=== PATIENT | male | born 1975 | race Caucasian/White ===

== ENCOUNTER 2018-02-21 21:07 | Inpatient (IN) | payer OTHER ==
[~2018-02-21] VITALS: Ht 177.8 cm; Wt 76.0 kg
[2018-02-21] MEDS ORDERED: DIAZEPAM 5MG TAB PO STA ×2 (21:50→23:06)
[2018-02-21] MEDS ORDERED: MULTI-VITAMIN INFUSION INJ 10 ML, THIAMINE HCL INJ 100 MG, FoLIC ACID INJ 1 MG in SODIU... IV ONE (22:00)
--- NOTE | 2018-02-21 22:09 | EMERGENCY ROOM VISIT NOTE ---
History Report prepared by Mara: Aidan Ernandez Under the Supervision of: Dr. Pretty Alvarado M.D. First contact with patient: 21:50 Chief Complaint: DETOX REQUEST Stated Complaint: LEFT SIDE NUMBNESS, HIGH BP, DETOX Nursing Triage Summary: pt reports last drink was 1 can of beer at 1000. pt has been drinking at least 15 beers a day. pt reports that he has been drinking all of his life but it got worse when he lost his job last month. pt reports hearing voices when he drinks heavily and paranoia. pt reports that he cut himself last month due to SI. pt states "I think I have some mental health issues." History of Present Illness The patient is a 42 year old male who presents to the Emergency Room with complaints of request for detoxification since this evening for alcoholism and Suboxone use for years. He notes that he has been drinking alcohol since he was 18 years old. He reports drinking 20 beers that are usually of higher alcohol concentration. He reports taking Suboxone every day. He notes that he was initially prescribed the medication, though he now obtains the drug from the streets. He chews snuff. He has a history of HTN. Source of History: patient Onset: since this evening Position: other (general ) Quality: other (detoxification) Timing: other (episodic ) Review of Systems See HPI for pertinent positives & negatives. A total of 10 systems reviewed and were otherwise negative. Past Medical & Surgical Medical Problems: (1) Alcohol withdrawal (2) HTN (hypertension) Family History Hypertension Social History Smoking Status: Unknown if Ever Smoked Smokeless Tobacco Use: Yes (Snuff) Alcohol Use: heavy (20 beers/day) Drug Use: other (Suboxone) Marital Status: single Housing Status: lives with family Occupation Status: unemployed Current/Historical Medications Scheduled Ibuprofen (Advil), 400 MG PO PRN UD Losartan Potassium (Cozaar), 50 MG PO DAILY Allergies Coded Allergies: No Known Allergies (Unverified , 02/22/18) Physical Exam Vital Signs Date Time Temp Pulse Resp B/P (MAP) Pulse Ox O2 Delivery O2 Flow Rate FiO2 02/21/18 23:31 87 19 180/110 100 Room Air 02/21/18 23:15 86 18 182/106 100 Room Air 02/21/18 21:41 92 22 189/115 02/21/18 21:37 90 02/21/18 21:16 36.6 104 20 199/118 100 Room Air Physical Exam Vital signs reviewed. General: Anxious 42-year-old male. No signs of trauma. Hypertensive. Shaking on exam. HEENT: Mild scleral injection bilaterally, PERRLA, neck supple, dry mucous membranes. Cardiovascular: Tachycardic rate and regular rhythm, no extra sounds. Pulmonary: Clear to auscultation bilaterally, normal work of breathing. Abdomen: Soft, nontender, nondistended, positive bowel sounds. Musculoskeletal: Upper and lower extremities atraumatic, no peripheral edema Skin: Warm, dry, no rash. Atraumatic. Neurologic: Patient is currently verbal, awake, alert, and oriented. Medical Decision & Procedures Laboratory Results 02/21/18 22:10 Red Blood Count 4.09, Mean Corpuscular Volume 90.7, Mean Corpuscular Hemoglobin 31.8, Mean Corpuscular Hemoglobin Concent 35.0, Mean Platelet Volume 9.0, Neutrophils (%) (Auto) 71.7, Lymphocytes (%) (Auto) 21.3, Monocytes (%) (Auto) 6.2, Eosinophils (%) (Auto) 0.2, Basophils (%) (Auto) 0.4, Neutrophils # (Auto) 3.33, Lymphocytes # (Auto) 0.99, Monocytes # (Auto) 0.29, Eosinophils # (Auto) 0.01, Basophils # (Auto) 0.02 02/21/18 22:10 Test 02/21/18 21:33 02/21/18 22:10 02/21/18 22:20 Urine Color YELLOW Urine Appearance CLEAR (CLEAR) Urine pH 6.5 (4.5-7.5) Urine Specific [place] 1.011 (1.000-1.030) Urine Protein NEG (NEG) Urine Glucose (UA) NEG (NEG) Urine Ketones NEG (NEG) Urine Occult Blood NEG (NEG) Urine Nitrite NEG (NEG) Urine Bilirubin NEG (NEG) Urine Urobilinogen NEG (NEG) Urine Leukocyte Esterase NEG (NEG) Urine Opiates Screen NEG (NEG) Urine Methadone, Qualitative NEG (NEG) Urine Barbiturates NEG (NEG) Urine Phencyclidine (PCP) Level NEG (NEG) Ur Amphetamine/Methamphetamine NEG (NEG) MDMA (Ecstasy) Screen NEG (NEG) Urine Benzodiazepines Screen NEG (NEG) Urine Cocaine Metabolite NEG (NEG) Urine Marijuana (THC) NEG (NEG) White Blood Count 4.65 K/uL (4.8-10.8) Red Blood Count 4.09 M/uL (4.7-6.1) Hemoglobin 13.0 g/dL (14.0-18.0) Hematocrit 37.1 % (42-52) Mean Corpuscular Volume 90.7 fL (80-100) Mean Corpuscular Hemoglobin 31.8 pg (25-34) Mean Corpuscular Hemoglobin Concent 35.0 g/dl (32-36) Platelet Count 186 K/uL (130-400) Mean Platelet Volume 9.0 fL (7.4-10.4) Neutrophils (%) (Auto) 71.7 % Lymphocytes (%) (Auto) 21.3 % Monocytes (%) (Auto) 6.2 % Eosinophils (%) (Auto) 0.2 % Basophils (%) (Auto) 0.4 % Neutrophils # (Auto) 3.33 K/uL (1.4-6.5) Lymphocytes # (Auto) 0.99 K/uL (1.2-3.4) Monocytes # (Auto) 0.29 K/uL (0.11-0.59) Eosinophils # (Auto) 0.01 K/uL (0-0.5) Basophils # (Auto) 0.02 K/uL (0-0.2) RDW Standard Deviation 43.5 fL (36.4-46.3) RDW Coefficient of Variation 13.0 % (11.5-14.5) Immature Granulocyte % (Auto) 0.2 % Immature Granulocyte # (Auto) 0.01 K/uL (0.00-0.02) Prothrombin Time 10.3 SECONDS (9.0-12.0) Prothromb Time International Ratio 1.0 (0.9-1.1) Activated Partial Thromboplast Time 22.9 SECONDS (21.0-31.0) Partial Thromboplastin Ratio 0.9 Anion Gap 7.0 mmol/L (3-11) Est Creatinine Clear Calc Drug Dose 114.6 ml/min Estimated GFR () 123.1 Estimated GFR (Non- 106.2 BUN/Creatinine Ratio 7.7 (10-20) Calcium Level 8.9 mg/dl (8.5-10.1) Total Bilirubin 0.7 mg/dl (0.2-1) Direct Bilirubin 0.2 mg/dl (0-0.2) Aspartate Amino Transf (AST/SGOT) 58 U/L (15-37) Alanine Aminotransferase (ALT/SGPT) 50 U/L (12-78) Alkaline Phosphatase 57 U/L (45-117) Total Creatine Kinase 139 U/L (39-308) Total Protein 8.5 gm/dl (6.4-8.2) Albumin 4.5 gm/dl (3.4-5.0) Lipase 123 U/L (73-393) Thyroid Stimulating Hormone (TSH) 1.520 uIu/ml (0.300-4.500) Salicylates Level < 1.7 mg/dl (2.8-20) Acetaminophen Level < 2 ug/ml (10-30) Ethyl Alcohol mg/dL < 3.0 mg/dl (0-3) Laboratory results per my review. Medications Administered Medications (Trade) Dose Ordered Sig/Apple Route Start Time Stop Time Status Last Admin Dose Admin Diazepam (Valium Tab) 15 mg NOW STAT PO 02/21/18 21:50 02/21/18 21:52 DC 02/21/18 22:28 15 MG Multivitamins 10 ml/Thiamine HCl 100 mg/Folic Acid 1 mg/Sodium Chloride 1,011.2 ml @ 300 mls/ hr Q3H23M ONCE IV 02/21/18 22:00 02/22/18 01:22 DC 02/21/18 22:31 300 MLS/HR Diazepam (Valium Tab) 10 mg NOW STAT PO 02/21/18 23:06 02/21/18 23:07 DC 02/21/18 23:27 10 MG ECG Per My Interpretation Indication: toxicologic Rate (beats per minute): 84 Rhythm: normal sinus Findings: no acute ischemic change, no ectopy ED Course 2158: Past medical records reviewed. The patient was evaluated in room A121B. A complete history and physical examination was performed. 2149: Ordered Valium 15 mg PO 0: Ordered Multivitamins 10 ml/Thiamine HCl 100 mg/Folic Acid 1 mg/Sodium Chloride 1,011.2 ml @ 300 mls/hr IV 6: Ordered Valium 10 mg PO 2345: Dr. Victor, [facility] hospitalist is aware of the patient's case. The patient will be evaluated by the [facility] for further management. Medical Decision Differential diagnosis: Etiologies such as toxicologic, infection, hypoglycemia, electrolyte abnormalities, cardiac sources, intracerebral event, neurologic, as well as others were entertained. This patient was evaluated and appeared to be in no significant distress. Patient is noted to be tachycardic and hypertensive. He does appear to be withdrawing from alcohol and likely Suboxone. Patient was given 15 mg of oral Valium. A banana bag at 300 mL's per hour. Laboratory work was obtained and is found to be stable. Patient was given an additional 10 mg of oral Valium for continued withdrawal symptoms. He was informed of the findings and the plan for the hospitalist evaluation. He and his dad expressed an understanding and agree. Medication Reconcilliation Current Medication List: was personally reviewed by me Blood Pressure Screening Patient's blood pressure: Elevated blood pressure monitored by hospitalist Consults Time Called: [phone] Consulting Physician: Dr. Victor [facility] hospitalist Returned Call: [phone] Dr. Victor [facility] hospitalist is aware of the patient's case. The patient will be evaluated by the [facility] for further management. Impression Primary Impression: Alcohol withdrawal Scribe Attestation The scribe's documentation has been prepared under my direction and personally reviewed by me in its entirety. I confirm that the note above accurately reflects all work, treatment, procedures, and medical decision making performed by me. Departure Information Dispostion Being Evaluated By Hospitalist Patient Instructions My [facility]
[2018-02-21 22:24] LABS: BASO % 0.4 %; BASO ABS # 0.02 K/uL (0-0.2); EOS % 0.2 %; EOS ABS # 0.01 K/uL (0-0.5); HEMATOCRIT 37.1 % (42-52); IG# 0.01 K/uL (0.00-0.02); LYMPH % 21.3 %; LYMPH ABS # 0.99 K/uL (1.2-3.4); MEAN CELL VOLUME 90.7 fL (80-100); MEAN CORPUSCULAR HEMOGLOBIN 31.8 pg (25-34); MONO % 6.2 %; MONO ABS # 0.29 K/uL (0.11-0.59); NEUT % 71.7 %; NEUT ABS # 3.33 K/uL (1.4-6.5); PLATELET COUNT 186 K/uL (130-400); RED CELL DISTRIBUTION WIDTH SD 43.5 fL (36.4-46.3); WHITE BLOOD COUNT 4.65 K/uL (4.8-10.8)
[2018-02-21 22:33] LABS: PTT PATIENT 22.9 SECONDS (21.0-31.0)
[2018-02-21] MEDS ORDERED: LOSA50TA6 PO (22:41)
[2018-02-21] MEDS ORDERED: IBUP-1050 PO (22:41)
[2018-02-21 22:45] LABS: ALBUMIN 4.5 gm/dl (3.4-5.0); CALCIUM 8.9 mg/dl (8.5-10.1); CREATININE 0.89 mg/dl (0.60-1.40); POTASSIUM 3.5 mmol/L (3.5-5.1)
[2018-02-21 22:56] LABS: TOTAL PROTEIN 8.5 gm/dl (6.4-8.2)
--- NOTE | 2018-02-21 23:39 | History and Physical ---
History & Physical Date & Time of Service: February 21, 2018 at 23:38 Chief Complaint: Left Side Numbness, High Bp, Detox Primary Care Physician: Syed Ge M.D. History of Present Illness Source: patient, hospital records The patient is a 42-year-old male, with a past medical history including alcoholism, chronic Suboxone use and hypertension, who presents to the emergency department with concerns regarding alcohol withdrawal. He reports that he has been drinking alcohol since age 18, and averages 20 beers of higher alcohol concentration daily. He reports that he initially was on Suboxone prescription, but now he buys the drug on the streets. Past Medical/Surgical History Medical Problems: (1) Alcohol withdrawal Family History noncontributory Social History Smoking Status: Never Smoker Smokeless Tobacco Use: Yes Alcohol Use: heavy Drug Use: other (Suboxone) Marital Status: single Housing status: lives with family Occupational Status: unemployed Immunizations History of Influenza Vaccine: Unknown History of Tetanus Vaccine?: Unknown History of Pneumococcal: Unknown History of Hepatitis B Vaccine: Unknown Allergies Coded Allergies: No Known Allergies (Unverified , 02/22/18) Home Medications Scheduled Ibuprofen (Advil), 400 MG PO PRN UD Losartan Potassium (Cozaar), 50 MG PO DAILY Review of Systems The patient denies chest pain, palpitations, shortness of breath, dyspnea on exertion, cough, lower extremity swelling, sore throat, fevers, weight change, fatigue, nausea, vomiting, diarrhea , constipation, pelvic pain, blood in urine or stool, dysuria, urinary frequency or urgency, lightheadedness , dizziness, headache, memory loss, loss of consciousness, rash, abnormal bruising or bleeding, imbalance, focal or generalized weakness, numbness or tingling in arms or legs, back or neck pain. The review of systems is otherwise negative other than for that already noted above, and at least 10 systems have been reviewed. Physical Exam Vital Signs Date Time Temp Pulse Resp B/P (MAP) Pulse Ox O2 Delivery O2 Flow Rate FiO2 02/21/18 23:15 86 18 182/106 100 Room Air 02/21/18 21:41 92 22 189/115 02/21/18 21:37 90 02/21/18 21:16 36.6 104 20 199/118 100 Room Air The patient is awake, alert and oriented 3, well developed and well nourished, normocephalic and atraumatic, lying in bed and in no acute distress. HEENT--PERRL, EOMI, mucous membranes and oropharynx dry. Neck--supple. No JVD. No bruits. Thyroid normal, trachea midline, no adenopathy. Heart--normal S1 and S2. No murmurs, rubs or gallops. Lungs--clear bilaterally, no respiratory distress, no accessory muscle use. Abdomen--normal bowel sounds and soft. Nontender. Nondistended, no hernias or masses, no organomegaly. Extremities--no cyanosis or clubbing. No edema. There are good distal pulses b/ l. Dermatologic--normal skin turgor, normal color, no abnormal lymph nodes, no rash. Neurologic--cranial nerves II through XII grossly intact. Rheumatologic--normal range of motion. Psychiatric--normal affect. Diagnostics Laboratory Results Results Past 24 Hours Test 02/21/18 21:33 02/21/18 22:10 02/21/18 22:20 Range/Units Urine Color YELLOW Urine Appearance CLEAR CLEAR Urine pH 6.5 4.5-7.5 Urine Specific [place] 1.011 1.000-1.030 Urine Protein NEG NEG Urine Glucose (UA) NEG NEG Urine Ketones NEG NEG Urine Occult Blood NEG NEG Urine Nitrite NEG NEG Urine Bilirubin NEG NEG Urine Urobilinogen NEG NEG Urine Leukocyte Esterase NEG NEG Urine Opiates Screen NEG NEG Urine Methadone, Qualitative NEG NEG Urine Barbiturates NEG NEG Urine Phencyclidine (PCP) Level NEG NEG Ur Amphetamine/Methamphetamine NEG NEG MDMA (Ecstasy) Screen NEG NEG Urine Benzodiazepines Screen NEG NEG Urine Cocaine Metabolite NEG NEG Urine Marijuana (THC) NEG NEG White Blood Count 4.65 4.8-10.8 K/uL Red Blood Count 4.09 4.7-6.1 M/uL Hemoglobin 13.0 14.0-18.0 g/dL Hematocrit 37.1 42-52 % Mean Corpuscular Volume 90.7 80-100 fL Mean Corpuscular Hemoglobin 31.8 25-34 pg Mean Corpuscular Hemoglobin Concent 35.0 32-36 g/dl Platelet Count 186 130-400 K/uL Mean Platelet Volume 9.0 7.4-10.4 fL Neutrophils (%) (Auto) 71.7 % Lymphocytes (%) (Auto) 21.3 % Monocytes (%) (Auto) 6.2 % Eosinophils (%) (Auto) 0.2 % Basophils (%) (Auto) 0.4 % Neutrophils # (Auto) 3.33 1.4-6.5 K/uL Lymphocytes # (Auto) 0.99 1.2-3.4 K/uL Monocytes # (Auto) 0.29 0.11-0.59 K/uL Eosinophils # (Auto) 0.01 0-0.5 K/uL Basophils # (Auto) 0.02 0-0.2 K/uL RDW Standard Deviation 43.5 36.4-46.3 fL RDW Coefficient of Variation 13.0 11.5-14.5 % Immature Granulocyte % (Auto) 0.2 % Immature Granulocyte # (Auto) 0.01 0.00-0.02 K/uL Prothrombin Time 10.3 9.0-12.0 SECONDS Prothromb Time International Ratio 1.0 0.9-1.1 Activated Partial Thromboplast Time 22.9 21.0-31.0 SECONDS Partial Thromboplastin Ratio 0.9 Sodium Level 134 136-145 mmol/L Potassium Level 3.5 3.5-5.1 mmol/L Chloride Level 99 98-107 mmol/L Carbon Dioxide Level 28 21-32 mmol/L Anion Gap 7.0 3-11 mmol/L Blood Urea Nitrogen 7 7-18 mg/dl Creatinine 0.89 0.60-1.40 mg/dl Est Creatinine Clear Calc Drug Dose 114.6 ml/min Estimated GFR () 123.1 Estimated GFR (Non- 106.2 BUN/Creatinine Ratio 7.7 10-20 Random Glucose 100 70-99 mg/dl Calcium Level 8.9 8.5-10.1 mg/dl Total Bilirubin 0.7 0.2-1 mg/dl Direct Bilirubin 0.2 0-0.2 mg/dl Aspartate Amino Transf (AST/SGOT) 58 15-37 U/L Alanine Aminotransferase (ALT/SGPT) 50 12-78 U/L Alkaline Phosphatase 57 45-117 U/L Total Creatine Kinase 139 39-308 U/L Total Protein 8.5 6.4-8.2 gm/dl Albumin 4.5 3.4-5.0 gm/dl Lipase 123 73-393 U/L Thyroid Stimulating Hormone (TSH) 1.520 0.300-4.500 uIu/ml Salicylates Level < 1.7 2.8-20 mg/dl Acetaminophen Level < 2 10-30 ug/ml Ethyl Alcohol mg/dL < 3.0 0-3 mg/dl Impression Assessment and Plan Alcohol withdrawal/history of Suboxone misuse/elevated blood pressure and heart rate with tremors-- Admit to telemetry unit. AWSS protocol with gabapentin/IV ativan. He reports his last alcohol use was early this morning, and is unclear about last Suboxone use. He has received from the ED Valium 15 mg, then 10 mg. When I placed on any other routine benzodiazepines until effect of the above Valium is determined. He was given 1 banana bag in the ED. Placed on NSS + KCl 20 mEq at 150 mils per hour. Thiamine 100 mg p.o. daily. Folic acid 1 mg p.o. daily. Nephrocaps [address] on clonidine 0.1 mg p.o. 4 times daily with hold parameters. Advanced Directives Existing Advance Directive: No Existing Living Will: No Existing Power of Lathe [place]: No Resuscitation Status VTE Prophylaxis Will order VTE Prophylaxis: Yes
[2018-02-22] VITALS (11 sets, daily range): BP systolic 126–177; BP diastolic 88–109; PULSE 61–84; TEMP 36.4–37.3; O2SAT 97–100; Ht 177.8 cm; Wt 76.0 kg
[2018-02-22] MEDS ORDERED: ACETAMINOPHEN 325 MG TAB PO PRN (01:00)
[2018-02-22] MEDS ORDERED: ONDANSETRON 8MG OD TAB PO PRN (01:00)
[2018-02-22] MEDS ORDERED: GABAPENTIN 600 MG TAB PO STA (01:12)
[2018-02-22] MEDS ORDERED: CLONIDINE HCL 0.1 MG TAB PO ONE (01:15)
[2018-02-22] MEDS ORDERED: PATIENT'S ALLERGY INFO NEEDS ENTERED SCH (01:30)
[2018-02-22] MEDS: LORAZEPAM 2 MG/ML 1 ML VIAL IV PRN ×4 (01:30→16:03)
[2018-02-22] MEDS: NSS + 20MEQ KCL 1000ML 1,000 ML IV SCH ×4 (01:31→22:33)
[2018-02-22] MEDS: THIAMINE HCL 100 MG TAB PO SCH (08:09)
[2018-02-22] MEDS: ENOXAPARIN 40 MG/0.4 ML SYR SC SCH (08:10)
[2018-02-22] MEDS: NEPHROCAPS PO SCH (08:10)
[2018-02-22] MEDS: GABAPENTIN 100MG Q6H DOSE PO SCH ×2 (08:10→14:27)
[2018-02-22] MEDS ORDERED: CLONIDINE HCL 0.1 MG TAB PO SCH (09:00)
[2018-02-22] MEDS ORDERED: CYANOCOBALAMIN 500 MCG TAB (VIT B-12) PO ONE (09:43)
--- NOTE | 2018-02-22 09:59 | Hospitalist Progress Note ---
Hospitalist Progress Note Date of Service February 22, 2018. (Lucy Pizano ., CECILIA) Subjective Pt evaluation today including: conversation w/ patient, physical exam, chart review, lab review, review of studies, review of inpatient medication list Voiding: no voiding problems Mr. Oswald is alert and oriented and conversing appropriately. He does have some tremors in his hands, given Ativan by nursing just before I saw him. He reports his last drink was 1000 yesterday. He has also been taking 1-2 strips of Suboxone a day. 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 He denies any IVDU and he has not taken any opiates since starting the Suboxone. He has contacted an outpatient rehab in [place] and plans to attend after discharge. He would like to move in with his parents but they require sobriety before he does so. He also reports feeling depressed and anxious and hearing voices. They do not tell him to hurt himself or others. He has tried Celexa in the past but couldn' t tolerate it. He was on Lexapro for a while but stopped due to loss of libido. He also mentions he has had some persistent numbness in his left whyte over the past month as well as his lips that he feels mostly when drinking. ROS Constitutional: no chills, aches, sweats or fever Respiratory: no sob,cough, sputum, or wheezing Cardiac: no chest pain, palpitations, edema, orthopnea or lightheadedness GI: no abdominal pain, nausea, vomiting, diarrhea or constipation : no dysuria or hesitancy Extremities: no joint pain or weakness Skin: no rash All other systems reviewed and negative (Lucy Pizano .CECILIA) Medications Medications Administered Medications (Trade) Dose Ordered Sig/Apple Route Start Time Stop Time Status Last Admin Dose Admin Diazepam (Valium Tab) 15 mg NOW STAT PO 02/21/18 21:50 02/21/18 21:52 DC 02/21/18 22:28 15 MG Multivitamins 10 ml/Thiamine HCl 100 mg/Folic Acid 1 mg/Sodium Chloride 1,011.2 ml @ 300 mls/ hr Q3H23M ONCE IV 02/21/18 22:00 02/22/18 01:22 DC 5/3/18 22:31 300 MLS/HR Diazepam (Valium Tab) 10 mg NOW STAT PO 02/21/18 23:06 02/21/18 23:07 DC 02/21/18 23:27 10 MG Enoxaparin Sodium (Lovenox Inj) 40 mg Q24H SC 02/22/18 09:00 03/24/18 08:59 02/22/18 08:10 40 MG Potassium Chloride/Sodium Chloride 1,000 ml @ 150 mls/hr Q6H40M IV 02/22/18 03:00 03/24/18 02:59 02/22/18 08:51 150 MLS/HR Clonidine HCl (Catapres Tab) 0.1 mg NOW ONCE PO 02/22/18 01:15 02/22/18 01:16 DC 02/22/18 01:30 0.1 MG Clonidine HCl (Catapres Tab) hold for HR < 60 or SBP < 110 QID PO 02/22/18 09:00 03/24/18 08:59 02/22/18 08:10 0.1 MG Thiamine HCl (Vitamin B-1 Tab) 100 mg Q24H PO 02/22/18 09:00 03/24/18 08:59 02/22/18 08:09 100 MG Gabapentin (Neurontin Tab) 600 mg NOW STAT PO 02/22/18 01:12 02/22/18 01:15 DC 02/22/18 01:31 600 MG Lorazepam (Ativan Inj) PRN Dosing -Active Protocol Q1H PRN IV 02/22/18 01:15 03/24/18 01:14 02/22/18 08:09 1 MG Folic Acid (Folvite Tab) 1 mg QAM PO 02/22/18 09:00 03/24/18 08:59 02/22/18 08:09 1 MG Vitamin B Complex/ Vit C/Folic Acid (Nephrocaps) 1 cap QAM PO 02/22/18 09:00 03/24/18 08:59 02/22/18 08:10 1 CAP Gabapentin (Neurontin Cap) 100 mg Q6H PO 02/22/18 08:00 02/22/18 14:01 02/22/18 08:10 100 MG Miscellaneous Information (Patient'S Allergy Info Needs Entered) 1 ea Q30M N/A 02/22/18 01:30 02/22/18 09:17 DC 02/22/18 01:30 1 EA (Lucy Pizano CRNP) Objective Vital Signs Date Time Temp Pulse Resp B/P (MAP) Pulse Ox O2 Delivery O2 Flow Rate FiO2 02/22/18 06:57 36.4 67 20 144/88 (106) 100 Room Air 02/22/18 04:00 Room Air 02/22/18 03:12 36.6 67 16 155/96 (115) 100 Room Air 02/22/18 01:16 37.0 84 15 177/109 97 Room Air 02/22/18 00:45 98 21 171/106 98 02/22/18 00:36 98 21 98 Room Air 02/22/18 00:31 171/106 02/22/18 00:06 92 22 100 Room Air 02/22/18 00:01 89 24 172/106 100 Room Air 02/21/18 23:31 87 19 180/110 100 Room Air 02/21/18 23:15 86 18 182/106 100 Room Air 02/21/18 21:41 92 22 189/115 02/21/18 21:37 90 02/21/18 21:16 36.6 104 20 199/118 100 Room Air (Lucy Pizano CRNP) Physical Exam Notes: General: no distress Eyes: normal inspection, PERLL Respiratory: chest non tender, clear to auscultation, normal breath sounds, no respiratory distress, no accessory muscle use Cardiac: regular rate and rhythm, no rub or gallop, no murmur, no edema, no jvd GI/: active bowel sounds, no abd pain or tenderness, soft, non distended Extremities: normal range of motion, normal strength, non tender Neuro/Psych: alert and oriented x 3, normal mood and affect, bilateral visible tremors Skin: normal color, dry (Lucy Pizano CRNP) Laboratory Results Last 24 Hours Test 02/21/18 21:33 02/21/18 22:10 02/21/18 22:20 Urine Color YELLOW Urine Appearance CLEAR Urine pH 6.5 Urine Specific [place] 1.011 Urine Protein NEG Urine Glucose (UA) NEG Urine Ketones NEG Urine Occult Blood NEG Urine Nitrite NEG Urine Bilirubin NEG Urine Urobilinogen NEG Urine Leukocyte Esterase NEG Urine Opiates Screen NEG Urine Methadone, Qualitative NEG Urine Barbiturates NEG Urine Phencyclidine (PCP) Level NEG Ur Amphetamine/Methamphetamine NEG MDMA (Ecstasy) Screen NEG Urine Benzodiazepines Screen NEG Urine Cocaine Metabolite NEG Urine Marijuana (THC) NEG White Blood Count 4.65 K/uL Red Blood Count 4.09 M/uL Hemoglobin 13.0 g/dL Hematocrit 37.1 % Mean Corpuscular Volume 90.7 fL Mean Corpuscular Hemoglobin 31.8 pg Mean Corpuscular Hemoglobin Concent 35.0 g/dl Platelet Count 186 K/uL Mean Platelet Volume 9.0 fL Neutrophils (%) (Auto) 71.7 % Lymphocytes (%) (Auto) 21.3 % Monocytes (%) (Auto) 6.2 % Eosinophils (%) (Auto) 0.2 % Basophils (%) (Auto) 0.4 % Neutrophils # (Auto) 3.33 K/uL Lymphocytes # (Auto) 0.99 K/uL Monocytes # (Auto) 0.29 K/uL Eosinophils # (Auto) 0.01 K/uL Basophils # (Auto) 0.02 K/uL RDW Standard Deviation 43.5 fL RDW Coefficient of Variation 13.0 % Immature Granulocyte % (Auto) 0.2 % Immature Granulocyte # (Auto) 0.01 K/uL Prothrombin Time 10.3 SECONDS Prothromb Time International Ratio 1.0 Activated Partial Thromboplast Time 22.9 SECONDS Partial Thromboplastin Ratio 0.9 Sodium Level 134 mmol/L Potassium Level 3.5 mmol/L Chloride Level 99 mmol/L Carbon Dioxide Level 28 mmol/L Anion Gap 7.0 mmol/L Blood Urea Nitrogen 7 mg/dl Creatinine 0.89 mg/dl Est Creatinine Clear Calc Drug Dose 114.6 ml/min Estimated GFR () 123.1 Estimated GFR (Non- 106.2 BUN/Creatinine Ratio 7.7 Random Glucose 100 mg/dl Calcium Level 8.9 mg/dl Total Bilirubin 0.7 mg/dl Direct Bilirubin 0.2 mg/dl Aspartate Amino Transf (AST/SGOT) 58 U/L Alanine Aminotransferase (ALT/SGPT) 50 U/L Alkaline Phosphatase 57 U/L Total Creatine Kinase 139 U/L Total Protein 8.5 gm/dl Albumin 4.5 gm/dl Lipase 123 U/L Thyroid Stimulating Hormone (TSH) 1.520 uIu/ml Salicylates Level < 1.7 mg/dl Acetaminophen Level < 2 ug/ml Ethyl Alcohol mg/dL < 3.0 mg/dl (Lucy Pizano CRNP) Assessment and Plan Mr. Oswald is a 42 year old man here for alcohol withdrawal Alcohol withdrawal - continue telemetry monitoring - patient is only 24 hours out from his last drink - Continue NS 20 K @150 - Continue thiamine, folate, will start vitamin B12 given patient's complaints of paresthesias intermittently - Continue clonidine, gabapentin, prn Ativan with AWSS scale - patient plans to go to outpatient rehab in [place] upon discharge Hx HTN - continue clonidine, sbps running 140s today Depression/anxiety/auditory hallucinations/history of cutting - consult Psych per patient's request (Lucy Pizano CRNP) COMFORT STATION ATTENDANT Physician Supervision Note: I discussed with Lucy Pizano COMFORT STATION ATTENDANT and agree with findings and plan as documented in the note. Any exceptions or clarifications are listed here: None Patient is here with alcohol withdrawal he is less than 24 hours from his last drink his vital signs have been controlled he is interested in going to inpatient rehab vital signs currently at 36 [id number]/88 Continue alcohol withdrawal protocol Documented By: Syed Ferris (Syed Ferris M.D.)
[2018-02-22] MEDS ORDERED: ESCITALOPRAM OXALATE 10 MG TAB PO ONE (10:57)
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
[2018-02-22] MEDS: CLONIDINE HCL 0.1 MG TAB PO SCH ×3 (14:27→20:16)
[2018-02-23] VITALS (8 sets, daily range): BP systolic 122–164; BP diastolic 76–110; PULSE 53–75; TEMP 36.5–36.8; O2SAT 98–100
[2018-02-23] MEDS: LORAZEPAM 2 MG/ML 1 ML VIAL IV PRN ×5 (03:28→23:45)
[2018-02-23] MEDS: NSS + 20MEQ KCL 1000ML 1,000 ML IV SCH ×3 (05:05→18:24)
[2018-02-23 07:19] LABS: BASO % 0.3 %; BASO ABS # 0.01 K/uL (0-0.2); EOS % 1.4 %; EOS ABS # 0.05 K/uL (0-0.5); HEMATOCRIT 35.7 % (42-52); HEMOGLOBIN 12.1 g/dL (14.0-18.0); LYMPH % 40.2 %; LYMPH ABS # 1.44 K/uL (1.2-3.4); MEAN CORPUSCULAR HEMOGLOBIN 31.5 pg (25-34); MEAN CORPUSCULAR HGB CONC 33.9 g/dl (32-36); MEAN PLATELET VOLUME 9.4 fL (7.4-10.4); MONO % 7.8 %; MONO ABS # 0.28 K/uL (0.11-0.59); NEUT % 50.3 %; PLATELET COUNT 178 K/uL (130-400); RED CELL DISTRIBUTION WIDTH CV 13.2 % (11.5-14.5); RED CELL DISTRIBUTION WIDTH SD 44.8 fL (36.4-46.3); WHITE BLOOD COUNT 3.58 K/uL (4.8-10.8)
[2018-02-23 07:52] LABS: ALBUMIN 3.6 gm/dl (3.4-5.0); CALCIUM 8.6 mg/dl (8.5-10.1); CREATININE 0.75 mg/dl (0.60-1.40); POTASSIUM 3.7 mmol/L (3.5-5.1)
[2018-02-23] MEDS: CLONIDINE HCL 0.1 MG TAB PO SCH ×4 (07:53→19:35)
[2018-02-23] MEDS: ESCITALOPRAM OXALATE 10 MG TAB PO SCH (07:53)
[2018-02-23] MEDS: THIAMINE HCL 100 MG TAB PO SCH (07:54)
[2018-02-23] MEDS: CYANOCOBALAMIN 500 MCG TAB (VIT B-12) PO SCH (07:54)
[2018-02-23] MEDS: NEPHROCAPS PO SCH (07:54)
[2018-02-23 07:55] LABS: TOTAL PROTEIN 7.4 gm/dl (6.4-8.2)
[2018-02-23] MEDS: ENOXAPARIN 40 MG/0.4 ML SYR SC SCH (07:57)
[2018-02-23] MEDS ORDERED: CHLORDIAZEPOXIDE 25 MG CAP PO ONE (09:30)
--- NOTE | 2018-02-23 09:45 | Hospitalist Progress Note ---
Hospitalist Progress Note Date of Service February 23, 2018. (Lucy Pizano .CECILIA) Subjective Pt evaluation today including: conversation w/ patient, physical exam, chart review, lab review, review of inpatient medication list Voiding: no voiding problems Mr. Oswald continues to have tremors but otherwise is tolerating his withdrawal well and experiencing no other symptoms. Nursing did call and let me know that patient had been taking his own Suboxone and that he had given her the rest. I did talk to the patient and explained that I cannot prescribe Suboxone for him especially as he does not have an existing script and asked how he felt about allowing himself to detox from the Suboxone as well. I did explain that we would offer him supportive care through that time and try and mitigate the discomfort as much as possible but that it would likely be an uncomfortable process. He agreed that he would like to come off of Suboxone as well as alcohol. ROS Constitutional: no chills, aches, sweats or fever Respiratory: no sob,cough, sputum, or wheezing Cardiac: no chest pain, palpitations, edema, orthopnea or lightheadedness GI: no abdominal pain, nausea, vomiting, diarrhea or constipation : no dysuria or hesitancy Extremities: no joint pain or weakness Skin: no rash All other systems reviewed and negative (Lucy Pizano .CECILIA) Medications Medications Administered Medications (Trade) Dose Ordered Sig/Apple Route Start Time Stop Time Status Last Admin Dose Admin Diazepam (Valium Tab) 15 mg NOW STAT PO 02/21/18 21:50 02/21/18 21:52 DC 02/21/18 22:28 15 MG Multivitamins 10 ml/Thiamine HCl 100 mg/Folic Acid 1 mg/Sodium Chloride 1,011.2 ml @ 300 mls/ hr Q3H23M ONCE IV 02/21/18 22:00 02/22/18 01:22 DC 02/21/18 22:31 300 MLS/HR Diazepam (Valium Tab) 10 mg NOW STAT PO 02/21/18 23:06 02/21/18 23:07 DC 02/21/18 23:27 10 MG Enoxaparin Sodium (Lovenox Inj) 40 mg Q24H SC 02/22/18 09:00 03/24/18 08:59 02/23/18 07:57 40 MG Potassium Chloride/Sodium Chloride 1,000 ml @ 150 mls/hr Q6H40M IV 02/22/18 03:00 03/24/18 02:59 02/23/18 05:05 150 MLS/HR Clonidine HCl (Catapres Tab) 0.1 mg NOW ONCE PO 02/22/18 01:15 02/22/18 01:16 DC 02/22/18 01:30 0.1 MG Clonidine HCl (Catapres Tab) hold for HR < 60 or SBP < 110 QID PO 02/22/18 09:00 02/22/18 13:57 DC 02/22/18 08:10 0.1 MG Thiamine HCl (Vitamin B-1 Tab) 100 mg Q24H PO 02/22/18 09:00 03/24/18 08:59 02/23/18 07:54 100 MG Gabapentin (Neurontin Tab) 600 mg NOW STAT PO 02/22/18 01:12 02/22/18 01:15 DC 02/22/18 01:31 600 MG Lorazepam (Ativan Inj) PRN Dosing -Active Protocol Q1H PRN IV 02/22/18 01:15 03/24/18 01:14 02/23/18 08:10 1 MG Folic Acid (Folvite Tab) 1 mg QAM PO 02/22/18 09:00 03/24/18 08:59 02/23/18 07:54 1 MG Vitamin B Complex/ Vit C/Folic Acid (Nephrocaps) 1 cap QAM PO 02/22/18 09:00 03/24/18 08:59 02/23/18 07:54 1 CAP Gabapentin (Neurontin Cap) 100 mg Q6H PO 02/22/18 08:00 02/22/18 14:01 DC 02/22/18 14:27 100 MG Miscellaneous Information (Patient'S Allergy Info Needs Entered) 1 ea Q30M N/A 02/22/18 01:30 02/22/18 09:17 DC 02/22/18 01:30 1 EA Cyanocobalamin (Vitamin B-12 Tab) 500 mcg QAM PO 02/23/18 09:00 03/25/18 08:59 02/23/18 07:54 500 MCG Cyanocobalamin (Vitamin B-12 Tab) 500 mcg 0943 ONCE PO 02/22/18 09:43 02/22/18 10:02 DC 02/22/18 10:31 500 MCG Escitalopram Oxalate (Lexapro Tab) 10 mg QAM PO 02/23/18 09:00 03/25/18 08:59 02/23/18 07:53 10 MG Escitalopram Oxalate (Lexapro Tab) 5 mg 1057 ONCE PO 02/22/18 10:57 02/22/18 11:14 DC 02/22/18 12:13 5 MG Clonidine HCl (Catapres Tab) 0.1 mg QID PO 02/22/18 13:00 03/24/18 12:59 02/23/18 07:53 0.1 MG (Lucy Pizano, CECILIA) Objective Vital Signs Date Time Temp Pulse Resp B/P (MAP) Pulse Ox O2 Delivery O2 Flow Rate FiO2 02/23/18 07:11 36.7 63 18 161/98 (119) 100 Room Air 02/23/18 04:12 99 Room Air 02/23/18 03:56 36.7 58 18 164/110 (128) 99 Room Air 02/23/18 00:11 99 Room Air 02/22/18 23:27 36.8 61 18 161/89 (113) 99 Room Air 02/22/18 20:00 99 Room Air 02/22/18 18:53 37.3 81 19 151/93 (112) 99 Room Air 02/22/18 17:19 77 126/95 (105) 98 02/22/18 16:00 Room Air 02/22/18 15:20 36.8 71 20 160/104 (122) 100 Room Air 02/22/18 14:53 36.7 70 20 167/108 (127) 100 02/22/18 13:54 82 152/92 (112) 02/22/18 12:30 Room Air 02/22/18 11:15 36.5 77 18 151/92 (111) 99 Room Air (Lucy Pizano, CECILIA) Physical Exam Notes: General: no distress Eyes: normal inspection, PERLL Respiratory: chest non tender, clear to auscultation, normal breath sounds, no respiratory distress, no accessory muscle use Cardiac: regular rate and rhythm, no rub or gallop, no murmur, no edema, no jvd GI/: active bowel sounds, no abd pain or tenderness, soft, non distended Extremities: normal range of motion, normal strength, non tender Neuro/Psych: alert and oriented x 3, normal mood and affect Skin: normal color, dry (Lucy Pizano CRNP) Laboratory Results Last 24 Hours Test 02/23/18 06:31 White Blood Count 3.58 K/uL Red Blood Count 3.84 M/uL Hemoglobin 12.1 g/dL Hematocrit 35.7 % Mean Corpuscular Volume 93.0 fL Mean Corpuscular Hemoglobin 31.5 pg Mean Corpuscular Hemoglobin Concent 33.9 g/dl Platelet Count 178 K/uL Mean Platelet Volume 9.4 fL Neutrophils (%) (Auto) 50.3 % Lymphocytes (%) (Auto) 40.2 % Monocytes (%) (Auto) 7.8 % Eosinophils (%) (Auto) 1.4 % Basophils (%) (Auto) 0.3 % Neutrophils # (Auto) 1.80 K/uL Lymphocytes # (Auto) 1.44 K/uL Monocytes # (Auto) 0.28 K/uL Eosinophils # (Auto) 0.05 K/uL Basophils # (Auto) 0.01 K/uL RDW Standard Deviation 44.8 fL RDW Coefficient of Variation 13.2 % Immature Granulocyte % (Auto) 0.0 % Immature Granulocyte # (Auto) 0.00 K/uL Sodium Level 136 mmol/L Potassium Level 3.7 mmol/L Chloride Level 103 mmol/L Carbon Dioxide Level 29 mmol/L Anion Gap 4.0 mmol/L Blood Urea Nitrogen 9 mg/dl Creatinine 0.75 mg/dl Est Creatinine Clear Calc Drug Dose 133.8 ml/min Estimated GFR () 132.1 Estimated GFR (Non- 113.9 BUN/Creatinine Ratio 11.4 Random Glucose 89 mg/dl Calcium Level 8.6 mg/dl Magnesium Level 2.1 mg/dl Total Bilirubin 0.9 mg/dl Direct Bilirubin 0.2 mg/dl Aspartate Amino Transf (AST/SGOT) 51 U/L Alanine Aminotransferase (ALT/SGPT) 48 U/L Alkaline Phosphatase 51 U/L Total Protein 7.4 gm/dl Albumin 3.6 gm/dl (Lucy Pizano CRNP) Assessment and Plan Mr. Oswald is a 42 year old man here for alcohol withdrawal Alcohol/ suboxone withdrawal - continue telemetry monitoring - patient is 48 hours out from his last drink - Continue NS 20 K @150 - Continue thiamine, folate, started vitamin B12 given patient's complaints of paresthesias intermittently - Continue clonidine, gabapentin,will add librium and decrease prn Ativan - patient plans to go to outpatient rehab in [place] upon discharge Hx HTN - continue clonidine, sbps running 160s today Depression/anxiety/auditory hallucinations/history of cutting - consulted Psych - initiated trial of Lexapro Full code (Lucy Pizano ., CECILIA) [employer] Physician Supervision Note: I discussed with Lucy Pizano [employer] and agree with findings and plan as documented in the note. Any exceptions or clarifications are listed here: None Patient is here with alcohol and Suboxone withdrawal we are escalating to a standard daily Librium dose continuing as needed benzodiazepines gabapentin and clonidine for hypertension patient is still interested into a inpatient rehab which will self-correct when he completes his acute detoxification Documented By: Syed Ferris (Syed Ferris M.D.)
[2018-02-23] MEDS ORDERED: CHLORDIAZEPOXIDE 25 MG CAP ONE (11:37)
[2018-02-23] MEDS: GABAPENTIN 600MG X1 DOSE PO SCH (13:32)
[2018-02-23] MEDS: CHLORDIAZEPOXIDE 25 MG CAP PO SCH ×2 (16:55→19:35)
[2018-02-24] MEDS: NSS + 20MEQ KCL 1000ML 1,000 ML IV SCH ×3 (01:05→13:15)
[2018-02-24] MEDS: LORAZEPAM 2 MG/ML 1 ML VIAL IV PRN ×2 (03:46→08:22)
[2018-02-24 03:48] VITALS: BP 125/80; PULSE 53; TEMP 36.5; O2SAT 99
[2018-02-24 06:40] LABS: BASO % 0.3 %; BASO ABS # 0.01 K/uL (0-0.2); EOS % 2.5 %; EOS ABS # 0.09 K/uL (0-0.5); HEMATOCRIT 33.9 % (42-52); HEMOGLOBIN 11.3 g/dL (14.0-18.0); IG# 0.01 K/uL (0.00-0.02); LYMPH ABS # 1.76 K/uL (1.2-3.4); MEAN CELL VOLUME 93.6 fL (80-100); MEAN CORPUSCULAR HEMOGLOBIN 31.2 pg (25-34); MEAN CORPUSCULAR HGB CONC 33.3 g/dl (32-36); MONO % 12.5 %; MONO ABS # 0.46 K/uL (0.11-0.59); NEUT % 36.4 %; NEUT ABS # 1.34 K/uL (1.4-6.5); PLATELET COUNT 145 K/uL (130-400); RED CELL DISTRIBUTION WIDTH CV 13.3 % (11.5-14.5); WHITE BLOOD COUNT 3.67 K/uL (4.8-10.8)
[2018-02-24 07:19] LABS: ALBUMIN 3.2 gm/dl (3.4-5.0); ALT/SGPT 44 U/L (12-78); AST/SGOT 41 U/L (15-37); BLOOD UREA NITROGEN 9 mg/dl (7-18); CALCIUM 8.4 mg/dl (8.5-10.1); CARBON DIOXIDE 29 mmol/L (21-32); CREATININE 0.78 mg/dl (0.60-1.40); GLUCOSE 83 mg/dl (70-99); POTASSIUM 3.8 mmol/L (3.5-5.1); SODIUM 138 mmol/L (136-145)
[2018-02-24 07:21] LABS: ALKALINE PHOSPHATASE 43 U/L (45-117)
[2018-02-24 08:03] VITALS: BP 124/76; PULSE 52; TEMP 36.5; O2SAT 100
[2018-02-24] MEDS: CHLORDIAZEPOXIDE 25 MG CAP PO SCH ×2 (08:16→13:14)
[2018-02-24] MEDS: NEPHROCAPS PO SCH (08:17)
[2018-02-24] MEDS: ESCITALOPRAM OXALATE 10 MG TAB PO SCH (08:18)
[2018-02-24] MEDS: THIAMINE HCL 100 MG TAB PO SCH (08:18)
[2018-02-24] MEDS: CYANOCOBALAMIN 500 MCG TAB (VIT B-12) PO SCH (08:19)
[2018-02-24] MEDS: CLONIDINE HCL 0.1 MG TAB PO SCH ×2 (08:19→12:03)
[2018-02-24] MEDS: ENOXAPARIN 40 MG/0.4 ML SYR SC SCH (08:20)
[2018-02-24] MEDS ORDERED: NICOTINE 14 MG/24 HR TDSY TD SCH (09:00)
[2018-02-24 11:44] VITALS: BP 117/71; PULSE 57; TEMP 36.5; O2SAT 100
[2018-02-24] MEDS ORDERED: LBR25 PO (12:39)
[2018-02-24] MEDS: GABAPENTIN 600MG X1 DOSE PO SCH (13:12)
[2018-02-24] MEDS ORDERED: GABAPENTIN 400MG X1 DOSE PO SCH (14:00)
[2018-02-24] MEDS ORDERED: CTP1 PO (14:04)
[2018-02-24] MEDS ORDERED: FLV1 PO (14:04)
[2018-02-24] MEDS ORDERED: LXP10 PO (14:04)
[2018-02-24] MEDS ORDERED: VTMB12 PO (14:04)
[2018-02-24] MEDS ORDERED: THM100 PO (14:04)
--- NOTE | 2018-02-24 14:11 | Discharge Instructions ---
Discharge Instructions Date of Service February 24, 2018. Admission Reason for Admission: Alcohol Withdrawal Discharge Discharge Diagnosis / Problem: Alcohol withdrawal Discharge Goals Goal(s): Decrease discomfort, Improve function Activity Recommendations Activity Limitations: resume your previous activity . Instructions / Follow-Up Instructions / Follow-Up Please follow up with your primary care provider within about a week You can restart your losartan in a week after you have finished taking your clonidine prescription Please follow up with the Suboxone clinic referral given to you by psych. Please keep your appointment on Sunday with [facility] Current Hospital Diet Patient's current hospital diet: Regular Diet Discharge Diet Recommended Diet: Regular Diet Pending Studies Studies pending at discharge: no Medical Emergencies . Who to Call and When: Medical Emergencies: If at any time you feel your situation is an emergency, please call 911 immediately. . Non-Emergent Contact Non-Emergency issues call your: Primary Care Provider Call Non-Emergent contact if: you have any medication questions . . "Provider Documentation" section prepared by Lucy Pizano. .
--- NOTE | 2018-02-24 14:26 | Discharge Summary ---
Discharge Summary Date of Service February 24, 2018. Discharge Summary Admission Date: February 21, 2018 at 23:39 Discharge Date: February 24, 2018 Discharge Disposition: Home Principal Diagnosis: alcohol withdrawal Problems/Secondary Diagnoses: hypertension Immunizations: Have You Had Influenza Vaccine: Unknown History of Tetanus Vaccine?: Unknown History of Pneumococcal: Unknown History of Hepatitis B Vaccine: Unknown Medication Reconciliation New Medications: Chlordiazepoxide (Chlordiazepoxide HCl) 25 Mg Cap 25 MG PO UD, #12 CAP one three times a day for 2 days then one two times a day for 2 days then one at night for 2 days Clonidine HCl (Clonidine HCl) 0.1 Mg Tab 0.1 MG PO BID for 7 Days, #14 TAB Cyanocobalamin (Vitamin B-12) 500 Mcg Tab 500 MCG PO QAM for 30 Days, #30 TAB Escitalopram Oxalate (Escitalopram Oxalate) 10 Mg Tab 10 MG PO QAM for 30 Days, #30 TAB Folic Acid (Folic Acid) 1 Mg Tab 1 MG PO QAM for 30 Days, #30 TAB Thiamine HCl (Vitamin B-1) 100 Mg Tab 100 MG PO Q24H for 30 Days, #30 TAB Continued Medications: Ibuprofen (Advil) 200 Mg Tab 400 MG PO PRN UD, TAB Discontinued Medications: Losartan Potassium (Cozaar) 50 Mg Tab 50 MG PO DAILY, TAB Discharge Exam ROS Constitutional: no chills, aches, sweats or fever Respiratory: no sob,cough, sputum, or wheezing Cardiac: no chest pain, palpitations, edema, orthopnea or lightheadedness GI: no abdominal pain, nausea, vomiting, diarrhea or constipation : no dysuria or hesitancy Extremities: no joint pain or weakness, fine tremors Skin: no rash All other systems reviewed and negative General: no distress Eyes: normal inspection, PERLL Respiratory: chest non tender, clear to auscultation, normal breath sounds, no respiratory distress, no accessory muscle use Cardiac: regular rate and rhythm, no rub or gallop, no murmur, no edema, no jvd GI/: active bowel sounds, no abd pain or tenderness, soft, non distended Extremities: normal range of motion, normal strength, non tender, fine hand tremors Neuro/Psych: alert and oriented x 3, normal mood and affect Skin: normal color, dry Hospital Course Mr. Oswald is a 42 year old man here for alcohol withdrawal Alcohol/ suboxone withdrawal - monitored on telemetry - Given 1 banana bag and then NS 20 K @150 - Continue thiamine, folate, started vitamin B12 given patient's complaints of paresthesias intermittently - Given clonidine qid, gabapentin, librium and Ativan - will discharge with clonidine bid and Librium bid - patient plans to go to outpatient rehab in [place] upon discharge Hx HTN - held losartan - patient can restart after finishing clonidine in 7 days - bps well controlled Depression/anxiety/auditory hallucinations/history of cutting - consulted Psych - initiated trial of Lexapro - patient should follow with a counselor outpatient [employer] Physician Supervision Note: I discussed with Lucy Pizano [employer] and agree with findings and plan as documented in the note. Any exceptions or clarifications are listed here: None Patient presented here with alcohol and Suboxone withdrawal home on tapering Librium dose and clonidine for hypertension to complete a week and resume arb, patient is still interested into a outpatient rehab which will self-contact when discharged Documented By: Syed Ferris Total Time Spent: Greater than 30 minutes This includes examination of the patient, discharge planning, medication reconciliation, and communication with other providers. Discharge Instructions Please refer to the electronic Patient Visit Report (Discharge Instructions) for additional information. Follow-Up Pcp in a week, outpatient rehab on Sunday Additional Copies To Syed Ge M.D.
[2018-02-24 14:31] VITALS: BP 117/71; PULSE 57; TEMP 36.5; O2SAT 100
[2018-02-25] MEDS ORDERED: GABAPENTIN 100MG X1 DOSE PO SCH (14:00)
== END 2018-02-24 15:20 | disposition home or self-care (01) | DRG 897 ==
LOC: C.EDB 21:09 → C.2T 23:39 → ENRESERV 02-22 00:02
PROVIDERS: ADMIT Hospitalist; ATTEND Hospitalist
DX: F10.239 Alcohol dependence with withdrawal, unspecified (principal); R44.0 Auditory hallucinations; F11.23 Opioid dependence with withdrawal; I10 Essential (primary) hypertension; F32.9 Major depressive disorder, single episode, unspecified; F41.9 Anxiety disorder, unspecified; Z91.5 Personal history of self-harm; Z56.0 Unemployment, unspecified; Z72.0 Tobacco use; Z81.8 Family history of other mental and behavioral disorders; Z79.899 Other long term (current) drug therapy

== ENCOUNTER 2022-05-17 09:14 | Inpatient (IN) ==
--- NOTE | 2022-05-17 09:47 | Emergency Department Note ---
Impression & Plan Feeling suicidal ADMIT ED Provider Note HPI: The patient is a 46-year-old male who presents the emergency department with a chief complaint of requesting alcohol detox. Patient states he would like to be admitted to the hospital so that he can detox from alcohol. Patient states that for the past 20 years he has been drinking heavily and daily, states that he drinks about 15 beers per day. 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 Patient states he has been considering detoxing and does not want to lose his job, patient states that he had a conversation with his mother this morning and would like to stop drinking alcohol therefore came to the ED with the hopes of being admitted for alcohol detox. Patient tells me his last drink was 20 minutes ago. ROS: -General: Request for alcohol detox *10 point review systems was conducted and is otherwise negative unless stated above *Outpatient medications and allergy history reviewed PE: General: Alert, NAD HEENT: Normocephalic, atraumatic Eyes: Extraocular eye movement is intact, no scleral erythema Pulmonary: Clear to auscultation bilaterally, no wheezing Cardio: Regular rate and rhythm GI: Abdomen is soft, nontender : No suprapubic tenderness MSK: No evidence of trauma or malformation of the extremities, no edema Skin: No evidence of rash Neuro: Alert, no focal deficits Psychiatric: Cooperative Medical Decision Making: On arrival here to the ED the patient is alert and oriented, he has a mild smell of alcohol but otherwise displays a lucid thought process, patient tells me that he drinks daily, states his last drink was about 20 minutes prior to arrival to the ED. Patient is hypertensive on arrival but otherwise is in no acute distress. He tells me that he would like to be medically admitted for alcohol detox. Patient initially did not have any psychiatric complaints but on nursing screening exam he did admit to suicidal thoughts, when I asked the patient about this he tells me he has daily suicidal thoughts and 3 days ago he had a gun to his head, states he does have firearms at home. Patient was therefore triaged to the psych holding area, he has a history of alcohol withdrawal and tells me he has had withdrawal seizures previously. His alcohol level is approximately 300, patient tells me this is his "baseline". Based off his reassuring physical exam I think this is probably the case. I did discuss the case with the on-call hospitalist, Dr. Vogel, who accepted the patient to a medical bed for psychiatric consultation given his ongoing suicidal thoughts with high risk features. Patient will be admitted medically as I do anticipate that he will go through withdrawal in the near future. He has a history of seizures secondary to alcohol withdrawal. Although the patient is hypertensive he otherwise does not exhibit any signs or symptoms of alcohol withdrawal on my initial evaluation with his alcohol level currently at about 300. Patient is in agreement to the above plan he was admitted in stable condition for further care. Diagnosis: 1. Suicidal thoughts 2. Alcohol abuse intoxication 3. Encounter for medical detox from alcohol Disposition: Admission Flaco Woodruff DO Emergency Medicine Past Med/Surg History Medical History Alcohol withdrawal Depressive disorder, not elsewhere classified Elevated liver enzymes HTN (hypertension) Opiate dependence Psychosis Vitamin D deficiency Surgical History History of total hip replacement No significant past surgical history Family History Grandmother Breast cancer Social History Smoking Status: Never smoker Tobacco Type: Smokeless Tobacco (Dip or Chew) Age Started Using Tobacco: 13; Years Smoked: 41; Second Hand Exposure: No; Hx Alcohol Use: Yes Alcohol type: beer Alcohol Intake Frequency Comment: 6 beers per day Hx Substance Use: Yes Preferred Language: Indonesian Communication Ability: Effective Beliefs That Will Affect Care: None marital status: Single Current Living Situation: Family current occupational status: employed Feels Safe at Home: Yes Assistive Devices: None Allergies Allergies Allergy/AdvReac Type Severity Reaction Status Date / Time No Known Allergies Allergy Verified 05/17/22 10:08 Home Meds Home Medications Medication Instructions Recorded Confirmed buprenorphine 8 mg-naloxone 2 mg 2 film sublingual DAILY 08/13/19 05/17/22 sublingual film (Suboxone) losartan 50 mg tablet 50 mg PO DAILY 05/17/22 05/17/22 Previous Rx's Medication Instructions Recorded escitalopram oxalate 20 mg tablet 20 mg PO DAILY #30 tabs 10/20/21 Results & Data (ED) Vital Signs Vital Signs - 24 hr 05/17/22 09:18 05/17/22 10:27 Temperature 36.7 C Temperature Source Temporal Artery Scan Pulse Rate 88 Pulse Rate [Apical] 87 Pulse Rhythm [Apical] Regular Pulse Strength [Apical] Normal Respiratory Rate 18 18 Respiratory Effort / Characteristics Non-Labored Respiratory Depth Normal Respiratory Pattern Regular Blood Pressure 159/88 H Blood Pressure [Right Arm] 177/111 H Blood Pressure Mean 111 Blood Pressure Mean [Right Arm] 133 Blood Pressure Position [Right Arm] Lying Pulse Oximetry 95 95 Oxygen Delivery Method Room Air Nasal Cannula Oxygen Flow Rate 2 Sepsis Recent Fever Within 48 Hours No Sepsis New/Unexplained Change in Mental Status No Sepsis Action Taken by Nursing No Action Required Laboratory Data Result diagrams: 05/17/22 09:53 05/17/22 09:53 Lab Results 05/17/22 05/17/22 05/17/22 Range/Units 09:53 09:53 09:53 WBC 3.72 L (4.8-10.8) K/ul RBC 3.91 L (4.63-6.08) M/uL Hgb 12.2 L (14.0-18.0) g/dl Hct 37.0 L (40.1-51.0) % MCV 94.6 (80.0-100.0) fL MCH 31.2 (25.0-34.0) pg MCHC 33.0 (32.0-36.0) g/dL RDW Std Deviation 44.6 (36.4-46.3) fL RDW Coeff of Ric 12.9 (11.5-14.5) % Plt Count 137 (130-400) K/uL MPV 9.6 (9.4-12.4) fL Immature Gran % (Auto) 0.0 % Neut % (Auto) 50.7 % Lymph % (Auto) 39.0 % [place] % (Auto) 7.3 % Eos % (Auto) 2.2 % Baso % (Auto) 0.8 % Neut # (Auto) 1.89 (1.4-6.5) K/uL Lymph # (Auto) 1.45 (1.2-3.4) K/uL [place] # (Auto) 0.27 (0.24-0.82) K/uL Eos # (Auto) 0.08 (0-0.50) K/uL Baso # (Auto) 0.03 (0-0.2) K/uL Immature Gran # (Auto) 0.00 (0.00-0.02) K/uL Sodium 141 (136-145) mmol/L Potassium 3.7 (3.5-5.1) mmol/L Chloride 105 (98-107) mmol/L Carbon Dioxide 25 (21-32) mmol/L Anion Gap 11 (3-11) BUN 16 (6-23) mg/dl Creatinine 0.77 (0.6-1.4) mg/dl Est Cr Clr Drug Dosing 125.1 ml/min Est GFR ( Amer) 127.0 ml/min Est GFR (Non-Af Amer) 109.6 ml/min BUN/Creatinine Ratio 20.8 H (10-20) Glucose 97 (70-99(Fasting)) mg/dl Calcium 9.0 (8.5-10.1) mg/dl Total Bilirubin 0.3 (0.2-1.0) mg/dl AST 53 H (13-39) U/L ALT 54 H (7-52) U/L Alkaline Phosphatase 55 (34-104) U/L Total Protein 7.8 (6.0-8.3) gm/dl Albumin 4.6 (3.4-5.0) gm/dl Globulin 3.2 (2.5-4.0) gm/dl Albumin/Globulin Ratio 1.4 (0.9-2) TSH (0.300-4.500) uIu/ml Urine Color Urine Appearance (Clear) Urine pH (4.5-7.5) Ur Specific Ellis (1.000-1.030) Urine Protein (Negative) Urine Glucose (UA) (Negative) Urine Ketones (Negative) Urine Blood (Negative) Urine Nitrite (Negative) Urine Bilirubin (Negative) Urine Urobilinogen (Negative) Ur Leukocyte Esterase (Negative) Salicylates (3.0-30) mg/dl Urine Opiates Screen (Neg) Ur Methadone, Qual (Neg) Acetaminophen (10-30) ug/ml Urine Barbiturates (Neg) Ur Phencyclidine (PCP) (Neg) U Amphetamin/Meth Scrn (Neg) MDMA (Ecstasy) Screen (Neg) U Benzodiazepines Scrn (Neg) Ur Cocaine Metabolite (Neg) U Marijuana (THC) Screen (Neg) Ethyl Alcohol mg/dL 304.2 H (<10.0) mg/dl 05/17/22 05/17/22 05/17/22 Range/Units 09:56 09:56 09:56 WBC (4.8-10.8) K/ul RBC (4.63-6.08) M/uL Hgb (14.0-18.0) g/dl Hct (40.1-51.0) % MCV (80.0-100.0) fL MCH (25.0-34.0) pg MCHC (32.0-36.0) g/dL RDW Std Deviation (36.4-46.3) fL RDW Coeff of Ric (11.5-14.5) % Plt Count (130-400) K/uL MPV (9.4-12.4) fL Immature Gran % (Auto) % Neut % (Auto) % Lymph % (Auto) % [place] % (Auto) % Eos % (Auto) % Baso % (Auto) % Neut # (Auto) (1.4-6.5) K/uL Lymph # (Auto) (1.2-3.4) K/uL [place] # (Auto) (0.24-0.82) K/uL Eos # (Auto) (0-0.50) K/uL Baso # (Auto) (0-0.2) K/uL Immature Gran # (Auto) (0.00-0.02) K/uL Sodium (136-145) mmol/L Potassium (3.5-5.1) mmol/L Chloride (98-107) mmol/L Carbon Dioxide (21-32) mmol/L Anion Gap (3-11) BUN (6-23) mg/dl Creatinine (0.6-1.4) mg/dl Est Cr Clr Drug Dosing ml/min Est GFR ( Amer) ml/min Est GFR (Non-Af Amer) ml/min BUN/Creatinine Ratio (10-20) Glucose (70-99(Fasting)) mg/dl Calcium (8.5-10.1) mg/dl Total Bilirubin (0.2-1.0) mg/dl AST (13-39) U/L ALT (7-52) U/L Alkaline Phosphatase (34-104) U/L Total Protein (6.0-8.3) gm/dl Albumin (3.4-5.0) gm/dl Globulin (2.5-4.0) gm/dl Albumin/Globulin Ratio (0.9-2) TSH 2.766 (0.300-4.500) uIu/ml Urine Color Yellow Urine Appearance Clear (Clear) Urine pH 5.0 (4.5-7.5) Ur Specific Ellis 1.004 (1.000-1.030) Urine Protein Negative (Negative) Urine Glucose (UA) Negative (Negative) Urine Ketones Negative (Negative) Urine Blood Negative (Negative) Urine Nitrite Negative (Negative) Urine Bilirubin Negative (Negative) Urine Urobilinogen Negative (Negative) Ur Leukocyte Esterase Negative (Negative) Salicylates (3.0-30) mg/dl Urine Opiates Screen Neg (Neg) Ur Methadone, Qual Neg (Neg) Acetaminophen (10-30) ug/ml Urine Barbiturates Neg (Neg) Ur Phencyclidine (PCP) Neg (Neg) U Amphetamin/Meth Scrn Neg (Neg) MDMA (Ecstasy) Screen Neg (Neg) U Benzodiazepines Scrn Neg (Neg) Ur Cocaine Metabolite Neg (Neg) U Marijuana (THC) Screen Neg (Neg) Ethyl Alcohol mg/dL (<10.0) mg/dl 05/17/22 Range/Units 09:56 WBC (4.8-10.8) K/ul RBC (4.63-6.08) M/uL Hgb (14.0-18.0) g/dl Hct (40.1-51.0) % MCV (80.0-100.0) fL MCH (25.0-34.0) pg MCHC (32.0-36.0) g/dL RDW Std Deviation (36.4-46.3) fL RDW Coeff of Ric (11.5-14.5) % Plt Count (130-400) K/uL MPV (9.4-12.4) fL Immature Gran % (Auto) % Neut % (Auto) % Lymph % (Auto) % [place] % (Auto) % Eos % (Auto) % Baso % (Auto) % Neut # (Auto) (1.4-6.5) K/uL Lymph # (Auto) (1.2-3.4) K/uL [place] # (Auto) (0.24-0.82) K/uL Eos # (Auto) (0-0.50) K/uL Baso # (Auto) (0-0.2) K/uL Immature Gran # (Auto) (0.00-0.02) K/uL Sodium (136-145) mmol/L Potassium (3.5-5.1) mmol/L Chloride (98-107) mmol/L Carbon Dioxide (21-32) mmol/L Anion Gap (3-11) BUN (6-23) mg/dl Creatinine (0.6-1.4) mg/dl Est Cr Clr Drug Dosing ml/min Est GFR ( Amer) ml/min Est GFR (Non-Af Amer) ml/min BUN/Creatinine Ratio (10-20) Glucose (70-99(Fasting)) mg/dl Calcium (8.5-10.1) mg/dl Total Bilirubin (0.2-1.0) mg/dl AST (13-39) U/L ALT (7-52) U/L Alkaline Phosphatase (34-104) U/L Total Protein (6.0-8.3) gm/dl Albumin (3.4-5.0) gm/dl Globulin (2.5-4.0) gm/dl Albumin/Globulin Ratio (0.9-2) TSH (0.300-4.500) uIu/ml Urine Color Urine Appearance (Clear) Urine pH (4.5-7.5) Ur Specific Ellis (1.000-1.030) Urine Protein (Negative) Urine Glucose (UA) (Negative) Urine Ketones (Negative) Urine Blood (Negative) Urine Nitrite (Negative) Urine Bilirubin (Negative) Urine Urobilinogen (Negative) Ur Leukocyte Esterase (Negative) Salicylates < 3.0 L (3.0-30) mg/dl Urine Opiates Screen (Neg) Ur Methadone, Qual (Neg) Acetaminophen < 3 L (10-30) ug/ml Urine Barbiturates (Neg) Ur Phencyclidine (PCP) (Neg) U Amphetamin/Meth Scrn (Neg) MDMA (Ecstasy) Screen (Neg) U Benzodiazepines Scrn (Neg) Ur Cocaine Metabolite (Neg) U Marijuana (THC) Screen (Neg) Ethyl Alcohol mg/dL (<10.0) mg/dl Discharge Plan Visit Data Chief Complaint: Mental Health Evaluation Stated Complaint: ALCOHOL DETOX ED Provider: Flaco Woodruff Discharge Problem: Feeling suicidal Patient Disposition: Admitted As Inpatient Forms Stand Alone Forms: My [facility], Suicide Prevention Resources Prescriptions Prescriptions: No Action escitalopram oxalate 20 mg tablet 20 mg PO DAILY Qty: 30 5RF buprenorphine-naloxone [Suboxone] 8-2 mg film 2 film SL DAILY losartan 50 mg tablet 50 mg PO DAILY Referrals Referrals: PCP,NO [Physician] -
[2022-05-17 10:07] LABS: Basophils # (auto) 0.03 K/uL (0-0.2); Basophils % (auto) 0.8 %; Eosinophils # (auto) 0.08 K/uL (0-0.50); Eosinophils % (auto) 2.2 %; Hemoglobin 12.2 g/dl (14.0-18.0); Lymphocytes # (auto) 1.45 K/uL (1.2-3.4); Mean Corpuscular Hemoglobin 31.2 pg (25.0-34.0); Mean Corpuscular Volume 94.6 fL (80.0-100.0); Mean Platelet Volume 9.6 fL (9.4-12.4); Monocytes # (auto) 0.27 K/uL (0.24-0.82); Monocytes % (auto) 7.3 %; Neutrophils # (auto) 1.89 K/uL (1.4-6.5); Neutrophils % (auto) 50.7 %; Platelet Count 137 K/uL (130-400); RDW Coefficient of Variation 12.9 % (11.5-14.5); RDW Standard Deviation 44.6 fL (36.4-46.3); Red Blood Count 3.91 M/uL (4.63-6.08); White Blood Count 3.72 K/ul (4.8-10.8)
[2022-05-17 10:09] LABS: Appearance Urine Clear (Clear); Bilirubin Urine Negative (Negative); Blood Urine Negative (Negative); Color Urine Yellow; Glucose Urine UA Negative (Negative); Ketones Urine Negative (Negative); Leukocyte Esterase Urine Negative (Negative); Nitrite Urine Negative (Negative); Protein Urine Negative (Negative); Specific Gravity Urine 1.004 (1.000-1.030); Urobilinogen Urine Negative (Negative)
[2022-05-17 10:40] LABS: Albumin Globulin Ratio 1.4 (0.9-2); Albumin Level 4.6 gm/dl (3.4-5.0); BUN Creatinine Ratio 20.8 (10-20); Bilirubin,Total 0.3 mg/dl (0.2-1.0); Creatinine Clr Calc Pharmacy 125.1 ml/min; Est GFR (Non-African American) 109.6 ml/min; Globulin 3.2 gm/dl (2.5-4.0); Potassium 3.7 mmol/L (3.5-5.1); Total Protein 7.8 gm/dl (6.0-8.3)
[2022-05-17 10:41] LABS: Amphetamines+Metham, Urine Neg (Neg); Barbiturates, Urine Neg (Neg); Benzodiazepine, Urine Neg (Neg); Cocaine, Urine Neg (Neg); MDMA (Ecstacy), Urine Neg (Neg); Methadone, Urine Neg (Neg); Opiate, Urine Neg (Neg); Phencyclidine, Urine Neg (Neg)
[2022-05-17] MEDS ORDERED: PHENobarbitaL 30 MG TAB PO STA (10:50)
[2022-05-17 10:58] LABS: Acetaminophen < 3 ug/ml (10-30); Salicylate < 3.0 mg/dl (3.0-30)
--- NOTE | 2022-05-17 11:06 | History & Physical Report ---
Date of Service May 17, 2022 Assessment & Plan (1) Alcohol withdrawal: Plan: Concern for substantial alcohol withdrawal given hx of seizures and possible DTs (see admission HPI for details). No hx of liver cirrhosis and other than HTN, no other acute medical conditions make him a good candidate for phenobarbitol. - Given phenobarbital 150 mg PO now - Taper as follows: * Phenobarbital 90 mg PO for 2 more doses * Phenobarbital 90 mg PO TID tomorrow * Phenobarbital 90 mg PO TID on Sunday -> Hold dose for RASS < -1 and notify provider if skipping a dose. - Low-dose Ativan IV PRN per ISAAK protocol (0.5 mg, 1 mg, and 2 mg respectively) - Will follow closely today and can give additional doses of phenobarbital if withdrawals becoming more evident. - Prior thiamine level was 7, so will give banana bag now and give higher dose of thiamine supplementation. Add folate as well. (2) Suicidal intent: Plan: Has intent and plan with gun at home. - Psychiatry consulted - 1:1, safe tray, full suicide precautions - CANNOT leave AMA (3) Depressive disorder, not elsewhere classified: Plan: SI as above. - Continue escitalopram - Await psych consult (4) HTN (hypertension): Plan: BP is 175/110 in the ER. No signs/symptoms of hypertensive urgency. - Continue home losartan - Can add hydralazine PO if needed, but literature generally suggests no benefit from aggressive blood pressure correction in the hospital and likely some harm. (5) Elevated liver enzymes: Plan: Likely due to alcohol. Workup with GI in 10/2020 indicated prior exposure to HepA, no exposure to HepB or C. Autoimmune hepatitis labs were negative. Ferritin normal. Liver biopsy from 11/19/2020 showed moderate steatosis and early portal fibrosis. - Apart from alcohol cessation, I do not see reversible causes of his liver inj ury. Will defer GI consult at this time, but can consider if any issues arise. (6) Opiate dependence: Plan: Hx of. - Continue Suboxone. (7) DVT prophylaxis: Plan: SCDs - Low DVT risk per admission calculator History of Present Illness Primary Care Provider: Bethany Oakley MD 46yo M w/ long hx of alcohol abuse, as well as HTN and depression who presents for alcohol detox. The patient reports that he drinks 10 - 15 beers a day on work days and about 15 - 20 beers on days off. He drinks 12 oz. [employer] (ABV: 5.9%). In 06/2020, he had a seizure in [employer] that was thought to be due to a temporary reduction in his alcohol intake. He was encouraged to stop drinking and was not put on an anticonvulsant at that time. He does not recall any other seizures. About 2 weeks ago, he had a day where he did not drink (or maybe drank more? He is not sure.) and says he thinks he "lost vision" for some time, but otherwise does not think he has ever had DTs. He also notes that he has been suicidal for several weeks. He owns a pistol and several days ago, he had it against his head with the intention of killing himself, but did not carry it out. The pistol is still at his house. He also notes that about 3 weeks ago, he smoked methamphetamine and was very anxious and paranoid for several hours and states that he would have killed himself if he had had his gun at that time. At present, he is not experiencing any withdrawal symptoms. Allergies Allergy/AdvReac Type Severity Reaction Status Date / Time No Known Allergies Allergy Verified 05/17/22 10:08 Home Medications Medication Instructions Recorded Confirmed Type buprenorphine 8 mg-naloxone 2 mg 2 film sublingual DAILY 08/13/19 05/17/22 History sublingual film (Suboxone) escitalopram oxalate 20 mg tablet 20 mg PO DAILY #30 tabs 10/20/21 05/17/22 Rx losartan 50 mg tablet 50 mg PO DAILY 05/17/22 05/17/22 History Past Med/Surg History Medical History Alcohol withdrawal Depressive disorder, not elsewhere classified Elevated liver enzymes HTN (hypertension) Opiate dependence Psychosis Vitamin D deficiency Surgical History History of total hip replacement No significant past surgical history Family History Grandmother Breast cancer Social History Smoking Status: Never smoker Tobacco Type: Smokeless Tobacco (Dip or Chew) Age Started Using Tobacco: 13; Years Smoked: 41; Second Hand Exposure: No; Hx Alcohol Use: Yes Alcohol type: beer Alcohol Intake Frequency Comment: 6 beers per day Hx Substance Use: Yes Preferred Language: Greenlandic Communication Ability: Effective Beliefs That Will Affect Care: None marital status: Single Current Living Situation: Family current occupational status: employed Feels Safe at Home: Yes Assistive Devices: None Review of Systems Review of Systems: All systems reviewed & are unremarkable except as noted in HPI & below Physical Exam Constitutional: WD/WN, vitals as above Eyes: EOM intact bilaterally; no conjunctival abnormality ENMT: external ear and nose normal, oropharynx normal Neck: trachea midline, no thyromegaly normal visual inspection Respiratory: normal respiratory effort, lungs clear to auscultation no respiratory distress Cardiovascular: RRR, no murmur, no edema Gastrointestinal (Abdomen): Inspection/Auscultation: abdomen normal to inspection; abdomen not distended Musculoskeletal: no cyanosis or clubbing, extremities motor strength 5/5 Skin: no rashes, warm and dry Neurologic: moves all extremities and awake No tremor, no tongue fasciulation Psychiatric: Orientation: alert, oriented to person and cooperative Suicidal Thoughts: + reports suicidal thoughts, + reports suicidal plan and + reports suicidal intent Results & Data Results & Data ([facility]) Vital Signs (Past 12 Hours) Vital Signs Temp Pulse Pulse Resp BP BP Pulse Ox 05/17/22 10:27 87 18 177/111 H 95 05/17/22 09:18 36.7 C 88 18 159/88 H 95 O2 Del Method O2 Flow Rate 05/17/22 10:27 Nasal Cannula 2 05/17/22 09:18 Room Air Code Status & VTE Plan VTE Prophylaxis Plan VTE Prophylaxis will be ordered: Yes PG Care Time/CCT Total # of Minutes Spent Total Time Spent with Patient: Total time spent is greater than 50% in coordination of care (as documented) at patient's floor/unit and/or counseling patient: Coding Level of Care Code 60320 Initial Inpt Care Lvl 3 Diagnoses Alcohol withdrawal F10.239 Suicidal intent R45.851 Depressive disorder, not elsewhere classified F32.9 HTN (hypertension) I10 Elevated liver enzymes R74.8 Opiate dependence F11.20 DVT prophylaxis Z29.9
[2022-05-17] MEDS ORDERED: [UNRECOGNIZED DRUG - OTHER] IV ONE (11:30)
[2022-05-17] MEDS ORDERED: FOLIC ACID IV ONE (11:30)
[2022-05-17] MEDS ORDERED: THIAMINE HCL IV ONE (11:30)
[2022-05-17] MEDS ORDERED: MULTI VITAMIN INFUSION IV ONE (11:30)
[2022-05-17] MEDS ORDERED: LORazepam 0.5 MG in SYRINGE 0.5 ML IV PRN (12:49)
[2022-05-17] MEDS ORDERED: ONDANSETRON INJ 2 MG/ML 2 ML VIAL IV PRN (12:49)
[2022-05-17] MEDS ORDERED: LORazepam 1 MG in SYRINGE 1 ML IV PRN (12:49)
[2022-05-17] MEDS ORDERED: Ativan IV Alcohol Withdrawal--Active Protocol IV PRN (12:49)
[2022-05-17] MEDS ORDERED: LORazepam 2 MG in SYRINGE 1.5 ML IV PRN (12:49)
[2022-05-17] MEDS: THIAMINE HCL 100 MG TAB PO SCH (14:28)
[2022-05-17] MEDS: FOLIC ACID 1 MG TAB PO SCH (14:28)
[2022-05-17] MEDS: PHENobarbitaL 30 MG TAB PO SCH ×2 (14:28→20:30)
[2022-05-17] MEDS ORDERED: BUPRENORPHINE/NALOXONE 8/2 MG TAB SL SCH (21:00)
[2022-05-17] MEDS ORDERED: LORazepam 1 MG in SYRINGE 0.5 ML IV PRN (21:43)
[2022-05-17] MEDS ORDERED: LORazepam 2 MG in SYRINGE 1 ML IV PRN (21:43)
[2022-05-18] MEDS: LORazepam 0.5 MG in SYRINGE 0.25 ML IV PRN ×2 (01:27→20:03)
[2022-05-18 08:41] LABS: Hematocrit (blood only) 39.9 % (40.1-51.0); Hemoglobin 13.6 g/dl (14.0-18.0); Mean Corpuscular Hemoglobin 31.3 pg (25.0-34.0); Mean Corpuscular Hgb Conc 34.1 g/dL (32.0-36.0); Mean Corpuscular Volume 91.9 fL (80.0-100.0); Mean Platelet Volume 9.5 fL (9.4-12.4); Platelet Count 135 K/uL (130-400); RDW Coefficient of Variation 12.5 % (11.5-14.5); RDW Standard Deviation 42.5 fL (36.4-46.3); Red Blood Count 4.34 M/uL (4.63-6.08); White Blood Count 3.28 K/ul (4.8-10.8)
[2022-05-18] MEDS: ESCITALOPRAM OXALATE 20 MG TAB PO SCH (08:49)
[2022-05-18] MEDS: FOLIC ACID 1 MG TAB PO SCH (08:49)
[2022-05-18] MEDS: THIAMINE HCL 100 MG TAB PO SCH (08:50)
[2022-05-18] MEDS: LOSARTAN POTASSIUM 50 MG TAB PO SCH (08:58)
[2022-05-18] MEDS ORDERED: BUPRENORPHINE/NALOXONE 8/2 MG TAB SL SCH (09:00)
[2022-05-18] MEDS: PHENobarbitaL 30 MG TAB PO SCH ×3 (09:07→22:16)
[2022-05-18] MEDS: NICOTINE 21 MG/24 HR TDSY TD SCH (09:35)
[2022-05-18 09:41] LABS: Albumin Globulin Ratio 1.4 (0.9-2); Albumin Level 4.6 gm/dl (3.4-5.0); BUN Creatinine Ratio 26.2 (10-20); Calcium 9.2 mg/dl (8.5-10.1); Creatinine Clr Calc Pharmacy 148.2 ml/min; Est GFR (African American) 136.2 ml/min; Est GFR (Non-African American) 117.5 ml/min; Globulin 3.4 gm/dl (2.5-4.0); Magnesium 1.7 mg/dl (1.7-2.4); Potassium 4.1 mmol/L (3.5-5.1)
--- NOTE | 2022-05-18 10:20 | Psychiatric Consultation ---
Date of Consultation May 18, 2022 Impression / Recommendations Impression 46 yo man with a history of opioid use disorder, in sustained remission on medication assisted treatment with suboxone, alcohol use disorder, unspecified psychosis and unspecified depression admitted medically for complicated withdrawal and statements of SI. Diagnostically consistent with alcohol use disorder as well as unspecified depression likely substance-induced depression. He is currently denying SI and HI, no evidence for ken, no evidence for psychosis and able to care for his needs and is not felt to meet 302 criteria and is declining voluntary psychiatric treatment or dual diagnosis. At this po int risk of harm to self and others is slightly increased due to substance use with substance use treatment being the most significant modifiable risk factor to reduce acute and chronic risk. Ensured that he no longer has access to his gun and girlfriend confirmed that this is secured. Acute risk is low given stable mood and denial of SI now that he is sober with intoxication/alcohol use the most significant modifiable risk factor, lack of access to lethal means, plan to avoid substance use and willing to engage with some substance use services. Chronic risk is moderate to high, especially he resumes alcohol use, given periods of impulsivity with drinking, prior attempt, prior psychiatric hospitalization, family history of by suicide but also with protective factors of employment, family support, girlfriend and reasons for living. Counseled on ways to reduce acute and chronic risk including engaging with outpatient providers and substance use treatment, avoiding substance use, safety planning-reviewed limiting access to lethal means/supports/warning signs/crisis resources, utilizing supports, and taking medication. Unfortunately he is not interested in residential treatment at this time but he is agreeable to outpatient services to help with substance use and possibly medication assisted treatment and to re-engage with AA. (1) Alcohol use disorder, severe, dependence: (2) Opioid use disorder, moderate, in sustained remission: (3) Depression, unspecified: (4) Alcohol withdrawal: Plan -Can discontinue 1-on-1 and suicide precautions as acute risk is low -Confirmed that he no longer has access to his gun, counseling on removal of lethal means -Continue with lexapro, gabapentin, suboxone; unclear if recently using risperidone but would hold this in context of potential to lower seizure threshold and no evidence for psychosis -Psychiatric liason will attempt to set him up with outpatient services intensive substance use services, he's willing to re-engage with AA -Patient is not an imminent danger to self or others and does not meet criteria for involuntary psychiatric commitment, can be discharged once medically stable -Continue AWSS as well as thiamine and folic acid -Consider starting acamprosate 333mg TID if Cr/renal ok in outpatient setting, not available on formulary so cannot start in the hospital Psych History Identifying Data 46 yo man with a history of opioid use disorder, in sustained remission on medication assisted treatment, alcohol use disorder, unspecified psychosis and unspecified depression admitted medically for complicated withdrawal and statements of SI. Psychiatry was consulted for recommendations/risk assessment. Chief Complaint "I'm good now". History of Present Illness Clement self-presented to the ED requesting help for alcohol withdrawal as "I didn't want to lose my job" and a co-worker had smelled alcohol on his breath while he was at work and commented on it so he decided it was time to seek support. He has a reported history of alcohol withdrawal seizures in the past. During mental screening in the ED, while still intoxicated with Ethyl alcohol level of 304, he disclosed frequent suicidal ideation and stated he had recently held a gun to his head. Notably he had also presented to the ED in early April, with urological complaints, carrying a loaded firearm which he brought out to his car when instructed to do so. During his conversation with the admitting medical attending he repeated that he has been experiencing SI for several weeks and held the gun against his head several days ago and that he also had significant SI after smoking methamphetamine 3 weeks ago but did not have access to a gun at that time. Attempts to see him yesterday were unsuccessful due to sedation from his alcohol use and treatment for withdrawal. Today he is lying in bed, awake, fully oriented and easily able to engage in conversation. Reiterates to me that he came to the emergency department to seek help for his alcohol use for supervised detox as he is fearful about losing his job and likes his job and wants to continue with this but recognizes alcohol could get in the way. He states his mood is stable and "good now" because he is sober. He states his mood has been stable over the last few weeks adamantly denying any recent suicidal ideation with the exception of "a few weeks ago" when "I was withdrawing from methamphetamine" and thought about using a gun but had no access to it. His endorsed only mild depressive symptoms, PHQ-9 score of 6 with 0 for Q9 with highest scores for reduced interest, and then for sleep changes, periods of lower mood, and difficulty concentrating. He states that about a week ago he gave his gun to his girlfriend/partner of 19 years and is willing to have us speak with her to confirm this. He is surprised when I described the contradictory statements of recent SI that he made to the emergency room provider and the admitting medical provider he states that this must have been due to him being intoxicated stating "maybe I have wet brain I must have said that because I was drinking". He endorses many reasons for living including his job, his 1-1/2-year-old grandson, his partner, his parents," the value of life". He states that he has recently been drinking 10- 15 beers per day split up throughout the day including while he is at work. He has been consuming this amount of alcohol for approximately the last 3 to 4 years. His longest period of sobriety was approximately 4 years ago for about 4 months. He is unsure what helped him be successful at that time. Relapsed after his parents went on vacation as he thought "that I could have 1 beer but I could not". He has a history of engaging with AA and found this helpful and has a history of 3 prior residential treatment facility admissions he believes the last was approximately 4 years ago. He has also previously done outpatient intensive substance use groups through [facility] in [place] and has done outpatient therapy. Feels his parents and partner are excellent supports. In terms of psychiatric history he has been on Lexapro 20 mg prescribed by his [facility] physician for mood symptoms, Suboxone 16 mg/day prescribed through [facility] for history of opioid use disorder and per chart review history of gabapentin use and also risperidone. He denies any history of prior suicide attempts and 1 prior psychiatric hospitalization at [facility] about 5 years ago which he states was for his alcohol use disorder. History of multiple family members dying by suicide as well as history of substance use particularly on paternal side of the family. He uses chewing tobacco alcohol use per above and methamphetamine use approximately 3 weeks to 1 month ago denies any other substance use. States he had tried naltrexone in the past for alcohol use but does not like taking this as it means he cannot be on his Suboxone. Also states he has tried acamprosate in the past "many years ago" but would be willing to try this again in the future. He is opposed to considering residential substance use treatment or inpatient psychiatric treatment at this time. He is open to considering outpatient substance use support. Chart review from previous psychiatric consultation in February 2018 he had a history of quasi psychotic symptoms at that time seemingly related to his alcohol use versus internal dialogue related to substance use depression. Unseld at that time he endorsed 1 prior suicide attempt at age 19 to "get the attention of a girl". Trials of BuSpar and Celexa. 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 He has 1 stepchild who has a young child/his grandson. Psychiatry liason gathered further collateral from his girlfriend, Brunilda, confirming that she took his gun a few weeks ago, as he will sometimes make statements of SI while intoxicated, but she denies any knowledge of recent attempts/rehearsal behaviors/concerning behaviors, and she has secured the gun and that he has no access to it. Past Psychiatric History Previous Psych History: see HPI Allergies Allergy/AdvReac Type Severity Reaction Status Date / Time No Known Allergies Allergy Verified 05/17/22 10:08 Home Medications Medication Instructions Recorded Confirmed Type buprenorphine 8 mg-naloxone 2 mg 2 film sublingual DAILY 08/13/19 05/17/22 History sublingual film (Suboxone) escitalopram oxalate 20 mg tablet 20 mg PO DAILY #30 tabs 10/20/21 05/17/22 Rx losartan 50 mg tablet 50 mg PO DAILY 05/17/22 05/17/22 History Family History See HPI Substance Abuse History see HPI Personal History Beliefs That Will Affect Care: None Additional Comments: see HPI Patient History Medical History (Updated 05/18/22 @ 15:53 by Abbie Senior MD) Alcohol withdrawal Depression, unspecified Depressive disorder, not elsewhere classified Elevated liver enzymes HTN (hypertension) Opiate dependence Opioid use disorder, moderate, in sustained remission Psychosis Vitamin D deficiency Surgical History History of total hip replacement No significant past surgical history Family History Grandmother Breast cancer Social History Smoking Status: Current some day smoker Tobacco Type: Smokeless Tobacco (Dip or Chew) Age Started Using Tobacco: 13; Years Smoked: 41; Second Hand Exposure: No; Hx Alcohol Use: Yes Alcohol type: beer Alcohol Intake Frequency Comment: 6 beers per day Hx Substance Use: No Preferred Language: [place] Communication Ability: Effective Veterinary Epidemiologist Required: No Beliefs That Will Affect Care: None marital status: Single Current Living Situation: Alone current occupational status: employed Other Information That Helps Us Care for You: No Feels Safe at Home: Yes Safety Concerns: Feels Safe At This Time Assistive Devices: None Physical Exam Psychiatric: Orientation: alert and oriented x 3 Apperance: appropriately dressed and appropriately groomed Eye Contact: good eye contact Motor Behavior: no abnormal motor movements Speech: normal rate/rhythm/volume of speech Affect: euthymic affect Mood: no depressed mood and no anxious mood Thought Process: linear/logical thought process Thought Content: reality based without delusions Suicidal Thoughts: denies suicidal thoughts Homicidal Thoughts: denies homicidal thoughts Hallucinations: no auditory hallucinations and no visual hallucinations Cognition: remote memory grossly intact, attention grossly intact and language grossly intact; + recent memory not intact Estimated Intelligence: consistent with education level Insight: + limited insight Judgement: + limited judgement Vital Signs (Past 24 Hours): Last Vital Signs Temp 36.4 C L 05/18/22 10:00 Pulse 60 05/18/22 10:00 Resp 20 05/18/22 10:00 BP 165/99 H 05/18/22 10:00 Pulse Ox 98 05/18/22 10:00 O2 Del Method 05/18/22 10:00 O2 Flow Rate 1 05/17/22 17:00 Review of Systems All systems reviewed & are unremarkable except as noted in HPI & below Results & Data (PSY) Medications Administered Buprenorphine/Naloxone (Buprenorphine/Naloxone 8/2 Mg Tab) 2 tab SL HS MANNY Stop: 06/16/22 20:59 Last Admin: 05/17/22 20:29 Dose: 2 tab Documented By: BS Escitalopram Oxalate (Escitalopram Oxalate 20 Mg Tab) 20 mg PO DAILY MANNY Stop: 06/17/22 08:59 Last Admin: 05/18/22 08:49 Dose: 20 mg Documented By: TRH Folic Acid (Folic Acid 1 Mg Tab) 1 mg PO QAM [facility] Stop: 06/16/22 12:48 Last Admin: 05/18/22 08:49 Dose: 1 mg Documented By: Admin: 05/17/22 14:28 Dose: 1 mg Documented By: BENJAMÍN Lorazepam 0.5 mg/ Syringe 0.5 mls @ 2 mls/min IV UD PRN; Protocol PRN Reason: EtOH Withdrawal AWSS Score 6,7 Stop: 06/16/22 21:37 Last Admin: 05/18/22 01:27 Dose: 2 mls/min Documented By: VJ Losartan Potassium (Losartan Potassium 50 Mg Tab) 50 mg PO DAILY [facility] Stop: 06/17/22 08:59 Last Admin: 05/18/22 08:58 Dose: 50 mg Documented By: ILA Nicotine (Nicotine 21 Mg/24 Hr Tdsy) 21 mg TD QAM [facility] Stop: 06/17/22 08:59 Last Admin: 05/18/22 09:35 Dose: 21 mg Documented By: ILA Phenobarbital (Phenobarbital 30 Mg Tab) 60 mg PO TID MAN[facility] Stop: 05/18/22 21:01 Last Admin: 05/18/22 09:07 Dose: 60 mg Documented By: ILA Thiamine HCl (Thiamine Hcl 100 Mg Tab) 300 mg PO QAM [facility] Stop: 06/16/22 12:48 Last Admin: 05/18/22 08:50 Dose: 300 mg Documented By: Admin: 05/17/22 14:28 Dose: 300 mg Documented By: BENJAMÍN Coding Level of Care Code 10959 Inpt Consult Level 4 Diagnoses Alcohol use disorder, severe, dependence F10.20 Opioid use disorder, moderate, in sustained remission F11.21 Depression, unspecified F32.A Alcohol withdrawal F10.239 Time Spent (min) 40
[2022-05-18] MEDS ORDERED: LORazepam 0.5 MG TAB PO STA (10:26)
--- NOTE | 2022-05-18 18:21 | Hospitalist Progress Note ---
Date of Service May 18, 2022 Assessment & Plan (1) Alcohol use disorder, severe, dependence: (2) Opioid use disorder, moderate, in sustained remission: (3) Depression, unspecified: (4) Alcohol withdrawal: (5) HTN (hypertension): (6) Suicidal intent: Plan #Alcohol use disorder #Alcohol withdrawal -Schedule as followed: * Phenobarbital 90 mg PO TID today * Phenobarbital 90 mg PO TID tomorrow * Phenobarbital 90 mg PO TID on Sunday -Low-dose Ativan IV PRN per ISAAK protocol (0.5 mg, 1 mg, and 2 mg respectively) -Will follow closely today and can give additional doses of phenobarbital if withdrawals becoming more evident. -Folic acid and thiamine given -Liver biopsy from 11/19/2020 showed moderate steatosis and early portal fibrosis. AST and ALT mildly elevated. -Per psych - To consider acamprosate in outpatient setting (not in formulary here). Psych liason will set him up with outpatient referral for D and A services. #Suicidal intent Psychiatry consulted and notes are below "Can discontinue 1-on-1 and suicide precautions as acute risk is low. Confirmed that he no longer has access to his gun, counseling on removal of lethal means. Patient is not an imminent danger to self or others and does not meet criteria for involuntary psychiatric commitment, can be discharged once medically stable" -will D/C 1 on . #Depression -Continue at home escitalopram #Opioid use disorder -Continue Suboxone therapy #HTN -holding Losartan #Nicotine dependence -Patient chews a can of chew a day -Start Nicoderm 21 mg Admission and Anticipated Discharge Date Admission Date: May 17, 2022 Supervising Physician Co-Signing Physician Notes Resident Physician Supervision Note: I independently interviewed and examined the patient and verified the hanna history and physical, reviewed labs and image studies and agree with resident Dr. Cervantes findings and care plan. Subjective Patient was seen beside this AM with chief c/o alcohol withdraw. Patient has been drinking 10-15 beers every day for the past 3-4 years. 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 He has previously had symptoms of withdraw in the past where he would get the shakes and 4 years ago he reports that he had a seizure. He denies any h/o IV drug use but h/o opioid drug abuse. He is currently on Suboxone that he has been taking for the last ~11 years. Patient also admits to SI. He states that a 2-3 weeks ago when he was in his truck and have been been using a lot of meth recently when he thought about harming himself. He states that "if I had a gun I would have killed myself". He does own guns and they are currently locked away in a save with his girlfriend. He also cuts his arms last time was about 2 weeks ago. He states though he cuts his arms not to kill himself but to release pain. Review of Systems Review of Systems: All systems reviewed & are unremarkable except as noted in HPI & below Physical Exam Constitutional: well developed and cooperative Eyes: PERRL, conjunctivae normal, anicteric sclerae ENMT: external ear and nose normal, oropharynx normal Respiratory: normal respiratory effort, lungs clear to auscultation Cardiovascular: RRR, no murmur, no edema Gastrointestinal (Abdomen): normal bowel sounds, soft, nontender, no hepatosplenomegaly Musculoskeletal: no cyanosis or clubbing, extremities motor strength 5/5 Skin: no rashes, warm and dry Results & Data Results & Data ([facility]) Vital Signs (Past 12 Hours) Vital Signs Temp Pulse Resp BP Pulse Ox O2 Del Method 05/18/22 16:43 36.5 C 88 16 161/99 H 100 Room Air 05/18/22 13:47 65 18 154/98 H 95 Room Air 05/18/22 10:00 36.4 C L 60 20 165/99 H 98 Room Air 05/18/22 08:45 89 18 189/100 H 97 Room Air 05/18/22 06:11 60 20 154/85 H 95 Resident Activity Tracking Resident Involvement: Resident Care Provided Care Provided: Adult Hospital Medicine
[2022-05-18] MEDS: ACETAMINOPHEN 325 MG TAB PO PRN (22:15)
[2022-05-18] MEDS: BUPRENORPHINE/NALOXONE 8/2 MG TAB SL SCH (22:15)
[2022-05-18] MEDS: MAGNESIUM SULFATE / D5W 1 GM/100 ML BAG IV SCH (22:16)
[2022-05-18] MEDS ORDERED: LOSARTAN POTASSIUM 50 MG TAB PO SCH (22:55)
[2022-05-19] MEDS: MAGNESIUM SULFATE / D5W 1 GM/100 ML BAG IV SCH (00:09)
[2022-05-19] MEDS: ACETAMINOPHEN 325 MG TAB PO PRN (06:34)
[2022-05-19 08:30] LABS: Basophils # (auto) 0.02 K/uL (0-0.2); Basophils % (auto) 0.6 %; Eosinophils # (auto) 0.05 K/uL (0-0.50); Eosinophils % (auto) 1.4 %; Lymphocytes # (auto) 0.88 K/uL (1.2-3.4); Lymphocytes % (auto) 24.7 %; Mean Corpuscular Hemoglobin 31.3 pg (25.0-34.0); Mean Corpuscular Hgb Conc 34.1 g/dL (32.0-36.0); Mean Corpuscular Volume 91.5 fL (80.0-100.0); Mean Platelet Volume 10.2 fL (9.4-12.4); Monocytes # (auto) 0.32 K/uL (0.24-0.82); Neutrophils # (auto) 2.29 K/uL (1.4-6.5); Neutrophils % (auto) 64.3 %; Platelet Count 143 K/uL (130-400); RDW Coefficient of Variation 12.2 % (11.5-14.5); Red Blood Count 4.48 M/uL (4.63-6.08); White Blood Count 3.56 K/ul (4.8-10.8)
[2022-05-19] MEDS: THIAMINE HCL 100 MG TAB PO SCH (08:35)
[2022-05-19] MEDS: BUPRENORPHINE/NALOXONE 8/2 MG TAB SL SCH ×2 (08:35→21:12)
[2022-05-19] MEDS: PHENobarbitaL 30 MG TAB PO SCH ×3 (08:35→21:11)
[2022-05-19] MEDS: LOSARTAN POTASSIUM 50 MG TAB PO SCH ×2 (08:36→21:04)
[2022-05-19] MEDS: ESCITALOPRAM OXALATE 20 MG TAB PO SCH (08:37)
[2022-05-19] MEDS: FOLIC ACID 1 MG TAB PO SCH (08:37)
[2022-05-19 08:55] LABS: Albumin Globulin Ratio 1.3 (0.9-2); Albumin Level 4.5 gm/dl (3.4-5.0); BUN Creatinine Ratio 18.5 (10-20); Bilirubin,Total 0.9 mg/dl (0.2-1.0); Calcium 9.1 mg/dl (8.5-10.1); Creatinine Clr Calc Pharmacy 148.2 ml/min; Est GFR (African American) 136.2 ml/min; Est GFR (Non-African American) 117.5 ml/min; Globulin 3.5 gm/dl (2.5-4.0); Magnesium 2.3 mg/dl (1.7-2.4); Potassium 3.8 mmol/L (3.5-5.1)
[2022-05-19] MEDS: NICOTINE 21 MG/24 HR TDSY TD SCH (10:57)
--- NOTE | 2022-05-19 11:05 | Hospitalist Progress Note ---
Date of Service May 19, 2022 Assessment & Plan (1) Alcohol use disorder, severe, dependence: (2) Opioid use disorder, moderate, in sustained remission: (3) Depression, unspecified: (4) Alcohol withdrawal: (5) HTN (hypertension): (6) Suicidal intent: Plan #Alcohol use disorder #Alcohol withdrawal -Phenobarbital taper to be completed today. -Low-dose Ativan IV PRN per ISAAK protocol (0.5 mg, 1 mg, and 2 mg respectively) -Folic acid and thiamine given on admission -Appreciate psychiatry recommendations. Patient is willing to try acamprosate as an outpatient. Interested in outpatient rehab services--has information/contacts from psychiatry liaison #Elevated liver tests - due to chronic ETOH use and fatty liver - Mild elevation and trending back towards normal - hx of liver biopsy in October 2020 showing moderate steatosis and early fibrosis #Hypertensive urgency in the setting of chronic hypertension - received losartan 50mg BID yesterday. Continue. - added amlodipine 10mg today after persistently elevated BPs - given a one time dose of oral hydralazine late in the afternoon to bring BPs down, can consider adding a third scheduled anti-hypertensive (not hydralazine) if needed for persistently elevated blood pressures #Suicidal intent--resolved - Appreciate psychiatry recommendations - 1:1 discontinued as he no longer has access to his gun and is no longer a danger to himself or others. #Depression -Continue at home escitalopram #Anxiety -Restarted home gabapentin 900mg TID #Opioid use disorder -Continue Suboxone therapy #Nicotine dependence -Patient chews a can of chew a day -Continue Nicoderm patch 21 mg while admitted Admission and Anticipated Discharge Date Admission Date: May 17, 2022 Supervising Physician Co-Signing Physician Notes Patient seen and examined independently of PGY-1 Dr. Cervantes. Agree with history, exam findings, assessment and plan of care as outlined. In brief, Clement is a 46 year old male with history of alcohol use disorder, OUD in remission on MAT with suboxone, HTN and depression admitted for alcohol detoxification and suicidal ideation. Drinks 10-15 beers per day on workdays and 15-20 beers on days off. Does have a history of withdrawal seizures. Doing well today and eager to be discharged home. Received a second dose of losartan last night. Has been experiencing elevated blood pressures but denies chest pain, headache, dyspnea. Interested in outpatient alcohol rehab programs. VS and nursing notes reviewed. Well appearing. Non-tremulous. Mood and affect are congruent. Heart with regular rate and rhythm. Lungs are clear to auscultation. No tremors. Labs and imaging reviewed. 1. AUD, withdrawal. Phenobarb taper + low dose Ativan per AWSS. Start acamprosate in outpatient setting. Psych liaison assisting with outpatient services. 2. Suicidal intent. Discontinued 1:1. 3. Depression. Continue home escitalopram. 4. OUD. In remission. Continue home suboxone. 5. Fatty liver, elevated liver tests. Trending down. Hx of biopsy showing steatosis with mild fibrosis. 5. Chew tobacco. 1 can per day. Started nicotine patch 21mg. 6. Hypertensive urgency in the setting of chronic HTN. Increased losartan to 50mg BID. Added 10mg amlodipine today for continued elevated blood pressures. Received PO hydralazine 25mg x 1 dose in the afternoon as BPs were persistently elevated. 7. Depression, anxiety. Continue home lexapro. Restarted home gabapentin. Other chronic issues stable and home medications continued. Dispo: pending improvement in blood pressure. Subjective Patient was seen bedside this morning. He has no complaints at this time. He denies any SI since the one episode 3 weeks ago. Review of Systems Review of Systems: All systems reviewed & are unremarkable except as noted in HPI & below Physical Exam Constitutional: WD/WN, vitals as above Eyes: PERRL, conjunctivae normal, anicteric sclerae ENMT: external ear and nose normal, oropharynx normal Respiratory: normal respiratory effort, lungs clear to auscultation Cardiovascular: RRR, no murmur, no edema Gastrointestinal (Abdomen): normal bowel sounds, soft, nontender, no hepatosplenomegaly Musculoskeletal: no cyanosis or clubbing, extremities motor strength 5/5 Skin: no rashes, warm and dry Psychiatric: A+Ox3, euthymic affect Results & Data Results & Data ([facility]) Vital Signs (Past 12 Hours) Vital Signs Temp Pulse Resp BP BP Pulse Ox O2 Del Method 05/19/22 07:40 36.5 C 64 18 202/115 H 181/115 H 94 Room Air 05/19/22 04:00 36.6 C 68 18 173/87 H 98 Room Air 05/19/22 00:09 157/91 H 07/28/22 23:07 36.6 C 57 L 18 192/100 H 98 Room Air
[2022-05-19] MEDS ORDERED: amLODIPine BESYLATE 5 MG TAB PO ONE (12:27)
[2022-05-19] MEDS ORDERED: hydrALAZINE HCL 25 MG TAB PO ONE (17:30)
[2022-05-19] MEDS: GABAPENTIN 300 MG CAP PO SCH (21:03)
[2022-05-20] MEDS: LORazepam 0.5 MG in SYRINGE 0.25 ML IV PRN (03:34)
[2022-05-20] MEDS: THIAMINE HCL 100 MG TAB PO SCH (08:25)
[2022-05-20] MEDS: ESCITALOPRAM OXALATE 20 MG TAB PO SCH (08:25)
[2022-05-20] MEDS: BUPRENORPHINE/NALOXONE 8/2 MG TAB SL SCH (08:25)
[2022-05-20] MEDS: GABAPENTIN 300 MG CAP PO SCH ×2 (08:25→14:16)
[2022-05-20] MEDS: FOLIC ACID 1 MG TAB PO SCH (08:25)
[2022-05-20] MEDS: NICOTINE 21 MG/24 HR TDSY TD SCH (08:26)
[2022-05-20 08:37] LABS: Basophils # (auto) 0.03 K/uL (0-0.2); Basophils % (auto) 0.6 %; Eosinophils # (auto) 0.06 K/uL (0-0.50); Eosinophils % (auto) 1.2 %; Hematocrit (blood only) 41.6 % (40.1-51.0); Hemoglobin 14.3 g/dl (14.0-18.0); Immature Granulocytes # (auto) 0.01 K/uL (0.00-0.02); Immature Granulocytes % (auto) 0.2 %; Lymphocytes # (auto) 1.75 K/uL (1.2-3.4); Lymphocytes % (auto) 35.6 %; Mean Corpuscular Hemoglobin 31.6 pg (25.0-34.0); Mean Corpuscular Hgb Conc 34.4 g/dL (32.0-36.0); Mean Corpuscular Volume 91.8 fL (80.0-100.0); Monocytes # (auto) 0.47 K/uL (0.24-0.82); Monocytes % (auto) 9.6 %; Neutrophils # (auto) 2.59 K/uL (1.4-6.5); Neutrophils % (auto) 52.8 %; Platelet Count 154 K/uL (130-400); RDW Coefficient of Variation 12.6 % (11.5-14.5); RDW Standard Deviation 42.1 fL (36.4-46.3); Red Blood Count 4.53 M/uL (4.63-6.08); White Blood Count 4.91 K/ul (4.8-10.8)
[2022-05-20] MEDS ORDERED: amLODIPine BESYLATE 5 MG TAB PO SCH (09:00)
[2022-05-20] MEDS: LOSARTAN POTASSIUM 50 MG TAB PO SCH (09:23)
[2022-05-20 09:43] LABS: BUN Creatinine Ratio 15.7 (10-20); Calcium 9.3 mg/dl (8.5-10.1); Creatinine Clr Calc Pharmacy 137.6 ml/min; Est GFR (African American) 132.1 ml/min; Potassium 4.2 mmol/L (3.5-5.1)
--- NOTE | 2022-05-20 14:52 | Discharge Summary ---
Date of Service May 20, 2022 Admission HPI Per Admitting Provider 46yo M w/ long hx of alcohol abuse, as well as HTN and depression who presents for alcohol detox. The patient reports that he drinks 10 - 15 beers a day on work days and about 15 - 20 beers on days off. He drinks 12 oz. [employer] (ABV: 5.9%). In 06/2020, he had a seizure in [facility] that was thought to be due to a temporary reduction in his alcohol intake. He was encouraged to stop drinking and was not put on an anticonvulsant at that time. He does not recall any other seizures. About 2 weeks ago, he had a day where he did not drink (or maybe drank more? He is not sure.) and says he thinks he "lost vision" for some time, but otherwise does not think he has ever had DTs. He also notes that he has been suicidal for several weeks. He owns a pistol and several days ago, he had it against his head with the intention of killing himself, but did not carry it out. The pistol is still at his house. He also notes that about 3 weeks ago, he smoked methamphetamine and was very anxious and paranoid for several hours and states that he would have killed himself if he had had his gun at that time. At present, he is not experiencing any withdrawal symptoms. Admission Exam Per Admitting Provider Constitutional:WD/WN, vitals as above Eyes:EOM intact bilaterally; no conjunctival abnormality ENMT:external ear and nose normal, oropharynx normal Neck:trachea midline, no thyromegaly normal visual inspection Respiratory:normal respiratory effort, lungs clear to auscultation no respiratory distress Cardiovascular:RRR, no murmur, no edema Gastrointestinal (Abdomen):Inspection/Auscultation: abdomen normal to inspection; abdomen not distended Musculoskeletal:no cyanosis or clubbing, extremities motor strength 5/5 Skin:no rashes, warm and dry Neurologic:moves all extremities and awake No tremor, no tongue fasciulation Psychiatric:Orientation: alert, oriented to person and cooperative Suicidal Thoughts: + reports suicidal thoughts, + reports suicidal plan and + reports suicidal intent Principal Diagnosis alcohol withdrawal Discharge Exam Constitutional WD/WN, vitals as above well developed and cooperative Eyes PERRL, conjunctivae normal, anicteric sclerae ENMT external ear and nose normal, oropharynx normal Respiratory normal respiratory effort, lungs clear to auscultation Cardiovascular RRR, no murmur, no edema Gastrointestinal (Abdomen) normal bowel sounds, soft, nontender, no hepatosplenomegaly Musculoskeletal no cyanosis or clubbing, extremities motor strength 5/5 Skin no rashes, warm and dry Psychiatric A+Ox3, euthymic affect Discharge Data Allergies Allergy/AdvReac Type Severity Reaction Status Date / Time No Known Allergies Allergy Verified 05/17/22 10:08 Consultations 05/17/22 10:23 ED Decision to Admit Stat 05/17/22 12:49 Consult Psychiatry Routine Hospital Course (1) Alcohol use disorder, severe, dependence: (2) Opioid use disorder, moderate, in sustained remission: (3) Depression, unspecified: (4) Alcohol withdrawal: (5) HTN (hypertension): (6) Suicidal intent: Plan Clement is a 46 year old male with history of alcohol use disorder, OUD in remission on MAT with suboxone, HTN and depression admitted for alcohol detoxification and suicidal ideation. Drinks 10-15 beers per day on workdays and 15-20 beers on days off. Does have a history of alcohol withdrawal seizures. While admitted, he completed a phenobarbital taper and received IV Ativan PRN ISAAK. He connected with outpatient resources for drug and alcohol services and has already been called from one outpatient program. He plans to call back on Sunday. Also noted to have suicidal intent prior to hospital admission. Seen by psych. Did have significantly elevated blood pressures. His losartan dose was increased to 50mg BID and 10mg amlodipine was added with improvement in his blood pressures. Discussed with Clement to check his blood pressures at home. He was educated on the proper way to take blood pressures with a home cuff. We also discussed signs and symptoms of hypotension. Other chronic issues were stable and home medications were continued. Follow up with PCP in 1 week for blood pressure check and hospital follow up. Discharge home today. I personally spent 35 minutes discharge planning for this patient. Total Time Total Time Spent Total Time Spent (In Minutes): 60 Discharge Plan Discharge Items Patient Disposition: Home - Self-Care Reason For Visit: ALCOHOL DETOX AND SUICIDAL IDEATION Discharge Diagnosis: Alcohol detox Condition on Discharge: Good Activity: Resume your previous activity Non-emergency contact: Primary Care Provider Call non-emergency contact if: you have any medication questions, your symptoms worsen and you have a fever Follow-up/Referrals: Bethany Oakley MD [Primary Care Provider] - Diet: Regular Addtl Attending Provider Instructions: You were admitted to the hospital for alcohol withdrawal. You were treated with a three day course of phenobarbital. . A discharge summary will be sent to your primary care physician to ensure continuity of care. Please bring this discharge summary with you to your next office appointment so that your provider can review it at that time. Follow-up appointments: * Make a follow-up appointment with your PCP within the next week. It is very important that you follow up with them shortly after discharge from the hospital. Medications: Your medication list has been reviewed and reconciled upon discharge to ensure accuracy and continuity of care. An updated list of all your medications is included with your hospital discharge paperwork. Please review this list closely, and make note of any changes. * We sent a new medication called Acamprosate as a paper script. Take acamprosate 666mg 1 tab three times a day. * We sent in a new medication called amlodipine as a paper script. Take amlodipine 10mg 1 tab one time a day. * We changed your losartan medication. Take losartan 50mg 1 tab two times a day. If you have any issues filling these prescriptions, please call [phone] and ask to leave a message for Dr. Cervantes If your medications as instructed; do not skip a dose of your medicines. Make sure all of your doctors know every medicine you are taking (including lupx-rdk-iwgctyb medicines, vitamins, and supplements). Call your primary care provider before taking any new medicines (including over- the-counter medicines, vitamins, and supplements), because some of these may interact with your current medications, or may make your symptoms worse. Tell your primary care provider if you cannot afford your medications. CONTACT YOUR PRIMARY CARE PROVIDER if you experience any of the following: * Withdrawal symptoms * Difficulty following your treatment plan, or difficulty taking medications CALL 911 OR GO TO THE EMERGENCY DEPARTMENT if you experience any of the following: * Sudden, severe abdominal pain or nausea/vomiting * Severe chest pain, or chest pain that radiates (moves) to your jaw or arm * Sudden, severe shortness of breath or difficulty breathing Thank you for allowing us to participate in your care. Pending Studies at Discharge: No Stand-Alone Forms: [facility], Smoking Cessation Medications and DC Order Prescriptions: New losartan 50 mg Tablet 50 mg PO BID 30 Days Qty: 60 0RF amlodipine [Norvasc] 5 mg Tablet 10 mg PO QAM 30 Days Qty: 60 0RF acamprosate 333 mg tablet,delayed release (DR/EC) 666 mg PO TID 30 Days Qty: 180 0RF Rx Instructions: administer with meals Continued escitalopram oxalate 20 mg tablet 20 mg PO DAILY Qty: 30 5RF buprenorphine-naloxone [Suboxone] 8-2 mg film 2 film SL DAILY Discontinued losartan 50 mg tablet 50 mg PO DAILY Discharge Orders: Discharge Order (Routine); Ordered 05/20/22 Ordered By: Nakul Gil/Other Patient Handouts: Alcoholism Resources, Alcohol Addiction, Addiction: Your Treatment Options Admission Data Admit Date/Time: 05/17/22 10:43 Attending Provider: Gibran Cedeno Admit Provider: Ahmet Vogel Primary Care Provider: Bethany Oakley Other Providers: Ahmet Vogel ; Abbie Senior ; Siomara Alvarez ; Jany Ryan Other Interventions: Discharge Summary Assessment (RN) Last Done: 05/20/22 14:21 Supervising Physician Co-Signing Physician Notes Patient seen and examined independently of PGY-1 Dr. Cervantes. Agree with history, exam findings, assessment and plan of care as outlined. In brief, Clement is a 46 year old male with history of alcohol use disorder, OUD in remission on MAT with suboxone, HTN and depression admitted for alcohol detoxification and suicidal ideation. Drinks 10-15 beers per day on workdays and 15-20 beers on days off. Does have a history of withdrawal seizures. Doing well today and eager to be discharged home. Received a second dose of losartan last night. Has been experiencing elevated blood pressures but denies chest pain, headache, dyspnea. Interested in outpatient alcohol rehab programs. VS and nursing notes reviewed. Well appearing. Non-tremulous. Mood and affect are congruent. Heart with regular rate and rhythm. Lungs are clear to auscultation. No tremors. Labs and imaging reviewed. 1. AUD, withdrawal. Phenobarb taper + low dose Ativan per AWSS. Start acamprosate in outpatient setting. Psych liaison assisting with outpatient services. 2. Suicidal intent. Discontinued 1:1. 3. Depression. Continue home escitalopram. 4. OUD. In remission. Continue home suboxone. 5. Fatty liver, elevated liver tests. Trending down. Hx of biopsy showing steatosis with mild fibrosis. 5. Chew tobacco. 1 can per day. Started nicotine patch 21mg. 6. Hypertensive urgency in the setting of chronic HTN. Increased losartan to 50mg BID. Added 10mg amlodipine today for continued elevated blood pressures. Received PO hydralazine 25mg x 1 dose in the afternoon as BPs were persistently elevated. 7. Depression, anxiety. Continue home lexapro. Restarted home gabapentin. Other chronic issues stable and home medications continued. Dispo: pending improvement in blood pressure.
== END 2022-05-20 14:50 | disposition home or self-care (01) | DRG 897 ==
LOC: ED 09:14 → EDINP 10:43 → SUATTDRO 10:43 → 2W 05-18 12:48
DX: F32.A Depression, unspecified; R94.5 Abnormal results of liver function studies; F17.290 Nicotine dependence, other tobacco product, uncomplicated; Z79.899 Other long term (current) drug therapy; F10.239 Alcohol dependence with withdrawal, unspecified; F10.229 Alcohol dependence with intoxication, unspecified; F11.21 Opioid dependence, in remission; R79.89 Other specified abnormal findings of blood chemistry; I10 Essential (primary) hypertension; R45.851 Suicidal ideations

== ENCOUNTER 2023-04-22 20:38 | Inpatient (IN) ==
[2023-04-22 22:02] LABS: Hematocrit (blood only) 36.1 % (42.0-52.0); Mean Corpuscular Hemoglobin 31.1 pg (25.0-34.0); Mean Corpuscular Hgb Conc 33.2 g/dL (32.0-36.0); Mean Corpuscular Volume 93.5 fL (80.0-100.0); Mean Platelet Volume 9.6 fL (9.4-12.4); Platelet Count 106 K/uL (130-400); RDW Coefficient of Variation 15.7 % (11.5-14.5); Red Blood Count 3.86 M/uL (4.70-6.10); White Blood Count 1.68 K/ul (4.8-10.8)
[2023-04-22 22:16] LABS: Albumin Globulin Ratio 1.3 (0.9-2); Albumin Level 4.9 gm/dl (3.4-5.0); Bilirubin,Total 0.5 mg/dl (0.2-1.0); Calcium 9.4 mg/dl (8.6-10.3); Creatinine Clr Calc Pharmacy 95.3 ml/min; Est GFR (African American) 104.1 ml/min; Est GFR (Non-African American) 89.9 ml/min; Globulin 3.7 gm/dl (2.5-4.0); Total Protein 8.6 gm/dl (6.0-8.3)
[2023-04-22] MEDS ORDERED: CEROVITE ADV FORMULA TAB PO STA (22:48)
[2023-04-22] MEDS ORDERED: LORazepam 2 MG/1 ML VIAL IV STA (22:48)
--- NOTE | 2023-04-22 22:54 | Emergency Department Note ---
Impression & Plan Alcohol use disorder, severe, dependence, Alcohol withdrawal, Tremor due to substance withdrawal, History of seizure due to alcohol withdrawal, Neutropenia ED Provider Note CHIEF COMPLAINT: Alcohol withdrawal HISTORY OF PRESENT ILLNESS: This 47-year-old man patient presents to the emergency department via private vehicle accompanied by mother for evaluation of alcohol withdrawal. The patient states he has detoxed excessively before as an outpatient with Valium. He saw his PCP about 6 weeks ago and was given a prescription for Valium but had not taken it until today, noting he has a few days off work and he has successfully detoxed when he has had time off work in the past. He has been drinking about 20 beers per day and states his last beer was at about 8 AM this morning. He does wish to quit plans to stop drinking. The patient notes that he took 1 dose of Valium at 8 AM and a second at about 4 PM, but has not had any further medication. He states he had increased shakine ss, sweating, and nausea and was generally not feeling well, notes that he did not experience these symptoms last time he detoxed. He states he does have a history of seizure due to alcohol withdrawal in the past and he became concerned and came to the emergency department for evaluation. The patient states he has been to rehab in the past and states "I am not interested in going there". He notes he is unwilling to commit to a 28 day stay because he has to help his parents around their home and with lawn care. Patient denies any chest pain or shortness of breath. No abdominal pain. No vomiting, diarrhea, constipation. No fever, congestion, runny nose, sore throat, cough. REVIEW OF SYSTEMS: A 10 system review of systems was performed with positives and pertinent negatives listed in the history of present illness. All other systems were reviewed and are negative. ALLERGIES: Wellbutrin PHYSICAL EXAM: VITALS: Vitals are noted on the nurse's note and reviewed by myself. Vital signs stable. GENERAL: This is a 47-year-old male, in no acute distress, nondiaphoretic, well-developed well-nourished. SKIN: The skin was without rashes, erythema, edema, or bruising. There is no t enting of the skin. Capillary refill less than 2 seconds. HEAD: Normocephalic atraumatic. EYES: Conjunctivae without injection, sclerae without icterus. Extraocular movements intact. NOSE: Patent, turbinates without inflammation or discharge. No sinus tenderness. MOUTH: Mucous membranes moist. Tonsils are not enlarged. Pharynx without erythema or exudate. Uvula midline. Airway patent. Tongue does not deviate. NECK: Supple without nuchal rigidity. No lymphadenopathy. No thyromegaly. Cervical spine is nontender. No JVD. HEART: Regular rate and rhythm without murmurs gallops or rubs. LUNGS: Clear to auscultation bilaterally without wheezes, rales or rhonchi. No retractions or accessory muscle use. ABDOMEN: Positive bowel sounds x 4. Soft, nontender, without masses or organ omegaly. No guarding or rebound tenderness. MUSCULOSKELETAL: No muscle atrophy, erythema, or edema noted. Full range of motion without joint tenderness in all extremities. No tenderness to palpation. Normal gait. Strength 5/5 throughout. NEURO: Patient was alert and oriented to person place and time. Normal sensation to light and sharp touch. Deep tendon reflexes 2+ throughout. No focal neurological deficits. EKG, per my interpretation: Normal sinus rhythm with a ventricular rate of [address] elevation or depression. No T wave inversion. When compared to EKG completed in 06/2020, ventricular rate has decreased by 35 bpm EMERGENCY DEPARTMENT COURSE: The patient was seen and evaluated as above. IV access obtained, labs drawn. Patient was medicated with 1 mg IV Ativan and a banana bag. The patient is trying to detox from alcohol. He indicates his last drink was this morning at about 8 AM. His alcohol level remains elevated at 55.8. Labs reviewed. The patient is neutropenic with a white blood cell count of 1.68, neutrophil count of 0.94, and platelet count of 106,000. Patient is anemic with a hemoglobin of 12. Renal, hepatic function and electrolytes without significant abnormality. COVID-19 testing is negative. The patient was reassessed. He is continuing to experience shakiness despite the Ativan. I discussed the case with the district loss prevention manager. He will be admitted to the [facility]. The patient was medicated with 10 mg IV Valium at the recommendation of Dr. Clay, [facility]. I did discuss the case with her and she agreed to see the patient for admission. Please see her dictation regarding ongoing management care of this patient. Differential diagnosis includes withdrawal, seizure, alcohol intoxication, toxicologic, infection, hypoglycemia, electrolyte abnormalities, cardiac sources, intracerebral event, neurologic, trauma, as well as other pathologies. I attest that I have personally reviewed the patient's current medication list. Patient was found to have normal blood pressure on screening and does not require follow-up. The chart was completed utilizing [employer] Speech voice recognition software. Grammatical errors, random word insertions, pronoun errors, and incomplete sentences are an occasional consequence of this system due to software limitations, ambient noise, and hardware issues. Any formal questions or concerns about the content, text, or information contained within the body of this dictation should be directly addressed to the provider for clarification. Past Med/Surg History Medical History Alcohol withdrawal Depression, unspecified Elevated liver enzymes Erectile dysfunction History of healed fragility fracture HTN (hypertension) Opioid use disorder, moderate, in sustained remission Psychosis Seizure (06/27/20) Suicidal intent Vitamin D deficiency Surgical History History of total hip replacement No significant past surgical history Family History Grandmother Breast cancer Social History Smoking Status: Current every day smoker Tobacco Type: Smokeless Tobacco (Dip or Chew) Age Started Using Tobacco: 13; Second Hand Exposure: No; Do You Dip or Chew Tobacco: Yes; Hx Alcohol Use: Yes Alcohol type: beer Alcohol Intake Frequency Comment: 6 beers per day Hx Substance Use: No Preferred Language: Citizen Of [place] Communication Ability: Effective Cell Tuber Hand Required: No Beliefs That Will Affect Care: None marital status: Single Current Living Situation: Parent current occupational status: employed Feels Safe at Home: Yes Diet: regular caffeine: Yes Assistive Devices: None Allergies Allergies Allergy/AdvReac Type Severity Reaction Status Date / Time bupropion AdvReac Severe Anxiety Verified 04/23/23 01:36 [From Wellbutrin SR] Home Meds Home Medications Medication Instructions Recorded Confirmed buprenorphine 8 mg-naloxone 2 mg 3 film sublingual DAILY 08/13/19 04/23/23 sublingual film (Suboxone) gabapentin 600 mg tablet 900 mg PO TID PRN .anxiety/pain 04/23/23 04/23/23 Previous Rx's Medication Instructions Recorded thiamine HCl (vitamin B1) 50 mg 100 mg PO DAILY 90 days #180 tabs 10/18/22 tablet escitalopram oxalate 20 mg tablet 20 mg PO DAILY #90 tabs 02/22/23 vortioxetine 20 mg tablet 20 mg PO DAILY #90 tabs 02/22/23 diazepam 10 mg tablet See Rx Instructions PO .COMPLEX 03/05/23 anxiety #19 tabs amlodipine 5 mg-olmesartan 40 mg 1 tab PO DAILY #90 tabs 03/20/23 tablet cholecalciferol (vitamin D3) 25 25 mcg PO DAILY #90 caps 04/04/23 mcg (1,000 unit) capsule pantoprazole 40 mg tablet,delayed 40 mg PO DAILY #90 tabs 04/04/23 release sildenafil 50 mg tablet 50 mg PO DAILY PRN sexual activity 04/04/23 #15 tabs Results & Data (ED) Vital Signs Vital Signs - 24 hr 04/22/23 20:43 04/22/23 21:28 04/22/23 21:26 Temperature 36.6 C Temperature Source Temporal Artery Scan Pulse Rate 108 H 76 Pulse Rate [Right Finger] 76 Pulse Rate from SpO2 Sensor Pulse Rhythm Regular Pulse Rhythm [Right Finger] Regular Pulse Strength Normal Pulse Strength [Right Finger] Normal Respiratory Rate 20 24 Respiratory Effort / Characteristics Non-Labored Spontaneous Non-Labored Spontaneous Respiratory Depth Normal Normal Respiratory Pattern Regular Blood Pressure 118/73 Blood Pressure [Right Arm] 122/76 Blood Pressure Mean 88 Blood Pressure Mean [Right Arm] 91 Blood Pressure Position Sitting Pulse Oximetry 98 97 Oxygen Delivery Method Room Air Room Air Sepsis Recent Fever Within 48 Hours No Sepsis New/Unexplained Change in Mental Status N/A Sepsis Action Taken by Nursing No Action Required 04/22/23 21:27 04/22/23 21:30 04/22/23 21:30 Temperature Temperature Source Pulse Rate 75 71 Pulse Rate [Right Finger] Pulse Rate from SpO2 Sensor 74 73 Pulse Rhythm Pulse Rhythm [Right Finger] Pulse Strength Pulse Strength [Right Finger] Respiratory Rate 19 22 Respiratory Effort / Characteristics Respiratory Depth Respiratory Pattern Blood Pressure 126/76 Blood Pressure [Right Arm] Blood Pressure Mean 92 Blood Pressure Mean [Right Arm] Blood Pressure Position Pulse Oximetry 91 95 Oxygen Delivery Method Sepsis Recent Fever Within 48 Hours Sepsis New/Unexplained Change in Mental Status Sepsis Action Taken by Nursing 04/22/23 22:00 04/22/23 22:00 04/22/23 22:30 Temperature Temperature Source Pulse Rate 64 Pulse Rate [Right Finger] Pulse Rate from SpO2 Sensor 65 Pulse Rhythm Pulse Rhythm [Right Finger] Pulse Strength Pulse Strength [Right Finger] Respiratory Rate 15 Respiratory Effort / Characteristics Respiratory Depth Respiratory Pattern Blood Pressure 116/73 116/67 Blood Pressure [Right Arm] Blood Pressure Mean 87 83 Blood Pressure Mean [Right Arm] Blood Pressure Position Pulse Oximetry 99 Oxygen Delivery Method Sepsis Recent Fever Within 48 Hours Sepsis New/Unexplained Change in Mental Status Sepsis Action Taken by Nursing 04/22/23 22:30 04/22/23 23:00 04/22/23 23:00 Temperature Temperature Source Pulse Rate 67 Pulse Rate [Right Finger] Pulse Rate from SpO2 Sensor 67 66 Pulse Rhythm Pulse Rhythm [Right Finger] Pulse Strength Pulse Strength [Right Finger] Respiratory Rate 16 Respiratory Effort / Characteristics Respiratory Depth Respiratory Pattern Blood Pressure 117/73 Blood Pressure [Right Arm] Blood Pressure Mean 87 Blood Pressure Mean [Right Arm] Blood Pressure Position Pulse Oximetry 97 99 Oxygen Delivery Method Sepsis Recent Fever Within 48 Hours Sepsis New/Unexplained Change in Mental Status Sepsis Action Taken by Nursing 04/23/23 01:00 04/22/23 23:30 04/22/23 23:30 Temperature 36.8 C Temperature Source Oral Pulse Rate 63 Pulse Rate [Right Finger] Pulse Rate from SpO2 Sensor 62 Pulse Rhythm Pulse Rhythm [Right Finger] Pulse Strength Pulse Strength [Right Finger] Respiratory Rate Respiratory Effort / Characteristics Respiratory Depth Respiratory Pattern Blood Pressure 118/67 Blood Pressure [Right Arm] Blood Pressure Mean 84 Blood Pressure Mean [Right Arm] Blood Pressure Position Pulse Oximetry 98 Oxygen Delivery Method Sepsis Recent Fever Within 48 Hours Sepsis New/Unexplained Change in Mental Status Sepsis Action Taken by Nursing 04/23/23 00:00 04/23/23 00:00 04/23/23 00:30 Temperature Temperature Source Pulse Rate 107 H Pulse Rate [Right Finger] Pulse Rate from SpO2 Sensor 59 L Pulse Rhythm Pulse Rhythm [Right Finger] Pulse Strength Pulse Strength [Right Finger] Respiratory Rate Respiratory Effort / Characteristics Respiratory Depth Respiratory Pattern Blood Pressure 118/73 115/70 Blood Pressure [Right Arm] Blood Pressure Mean 88 85 Blood Pressure Mean [Right Arm] Blood Pressure Position Pulse Oximetry 100 Oxygen Delivery Method Sepsis Recent Fever Within 48 Hours Sepsis New/Unexplained Change in Mental Status Sepsis Action Taken by Nursing 04/23/23 00:30 04/23/23 01:00 04/23/23 01:00 Temperature Temperature Source Pulse Rate 88 59 L Pulse Rate [Right Finger] Pulse Rate from SpO2 Sensor 59 L Pulse Rhythm Pulse Rhythm [Right Finger] Pulse Strength Pulse Strength [Right Finger] Respiratory Rate 12 Respiratory Effort / Characteristics Respiratory Depth Respiratory Pattern Blood Pressure 110/70 Blood Pressure [Right Arm] Blood Pressure Mean 83 Blood Pressure Mean [Right Arm] Blood Pressure Position Pulse Oximetry 99 Oxygen Delivery Method Sepsis Recent Fever Within 48 Hours Sepsis New/Unexplained Change in Mental Status Sepsis Action Taken by Nursing Laboratory Data 04/22/23 21:43 04/22/23 21:43 Lab Results 04/22/23 04/22/23 04/22/23 Range/Units 21:43 21:43 21:43 WBC 1.68 L (4.8-10.8) K/ul RBC 3.86 L (4.70-6.10) M/uL Hgb 12.0 L (14.0-18.0) g/dl Hct 36.1 L (42.0-52.0) % MCV 93.5 (80.0-100.0) fL MCH 31.1 (25.0-34.0) pg MCHC 33.2 (32.0-36.0) g/dL RDW Std Deviation 54.0 H (36.4-46.3) fL RDW Coeff of Ric 15.7 H (11.5-14.5) % Plt Count 106 L (130-400) K/uL MPV 9.6 (9.4-12.4) fL Immature Gran % (Auto) 0.0 % Neut % (Auto) 55.9 % Lymph % (Auto) 28.6 % [place] % (Auto) 11.9 % Eos % (Auto) 1.8 % Baso % (Auto) 1.8 % Neut # (Auto) 0.94 L* (1.40-6.50) K/uL Lymph # (Auto) 0.48 L (1.2-3.4) K/uL [place] # (Auto) 0.20 (0.11-0.59) K/uL Eos # (Auto) 0.03 (0-0.50) K/uL Baso # (Auto) 0.03 (0-0.2) K/uL Immature Gran # (Auto) 0.00 L (0.01-0.20) K/uL Sodium 140 (136-145) mmol/L Potassium 4.0 (3.5-5.1) mmol/L Chloride 102 (98-107) mmol/L Carbon Dioxide 27 (21-32) mmol/L Anion Gap 11 (3-11) BUN 20 (6-23) mg/dl Creatinine 1.00 (0.6-1.4) mg/dl Est Cr Clr Drug Dosing 95.3 ml/min Est GFR ( Amer) 104.1 ml/min Est GFR (Non-Af Amer) 89.9 ml/min BUN/Creatinine Ratio 20.0 (10-20) Glucose 121 H (70-99(Fasting)) mg/dl POC Glucose (70-99) mg/dl Calcium 9.4 (8.6-10.3) mg/dl Total Bilirubin 0.5 (0.2-1.0) mg/dl AST 136 H (13-39) U/L ALT 118 H (7-52) U/L Alkaline Phosphatase 54 (34-104) U/L Total Protein 8.6 H (6.0-8.3) gm/dl Albumin 4.9 (3.4-5.0) gm/dl Globulin 3.7 (2.5-4.0) gm/dl Albumin/Globulin Ratio 1.3 (0.9-2) Ethyl Alcohol mg/dL 55.8 H (<10.0) mg/dl SARS-CoV-2, RNA, NAAT (NEGATIVE) 04/22/23 04/23/23 Range/Units 21:56 01:05 WBC (4.8-10.8) K/ul RBC (4.70-6.10) M/uL Hgb (14.0-18.0) g/dl Hct (42.0-52.0) % MCV (80.0-100.0) fL MCH (25.0-34.0) pg MCHC (32.0-36.0) g/dL RDW Std Deviation (36.4-46.3) fL RDW Coeff of Ric (11.5-14.5) % Plt Count (130-400) K/uL MPV (9.4-12.4) fL Immature Gran % (Auto) % Neut % (Auto) % Lymph % (Auto) % [place] % (Auto) % Eos % (Auto) % Baso % (Auto) % Neut # (Auto) (1.40-6.50) K/uL Lymph # (Auto) (1.2-3.4) K/uL [place] # (Auto) (0.11-0.59) K/uL Eos # (Auto) (0-0.50) K/uL Baso # (Auto) (0-0.2) K/uL Immature Gran # (Auto) (0.01-0.20) K/uL Sodium (136-145) mmol/L Potassium (3.5-5.1) mmol/L Chloride (98-107) mmol/L Carbon Dioxide (21-32) mmol/L Anion Gap (3-11) BUN (6-23) mg/dl Creatinine (0.6-1.4) mg/dl Est Cr Clr Drug Dosing ml/min Est GFR ( Amer) ml/min Est GFR (Non-Af Amer) ml/min BUN/Creatinine Ratio (10-20) Glucose (70-99(Fasting)) mg/dl POC Glucose 98 (70-99) mg/dl Calcium (8.6-10.3) mg/dl Total Bilirubin (0.2-1.0) mg/dl AST (13-39) U/L ALT (7-52) U/L Alkaline Phosphatase (34-104) U/L Total Protein (6.0-8.3) gm/dl Albumin (3.4-5.0) gm/dl Globulin (2.5-4.0) gm/dl Albumin/Globulin Ratio (0.9-2) Ethyl Alcohol mg/dL (<10.0) mg/dl SARS-CoV-2, RNA, NAAT NEGATIVE (NEGATIVE) Administered Medications Discontinued Medications Diazepam (Diazepam 5 Mg/Ml Inj 10ml Vial) 10 mg IV NOW STA Stop: 04/23/23 01:09 Last Admin: 04/23/23 01:16 Dose: 10 mg Documented By: ERICA Thiamine HCl 100 mg/ Folic (Acid 1 mg/ Sodium Chloride) 1,001.2 mls @ 500 mls/hr IV .Q2H1M [facility]; Protocol Stop: 04/23/23 01:00 Last Infusion: 04/23/23 01:47 Dose: 0 mls/hr Documented By: Admin: 04/22/23 23:23 Dose: 500 mls/hr Documented By: ERICA Lorazepam (Lorazepam 2 Mg/1 Ml Vial) 1 mg IV NOW STA Stop: 04/22/23 22:49 Last Admin: 04/22/23 23:23 Dose: 1 mg Documented By: ERICA Lorazepam (Lorazepam 2 Mg/1 Ml Vial) 1 mg IV NOW STA Stop: 04/23/23 01:06 Last Admin: 04/23/23 01:16 Dose: Not Given Documented By: ERICA Multivitamins/Minerals (Cerovite Adv Formula Tab) 1 tab PO ONE STA Stop: 04/22/23 22:49 Last Admin: 04/22/23 23:24 Dose: 1 tab Documented By: ERICA Discharge Plan Visit Data Chief Complaint: Alcohol Withdrawal Stated Complaint: ALCOHOL WITHDRAWAL ED Provider: Pretty Alvarado ED Midlevel Provider: Iesha Vargas Discharge Problem: Alcohol use disorder, severe, dependence, Alcohol withdrawal, Tremor due to substance withdrawal, History of seizure due to alcohol withdrawal, Neutropenia Patient Disposition: Admitted As Inpatient Forms Stand Alone Forms: [facility], Suicide Prevention Resources Prescriptions Prescriptions: No Action diazepam 10 mg tablet See Rx Instructions PO .COMPLEX Qty: 19 0RF Rx Instructions: Day1:20mg(2tab)QID Day2:10mg(1tab)xTID, Day3:10mg(1tab)BID Day4:10mg once. PRN 10mg once daily x 5 tabs anxiety. filled 03/03/23 amlodipine-olmesartan 5-40 mg tablet 1 tab PO DAILY Qty: 90 1RF buprenorphine-naloxone [Suboxone] 8-2 mg film 3 film SL DAILY thiamine HCl (vitamin B1) 50 mg tablet 100 mg PO DAILY 90 Days Qty: 180 6RF sildenafil 50 mg tablet 50 mg PO DAILY PRN (Reason: sexual activity) Qty: 15 2RF Rx Instructions: administer 30 minutes to 4 hours before activity pantoprazole 40 mg tablet,delayed release (DR/EC) 40 mg PO DAILY Qty: 90 2RF Rx Instructions: eat 30 minutes after taking cholecalciferol (vitamin D3) 25 mcg (1,000 unit) capsule 25 mcg PO DAILY Qty: 90 2RF vortioxetine 20 mg tablet 20 mg PO DAILY Qty: 90 2RF escitalopram oxalate 20 mg tablet 20 mg PO DAILY Qty: 90 2RF gabapentin 600 mg tablet 900 mg PO TID PRN (Reason: .anxiety/pain) Rx Instructions: take 1 and 1/2 tablets by mouth three times a day if needed for anxiety and pain Referrals Referrals: Bethany Oakley MD [Physician] -
[2023-04-22] MEDS ORDERED: THIAMINE HCL 100 MG, FOLIC ACID 1 MG in SODIUM CHLORIDE 0.9% 1000ML 1,000 ML IV SCH (23:00)
[2023-04-22 23:02] LABS: Basophils # (auto) 0.03 K/uL (0-0.2); Basophils % (auto) 1.8 %; Eosinophils # (auto) 0.03 K/uL (0-0.50); Eosinophils % (auto) 1.8 %; Lymphocytes # (auto) 0.48 K/uL (1.2-3.4); Lymphocytes % (auto) 28.6 %; Monocytes % (auto) 11.9 %; Neutrophils # (auto) 0.94 K/uL (1.40-6.50); Neutrophils % (auto) 55.9 %
[2023-04-23] MEDS ORDERED: LORazepam 2 MG/1 ML VIAL IV STA (01:05)
--- NOTE | 2023-04-23 01:38 | History & Physical Report ---
Date of Service April 23, 2023 Assessment & Plan (1) Alcohol withdrawal: Plan: 47yo male with history of EtOH abuse - reports drinking at least 20 beers at 5.9% alcohol content daily. Last drink 04/22/23 at 08:00. Reports history of complicated lcohol withdrawals - seizure several years ago. Labs with pancytopenia - WBC=1.68 with neutropenia and lymphopenia. Normochromic/normocytic anemia with Hgb=12 and Hct=36.1. Platelets =106. Possibly secondary to bone marrow toxicity from EtOH. AST elevated at 136,RTF=517 with normal AP and bilirubin. -Admit to PCU -Check Mg and PO4 and replete as needed -Maintain seizure precautions -IV Ativan as needed per [facility] protocol. Patient did become slightly bradycardic after administration of IV Valium - would avoid additional doses -Thiamine and Folate daily -Repeat CBC, Hepatic panel and BMP in AM (2) HTN (hypertension): Plan: Blood pressure presently 116/81. Patient is taking Amlodipine-Olmesartan 5-40mg tablets at home -Continue Amlodipine 5mg po daily while inpatient - Monitor (3) Depressive disorder, not elsewhere classified: Plan: Patient is taking Escitalopram, Trintellix and Gabapentin 900mg po TID for anxiety and pain. -Continue Escitalopram -Continue Gabapentin (4) Opiate dependence: Plan: In remission. Patient is on chronic Suboxone therapy -Continue Suboxone F/E/N - LR at 100mL/hr x 1L, check Mg and PO4 and replete as needed, NPO for now Ppx - Low risk for DVT Code- Full Dispo - Admit to PCU History of Present Illness Chief Complaint: alcohol withdrawal Primary Care Provider: DO Clement Mayes Darek is a 47yo male presenting with EtOH withdrawal. Patient reports drinking at least 20 beers per day - typical 12 oz can but 5.9% EtOH. His last drink was yesterday AM 04/22/23 at 0800. Patient reports he has been drinking heavily for the last 20 years. He has history of complicated withdrawals - reports having a seizure several years ago. He has not been to rehab. Was in AA for a while but not actively participating now. He was attempting to detox as an outpatient with PO valium. He reports taking the first dose of Valium 40mg PO at 08:00. He took the second dose as directed several hours later. He noted that he was becoming more sweaty and shaky so he came to the ER. Patient with history of depression which he feels is well controlled with his Lexapro and Trintellix. He has history of opioid use disorder and is on Suboxone - no recent changes in dosage. He reports that he has been told in the past that his blood numbers and liver numbers are bad because of the alcohol. Otherwise, patient denies fever, chills, cough, SOB, abdominal pain, nausea, vomiting, diarrhea or constipation. He reports eating well at home. No falls. No additional complaints at this time. In the ER patient received a 500mL banana bag as well as Ativan 1mg IV and Diazepam 10mg IV. Now resting comfortably. Arousable. NAD. Allergies Allergy/AdvReac Type Severity Reaction Status Date / Time bupropion AdvReac Severe Anxiety Verified 04/23/23 01:36 [From Wellbutrin SR] Home Medications Medication Instructions Recorded Confirmed Type buprenorphine 8 mg-naloxone 2 mg 3 film sublingual DAILY 08/13/19 04/23/23 History sublingual film (Suboxone) thiamine HCl (vitamin B1) 50 mg 100 mg PO DAILY 90 days #180 tabs 10/18/22 04/23/23 Rx tablet escitalopram oxalate 20 mg tablet 20 mg PO DAILY #90 tabs 02/22/23 04/23/23 Rx vortioxetine 20 mg tablet 20 mg PO DAILY #90 tabs 02/22/23 04/23/23 Rx diazepam 10 mg tablet See Rx Instructions PO .COMPLEX 03/05/23 04/23/23 Rx anxiety #19 tabs amlodipine 5 mg-olmesartan 40 mg 1 tab PO DAILY #90 tabs 03/20/23 04/23/23 Rx tablet cholecalciferol (vitamin D3) 25 25 mcg PO DAILY #90 caps 04/04/23 04/23/23 Rx mcg (1,000 unit) capsule pantoprazole 40 mg tablet,delayed 40 mg PO DAILY #90 tabs 04/04/23 04/23/23 Rx release sildenafil 50 mg tablet 50 mg PO DAILY PRN sexual activity 04/04/23 04/23/23 Rx #15 tabs gabapentin 600 mg tablet 900 mg PO TID PRN .anxiety/pain 04/23/23 04/23/23 History Past Med/Surg History Medical History (Updated 04/23/23 @ 02:08 by Antionette Clay DO) Alcohol withdrawal Depression, unspecified Elevated liver enzymes Erectile dysfunction History of healed fragility fracture HTN (hypertension) Opioid use disorder, moderate, in sustained remission Psychosis Seizure (06/27/20) Suicidal intent Vitamin D deficiency Surgical History History of total hip replacement No significant past surgical history Family History Grandmother Breast cancer Social History Smoking Status: Current every day smoker Tobacco Type: Smokeless Tobacco (Dip or Chew) Age Started Using Tobacco: 13; Second Hand Exposure: No; Do You Dip or Chew Tobacco: Yes; Hx Alcohol Use: Yes Alcohol type: beer Alcohol Intake Frequency Comment: 6 beers per day Hx Substance Use: No Preferred Language: Bots[place]an Communication Ability: Effective Tube Pusher Required: No Beliefs That Will Affect Care: None marital status: Single Current Living Situation: Parent current occupational status: employed Feels Safe at Home: Yes Diet: regular caffeine: Yes Assistive Devices: None Review of Systems Review of Systems: All systems reviewed & are unremarkable except as noted in HPI & below Physical Exam Physical Exam: General: patient tremulous, oriented x 3, answering questions and following commands. Improved after IV Valium Skin: warm, dry, intact, no rashes or lesions. Well healed linear scars on right forearm HEENT: NC/AT, PERRL, EOMI, anicteric sclera, conjunctiva without injection, external ear normal to inspection and nontender, nares patent, slightly dry mucus membranes, dentition intact, no oropharyngeal lesions, neck supple, trachea midline, no LAD, no thyromegaly, no JVD Heart: +S1/S2, regular, bradycardic, no m/r/g Lungs: equal air entry bilaterally, no rales/rhonchi/wheezes Abd: +BS, soft, NT/ND, no masses/organomegaly/ascites Ext: warm, 2+ pulses in UE/LE bilaterally, no clubbing/cyanosis or edema Neuro: nonfocal, patient AA&O x 4, speech intact, no facial droop, moving all extremities on command with equal strength 5/5 Results & Data Results & Data Vital Signs (Past 12 Hours) Vital Signs Temp Pulse Pulse Resp BP BP Pulse Ox 04/23/23 01:00 59 L 12 99 04/23/23 01:00 110/70 04/23/23 00:30 88 04/23/23 00:30 115/70 04/23/23 00:00 107 H 100 04/23/23 00:00 118/73 04/22/23 23:30 63 98 04/22/23 23:30 118/67 04/23/23 01:00 36.8 C 04/22/23 23:00 99 04/22/23 23:00 117/73 04/22/23 22:30 67 16 97 04/22/23 22:30 116/67 04/22/23 22:00 64 15 99 04/22/23 22:00 116/73 04/22/23 21:30 71 22 95 04/22/23 21:30 126/76 04/22/23 21:27 75 19 91 04/22/23 21:26 76 04/22/23 21:28 76 24 122/76 97 04/22/23 20:43 36.6 C 108 H 20 118/73 98 O2 Del Method 04/23/23 01:00 04/23/23 01:00 04/23/23 00:30 04/23/23 00:30 04/23/23 00:00 04/23/23 00:00 04/22/23 23:30 04/22/23 23:30 04/23/23 01:00 04/22/23 23:00 04/22/23 23:00 04/22/23 22:30 04/22/23 22:30 04/22/23 22:00 04/22/23 22:00 04/22/23 21:30 04/22/23 21:30 04/22/23 21:27 04/22/23 21:26 04/22/23 21:28 Room Air 04/22/23 20:43 Room Air Laboratory Results Laboratory Results WBC 1.68 K/ul (4.8-10.8) L 04/22/23 21:43 RBC 3.86 M/uL (4.70-6.10) L 04/22/23 21:43 Hgb 12.0 g/dl (14.0-18.0) L 04/22/23 21:43 Hct 36.1 % (42.0-52.0) L 04/22/23 21:43 MCV 93.5 fL (80.0-100.0) 04/22/23 21:43 MCH 31.1 pg (25.0-34.0) 04/22/23 21:43 MCHC 33.2 g/dL (32.0-36.0) 04/22/23 21:43 RDW Std Deviation 54.0 fL (36.4-46.3) H 04/22/23 21:43 RDW Coeff of Ric 15.7 % (11.5-14.5) H 04/22/23 21:43 Plt Count 106 K/uL (130-400) L 04/22/23 21:43 MPV 9.6 fL (9.4-12.4) 04/22/23 21:43 Immature Gran % (Auto) 0.0 % 04/22/23 21:43 Neut % (Auto) 55.9 % 04/22/23 21:43 Lymph % (Auto) 28.6 % 04/22/23 21:43 [place] % (Auto) 11.9 % 04/22/23 21:43 Eos % (Auto) 1.8 % 04/22/23 21:43 Baso % (Auto) 1.8 % 04/22/23 21:43 Neut # (Auto) 0.94 K/uL (1.40-6.50) L* 04/22/23 21:43 Lymph # (Auto) 0.48 K/uL (1.2-3.4) L 04/22/23 21:43 [place] # (Auto) 0.20 K/uL (0.11-0.59) 04/22/23 21:43 Eos # (Auto) 0.03 K/uL (0-0.50) 04/22/23 21:43 Baso # (Auto) 0.03 K/uL (0-0.2) 04/22/23 21:43 Immature Gran # (Auto) 0.00 K/uL (0.01-0.20) L 04/22/23 21:43 Sodium 140 mmol/L (136-145) 04/22/23 21:43 Potassium 4.0 mmol/L (3.5-5.1) 04/22/23 21:43 Chloride 102 mmol/L (98-107) 04/22/23 21:43 Carbon Dioxide 27 mmol/L (21-32) 04/22/23 21:43 Anion Gap 11 (3-11) 04/22/23 21:43 BUN 20 mg/dl (6-23) 04/22/23 21:43 Creatinine 1.00 mg/dl (0.6-1.4) 04/22/23 21:43 Est Cr Clr Drug Dosing 95.3 ml/min 04/22/23 21:43 Est GFR ( Amer) 104.1 ml/min 04/22/23 21:43 Est GFR (Non-Af Amer) 89.9 ml/min 04/22/23 21:43 BUN/Creatinine Ratio 20.0 (10-20) 04/22/23 21:43 Glucose 121 mg/dl (70-99(Fasting)) H 04/22/23 21:43 POC Glucose 98 mg/dl (70-99) 04/22/23 21:56 Calcium 9.4 mg/dl (8.6-10.3) 04/22/23 21:43 Total Bilirubin 0.5 mg/dl (0.2-1.0) 04/22/23 21:43 AST 136 U/L (13-39) H 04/22/23 21:43 ALT 118 U/L (7-52) H 04/22/23 21:43 Alkaline Phosphatase 54 U/L (34-104) 04/22/23 21:43 Total Protein 8.6 gm/dl (6.0-8.3) H 04/22/23 21:43 Albumin 4.9 gm/dl (3.4-5.0) 04/22/23 21:43 Globulin 3.7 gm/dl (2.5-4.0) 04/22/23 21:43 Albumin/Globulin Ratio 1.3 (0.9-2) 04/22/23 21:43 Ethyl Alcohol mg/dL 55.8 mg/dl (<10.0) H 04/22/23 21:43 SARS-CoV-2, RNA, NAAT NEGATIVE (NEGATIVE) 07/03/23 01:05 ECG Additional Comments: study shows NSR at 65, no acute ischemic changes PG Care Time/CCT Total # of Minutes Spent Total Time Spent with Patient: Total time spent is greater than 50% in coordination of care (as documented) at patient's floor/unit and/or counseling patient: Coding Level of Care Code 28367 INT INP/OBS CARE 3/75MIN Diagnoses Alcohol withdrawal F10.239 HTN (hypertension) I10 Depressive disorder, not elsewhere classified F32.9 Opiate dependence F11.20
[2023-04-23] MEDS ORDERED: Ativan IV Alcohol Withdrawal--Active Protocol IV PRN (02:38)
[2023-04-23] MEDS ORDERED: LACTATED RINGER'S 1,000 ML IV SCH (02:38)
[2023-04-23] MEDS ORDERED: LORazepam 2 MG/1 ML VIAL IV PRN (02:38)
[2023-04-23] MEDS: LORazepam 2 MG/1 ML VIAL IV PRN ×6 (03:17→22:56)
[2023-04-23 06:53] LABS: Albumin Level 4.3 gm/dl (3.4-5.0); BUN Creatinine Ratio 21.8 (10-20); Bilirubin Direct 0.1 mg/dl (0-0.2); Bilirubin,Total 0.7 mg/dl (0.2-1.0); Calcium 8.8 mg/dl (8.6-10.3); Creatinine Clr Calc Pharmacy 111.3 ml/min; Est GFR (Non-African American) 103.5 ml/min; Potassium 4.3 mmol/L (3.5-5.1); Total Protein 7.8 gm/dl (6.0-8.3)
[2023-04-23] MEDS: FOLIC ACID 1 MG in SYRINGE 9.8 ML IV SCH (08:32)
[2023-04-23] MEDS: THIAMINE HCL 100 MG in SYRINGE 9 ML IV SCH (08:32)
[2023-04-23] MEDS: GABAPENTIN 600 MG TAB PO PRN ×2 (08:32→21:38)
[2023-04-23] MEDS: amLODIPine BESYLATE 5 MG TAB PO SCH (08:33)
[2023-04-23] MEDS: ESCITALOPRAM OXALATE 20 MG TAB PO SCH (08:34)
[2023-04-23] MEDS: PANTOprazole 40 MG TAB PO SCH (08:34)
[2023-04-23] MEDS: BUPRENORPHINE/NALOXONE 8/2 MG TAB SL SCH (08:35)
[2023-04-23] MEDS ORDERED: chlordiazePOXIDE ALCOHOL WITHDRAWL 50MG PO STA (08:45)
[2023-04-23] MEDS: chlordiazePOXIDE HCl 25 MG CAP PO SCH ×3 (09:08→20:56)
--- NOTE | 2023-04-23 10:45 | Hospitalist Progress Note ---
Date of Service April 23, 2023 Assessment & Plan (1) Alcohol withdrawal: Plan: 47yo male with history of EtOH abuse - reports drinking at least 20 beers at 5.9% alcohol content daily. Last drink 04/22/23 at 08:00. Reports history of complicated lcohol withdrawals - seizure several years ago. Labs with pancytopenia - WBC=1.68 with neutropenia and lymphopenia. Normochromic/normocytic anemia with Hgb=12 and Hct=36.1. Platelets =106. Possibly secondary to bone marrow toxicity from EtOH. AST elevated at 136,YSE=160 with normal AP and bilirubin. -Admit to PCU -given normal liver function INR and bilirubin, patient will be placed on Librium. -will monitor his HR as their was concern over bradycardia, which could be worsened by benzo. However, patient appears to be a high risk for severe alcohol withdrawal. -Maintain seizure precautions (2) HTN (hypertension): Plan: Blood pressure presently 116/81. Patient is taking Amlodipine-Olmesartan 5-40mg tablets at home -Continue Amlodipine 5mg po daily while inpatient - Monitor (3) Depressive disorder, not elsewhere classified: Plan: Patient is taking Escitalopram, Trintellix and Gabapentin 900mg po TID for anxiety and pain. -Continue Escitalopram -Continue Gabapentin (4) Opiate dependence: Plan: In remission. Patient is on chronic Suboxone therapy -Continue Suboxone Ppx - Low risk for DVT Code- Full Dispo - Admit to PCU Admission and Anticipated Discharge Date Admission Date: April 23, 2023 Subjective Patient reports no hallucinations. Patient reports he wants to quit drinking alcohol. Review of Systems Review of Systems: All systems reviewed & are unremarkable except as noted in HPI & below Physical Exam Physical Exam: General: patient tremulous, oriented x 3, answering questions and following commands. Improved after IV Valium Skin: warm, dry, intact, no rashes or lesions. Well healed linear scars on right forearm HEENT: NC/AT, PERRL, EOMI, trachea midline, no LAD, no thyromegaly, no JVD Heart: +S1/S2, regular, bradycardic, no m/r/g Lungs: equal air entry bilaterally, no rales/rhonchi/wheezes Abd: +BS, soft, NT/ND, no masses/organomegaly/ascites Ext: warm, 2+ pulses in UE/LE bilaterally, no clubbing/cyanosis or edema Neuro: nonfocal, patient AA&O x 4, speech intact, no facial droop, moving all extremities on command with equal strength 5/5 Results & Data Results & Data Vital Signs (Past 12 Hours) Vital Signs Temp Pulse Pulse Resp BP BP Pulse Ox 04/23/23 09:48 56 L 04/23/23 08:00 36.5 C 62 18 167/90 H 97 04/23/23 06:00 36.6 C 50 L 18 141/87 H 96 04/23/23 02:40 04/23/23 02:37 36.9 C 51 L 16 147/83 H 99 04/23/23 02:00 54 L 100 04/23/23 02:00 116/81 04/23/23 01:30 55 L 98 04/23/23 01:30 127/73 04/23/23 01:00 59 L 12 99 04/23/23 01:00 110/70 04/23/23 00:30 88 04/23/23 00:30 115/70 04/23/23 00:00 107 H 100 04/23/23 00:00 118/73 04/22/23 23:30 63 98 04/22/23 23:30 118/67 04/23/23 01:00 36.8 C 04/22/23 23:00 99 04/22/23 23:00 117/73 O2 Del Method O2 Flow Rate 04/23/23 09:48 04/23/23 08:00 Nasal Cannula 3 04/23/23 06:00 Nasal Cannula 3 04/23/23 02:40 Nasal Cannula 3 04/23/23 02:37 Nasal Cannula 3 04/23/23 02:00 04/23/23 02:00 04/23/23 01:30 04/23/23 01:30 04/23/23 01:00 04/23/23 01:00 04/23/23 00:30 04/23/23 00:30 04/23/23 00:00 04/23/23 00:00 04/22/23 23:30 04/22/23 23:30 04/23/23 01:00 04/22/23 23:00 04/22/23 23:00 PG Care Time/CCT Total # of Minutes Spent Total Time Spent with Patient: Total time spent is greater than 50% in coordination of care (as documented) at patient's floor/unit and/or counseling patient: Coding Level of Care Code 12128 SUB INP/OBS CARE 50MIN Diagnoses Alcohol withdrawal F10.239 HTN (hypertension) I10 Depressive disorder, not elsewhere classified F32.9 Opiate dependence F11.20
[2023-04-23] MEDS: VORTIOXETINE HYDROBROMIDE 20 MG PO SCH (16:24)
[2023-04-23] MEDS ORDERED: ONDANSETRON INJ 2 MG/ML 2 ML VIAL IV PRN (23:07)
[2023-04-24] MEDS ORDERED: NICOTINE 21 MG/24 HR TDSY TD SCH (00:30)
[2023-04-24] MEDS: chlordiazePOXIDE HCl 25 MG CAP PO SCH ×3 (02:58→18:14)
[2023-04-24] MEDS: ACETAMINOPHEN 325 MG TAB PO PRN ×2 (03:36→12:31)
[2023-04-24] MEDS: LORazepam 2 MG/1 ML VIAL IV PRN (03:36)
[2023-04-24] MEDS: ESCITALOPRAM OXALATE 20 MG TAB PO SCH (08:14)
[2023-04-24] MEDS: amLODIPine BESYLATE 5 MG TAB PO SCH (08:14)
[2023-04-24] MEDS: PANTOprazole 40 MG TAB PO SCH (08:15)
[2023-04-24] MEDS: THIAMINE HCL 100 MG in SYRINGE 9 ML IV SCH (08:15)
[2023-04-24] MEDS: FOLIC ACID 1 MG in SYRINGE 9.8 ML IV SCH (08:15)
[2023-04-24] MEDS: VORTIOXETINE HYDROBROMIDE 20 MG PO SCH (08:16)
[2023-04-24] MEDS: BUPRENORPHINE/NALOXONE 8/2 MG TAB SL SCH (08:21)
[2023-04-24] MEDS ORDERED: VORTIOXETINE HYDROBROMIDE 20 MG PO SCH (09:00)
[2023-04-24] MEDS ORDERED: LORazepam 2 MG/1 ML VIAL IV STA (12:40)
[2023-04-24] MEDS: GABAPENTIN 600 MG TAB PO PRN (22:38)
--- NOTE | 2023-04-24 23:46 | Hospitalist Progress Note ---
Date of Service April 24, 2023 Assessment & Plan (1) Alcohol withdrawal: Plan: 47yo male with history of EtOH abuse - reports drinking at least 20 beers at 5.9% alcohol content daily. Last drink 04/22/23 at 08:00. Reports history of complicated lcohol withdrawals - seizure several years ago. Labs with pancytopenia - WBC=1.68 with neutropenia and lymphopenia. Normochromic/normocytic anemia with Hgb=12 and Hct=36.1. Platelets =106. Possibly secondary to bone marrow toxicity from EtOH. AST elevated at 136,XLU=604 with normal AP and bilirubin. -Admit to PCU -given normal liver function INR and bilirubin, patient will be placed on Librium. -will monitor his HR as their was concern over bradycardia, which could be worsened by benzo. However, patient appears to be a high risk for severe alcohol withdrawal. -Maintain seizure precautions required an additional dose of ativan (2) HTN (hypertension): Plan: Blood pressure presently 116/81. Patient is taking Amlodipine-Olmesartan 5-40mg tablets at home -Continue Amlodipine 5mg po daily while inpatient - Monitor (3) Depressive disorder, not elsewhere classified: Plan: Patient is taking Escitalopram, Trintellix and Gabapentin 900mg po TID for anxiety and pain. -Continue Escitalopram -Continue Gabapentin (4) Opiate dependence: Plan: In remission. Patient is on chronic Suboxone therapy -Continue Suboxone Ppx - Low risk for DVT Code- Full Dispo - Admit to PCU Admission and Anticipated Discharge Date Admission Date: April 23, 2023 Subjective Patient continues to have tremors. Review of Systems Review of Systems: All systems reviewed & are unremarkable except as noted in HPI & below Physical Exam Physical Exam: General: patient tremulous, oriented x 3, answering questions and following commands. Skin: warm, dry, intact, no rashes or lesions. Well healed linear scars on right forearm HEENT: NC/AT, PERRL, EOMI, trachea midline, no LAD, no thyromegaly, no JVD Heart: +S1/S2, regular, bradycardic, no m/r/g Lungs: equal air entry bilaterally, no rales/rhonchi/wheezes Abd: +BS, soft, NT/ND, no masses/organomegaly/ascites Ext: warm, 2+ pulses in UE/LE bilaterally, no clubbing/cyanosis or edema Neuro: nonfocal, patient AA&O x 4, speech intact, no facial droop, moving all extremities on command with equal strength 5/5 Results & Data Results & Data Vital Signs (Past 12 Hours) Vital Signs Temp Pulse Pulse Resp BP Pulse Ox Pulse Ox 04/24/23 19:02 37 C 60 18 134/93 96 04/24/23 18:28 54 L 04/24/23 18:10 36.9 C 74 16 140/93 96 04/24/23 16:00 96 04/24/23 14:39 36.7 C 61 17 146/92 H 97 04/24/23 12:22 36.7 C 64 16 162/99 H 96 O2 Del Method O2 Del Method 04/24/23 19:02 Room Air 04/24/23 18:28 04/24/23 18:10 Room Air 04/24/23 16:00 Room Air 04/24/23 14:39 Room Air 04/24/23 12:22 Room Air PG Care Time/CCT Total # of Minutes Spent Total Time Spent with Patient: Total time spent is greater than 50% in coordination of care (as documented) at patient's floor/unit and/or counseling patient: Coding Level of Care Code 78123 SUB INP/OBS CARE 2/35MIN Diagnoses Alcohol withdrawal F10.239 HTN (hypertension) I10 Depressive disorder, not elsewhere classified F32.9 Opiate dependence F11.20
[2023-04-25] MEDS: NICOTINE 21 MG/24 HR TDSY TD SCH (01:19)
[2023-04-25] MEDS: chlordiazePOXIDE HCl 25 MG CAP PO SCH ×3 (02:52→18:13)
[2023-04-25 06:45] LABS: Hematocrit (blood only) 37.3 % (42.0-52.0); Hemoglobin 12.4 g/dl (14.0-18.0); Mean Corpuscular Hemoglobin 30.8 pg (25.0-34.0); Mean Corpuscular Hgb Conc 33.2 g/dL (32.0-36.0); Mean Corpuscular Volume 92.6 fL (80.0-100.0); Mean Platelet Volume 10.7 fL (9.4-12.4); Platelet Count 116 K/uL (130-400); RDW Coefficient of Variation 14.4 % (11.5-14.5); RDW Standard Deviation 49.1 fL (36.4-46.3); Red Blood Count 4.03 M/uL (4.70-6.10); White Blood Count 2.62 K/ul (4.8-10.8)
[2023-04-25 07:08] LABS: INR 0.9 (0.9-1.1); Prothrombin Time 10.3 Seconds (9.0-12.0)
[2023-04-25 07:21] LABS: Albumin Globulin Ratio 1.2 (0.9-2); Albumin Level 4.5 gm/dl (3.4-5.0); BUN Creatinine Ratio 15.3 (10-20); Bilirubin,Total 0.6 mg/dl (0.2-1.0); Calcium 9.4 mg/dl (8.6-10.3); Creatinine Clr Calc Pharmacy 113.9 ml/min; Est GFR (African American) 121.1 ml/min; Est GFR (Non-African American) 104.5 ml/min; Globulin 3.8 gm/dl (2.5-4.0); Total Protein 8.3 gm/dl (6.0-8.3)
[2023-04-25] MEDS: LORazepam 2 MG/1 ML VIAL IV PRN ×7 (07:46→21:24)
[2023-04-25] MEDS: THIAMINE HCL 100 MG in SYRINGE 9 ML IV SCH (07:51)
[2023-04-25] MEDS: FOLIC ACID 1 MG in SYRINGE 9.8 ML IV SCH (07:51)
[2023-04-25] MEDS: PANTOprazole 40 MG TAB PO SCH (07:56)
[2023-04-25] MEDS: ESCITALOPRAM OXALATE 20 MG TAB PO SCH (07:56)
[2023-04-25] MEDS: VORTIOXETINE HYDROBROMIDE 20 MG PO SCH (07:56)
[2023-04-25] MEDS: amLODIPine BESYLATE 5 MG TAB PO SCH (07:57)
[2023-04-25] MEDS: BUPRENORPHINE/NALOXONE 8/2 MG TAB SL SCH (08:00)
[2023-04-25] MEDS ORDERED: Nursing to Pharmacy Communication SCH ×2 (11:45→13:45)
[2023-04-25] MEDS ORDERED: LORazepam 2 MG/1 ML VIAL IV ONE (11:45)
[2023-04-25] MEDS ORDERED: chlordiazePOXIDE HCl 25 MG CAP PO ONE (12:18)
[2023-04-25] MEDS ORDERED: LORazepam 2 MG/1 ML VIAL IV STA (13:48)
[2023-04-25] MEDS ORDERED: STAT IV Infusion **Titration per Protocol STA (14:30)
--- NOTE | 2023-04-25 15:03 | Critical Care Consultation ---
Date of Consultation April 25, 2023 Assessment & Plan (1) Delirium tremens: (2) HTN (hypertension): (3) Alcohol dependence: (4) Depressive disorder, not elsewhere classified: (5) Opiate dependence: (6) Anxiety: (7) Elevated liver enzymes: (8) Thiamine deficiency: Plan Reason Critically Ill: 47-year-old male admitted to the hospital for alcohol withdrawal. Transferred to the ICU for DTs Neuro - [facility] ICU: Positive --Delirium tremens Continue with Ativan as per CIVT protocol Continue with thiamine Any significant worsening will add Precedex and if still not controlled and intubate --History of opioid abuse On Suboxone 1 tablet 3 times daily --Anxiety/depression On escitalopram as well as gabapentin On Trintellix Cardiac - -- Episodic sinus bradycardia Continue to monitor --Hypertension Continue with blood pressure medication Respiratory - No acute issues right now GI - --Transaminitis Likely from alcohol abuse Trending down Continue to monitor RENAL/LYTES - Monitor BUNs/creatinine Avoid nephrotoxic medication - No acute issues ENDO - Follow-up TSH HEME - -- Normocytic anemia Monitor H&H --Thrombocytopenia Likely from alcohol toxicity on the bone marrow Continue to monitor ID - No acute issues --Prophylaxis VTE: Lovenox GI: Protonix Lines: Peripheral Diet: N.p.o. Plan: Continue with CIWA protocol We will add Precedex but keep in mind patient is borderline bradycardic. If his heart rate goes less than 55 DC Precedex Aspiration precaution I have personally spent 52 minutes of critical care time in the direct management of this patient. This is a life/limb threatening event. This includes time spent evaluating patient, direct bedside care, chart review, placing orders, interpretation of diagnostic studies, discussion with consultants, patient, and family members, as well as other required patient management activi ties. This time is exclusive of all separately billable procedures, and teaching time and separate from and in addition to any other critical care service time. Anxiety/depression History of Present Illness Attending Physician: Lele Najera History of Present Illness 47-year-old male was admitted to the hospital because of alcohol withdrawal Past medical history: Hypertension, depression, opioid dependence on Suboxone for last 11 years Patient was sent to the ICU as he was needing more Ativan and getting restless Time of examinations patient's systolic blood pressure was in the 150s, his heart rate was in the mid 60s. He was not in respiratory distress He was answering all the questions appropriately. He was little bit jittery. Denies any visual, tactile or auditory hallucination. No nausea or vomiting right now. Denied any headache, no blurry vision. He had gotten 8 mg of Ativan since morning. Has been afebrile. History: Lifetime non-smoker, used to do heroin in the past. Has been sober for 11 years. Works at [email or web address] as a [email or web address] Allergies Allergy/AdvReac Type Severity Reaction Status Date / Time bupropion AdvReac Severe Anxiety Verified 04/23/23 01:36 [From Wellbutrin SR] Home Medications Medication Instructions Recorded Confirmed Type buprenorphine 8 mg-naloxone 2 mg 3 film sublingual DAILY 08/13/19 04/23/23 History sublingual film (Suboxone) thiamine HCl (vitamin B1) 50 mg 100 mg PO DAILY 90 days #180 tabs 10/18/22 04/23/23 Rx tablet escitalopram oxalate 20 mg tablet 20 mg PO DAILY #90 tabs 02/22/23 04/23/23 Rx vortioxetine 20 mg tablet 20 mg PO DAILY #90 tabs 02/22/23 04/23/23 Rx diazepam 10 mg tablet See Rx Instructions PO .COMPLEX 03/05/23 04/23/23 Rx anxiety #19 tabs amlodipine 5 mg-olmesartan 40 mg 1 tab PO DAILY #90 tabs 03/20/23 04/23/23 Rx tablet cholecalciferol (vitamin D3) 25 25 mcg PO DAILY #90 caps 04/04/23 04/23/23 Rx mcg (1,000 unit) capsule pantoprazole 40 mg tablet,delayed 40 mg PO DAILY #90 tabs 04/04/23 04/23/23 Rx release sildenafil 50 mg tablet 50 mg PO DAILY PRN sexual activity 04/04/23 04/23/23 Rx #15 tabs gabapentin 600 mg tablet 900 mg PO TID PRN .anxiety/pain 04/23/23 04/23/23 History Patient History Medical History Alcohol withdrawal Depression, unspecified Elevated liver enzymes Erectile dysfunction History of healed fragility fracture HTN (hypertension) Opioid use disorder, moderate, in sustained remission Psychosis Seizure (09/06/20) Suicidal intent Vitamin D deficiency Surgical History History of total hip replacement No significant past surgical history Family History Grandmother Breast cancer Social History Smoking Status: Current every day smoker Tobacco Type: Smokeless Tobacco (Dip or Chew) Age Started Using Tobacco: 13; Second Hand Exposure: No; Do You Dip or Chew Tobacco: Yes; Hx Alcohol Use: Yes Alcohol type: beer Alcohol Intake Frequency Comment: 6 beers per day Hx Substance Use: Yes Last Used Substance: Unknown Last Used Substance Other:: treatment in the past Preferred Language: Indian Communication Ability: Effective Merchant Tailor Required: No Beliefs That Will Affect Care: None marital status: Single Current Living Situation: Family current occupational status: employed Feels Safe at Home: Yes Diet: regular caffeine: Yes Assistive Devices: None Review of Systems Review of Systems: All systems reviewed & are unremarkable except as noted in HPI & below Physical Exam Physical Exam: Constitutional: No acute distress HEENT: EOMI, PERRLA Respiratory system: Good air entry bilaterally, no wheeze, no rhonchi, no crackles CVS: S1-S2 positive, no murmurs or gallops Abdomen: Soft, nontender, nondistended, positive bowel sounds x4 Extremities: +2 pulses bilaterally radialis/ dorsalis pedis, no cyanosis, no edema Neuro: Awake alert oriented x3 Psych: Restless mood and affect G/U: No [place] Skin: no rashes, warm and dry Lymphatic: no cervical or axillary lymphadenopathy Results & Data Results & Data Vital Signs (Past 12 Hours) Vital Signs Temp Pulse Resp BP Pulse Ox Pulse Ox O2 Del Method 04/25/23 13:32 36.5 C 58 L 18 160/94 H 97 Room Air 04/25/23 12:07 36.7 C 65 20 145/95 H 95 Room Air 04/25/23 11:21 36.9 C 61 22 166/97 H 98 Room Air 04/25/23 11:09 36.9 C 63 17 144/90 H 98 Room Air 04/25/23 08:00 98 04/25/23 09:51 37.1 C 66 20 172/104 H 96 Room Air 04/25/23 09:27 36.6 C 66 16 179/97 H 95 Room Air 04/25/23 07:38 37.0 C 61 17 169/104 H 98 Room Air 04/25/23 03:40 36.9 C 62 16 115/91 96 Room Air O2 Del Method 04/25/23 13:32 04/25/23 12:07 04/25/23 11:21 04/25/23 11:09 04/25/23 08:00 Room Air 04/25/23 09:51 04/25/23 09:27 04/25/23 07:38 04/25/23 03:40 Laboratory Results 04/25/23 05:51 04/25/23 05:51 Coding Level of Care Code 78307 CRITICAL CARE 1ST 30-74M Diagnoses Delirium tremens F10.931 HTN (hypertension) I10 Alcohol dependence F10.239 Complication of substance-induced condition: with unspecified complication Substance use status: in withdrawal Depressive disorder, not elsewhere classified F32.9 Opiate dependence F11.20 Anxiety F41.9 Elevated liver enzymes R74.8 Thiamine deficiency E51.9 Time Spent (min) 52 (3) Alcohol dependence Complication of substance-induced condition: with unspecified complication Substance use status: in withdrawal Qualified Code(s): F10.239 - Alcohol dependence with withdrawal, unspecified
[2023-04-25] MEDS: dexMEDEtomidine 200 MCG/50 ML BAG IV SCH ×2 (15:04→21:59)
[2023-04-25] MEDS ORDERED: LORazepam 2 MG/1 ML VIAL IV PRN (17:00)
[2023-04-25 17:41] LABS: Magnesium 2.1 mg/dl (1.7-2.4); Phosphorus 3.7 mg/dl (2.5-4.9)
[2023-04-25] MEDS: ENOXAPARIN INJ 40 MG/0.4 ML SYR SQ SCH (18:12)
[2023-04-25] MEDS ORDERED: GABAPENTIN 300 MG CAP PO SCH (21:00)
--- NOTE | 2023-04-25 22:26 | Hospitalist Progress Note ---
Date of Service April 25, 2023 Assessment & Plan (1) Alcohol withdrawal: Plan: 47yo male with history of EtOH abuse - reports drinking at least 20 beers at 5.9% alcohol content daily. Last drink 04/22/23 at 08:00. Reports history of complicated lcohol withdrawals - seizure several years ago. Labs with pancytopenia - WBC=1.68 with neutropenia and lymphopenia. Normochromic/normocytic anemia with Hgb=12 and Hct=36.1. Platelets =106. Possibly secondary to bone marrow toxicity from EtOH. AST elevated at 136,AQK=879 with normal AP and bilirubin. -Admit to PCU -given normal liver function INR and bilirubin, patient will be placed on Librium. -will monitor his HR as their was concern over bradycardia, which could be worsened by benzo. However, patient appears to be a high risk for severe alcohol withdrawal, will continue benzo. As patient appears to be in delirium tremens and this is not being controlled by benzo treatment, patient will be transferred to ICU on 04/25. Precedez will be ordered. -Maintain seizure precautions (2) HTN (hypertension): Plan: Blood pressure presently 116/81. Patient is taking Amlodipine-Olmesartan 5-40mg tablets at home -Continue Amlodipine 5mg po daily while inpatient - Monitor (3) Depressive disorder, not elsewhere classified: Plan: Patient is taking Escitalopram, Trintellix and Gabapentin 900mg po TID for anxiety and pain. -Continue Escitalopram -Continue Gabapentin (4) Opiate dependence: Plan: In remission. Patient is on chronic Suboxone therapy -Continue Suboxone Ppx - lovenox Code- Full Admission and Anticipated Discharge Date Admission Date: April 23, 2023 Subjective Patient is confused. He is unable to tell me where he is and why he is in the hopsital. Nurse reports despite ativan and librium taper, patient has been trying to climb out of bed Review of Systems Review of Systems: All systems reviewed & are unremarkable except as noted in HPI & below Physical Exam Physical Exam: General: patient oriented x 3, answering questions and following commands. Skin: warm, dry, intact, no rashes or lesions. Well healed linear scars on right forearm HEENT: NC/AT, PERRL, EOMI, trachea midline, no LAD, no thyromegaly, no JVD Heart: +S1/S2, regular, bradycardic, no m/r/g Lungs: equal air entry bilaterally, no rales/rhonchi/wheezes Abd: +BS, soft, NT/ND, no masses/organomegaly/ascites Ext: warm, 2+ pulses in UE/LE bilaterally, no clubbing/cyanosis or edema Neuro: nonfocal, patient AA&O x 4, speech intact, no facial droop, moving all extremities on command with equal strength 5/5 Results & Data Results & Data Vital Signs (Past 12 Hours) Vital Signs Temp Pulse Pulse Resp BP BP Pulse Ox 04/25/23 20:17 66 15 154/96 H 100 04/25/23 19:17 67 20 159/99 H 97 04/25/23 18:00 55 L 18 97 04/25/23 18:00 142/79 H 04/25/23 17:30 64 16 97 04/25/23 17:00 60 17 96 04/25/23 17:00 137/95 04/25/23 16:00 61 15 97 04/25/23 16:00 139/99 04/25/23 15:00 64 17 96 04/25/23 15:00 159/99 H 04/25/23 14:59 132/103 H 04/25/23 14:59 72 18 98 04/25/23 14:44 163/102 H 04/25/23 14:44 60 17 96 04/25/23 15:54 36.7 C 04/25/23 13:32 36.5 C 58 L 18 160/94 H 97 04/25/23 12:07 36.7 C 65 20 145/95 H 95 04/25/23 11:21 36.9 C 61 22 166/97 H 98 04/25/23 11:09 36.9 C 63 17 144/90 H 98 O2 Del Method 04/25/23 20:17 04/25/23 19:17 04/25/23 18:00 04/25/23 18:00 04/25/23 17:30 04/25/23 17:00 04/25/23 17:00 04/25/23 16:00 Room Air 04/25/23 16:00 04/25/23 15:00 Room Air 04/25/23 15:00 04/25/23 14:59 04/25/23 14:59 04/25/23 14:44 04/25/23 14:44 04/25/23 15:54 04/25/23 13:32 Room Air 04/25/23 12:07 Room Air 04/25/23 11:21 Room Air 04/25/23 11:09 Room Air PG Care Time/CCT Total # of Minutes Spent Total Time Spent with Patient: Total time spent is greater than 50% in coordination of care (as documented) at patient's floor/unit and/or counseling patient: Coding Level of Care Code 22457 SUB INP/OBS CARE 3/50MIN Diagnoses Alcohol withdrawal F10.239 HTN (hypertension) I10 Depressive disorder, not elsewhere classified F32.9 Opiate dependence F11.20
--- NOTE | 2023-04-25 22:37 | Electrocardiogram Report ---
Test Reason : Blood Pressure : / mmHG Vent. Rate : 062 BPM Atrial Rate : 062 BPM P-R Int : 128 ms QRS Dur : 090 ms QT Int : 430 ms P-R-T Axes : 065 053 062 degrees QTc Int : 436 ms Normal sinus rhythm Normal ECG When compared with ECG of 27-JUN-2020 02:15, Vent. rate has decreased BY 35 BPM Confirmed by Adin Jha ([id number] on 04/25/2023 10:36:49 PM Referred By: REFERRED SELF Confirmed By:Adin Jha
[2023-04-26] MEDS: LORazepam 2 MG/1 ML VIAL IV PRN ×6 (02:12→23:57)
[2023-04-26] MEDS: chlordiazePOXIDE HCl 25 MG CAP PO SCH (02:24)
[2023-04-26] MEDS: NICOTINE 21 MG/24 HR TDSY TD SCH ×2 (04:22→23:36)
[2023-04-26 06:56] LABS: Basophils # (auto) 0.02 K/uL (0-0.2); Basophils % (auto) 0.5 %; Eosinophils # (auto) 0.06 K/uL (0-0.50); Eosinophils % (auto) 1.5 %; Hematocrit (blood only) 36.7 % (42.0-52.0); Hemoglobin 12.6 g/dl (14.0-18.0); Immature Granulocytes # (auto) 0.01 K/uL (0.01-0.20); Immature Granulocytes % (auto) 0.3 %; Lymphocytes # (auto) 0.96 K/uL (1.2-3.4); Lymphocytes % (auto) 24.7 %; Mean Corpuscular Hemoglobin 31.9 pg (25.0-34.0); Mean Corpuscular Hgb Conc 34.3 g/dL (32.0-36.0); Mean Corpuscular Volume 92.9 fL (80.0-100.0); Mean Platelet Volume 10.2 fL (9.4-12.4); Monocytes # (auto) 0.45 K/uL (0.11-0.59); Monocytes % (auto) 11.6 %; Neutrophils # (auto) 2.39 K/uL (1.40-6.50); Neutrophils % (auto) 61.4 %; Platelet Count 131 K/uL (130-400); RDW Coefficient of Variation 14.4 % (11.5-14.5); RDW Standard Deviation 49.2 fL (36.4-46.3); Red Blood Count 3.95 M/uL (4.70-6.10); White Blood Count 3.89 K/ul (4.8-10.8)
--- NOTE | 2023-04-26 07:18 | Critical Care Progress Note ---
Date of Service April 26, 2023 Assessment & Plan (1) Delirium tremens: (2) HTN (hypertension): (3) Alcohol dependence: (4) Depressive disorder, not elsewhere classified: (5) Opiate dependence: (6) Anxiety: (7) Elevated liver enzymes: (8) Thiamine deficiency: Plan Reason Critically Ill: 47-year-old male admitted to the hospital for alcohol withdrawal. Transferred to the ICU for DTs Neuro - [facility] ICU: Positive --Delirium tremens Continue with Ativan as per [facility] protocol Continue with thiamine Any significant worsening will add Precedex and if still not controlled and intubate --History of opioid abuse On Suboxone 1 tablet 3 times daily --Anxiety/depression On escitalopram as well as gabapentin On Trintellix Cardiac - -- Episodic sinus bradycardia Continue to monitor --Hypertension Continue with blood pressure medication Respiratory - No acute issues right now GI - --Transaminitis Likely from alcohol abuse Trending down Continue to monitor RENAL/LYTES - Monitor BUNs/creatinine Avoid nephrotoxic medication - No acute issues ENDO - Follow-up TSH HEME - -- Normocytic anemia Monitor H&H --Thrombocytopenia Likely from alcohol toxicity on the bone marrow Continue to monitor ID - No acute issues --Prophylaxis VTE: Lovenox GI: Protonix Lines: Peripheral Diet: Low-sodium diet Plan: In/out: -794, urine output for 1050 Continue with CIWA protocol and Ativan. Precedex drip to keep patient RASS -1 Continue with thiamine, gabapentin and Suboxone I have personally spent 36 minutes of critical care time in the direct management of this patient. This is a life/limb threatening event. This includes time spent evaluating patient, direct bedside care, chart review, placing orders, interpretation of diagnostic studies, discussion with consultants, patient, and family members, as well as other required patient management activities. This time is exclusive of all separately billable procedures, and teaching time and separate from and in addition to any other critical care service time. Anxiety/depression Admission and Anticipated Discharge Date Admission Date: April 23, 2023 Subjective Patient seen and examined at bedside. No acute distress, no adverse events overnight He was on 0.2 of Precedex at the time of examination. Having breakfast He was awake alert oriented x3. He got total 13 mg of Ativan overnight while being on Precedex Denies a any hallucinations auditory, visual or tactile. Mild headache. 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 CVS: S1-S2 positive, no murmurs or gallops Abdomen: Soft, nontender, nondistended, positive bowel sounds x4 Extremities: +2 pulses bilaterally radialis/ dorsalis pedis, no cyanosis, no edema Neuro: Awake alert oriented x3 Psych: Restless mood and affect G/U: No Hurtado Skin: no rashes, warm and dry Lymphatic: no cervical or axillary lymphadenopathy Results & Data Results & Data Vital Signs (Past 12 Hours) Vital Signs Pulse Resp BP Pulse Ox 04/26/23 07:01 146/117 H 04/26/23 07:00 94 H 18 96 04/26/23 06:00 61 12 93 04/26/23 06:00 126/88 04/26/23 05:01 143/97 H 04/26/23 05:01 61 11 L 98 04/26/23 04:00 52 L 13 132/100 96 04/26/23 03:00 49 L 12 158/104 H 99 04/26/23 02:01 90 18 144/89 H 04/26/23 01:00 52 L 12 168/107 H 95 04/26/23 00:00 56 L 16 151/96 H 92 04/26/23 00:00 55 L 04/25/23 23:00 56 L 13 163/99 H 93 04/25/23 23:00 163/99 H 04/25/23 22:00 59 L 16 95 04/25/23 21:01 63 24 139/98 95 04/25/23 20:17 66 15 154/96 H 100 Laboratory Results 04/26/23 06:33 04/26/23 06:33 Coding Level of Care Code 70736 CRITICAL CARE 1ST 30-74M Diagnoses Delirium tremens F10.931 HTN (hypertension) I10 Alcohol dependence F10.239 Complication of substance-induced condition: with unspecified complication Substance use status: in withdrawal Depressive disorder, not elsewhere classified F32.9 Opiate dependence F11.20 Anxiety F41.9 Elevated liver enzymes R74.8 Thiamine deficiency E51.9 Time Spent (min) 36 (3) Alcohol dependence Complication of substance-induced condition: with unspecified complication Substance use status: in withdrawal Qualified Code(s): F10.239 - Alcohol dependence with withdrawal, unspecified
[2023-04-26 07:22] LABS: BUN Creatinine Ratio 16.5 (10-20); Calcium 9.2 mg/dl (8.6-10.3); Creatinine Clr Calc Pharmacy 122.5 ml/min; Est GFR (African American) 124.8 ml/min; Est GFR (Non-African American) 107.7 ml/min; Magnesium 2.2 mg/dl (1.7-2.4); Phosphorus 4.1 mg/dl (2.5-4.9); Potassium 4.3 mmol/L (3.5-5.1)
--- NOTE | 2023-04-26 07:36 | Hospitalist Progress Note ---
Date of Service April 26, 2023 Assessment & Plan (1) Alcohol withdrawal: Plan: EtOH abuse - reports drinking at least 20 beers at 5.9% alcohol content daily. Last drink 04/22/23 at 08:00, history of complicated alcohol withdrawal/ - seizure Alcohol pancytopenia - improving high risk for severe alcohol withdrawal, will continue benzo. transferred to ICU on 04/25, due to DT's started on precedex remains on Ativan Librium and ISAAK S protocol (2) HTN (hypertension): Plan: Home medicines of Amlodipine-Olmesartan 5-40mg tablets at home -Continue Amlodipine 5mg po daily (3) Depressive disorder, not elsewhere classified: Plan: Escitalopram, Trintellix and Gabapentin 900mg po TID for anxiety and pain. -Continue Escitalopram -Continue Gabapentin (4) Opiate dependence: Plan: In remission. Patient is on chronic Suboxone therapy -Continue Suboxone Ppx - lovenox Code- Full Admission and Anticipated Discharge Date Admission Date: April 23, 2023 Subjective Patient is sedated remains on Ativan/Librium, Precedex and ISAAK S protocol therapy has chronic right hip pain but this is not new or unusual for him. Physical Exam Physical Exam: Arouses and can verbalize falls asleep more easily Card exam is regular lungs are clear is protecting and supporting her airway without issues Results & Data Results & Data Vital Signs (Past 12 Hours) Vital Signs Pulse Resp BP Pulse Ox 04/26/23 07:22 72 18 95 04/26/23 07:20 65 12 93 04/26/23 07:20 128/92 04/26/23 07:01 146/117 H 04/26/23 07:00 94 H 18 96 04/26/23 06:00 61 12 93 04/26/23 06:00 126/88 04/26/23 05:01 143/97 H 04/26/23 05:01 61 11 L 98 04/26/23 04:00 52 L 13 132/100 96 04/26/23 03:00 49 L 12 158/104 H 99 04/26/23 02:01 90 18 144/89 H 04/26/23 01:00 52 L 12 168/107 H 95 04/26/23 00:00 56 L 16 151/96 H 92 04/26/23 00:00 55 L 04/25/23 23:00 56 L 13 163/99 H 93 04/25/23 23:00 163/99 H 04/25/23 22:00 59 L 16 95 04/25/23 21:01 63 24 139/98 95 04/25/23 20:17 66 15 154/96 H 100 PG Care Time/CCT Total # of Minutes Spent Total Time Spent with Patient: Total time spent is greater than 50% in coordination of care (as documented) at patient's floor/unit and/or counseling patient: Coding Level of Care Code 83747 SUB INP/OBS CARE 2/35MIN Diagnoses Alcohol withdrawal F10.239 HTN (hypertension) I10 Depressive disorder, not elsewhere classified F32.9 Opiate dependence F11.20
--- NOTE | 2023-04-26 07:50 | XRay Report ---
XR chest 1V portable CLINICAL HISTORY: f/u COMPARISON STUDY: Chest radiograph November 11, 2019. FINDINGS: Lung volumes are normal. Lungs are clear. There is no pneumothorax or pleural effusion. Car diac size is normal. Mediastinal contours are normal. There is no evidence for pulmonary edema. IMPRESSION: No acute cardiopulmonary findings. ACT 112: Negative or not required by law. Electronically signed by: Shahriar Oakley M.D. 04/26/2023 7:48 AM
[2023-04-26] MEDS: BUPRENORPHINE/NALOXONE 8/2 MG TAB SL SCH ×3 (08:12→20:36)
[2023-04-26] MEDS: ESCITALOPRAM OXALATE 20 MG TAB PO SCH (08:12)
[2023-04-26] MEDS: GABAPENTIN 300 MG CAP PO SCH ×3 (08:12→20:37)
[2023-04-26] MEDS: amLODIPine BESYLATE 5 MG TAB PO SCH (08:13)
[2023-04-26] MEDS: ENOXAPARIN INJ 40 MG/0.4 ML SYR SQ SCH (08:13)
[2023-04-26] MEDS: PANTOprazole 40 MG TAB PO SCH (08:14)
[2023-04-26] MEDS: THIAMINE HCL 100 MG in SYRINGE 9 ML IV SCH (08:14)
[2023-04-26] MEDS: VORTIOXETINE HYDROBROMIDE 20 MG PO SCH (08:14)
[2023-04-26] MEDS: FOLIC ACID 1 MG in SYRINGE 9.8 ML IV SCH (08:14)
[2023-04-26] MEDS: dexMEDEtomidine 200 MCG/50 ML BAG IV SCH ×2 (12:11→14:29)
[2023-04-27 05:03] LABS: Basophils # (auto) 0.03 K/uL (0-0.2); Basophils % (auto) 0.9 %; Eosinophils # (auto) 0.06 K/uL (0-0.50); Eosinophils % (auto) 1.8 %; Hematocrit (blood only) 33.8 % (42.0-52.0); Hemoglobin 11.5 g/dl (14.0-18.0); Immature Granulocytes # (auto) 0.01 K/uL (0.01-0.20); Immature Granulocytes % (auto) 0.3 %; Lymphocytes # (auto) 1.06 K/uL (1.2-3.4); Lymphocytes % (auto) 31.6 %; Mean Corpuscular Hemoglobin 31.7 pg (25.0-34.0); Mean Corpuscular Volume 93.1 fL (80.0-100.0); Mean Platelet Volume 10.6 fL (9.4-12.4); Monocytes # (auto) 0.38 K/uL (0.11-0.59); Monocytes % (auto) 11.3 %; Neutrophils # (auto) 1.81 K/uL (1.40-6.50); Neutrophils % (auto) 54.1 %; Platelet Count 129 K/uL (130-400); RDW Coefficient of Variation 14.5 % (11.5-14.5); Red Blood Count 3.63 M/uL (4.70-6.10); White Blood Count 3.35 K/ul (4.8-10.8)
[2023-04-27 05:16] LABS: BUN Creatinine Ratio 20.7 (10-20); Calcium 9.2 mg/dl (8.6-10.3); Creatinine Clr Calc Pharmacy 118.1 ml/min; Est GFR (African American) 122.9 ml/min; Magnesium 2.2 mg/dl (1.7-2.4); Phosphorus 4.3 mg/dl (2.5-4.9); Potassium 3.8 mmol/L (3.5-5.1)
[2023-04-27] MEDS: dexMEDEtomidine 200 MCG/50 ML BAG IV SCH ×2 (06:16→06:54)
--- NOTE | 2023-04-27 07:16 | Critical Care Progress Note ---
Date of Service April 27, 2023 Assessment & Plan (1) Delirium tremens: (2) HTN (hypertension): (3) Alcohol dependence: (4) Depressive disorder, not elsewhere classified: (5) Opiate dependence: (6) Anxiety: (7) Elevated liver enzymes: (8) Thiamine deficiency: Plan Reason Critically Ill: 47-year-old male admitted to the hospital for alcohol withdrawal. Transferred to the ICU for DTs Neuro - [facility]: Positive --Delirium tremens Continue with Ativan as per [facility] protocol Continue with thiamine Any significant worsening will add Precedex and if still not controlled and intubate --History of opioid abuse On Suboxone 1 tablet 3 times daily --Anxiety/depression On escitalopram as well as gabapentin On Trintellix Cardiac - -- Episodic sinus bradycardia Continue to monitor --Hypertension Continue with blood pressure medication Respiratory - No acute issues right now GI - --Transaminitis Likely from alcohol abuse Trending down Continue to monitor RENAL/LYTES - Monitor BUNs/creatinine Avoid nephrotoxic medication - No acute issues ENDO - Follow-up TSH HEME - -- Normocytic anemia Monitor H&H --Thrombocytopenia Likely from alcohol toxicity on the bone marrow Continue to monitor ID - No acute issues --Prophylaxis VTE: Lovenox GI: Protonix Lines: Peripheral Diet: Low-sodium diet Plan: In/out: Positive to 95, urine output 400 Try to wean off Precedex today. If the patient is off of Precedex for 6 hours then we will transfer the patient out of the ICU Continue with thiamine, gabapentin and Suboxone Please note the above document was generated using voice recognition software. It may contain grammatical, syntax or spelling errors.Any formal questions or concerns about the content, text or information contained within the body of this dictation should be directly addressed to the provider for clarification. Admission and Anticipated Discharge Date Admission Date: April 23, 2023 Subjective Patient seen and examined at bedside. No acute distress, no adverse events overnight He was on 0.1 of Precedex at the time of examination He was awake alert oriented x3, answering all the questions appropriately Denied any visual, tactile or auditory hallucinations Fair appetite, no nausea vomiting He got 2 mg of Ativan overnight Review of Systems Review of Systems: All systems reviewed & are unremarkable except as noted in Subjective Physical Exam Physical Exam: Constitutional: No acute distress HEENT: EOMI, PERRLA Respiratory system: Good air entry bilaterally, no wheeze, no rhonchi, no crackles CVS: S1-S2 positive, no murmurs or gallops Abdomen: Soft, nontender, nondistended, positive bowel sounds x4 Extremities: +2 pulses bilaterally radialis/ dorsalis pedis, no cyanosis, no edema Neuro: Awake alert oriented x3 Psych: Normal mood and affect G/U: No Hurtado Skin: no rashes, warm and dry Lymphatic: no cervical or axillary lymphadenopathy Results & Data Results & Data Vital Signs (Past 12 Hours) Vital Signs Temp Pulse Resp BP Pulse Ox O2 Del Method 04/27/23 06:30 59 L 17 94 04/27/23 06:00 57 L 15 93 04/27/23 06:00 131/90 04/27/23 05:30 53 L 13 93 04/27/23 05:00 54 L 14 93 04/27/23 05:00 124/84 04/27/23 04:30 56 L 19 93 04/27/23 04:00 57 L 13 91 04/27/23 04:00 113/79 04/27/23 03:30 56 L 13 91 04/27/23 03:00 49 L 12 94 04/27/23 03:00 144/93 H 04/27/23 02:30 53 L 17 93 04/27/23 02:01 36.9 C 54 L 12 92 04/27/23 02:01 128/91 04/27/23 02:00 52 L 17 93 04/27/23 01:30 52 L 17 94 04/27/23 01:00 62 14 92 04/27/23 01:00 99/80 L 04/27/23 00:30 61 21 93 04/27/23 00:00 70 19 94 04/27/23 00:00 123/89 04/26/23 23:00 37.1 C 56 L 19 119/80 94 04/26/23 22:30 56 L 12 93 04/26/23 22:00 55 L 14 94 04/26/23 22:00 117/77 04/26/23 21:30 58 L 16 94 04/26/23 21:00 58 L 16 92 04/26/23 21:00 112/74 04/26/23 23:29 56 L 04/26/23 20:30 57 L 21 92 04/26/23 20:15 57 L 12 92 04/26/23 20:00 59 L 15 92 04/26/23 20:00 110/78 04/26/23 19:45 59 L 18 93 04/26/23 19:30 61 17 95 04/26/23 19:33 Room Air Laboratory Results 04/27/23 04:35 04/27/23 04:35 Coding Level of Care Code 15734 SUB INP/OBS CARE 3/50MIN Diagnoses Delirium tremens F10.931 HTN (hypertension) I10 Alcohol dependence F10.239 Complication of substance-induced condition: with unspecified complication Substance use status: in withdrawal Depressive disorder, not elsewhere classified F32.9 Opiate dependence F11.20 Anxiety F41.9 Elevated liver enzymes R74.8 Thiamine deficiency E51.9 (3) Alcohol dependence Complication of substance-induced condition: with unspecified complication Substance use status: in withdrawal Qualified Code(s): F10.239 - Alcohol dependence with withdrawal, unspecified
[2023-04-27] MEDS ORDERED: POTASSIUM CHLORIDE CRTAB 20 MEQ TABCR PO STA (07:41)
[2023-04-27] MEDS: ESCITALOPRAM OXALATE 20 MG TAB PO SCH (08:18)
[2023-04-27] MEDS: ENOXAPARIN INJ 40 MG/0.4 ML SYR SQ SCH (08:18)
[2023-04-27] MEDS: GABAPENTIN 300 MG CAP PO SCH ×3 (08:18→20:10)
[2023-04-27] MEDS: amLODIPine BESYLATE 5 MG TAB PO SCH (08:18)
[2023-04-27] MEDS: PANTOprazole 40 MG TAB PO SCH (08:18)
[2023-04-27] MEDS: BUPRENORPHINE/NALOXONE 8/2 MG TAB SL SCH ×3 (08:18→20:10)
[2023-04-27] MEDS: LORazepam 2 MG/1 ML VIAL IV PRN ×8 (08:18→23:19)
[2023-04-27] MEDS: FOLIC ACID 1 MG in SYRINGE 9.8 ML IV SCH (08:19)
[2023-04-27] MEDS: THIAMINE HCL 100 MG in SYRINGE 9 ML IV SCH (08:19)
[2023-04-27] MEDS: VORTIOXETINE HYDROBROMIDE 20 MG PO SCH (08:19)
[2023-04-27] MEDS: NICOTINE POLACRILEX 2 MG GUM MT PRN ×2 (09:32→13:42)
--- NOTE | 2023-04-27 20:10 | Hospitalist Progress Note ---
Date of Service April 27, 2023 Assessment & Plan (1) Alcohol withdrawal: Plan: EtOH abuse - reports drinking at least 20 beers at 5.9% alcohol content daily. Last drink 04/22/23 at 08:00, history of complicated alcohol withdrawal/ - seizure Alcohol pancytopenia - improving high risk for severe alcohol withdrawal, will continue Librium tapering dose continue on gabapentin transferred to ICU on 04/25, due to DT's started on precedex remains on Ativan Librium and ISAAK S protocol (2) HTN (hypertension): Plan: Home medicines of Amlodipine-Olmesartan 5-40mg tablets at home -Continue Amlodipine 5mg po daily (3) Depressive disorder, not elsewhere classified: Plan: Escitalopram, Trintellix and Gabapentin 900mg po TID for anxiety and pain. -Continue Escitalopram -Continue Gabapentin (4) Opiate dependence: Plan: In remission. Patient is on chronic Suboxone therapy -Continue Suboxone Ppx - lovenox Code- Full Admission and Anticipated Discharge Date Admission Date: April 23, 2023 Subjective patient is improved weaned off Precedex able to transfer on the unit we will institute Librium therapy 3 times daily continuing on gabapentin Physical Exam Physical Exam: awake alert appropriate slightly sedate Card exam is regular lungs are clear is protecting and supporting her airway without issues Results & Data Results & Data Vital Signs (Past 12 Hours) Vital Signs Temp Pulse Pulse Resp BP BP Pulse Ox 04/27/23 19:42 98.2 F 04/27/23 17:53 98.2 F 66 22 152/96 H 94 04/27/23 16:46 158/77 H 04/27/23 16:46 113 H 30 H 04/27/23 16:00 63 18 93 04/27/23 16:00 143/89 H 04/27/23 16:50 99.5 F 99 H 22 158/77 H 97 04/27/23 15:27 98.4 F 60 24 93 04/27/23 15:27 156/90 H 04/27/23 15:00 133/94 04/27/23 15:00 94 04/27/23 14:00 68 18 92 04/27/23 14:00 123/87 04/27/23 13:41 62 21 96 04/27/23 13:41 145/94 H 04/27/23 13:43 98.8 F 65 19 145/96 H 94 04/27/23 13:00 70 19 96 04/27/23 13:00 132/86 04/27/23 12:35 120/78 04/27/23 12:35 73 19 93 04/27/23 12:00 70 15 04/27/23 11:00 119/86 04/27/23 11:00 73 16 96 04/27/23 10:00 61 15 93 04/27/23 10:00 119/76 04/27/23 09:00 71 19 93 04/27/23 09:00 123/84 04/27/23 08:24 98.2 F 73 14 92 04/27/23 08:24 115/72 O2 Del Method 04/27/23 19:42 04/27/23 17:53 Room Air 04/27/23 16:46 04/27/23 16:46 04/27/23 16:00 04/27/23 16:00 04/27/23 16:50 Room Air 04/27/23 15:27 04/27/23 15:27 04/27/23 15:00 04/27/23 15:00 04/27/23 14:00 04/27/23 14:00 04/27/23 13:41 04/27/23 13:41 04/27/23 13:43 Room Air 04/27/23 13:00 04/27/23 13:00 04/27/23 12:35 04/27/23 12:35 04/27/23 12:00 04/27/23 11:00 04/27/23 11:00 04/27/23 10:00 04/27/23 10:00 04/27/23 09:00 04/27/23 09:00 04/27/23 08:24 04/27/23 08:24 PG Care Time/CCT Total # of Minutes Spent Total Time Spent with Patient: Total time spent is greater than 50% in coordination of care (as documented) at patient's floor/unit and/or counseling patient: Coding Level of Care Code 86699 SUB INP/OBS CARE 3/50MIN Diagnoses Alcohol withdrawal F10.239 HTN (hypertension) I10 Depressive disorder, not elsewhere classified F32.9 Opiate dependence F11.20
[2023-04-27] MEDS ORDERED: chlordiazePOXIDE HCl 25 MG CAP PO SCH (21:20)
[2023-04-28] MEDS: LORazepam 2 MG/1 ML VIAL IV PRN ×6 (00:39→21:40)
[2023-04-28] MEDS: NICOTINE 21 MG/24 HR TDSY TD SCH (00:40)
[2023-04-28 04:50] LABS: Basophils # (auto) 0.04 K/uL (0-0.2); Basophils % (auto) 1.3 %; Eosinophils # (auto) 0.04 K/uL (0-0.50); Eosinophils % (auto) 1.3 %; Hematocrit (blood only) 34.5 % (42.0-52.0); Hemoglobin 11.8 g/dl (14.0-18.0); Immature Granulocytes # (auto) 0.01 K/uL (0.01-0.20); Immature Granulocytes % (auto) 0.3 %; Lymphocytes % (auto) 35.1 %; Mean Corpuscular Hemoglobin 31.4 pg (25.0-34.0); Mean Corpuscular Hgb Conc 34.2 g/dL (32.0-36.0); Mean Corpuscular Volume 91.8 fL (80.0-100.0); Mean Platelet Volume 10.3 fL (9.4-12.4); Monocytes # (auto) 0.44 K/uL (0.11-0.59); Monocytes % (auto) 14.1 %; Neutrophils % (auto) 47.9 %; Platelet Count 157 K/uL (130-400); RDW Coefficient of Variation 14.1 % (11.5-14.5); RDW Standard Deviation 47.6 fL (36.4-46.3); Red Blood Count 3.76 M/uL (4.70-6.10); White Blood Count 3.13 K/ul (4.8-10.8)
[2023-04-28 05:05] LABS: BUN Creatinine Ratio 15.1 (10-20); Calcium 9.6 mg/dl (8.6-10.3); Creatinine Clr Calc Pharmacy 104.1 ml/min; Est GFR (African American) 113.7 ml/min; Est GFR (Non-African American) 98.1 ml/min; Phosphorus 3.8 mg/dl (2.5-4.9); Potassium 3.8 mmol/L (3.5-5.1)
[2023-04-28] MEDS: ESCITALOPRAM OXALATE 20 MG TAB PO SCH (08:26)
[2023-04-28] MEDS: FOLIC ACID 1 MG TAB PO SCH (08:26)
[2023-04-28] MEDS: amLODIPine BESYLATE 5 MG TAB PO SCH (08:26)
[2023-04-28] MEDS: PANTOprazole 40 MG TAB PO SCH (08:26)
[2023-04-28] MEDS: GABAPENTIN 300 MG CAP PO SCH ×3 (08:26→20:52)
[2023-04-28] MEDS: ENOXAPARIN INJ 40 MG/0.4 ML SYR SQ SCH (08:26)
[2023-04-28] MEDS: THIAMINE HCL 100 MG TAB PO SCH (08:26)
[2023-04-28] MEDS: VORTIOXETINE HYDROBROMIDE 20 MG PO SCH (08:27)
[2023-04-28] MEDS: BUPRENORPHINE/NALOXONE 8/2 MG TAB SL SCH ×3 (08:30→20:52)
[2023-04-28] MEDS: chlordiazePOXIDE HCl 25 MG CAP PO SCH ×3 (08:30→20:52)
--- NOTE | 2023-04-28 18:30 | Hospitalist Progress Note ---
Date of Service April 28, 2023 Assessment & Plan (1) Alcohol withdrawal: Plan: EtOH abuse - reports drinking at least 20 beers at 5.9% alcohol content daily. Last drink 04/22/23 at 08:00, history of complicated alcohol withdrawal/ - seizure Alcohol pancytopenia - improving high risk for severe alcohol withdrawal, will continue Librium tapering dose continue on gabapentin transferred to ICU on 04/25, due to DT's started on precedex because of out of ICU on 04/28 required increased doses of Ativan on AWSS scale Librium increased to 50 3 times daily gabapentin doubled (2) HTN (hypertension): Plan: Home medicines of Amlodipine-Olmesartan 5-40mg tablets at home -Continue Amlodipine 5mg po daily (3) Depressive disorder, not elsewhere classified: Plan: Escitalopram, Trintellix and Gabapentin 900mg po TID for anxiety and pain. -Continue Escitalopram -Continue Gabapentin (4) Opiate dependence: Plan: In remission. Patient is on chronic Suboxone therapy -Continue Suboxone Ppx - lovenox Code- Full Plan remains in PCU for airway monitoring giving excessive doses of benzodiazepines Admission and Anticipated Discharge Date Admission Date: April 23, 2023 Subjective patient had a horrible night required 25 mg of Ativan is now sleeping increasing doses of Librium and gabapentin. Family is called and updated Physical Exam Physical Exam: patient is sedate does arouse to voice says he is got no complaints falls back asleep easily Card exam is regular lungs are clear is protecting and supporting her airway without issues Results & Data Results & Data Vital Signs (Past 12 Hours) Vital Signs Temp Pulse Pulse Resp BP Pulse Ox O2 Del Method 04/28/23 15:29 98.2 F 66 18 118/83 94 Room Air 04/28/23 15:17 65 04/28/23 11:10 98.1 F 62 17 115/77 94 Room Air 04/28/23 08:09 58 L 04/28/23 07:28 98.2 F 60 17 132/95 93 Room Air 04/28/23 06:30 59 L 19 PG Care Time/CCT Total # of Minutes Spent Total Time Spent with Patient: Total time spent is greater than 50% in coordination of care (as documented) at patient's floor/unit and/or counseling patient: Coding Level of Care Code 91817 SUB INP/OBS CARE 2/35MIN Diagnoses Alcohol withdrawal F10.239 HTN (hypertension) I10 Depressive disorder, not elsewhere classified F32.9 Opiate dependence F11.20
--- NOTE | 2023-04-29 07:27 | Hospitalist Progress Note ---
Date of Service April 29, 2023 Assessment & Plan (1) Alcohol withdrawal: Plan: EtOH abuse - reports drinking at least 20 beers at 5.9% alcohol content daily. Last drink 04/22/23 at 08:00, history of complicated alcohol withdrawal/ - seizure Alcohol pancytopenia - improving high risk for severe alcohol withdrawal, will continue Librium tapering dose continue on gabapentin transferred to ICU on 04/25, due to DT's started on precedex because of out of ICU on 04/28 required increased doses of Ativan on AWSS scale Librium increased to 50 3 times daily gabapentin doubled to 600 3 times daily (2) HTN (hypertension): Plan: Home medicines of Amlodipine-Olmesartan 5-40mg tablets at home -Continue Amlodipine 5mg po daily (3) Depressive disorder, not elsewhere classified: Plan: Escitalopram, Trintellix and Gabapentin now at 600 3 times daily -Continue Escitalopram -Continue Gabapentin (4) Opiate dependence: Plan: In remission. Patient is on chronic Suboxone therapy -Continue Suboxone Ppx - lovenox Code- Full Plan remains in PCU for airway monitoring giving excessive doses of benzodiazepines Admission and Anticipated Discharge Date Admission Date: April 23, 2023 Subjective patient much more awake and alert he did have some Ativan earlier this morning due to anxiety but now his anxiety is quelled he has no physiological signs or symptoms except for mild hypertension Physical Exam Physical Exam: patient is awake alert card exam is regular with no tremor or asterixis Results & Data Results & Data Vital Signs (Past 12 Hours) Vital Signs Temp Pulse Pulse Resp BP Pulse Ox O2 Del Method 04/29/23 07:20 51 L 04/29/23 00:00 56 L 04/29/23 02:50 97.9 F 67 14 118/75 93 Room Air 04/28/23 23:34 56 L 04/28/23 23:17 97.3 F L 57 L 14 123/85 94 Room Air 04/28/23 19:30 97.5 F L 52 L 15 123/84 96 Room Air PG Care Time/CCT Total # of Minutes Spent Total Time Spent with Patient: Total time spent is greater than 50% in coordination of care (as documented) at patient's floor/unit and/or counseling patient: Coding Level of Care Code 62115 SUB INP/OBS CARE 2/35MIN Diagnoses Alcohol withdrawal F10.239 HTN (hypertension) I10 Depressive disorder, not elsewhere classified F32.9 Opiate dependence F11.20
[2023-04-29] MEDS: amLODIPine BESYLATE 5 MG TAB PO SCH (08:44)
[2023-04-29] MEDS: ENOXAPARIN INJ 40 MG/0.4 ML SYR SQ SCH (08:44)
[2023-04-29] MEDS: GABAPENTIN 300 MG CAP PO SCH ×3 (08:44→20:28)
[2023-04-29] MEDS: PANTOprazole 40 MG TAB PO SCH (08:44)
[2023-04-29] MEDS: NICOTINE 21 MG/24 HR TDSY TD SCH (08:45)
[2023-04-29] MEDS: VORTIOXETINE HYDROBROMIDE 20 MG PO SCH (08:45)
[2023-04-29] MEDS: chlordiazePOXIDE HCl 25 MG CAP PO SCH ×3 (08:49→20:28)
[2023-04-29] MEDS: BUPRENORPHINE/NALOXONE 8/2 MG TAB SL SCH ×3 (08:49→20:28)
[2023-04-29] MEDS: THIAMINE HCL 100 MG TAB PO SCH (09:51)
[2023-04-29] MEDS: FOLIC ACID 1 MG TAB PO SCH (09:51)
[2023-04-29] MEDS: ESCITALOPRAM OXALATE 20 MG TAB PO SCH (09:51)
[2023-04-29] MEDS ORDERED: MELATONIN 3 MG TAB PO PRN (20:58)
[2023-04-29] MEDS ORDERED: hydrOXYzine HCl 25 MG TAB PO STA (20:58)
[2023-04-30] MEDS: NICOTINE 21 MG/24 HR TDSY TD SCH (09:04)
[2023-04-30] MEDS: BUPRENORPHINE/NALOXONE 8/2 MG TAB SL SCH ×2 (09:05→14:00)
[2023-04-30] MEDS: amLODIPine BESYLATE 5 MG TAB PO SCH (09:05)
[2023-04-30] MEDS: chlordiazePOXIDE HCl 25 MG CAP PO SCH ×2 (09:06→14:00)
[2023-04-30] MEDS: ENOXAPARIN INJ 40 MG/0.4 ML SYR SQ SCH (09:06)
[2023-04-30] MEDS: ESCITALOPRAM OXALATE 20 MG TAB PO SCH (09:08)
[2023-04-30] MEDS: FOLIC ACID 1 MG TAB PO SCH (09:08)
[2023-04-30] MEDS: GABAPENTIN 300 MG CAP PO SCH ×2 (09:09→14:00)
[2023-04-30] MEDS: PANTOprazole 40 MG TAB PO SCH (09:09)
[2023-04-30] MEDS: VORTIOXETINE HYDROBROMIDE 20 MG PO SCH (09:10)
[2023-04-30] MEDS: THIAMINE HCL 100 MG TAB PO SCH (09:10)
[2023-04-30 09:19] LABS: BUN Creatinine Ratio 18.8 (10-20); Calcium 9.7 mg/dl (8.6-10.3); Creatinine Clr Calc Pharmacy 100.8 ml/min; Est GFR (African American) 109.4 ml/min; Est GFR (Non-African American) 94.4 ml/min; Magnesium 2.1 mg/dl (1.7-2.4); Potassium 3.9 mmol/L (3.5-5.1)
--- NOTE | 2023-04-30 14:46 | Discharge Summary ---
Date of Service April 30, 2023 Admission HPI Per Admitting Provider Clement Oswald is a 47yo male presenting with EtOH withdrawal. Patient reports drinking at least 20 beers per day - typical 12 oz can but 5.9% EtOH. His last drink was yesterday AM 04/22/23 at 0800. Patient reports he has been drinking heavily for the last 20 years. He has history of complicated withdrawals - reports having a seizure several years ago. He has not been to rehab. Was in AA for a while but not actively participating now. He was attempting to detox as an outpatient with PO valium. He reports taking the first dose of Valium 40mg PO at 08:00. He took the second dose as directed several hours later. He noted that he was becoming more sweaty and shaky so he came to the ER. Patient with history of depression which he feels is well controlled with his Lexapro and Trintellix. He has history of opioid use disorder and is on Suboxone - no recent changes in dosage. He reports that he has been told in the past that his blood numbers and liver numbers are bad because of the alcohol. Otherwise, patient denies fever, chills, cough, SOB, abdominal pain, nausea, vomiting, diarrhea or constipation. He reports eating well at home. No falls. No additional complaints at this time. In the ER patient received a 500mL banana bag as well as Ativan 1mg IV and Diazepam 10mg IV. Now resting comfortably. Arousable. NAD. Principal Diagnosis alcohol withdrawal Discharge Exam patient is slightly shaky but able to ambulate with a walker he is no more asterixis or agitation Discharge Data Allergies Allergy/AdvReac Type Severity Reaction Status Date / Time bupropion AdvReac Severe Anxiety Verified 04/23/23 01:36 [From Wellbutrin SR] Consultations 04/23/23 01:09 ED Decision to Admit Stat 04/25/23 13:54 Consult Primary Therapist Routine Hospital Course (1) Alcohol withdrawal: EtOH abuse - reports drinking at least 20 beers at 5.9% alcohol content daily. Last drink 04/22/23 at 08:00, history of complicated alcohol withdrawal/ - seizure Alcohol pancytopenia - improving high risk for severe alcohol withdrawal, will continue Librium tapering dose continue on gabapentin transferred to ICU on 04/25, due to DT's started on precedex because of out of ICU on 04/28 required increased doses of Ativan on AWSS scale Librium increased to 50 3 times daily gabapentin doubled to 600 3 times daily will be discharged on tapering doses of Librium keeping his gabapentin at 600 3 times daily until he sees his primary care physician strongly encouraged to go to alcoholic Anonymous (2) HTN (hypertension): Home medicines of Amlodipine-Olmesartan 5-40mg tablets at home (3) Depressive disorder, not elsewhere classified: Escitalopram, Trintellix and Gabapentin now at 600 3 times daily -Continue Escitalopram -Continue Gabapentin (4) Opiate dependence: In remission. Patient is on chronic Suboxone therapy -Continue Suboxone Code- Full Plan Total Time Total Time Spent Total Time Spent (In Minutes): it required greater than 30 minutes to prepare this patient for discharge Discharge Plan Discharge Items Patient Disposition: Home - Self-Care Reason For Visit: ETOH WITHDRAWAL Discharge Diagnosis: alcohol wihtdrawal Activity: Per Instructions section Activity Comment: no driving while on librium Non-emergency contact: Primary Care Provider Call non-emergency contact if: your symptoms worsen Follow-up/Referrals: Victor Hugo Puckett DO [Primary Care Provider] - 05/02/23 1:00 pm Diet: Regular Addtl Attending Provider Instructions: He will be given tapering doses of medications please follow-up with your primary care physician for further recommendations it is not expected that he will be completely off all medications by the time you see your primary care doctor in 1 week's time. Please refrain from alcohol use of any kind please strongly consider going to Alcoholics Anonymous or outpatient counseling for alcohol cessation keep your gabapentin at 600 3 times a day until you are completely off the Librium then have instructions from your primary care if you wish to taper this medication Pending Studies at Discharge: No Stand-Alone Forms: My [facility] [employer], Smoking Cessation Medications and DC Order Prescriptions: New chlordiazepoxide HCl 25 mg capsule 25 mg PO TID Qty: 12 0RF Rx Instructions: one 3x's a day x 2d-> one 2xs a day x 2d the one at night for 2 d Continued amlodipine-olmesartan 5-40 mg tablet 1 tab PO DAILY Qty: 90 1RF buprenorphine-naloxone [Suboxone] 8-2 mg film 3 film SL DAILY thiamine HCl (vitamin B1) 50 mg tablet 100 mg PO DAILY 90 Days Qty: 180 6RF sildenafil 50 mg tablet 50 mg PO DAILY PRN (Reason: sexual activity) Qty: 15 2RF Rx Instructions: administer 30 minutes to 4 hours before activity pantoprazole 40 mg tablet,delayed release (DR/EC) 40 mg PO DAILY Qty: 90 2RF Rx Instructions: eat 30 minutes after taking cholecalciferol (vitamin D3) 25 mcg (1,000 unit) capsule 25 mcg PO DAILY Qty: 90 2RF vortioxetine 20 mg tablet 20 mg PO DAILY Qty: 90 2RF escitalopram oxalate 20 mg tablet 20 mg PO DAILY Qty: 90 2RF Changed gabapentin 600 mg tablet 600 mg PO TID Qty: 90 0RF Rx Instructions: take 1 and 1/2 tablets by mouth three times a day if needed for anxiety and pain Discontinued diazepam 10 mg tablet See Rx Instructions PO .COMPLEX Qty: 19 0RF Rx Instructions: Day1:20mg(2tab)QID Day2:10mg(1tab)xTID, Day3:10mg(1tab)BID Day4:10mg once. PRN 10mg once daily x 5 tabs anxiety. filled 03/03/23 Discharge Orders: Discharge Order (Routine); Ordered 04/30/23 Ordered By: Syed Ferris Admission Data Admit Date/Time: 04/23/23 01:37 Attending Provider: Syed Ferris Admit Provider: Antionette Clay Primary Care Provider: Victor Hugo Puckett Other Providers: Antionette Clay ; Jm Andrew Other Interventions: Discharge Summary Assessment (RN) Last Done: 04/30/23 13:47 Coding Level of Care Code 36010 INP/OBS DISCH >30 MIN Diagnoses Alcohol withdrawal F10.239 HTN (hypertension) I10 Depressive disorder, not elsewhere classified F32.9 Opiate dependence F11.20
== END 2023-04-30 15:07 | disposition home or self-care (01) | DRG 897 ==
LOC: ED 20:38 → 2E 04-23 01:37 → SUATTDRO 04-23 01:37 → 2E 04-23 02:09 → 1E 04-25 13:56 → 2E 04-28 06:42

== ENCOUNTER 2023-08-05 11:10 | Inpatient (IN) ==
[2023-08-05 11:56] LABS: Basophils # (auto) 0.05 K/uL (0.00-0.20); Basophils % (auto) 1.8 %; Eosinophils # (auto) 0.08 K/uL (0.00-0.50); Eosinophils % (auto) 2.8 %; Hematocrit (blood only) 35.3 % (42.0-52.0); Hemoglobin 11.7 g/dl (14.0-18.0); Immature Granulocytes # (auto) 0.01 K/uL (0.01-0.20); Immature Granulocytes % (auto) 0.4 %; Lymphocytes # (auto) 1.33 K/uL (1.20-3.40); Lymphocytes % (auto) 47.2 %; Mean Corpuscular Hemoglobin 32.1 pg (25.0-34.0); Mean Corpuscular Hgb Conc 33.1 g/dL (32.0-36.0); Mean Corpuscular Volume 96.7 fL (80.0-100.0); Monocytes # (auto) 0.34 K/uL (0.11-0.59); Monocytes % (auto) 12.1 %; Neutrophils # (auto) 1.01 K/uL (1.40-6.50); Neutrophils % (auto) 35.7 %; Platelet Count 151 K/uL (130-400); RDW Coefficient of Variation 15.8 % (11.5-14.5); RDW Standard Deviation 56.3 fL (36.4-46.3); Red Blood Count 3.65 M/uL (4.70-6.10); White Blood Count 2.82 K/ul (4.8-10.8)
[2023-08-05 12:14] LABS: Potassium 4.5 mmol/L (3.5-5.1)
[2023-08-05 12:15] LABS: Albumin Globulin Ratio 1.3 (0.9-2); Albumin Level 5.1 gm/dl (3.4-5.0); BUN Creatinine Ratio 16.7 (10-20); Bilirubin,Total 0.4 mg/dl (0.2-1.0); Calcium 9.8 mg/dl (8.6-10.3); Creatinine Clr Calc Pharmacy 93.4 ml/min; Est GFR (African American) 101.7 ml/min; Est GFR (Non-African American) 87.7 ml/min; Globulin 3.9 gm/dl (2.5-4.0)
[2023-08-05] MEDS ORDERED: MULTI-VITAMIN INFUSION 10 ML, THIAMINE HCL 100 MG, FOLIC ACID 1 MG in SODIUM CHLORIDE 0... IV ONE (12:16)
[2023-08-05 12:21] LABS: Appearance Urine Clear (Clear); Bilirubin Urine Negative (Negative); Blood Urine Negative (Negative); Color Urine Yellow; Glucose Urine UA Negative (Negative); Ketones Urine Negative (Negative); Leukocyte Esterase Urine Negative (Negative); Nitrite Urine Negative (Negative); Protein Urine Negative (Negative); Specific Gravity Urine 1.006 (1.000-1.030); Urobilinogen Urine Negative (Negative); pH Urine 5.5 (4.5-7.5)
--- NOTE | 2023-08-05 12:40 | Emergency Department Note ---
Impression & Plan Alcohol intoxication, History of alcohol withdrawal syndrome ED Provider Note Provider: Stanley Doty MD DATE OF SERVICE: 08/05/2023 CHIEF COMPLAINT: Alcohol intoxication HISTORY OF PRESENT ILLNESS: Patient is a 47-year-old gentleman history of alcohol lives him and alcohol withdrawal seizures in the past presenting here today stating that he is intoxicated and wishes to stop drinking. Patient reports a long history of alcohol abuse. History of alcohol seizures several years ago. Denies any trauma or falls. Last drink 08/20/2011 this morning. Drinks heavy amount of beer every day. 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 Has not slept flat today. Denies any abdominal pain or bleeding in the stool or melanotic stools. Reports uses Zofran as needed for nausea he sometimes gets. Reports he is on Suboxone but denies other drug use currently. Did not yet take his Suboxone today. Patient states he has not had good experiences with rehab but wishes to quit drinking. Does not feel he is withdrawing at this time. Patient denies a history of sleep apnea but does st ates he snores some. 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 NECK: Trachea midline. Supple. ENT: Mucous membranes pink and moist. LUNGS: Airway patent. No retractions. Breath sounds clear with good air entry bilaterally. HEART: Regular rate and rhythm. No chest wall tenderness ABDOMEN: Soft and non-tender, without guarding or rebound. SKIN: Acyanotic, warm, dry, without rashes EXTREMITIES: Without swelling or tenderness. Chronic to slight deformity of the right knee from a distant injury without erythema or swelling at this time. NEUROLOGICAL: No focal deficits. No aphasia. No facial droop with very slight slurred speech. Normal strength and tone in the extremities. Sensation to gross touch normal. EK beats. Normal sinus rhythm. No PVC or PAC. No acute ST segment elevation or depression with QTc of 423. CONTINUOUS CARDIAC MONITORING: was ordered and showed a heart rate of 60s to 70s bpm in normal sinus rhythm Patient's laboratory studies and imaging reviewed. Differential includes Alcohol intoxication, toxicologic, infection, hypoglycemia, electrolyte abnormalities, cardiac sources, intracerebral event, neurologic, trauma, as well as other pathologies. IMPRESSION/MEDICAL DECISION MAKING: Patient appears fairly functional even with his significant elevated alcohol level. Significant history of seizures and review of prior medical record. Again the patient has required sedation and ICU stays in the past. No signs of withdrawal at this point. Blood work otherwise reassuring with some chronic leukopenia. Do not see clinical evidence of any significant cirrhosis at this time but do note some mild chronic LFT abnormalities. Patient while resting here does seem to desaturate and particularly when he falls asleep. Some slight oxygen supplementation ordered likely combination of some possible sleep apnea as well as his alcohol intoxication affecting this. We will obtain a chest x- ray to exclude underlying pathology but when awake saturating well and denies complaints. Denies recent fevers or trauma. Denies significant pain. Patient wishes to stop using alcohol and given his complicated history of alcohol withdrawal in the past, will asked the hospitalist to evaluate for further care. DIAGNOSIS: Alcohol intoxication, history of alcohol withdrawal seizure DISPOSITION: Hospitalist will evaluate Patient was agreeable with this plan. Past Med/Surg History Medical History (Updated 08/05/23 @ 12:40 by Stanley Doty M.D.) Alcohol withdrawal Delirium tremens Depression, unspecified Elevated liver enzymes Erectile dysfunction History of healed fragility fracture HTN (hypertension) Opioid use disorder, moderate, in sustained remission Psychosis Seizure (06/27/20) Suicidal intent Vitamin D deficiency Surgical History (Updated 07/06/23 @ 08:51 by Victor Hugo Puckett DO) History of total hip replacement No significant past surgical history Family History Grandmother Breast cancer Social History Smoking Status: Heavy tobacco smoker Tobacco Type: Smokeless Tobacco (Dip or Chew) Age Started Using Tobacco: 13; Second Hand Exposure: No; Do You Dip or Chew Tobacco: Yes; Hx Alcohol Use: Yes Alcohol type: beer Alcohol Intake Frequency Comment: 6 beers per day Hx Substance Use: Yes Last Used Substance: Unknown Last Used Substance Other:: treatment in the past Preferred Language: Citizen [place] Communication Ability: Effective Esl Tutor Required: No Beliefs That Will Affect Care: None marital status: Single Current Living Situation: Family current occupational status: employed Feels Safe at Home: Yes Diet: regular caffeine: Yes Assistive Devices: None Allergies Allergies Allergy/AdvReac Type Severity Reaction Status Date / Time bupropion AdvReac Severe Anxiety Verified 05/16/23 10:29 [From Wellbutrin SR] Home Meds Home Medications Medication Instructions Recorded Confirmed buprenorphine 8 mg-naloxone 2 mg 3 film sublingual DAILY 08/13/19 08/05/23 sublingual film (Suboxone) Previous Rx's Medication Instructions Recorded thiamine HCl (vitamin B1) 50 mg 100 mg PO DAILY 90 days #180 tabs 10/18/22 tablet escitalopram oxalate 20 mg tablet 20 mg PO DAILY #90 tabs 02/22/23 vortioxetine 20 mg tablet 20 mg PO DAILY #90 tabs 02/22/23 amlodipine 5 mg-olmesartan 40 mg 1 tab PO DAILY #90 tabs 03/20/23 tablet cholecalciferol (vitamin D3) 25 25 mcg PO DAILY #90 caps 04/04/23 mcg (1,000 unit) capsule pantoprazole 40 mg tablet,delayed 40 mg PO DAILY #90 tabs 04/04/23 release ondansetron HCl 4 mg tablet 4 mg PO Q8H PRN nausea and 06/14/23 vomiting #30 tabs gabapentin 600 mg tablet 600 mg PO QID 90 days #360 tabs 06/26/23 Results & Data (ED) Vital Signs Vital Signs - 24 hr 08/05/23 11:31 08/05/23 12:13 08/05/23 12:28 Temperature 36.4 C L Temperature Source Temporal Artery Scan Pulse Rate 87 78 Pulse Rate [Apical] 72 Respiratory Rate 23 20 Blood Pressure 102/62 Blood Pressure [Left Arm] 137/89 Blood Pressure Mean 75 Blood Pressure Mean [Left Arm] 105 Blood Pressure Position [Left Arm] Semi-fowlers Pulse Oximetry 95 97 Oxygen Delivery Method Room Air Room Air Sepsis Recent Fever Within 48 Hours No Sepsis New/Unexplained Change in Mental Status N/A Sepsis Action Taken by Nursing No Action Required Laboratory Data 08/05/23 11:40 08/05/23 11:40 Lab Results 08/05/23 08/05/23 08/05/23 Range/Units 11:40 11:40 11:40 WBC 2.82 L (4.8-10.8) K/ul RBC 3.65 L (4.70-6.10) M/uL Hgb 11.7 L (14.0-18.0) g/dl Hct 35.3 L (42.0-52.0) % MCV 96.7 (80.0-100.0) fL MCH 32.1 (25.0-34.0) pg MCHC 33.1 (32.0-36.0) g/dL RDW Std Deviation 56.3 H (36.4-46.3) fL RDW Coeff of Ric 15.8 H (11.5-14.5) % Plt Count 151 (130-400) K/uL MPV 10.0 (9.4-12.4) fL Immature Gran % (Auto) 0.4 % Neut % (Auto) 35.7 % Lymph % (Auto) 47.2 % Loving % (Auto) 12.1 % Eos % (Auto) 2.8 % Baso % (Auto) 1.8 % Neut # (Auto) 1.01 L (1.40-6.50) K/uL Lymph # (Auto) 1.33 (1.20-3.40) K/uL Loving # (Auto) 0.34 (0.11-0.59) K/uL Eos # (Auto) 0.08 (0.00-0.50) K/uL Baso # (Auto) 0.05 (0.00-0.20) K/uL Immature Gran # (Auto) 0.01 (0.01-0.20) K/uL Sodium 139 (136-145) mmol/L Potassium 4.5 (3.5-5.1) mmol/L Chloride 99 (98-107) mmol/L Carbon Dioxide 30 (21-32) mmol/L Anion Gap 10 (3-11) BUN 17 (6-23) mg/dl Creatinine 1.02 (0.6-1.4) mg/dl Est Cr Clr Drug Dosing 93.4 ml/min Est GFR ( Amer) 101.7 ml/min Est GFR (Non-Af Amer) 87.7 ml/min BUN/Creatinine Ratio 16.7 (10-20) Glucose 96 (70-99(Fasting)) mg/dl Calcium 9.8 (8.6-10.3) mg/dl Magnesium 2.1 (1.7-2.4) mg/dl Total Bilirubin 0.4 (0.2-1.0) mg/dl AST 100 H (13-39) U/L ALT 73 H (7-52) U/L Alkaline Phosphatase 49 (34-104) U/L Troponin I High Sens 2.5 (0-20) pg/ml Total Protein 9.0 H (6.0-8.3) gm/dl Albumin 5.1 H (3.4-5.0) gm/dl Globulin 3.9 (2.5-4.0) gm/dl Albumin/Globulin Ratio 1.3 (0.9-2) Urine Color Urine Appearance (Clear) Urine pH (4.5-7.5) Ur Specific [place] (1.000-1.030) Urine Protein (Negative) Urine Glucose (UA) (Negative) Urine Ketones (Negative) Urine Blood (Negative) Urine Nitrite (Negative) Urine Bilirubin (Negative) Urine Urobilinogen (Negative) Ur Leukocyte Esterase (Negative) Ethyl Alcohol mg/dL 304.6 H (<10.0) mg/dl 08/05/23 Range/Units 12:05 WBC (4.8-10.8) K/ul RBC (4.70-6.10) M/uL Hgb (14.0-18.0) g/dl Hct (42.0-52.0) % MCV (80.0-100.0) fL MCH (25.0-34.0) pg MCHC (32.0-36.0) g/dL RDW Std Deviation (36.4-46.3) fL RDW Coeff of Ric (11.5-14.5) % Plt Count (130-400) K/uL MPV (9.4-12.4) fL Immature Gran % (Auto) % Neut % (Auto) % Lymph % (Auto) % Loving % (Auto) % Eos % (Auto) % Baso % (Auto) % Neut # (Auto) (1.40-6.50) K/uL Lymph # (Auto) (1.20-3.40) K/uL Loving # (Auto) (0.11-0.59) K/uL Eos # (Auto) (0.00-0.50) K/uL Baso # (Auto) (0.00-0.20) K/uL Immature Gran # (Auto) (0.01-0.20) K/uL Sodium (136-145) mmol/L Potassium (3.5-5.1) mmol/L Chloride (98-107) mmol/L Carbon Dioxide (21-32) mmol/L Anion Gap (3-11) BUN (6-23) mg/dl Creatinine (0.6-1.4) mg/dl Est Cr Clr Drug Dosing ml/min Est GFR ( Amer) ml/min Est GFR (Non-Af Amer) ml/min BUN/Creatinine Ratio (10-20) Glucose (70-99(Fasting)) mg/dl Calcium (8.6-10.3) mg/dl Magnesium (1.7-2.4) mg/dl Total Bilirubin (0.2-1.0) mg/dl AST (13-39) U/L ALT (7-52) U/L Alkaline Phosphatase (34-104) U/L Troponin I High Sens (0-20) pg/ml Total Protein (6.0-8.3) gm/dl Albumin (3.4-5.0) gm/dl Globulin (2.5-4.0) gm/dl Albumin/Globulin Ratio (0.9-2) Urine Color Yellow Urine Appearance Clear (Clear) Urine pH 5.5 (4.5-7.5) Ur Specific [place] 1.006 (1.000-1.030) Urine Protein Negative (Negative) Urine Glucose (UA) Negative (Negative) Urine Ketones Negative (Negative) Urine Blood Negative (Negative) Urine Nitrite Negative (Negative) Urine Bilirubin Negative (Negative) Urine Urobilinogen Negative (Negative) Ur Leukocyte Esterase Negative (Negative) Ethyl Alcohol mg/dL (<10.0) mg/dl Administered Medications Multivitamins 10 ml/ Thiamine HCl 100 mg/ Folic Acid 1 mg/Sodium Chloride 1,011.2 mls @ 500 mls/hr IV .Q2H2M ONE Stop: 08/05/23 14:17 Last Admin: 08/05/23 12:42 Dose: 500 mls/hr Documented By: CASSANDRA Imaging Data Radiologist's Impression: Chest X-Ray 08/05/23 12:33 XR chest 1V portable CLINICAL HISTORY: etoh, hypoxia TECHNIQUE: Single frontal radiograph of the chest was obtained. Comparison: Comparison is made to chest radiograph 04/26/2023 FINDINGS: No lines and tubes are seen. The cardiomediastinal silhouette is normal. Faint airspace opacities in the right medial lung base. No evidence of pleural effusion or pneumothorax. IMPRESSION: Faint airspace opacity in the right medial lung base may represent atelectasis, pneumonia, and/or aspiration ACT 112: Negative or not required by law. Electronically signed by: Flavio Rodriguez M.D. 08/05/2023 1:21 PM Discharge Plan Visit Data Chief Complaint: Alcohol Withdrawal Stated Complaint: ALCOHOL WITHDRAWL ED Provider: Stanley Doty Discharge Problem: Alcohol intoxication, History of alcohol withdrawal syndrome Patient Disposition: Being Evaluated by Hospitalist Forms Stand Alone Forms: [facility], Suicide Prevention Resources Prescriptions Prescriptions: No Action amlodipine-olmesartan 5-40 mg tablet 1 tab PO DAILY Qty: 90 1RF ondansetron HCl 4 mg tablet 4 mg PO Q8H PRN (Reason: nausea and vomiting) Qty: 30 2RF gabapentin 600 mg tablet 600 mg PO QID 90 Days Qty: 360 1RF buprenorphine-naloxone [Suboxone] 8-2 mg film 3 film SL DAILY thiamine HCl (vitamin B1) 50 mg tablet 100 mg PO DAILY 90 Days Qty: 180 6RF pantoprazole 40 mg tablet,delayed release (DR/EC) 40 mg PO DAILY Qty: 90 2RF Rx Instructions: eat 30 minutes after taking cholecalciferol (vitamin D3) 25 mcg (1,000 unit) capsule 25 mcg PO DAILY Qty: 90 2RF vortioxetine 20 mg tablet 20 mg PO DAILY Qty: 90 2RF escitalopram oxalate 20 mg tablet 20 mg PO DAILY Qty: 90 2RF Referrals Referrals: Victor Hugo Puckett DO [Primary Care Provider] -
[2023-08-05 12:43] LABS: Magnesium 2.1 mg/dl (1.7-2.4)
[2023-08-05 13:02] LABS: Troponin I High Sensitivity 2.5 pg/ml (0-20)
[2023-08-05] MEDS ORDERED: chlordiazePOXIDE ALCOHOL WITHDRAWL 25MG PO STA (13:20)
[2023-08-05] MEDS ORDERED: Ativan IV Alcohol Withdrawal--Active Protocol IV PRN (13:20)
[2023-08-05] MEDS ORDERED: POLYETHYLENE (MIRALAX) 17 GM PACK PO PRN (13:20)
[2023-08-05] MEDS ORDERED: ONDANSETRON INJ 2 MG/ML 2 ML VIAL IV PRN (13:20)
[2023-08-05] MEDS ORDERED: LORazepam 2 MG/1 ML VIAL IV PRN ×3 (13:20→13:26)
--- NOTE | 2023-08-05 13:22 | XRay Report ---
XR chest 1V portable CLINICAL HISTORY: etoh, hypoxia TECHNIQUE: Single frontal radiograph of the chest was obtained. Comparison: Comparison is made to chest radiograph 04/26/2023 FINDINGS: No lines and tubes are seen. The cardiomediastinal silhouette is normal. Faint airspace opacities in the right medial lung base. No evidence of pleural effusion or pneumothorax. IMPRESSION: Faint airspace opacity in the right medial lung base may represent atelectasis, pneumonia, and/or asp iration ACT 112: Negative or not required by law. Electronically signed by: Flavio Rodirguez M.D. 08/05/2023 1:21 PM
[2023-08-05] MEDS ORDERED: THIAMINE HCL 500 MG in SODIUM CHLORIDE 0.9% 50 ML IV STA (13:31)
--- NOTE | 2023-08-05 13:33 | History & Physical Report ---
Date of Service August 05, 2023 Assessment & Plan (1) History of alcohol withdrawal syndrome: Plan: Alcohol abuse, alcohol withdrawal, history of delirium tremens 47-year-old male who presents to the ER with an alcohol level of 304 expressing desire to get sober Prior history of delirium tremens and seizure with withdrawal Does take gabapentin 600 mg 3 times daily Last drink 10 AM 08/05 Received banana bag in ER Admit on Librium protocol, due to hepatic steatosis and transaminitis will admit on half dose protocol Home gabapentin dose reduced while on ISAAK S with Librium Thiamine high-dose protocol Folic acid daily Continue ISAAK S PCU Seizure precautions Ativan every 5 minutes on-call x3 doses for seizure episodes Transient hypoxia which resolves when patient is awake, patient does have a trace opacity in the right lung but denies fever/chills/sweats/cough. Will obtain Pro-N[place] and follow clinically, if any signs pna add Unasyn. Patient denies penicillin allergy at bedside (2) Alcohol intoxication: Plan: As noted above (3) HTN (hypertension): Plan: Continue home antihypertensives, renal function at baseline, normotensive on admission (4) Anxiety: Plan: Continue home Lexapro/gabapentin dose reduced as noted above,vortioxetine held while inpt (5) Alcoholic fatty liver: Plan: Mild transaminitis, suspect alcohol hepatitis. Trend (6) Hx of opioid abuse: Plan: Patient reports in remission on Suboxone. Continue Suboxone 8-2 mg 3 times daily Plan DVT prophylaxis: Lovenox, SCDs CODE STATUS: Full code Disposition: PCU Diet: Regular History of Present Illness Primary Care Provider: Victor Hugo Puckett DO Mr. Oswald is a 47-year-old male with a past medical history of alcohol abuse/withdrawal, thiamine deficiency, hypertension, depression who presents to the ER with a desire to stop drinking. He is intoxicated in the ER, does have a long history of alcohol abuse and alcohol withdrawal seizures. Seen at the bedside. He reports that he was previously sober but fell off the wagon "a while ago ". He reports that he has a desire to get sober again, does not think he can do rehab again due to work but does want help getting sober and out of the withdrawal. To stop drinking. He does take Suboxone 8 mg 3 times daily, has not taken this yet today. Last drink was around 10 AM this morning. Normally drinks around 20 beers per day at least. He has had a history of both alcohol withdrawal, delirium tremens, and seizures in the past. He has required ICU admission for severe withdrawal in the past. He reports with prior withdrawal he has done well with Librium. Denies chest pain, chest pressure. No shortness of breath no fevers chills or sweats. No dysuria. Medical History: Reviewed Medications: Reviewed Allergies: Reviewed Social History: Reviewed, history of alcohol abuse has not Code Status: Full code Allergies Allergy/AdvReac Type Severity Reaction Status Date / Time bupropion AdvReac Severe Anxiety Verified 05/16/23 10:29 [From Wellbutrin SR] Home Medications Medication Instructions Recorded Confirmed Type buprenorphine 8 mg-naloxone 2 mg 3 film sublingual DAILY 08/13/19 08/05/23 History sublingual film (Suboxone) thiamine HCl (vitamin B1) 50 mg 100 mg PO DAILY 90 days #180 tabs 10/18/22 08/05/23 Rx tablet escitalopram oxalate 20 mg tablet 20 mg PO DAILY #90 tabs 02/22/23 08/05/23 Rx vortioxetine 20 mg tablet 20 mg PO DAILY #90 tabs 02/22/23 08/05/23 Rx amlodipine 5 mg-olmesartan 40 mg 1 tab PO DAILY #90 tabs 03/20/23 08/05/23 Rx tablet cholecalciferol (vitamin D3) 25 25 mcg PO DAILY #90 caps 04/04/23 08/05/23 Rx mcg (1,000 unit) capsule pantoprazole 40 mg tablet,delayed 40 mg PO DAILY #90 tabs 04/04/23 08/05/23 Rx release ondansetron HCl 4 mg tablet 4 mg PO Q8H PRN nausea and 06/14/23 08/05/23 Rx vomiting #30 tabs gabapentin 600 mg tablet 600 mg PO QID 90 days #360 tabs 06/26/23 08/05/23 Rx Past Med/Surg History Medical History Alcohol withdrawal Delirium tremens Depression, unspecified Elevated liver enzymes Erectile dysfunction History of healed fragility fracture HTN (hypertension) Opioid use disorder, moderate, in sustained remission Psychosis Seizure (06/27/20) Suicidal intent Vitamin D deficiency Surgical History History of total hip replacement No significant past surgical history Family History Grandmother Breast cancer Social History Smoking Status: Heavy tobacco smoker Tobacco Type: Smokeless Tobacco (Dip or Chew) Age Started Using Tobacco: 13; Second Hand Exposure: No; Do You Dip or Chew Tobacco: Yes; Hx Alcohol Use: Yes Alcohol type: beer Alcohol Intake Frequency Comment: 6 beers per day Hx Substance Use: Yes Last Used Substance: Unknown Last Used Substance Other:: treatment in the past Preferred Language: Swedish Communication Ability: Effective Armature Balancer Required: No Beliefs That Will Affect Care: None marital status: Single Current Living Situation: Family current occupational status: employed Feels Safe at Home: Yes Diet: regular caffeine: Yes Assistive Devices: None Physical Exam Physical Exam: General: Slightly somnolent, but awakens easily. No tremors. Skin is warm, slightly moist HEENT: Atraumatic, normocephalic. Vision/hearing grossly Pulm: Diminsihed, improves with effort/encouragement and grossly clear. No crackles/rales bilat. NO wheezes Cardiac: RRR, -mrg. Radial pulses intact and symmetrical. Abdominal: Nontender, nondistended, soft. BS present. Extremities: Warm, dry. 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 No asterixis Results & Data Results & Data Vital Signs (Past 12 Hours) Vital Signs Temp Pulse Pulse Resp BP BP Pulse Ox 08/05/23 12:28 78 08/05/23 12:13 72 20 137/89 97 08/05/23 11:31 36.4 C L 87 23 102/62 95 O2 Del Method 08/05/23 12:28 08/05/23 12:13 Room Air 08/05/23 11:31 Room Air Code Status & VTE Plan VTE Prophylaxis Plan VTE Prophylaxis will be ordered: Yes PG Care Time/CCT Total # of Minutes Spent Total Time Spent with Patient: Total time spent is greater than 50% in coordination of care (as documented) at patient's floor/unit and/or counseling patient: Coding Level of Care Code 30580 INT INP/OBS CARE MIN Diagnoses History of alcohol withdrawal syndrome Z86.59 Alcohol intoxication F10.929 HTN (hypertension) I10 Anxiety F41.9 Alcoholic fatty liver K70.0 Hx of opioid abuse F11.11
[2023-08-05] MEDS: GABAPENTIN 300 MG CAP PO SCH ×2 (16:44→23:42)
[2023-08-05] MEDS: chlordiazePOXIDE HCl 25 MG CAP PO SCH ×2 (16:45→23:42)
[2023-08-05] MEDS: BUPRENORPHINE/NALOXONE 8/2 MG TAB SL SCH ×2 (16:45→23:42)
[2023-08-05] MEDS ORDERED: GABAPENTIN 600 MG TAB PO SCH (17:00)
[2023-08-06] MEDS ORDERED: hydrOXYzine HCl 25 MG TAB PO STA (02:14)
[2023-08-06] MEDS: chlordiazePOXIDE HCl 25 MG CAP PO SCH ×2 (05:15→13:30)
[2023-08-06 05:22] LABS: Albumin Globulin Ratio 1.4 (0.9-2); Albumin Level 4.5 gm/dl (3.4-5.0); BUN Creatinine Ratio 18.7 (10-20); Bilirubin,Total 0.8 mg/dl (0.2-1.0); Calcium 8.8 mg/dl (8.6-10.3); Creatinine Clr Calc Pharmacy 127.1 ml/min; Est GFR (African American) 127.5 ml/min; Globulin 3.3 gm/dl (2.5-4.0); Potassium 4.3 mmol/L (3.5-5.1); Total Protein 7.8 gm/dl (6.0-8.3)
[2023-08-06 05:38] LABS: Basophils # (auto) 0.04 K/uL (0.00-0.20); Basophils % (auto) 1.1 %; Eosinophils # (auto) 0.05 K/uL (0.00-0.50); Eosinophils % (auto) 1.3 %; Hematocrit (blood only) 34.7 % (42.0-52.0); Hemoglobin 11.5 g/dl (14.0-18.0); Immature Granulocytes # (auto) 0.01 K/uL (0.01-0.20); Immature Granulocytes % (auto) 0.3 %; Lymphocytes # (auto) 0.72 K/uL (1.20-3.40); Lymphocytes % (auto) 19.3 %; Mean Corpuscular Hgb Conc 33.1 g/dL (32.0-36.0); Mean Corpuscular Volume 96.7 fL (80.0-100.0); Monocytes # (auto) 0.33 K/uL (0.11-0.59); Monocytes % (auto) 8.8 %; Neutrophils # (auto) 2.59 K/uL (1.40-6.50); Neutrophils % (auto) 69.2 %; Platelet Count 131 K/uL (130-400); RDW Coefficient of Variation 15.4 % (11.5-14.5); RDW Standard Deviation 55.2 fL (36.4-46.3); Red Blood Count 3.59 M/uL (4.70-6.10); White Blood Count 3.74 K/ul (4.8-10.8)
[2023-08-06] MEDS: BUPRENORPHINE/NALOXONE 8/2 MG TAB SL SCH ×3 (08:28→22:22)
[2023-08-06] MEDS: GABAPENTIN 300 MG CAP PO SCH ×4 (08:28→22:23)
[2023-08-06] MEDS ORDERED: FOLIC ACID 1 MG TAB PO SCH (09:00)
[2023-08-06] MEDS ORDERED: PANTOprazole 40 MG TAB PO SCH (09:00)
[2023-08-06] MEDS ORDERED: amLODIPine BESYLATE 5 MG TAB PO SCH (09:00)
[2023-08-06] MEDS ORDERED: VORTIOXETINE 20 MG PO SCH (09:00)
[2023-08-06] MEDS ORDERED: ESCITALOPRAM OXALATE 20 MG TAB PO SCH (09:00)
[2023-08-06] MEDS ORDERED: THIAMINE HCL 300 MG in SODIUM CHLORIDE 0.9% 50 ML IV ONE (09:00)
[2023-08-06] MEDS ORDERED: LOSARTAN POTASSIUM 50 MG TAB PO SCH (09:00)
[2023-08-06] MEDS ORDERED: NON-FORMULARY MEDICATION (Amlodipine-Olmesartan 5-40 mg tablet) PO SCH (09:00)
[2023-08-06] MEDS ORDERED: CHOLECALCIFEROL 1,000 UNITS 25 MCG TAB PO SCH (09:00)
--- NOTE | 2023-08-06 13:13 | Hospitalist Progress Note ---
Date of Service August 06, 2023 Assessment & Plan (1) History of alcohol withdrawal syndrome: Plan: Supportive care. ISAAK S protocol. Continue Librium (2) Alcohol intoxication: Plan: Supportive care. ISAAK S protocol. IV fluids for now (3) HTN (hypertension): Plan: Stable. Continue current medical management (4) Anxiety: Plan: Supportive care. Continue high-dose Librium for now. Continue home Lexapro/gabapentin (5) Alcoholic fatty liver: Plan: Mild transaminitis. Probably alcohol related. Serial labs (6) Hx of opioid abuse: Plan: in remission on Suboxone. Plan Hopeful discharge to home later this week Admission and Anticipated Discharge Date Admission Date: August 05, 2023 Subjective Alert and oriented. No acute distress. No overt DTs or withdrawal symptoms at this time. He is on high-dose oral Librium therapy. Review of Systems Review of Systems: Constitutional-no fever or chills ENT-no blurred vision, no double vision, no epistaxis, no sore throat Respiratory-no cough, no wheezing, no shortness of breath Cardiac-no palpitations, no chest pain, no syncope GI-no nausea, vomiting, diarrhea, melena, hematochezia -no urinary retention, no urinary incontinence, no dysuria, no hematuria Musculoskeletal-no joint pain, no muscle tenderness Skin-no bruising, no rashes, no pruritus Neuro-no isolated weakness, no paresthesia, no weakness Psych-no depression, no anxiety Physical Exam Physical Exam: General-alert and oriented x3, no fevers, no chills HEENT-head atraumatic and normocephalic,pupils equal and reactive to light, extraocular muscles intact Neck-no lymphadenopathy or thyromegaly, trachea midline Chest-clear to auscultation percussion. No rales wheezing or rhonchi Cardiac-regular rate and rhythm, normal S1 and S2, no murmurs Abdomen-normal bowel sounds, nontender, no hepatosplenomegaly Extremities-no cyanosis, clubbing, or edema Neuro-cranial nerves II through XII intact, motor and sensory function within normal limits, strength symmetrical, no focal deficits Psych-normal affect, normal mood Results & Data Results & Data Vital Signs (Past 12 Hours) Vital Signs Pulse Resp BP Pulse Ox Pulse Ox O2 Del Method 08/06/23 12:00 94 Room Air 08/06/23 09:30 70 19 92 08/06/23 09:00 78 23 99 08/06/23 09:00 144/85 H 08/06/23 08:30 80 18 97 08/06/23 08:30 129/71 08/06/23 08:30 146/90 H 08/06/23 08:00 67 19 96 08/06/23 08:00 129/71 08/06/23 07:30 68 14 95 08/06/23 07:30 138/78 08/06/23 07:00 65 16 98 08/06/23 07:00 130/67 08/06/23 06:30 68 13 93 08/06/23 06:30 136/80 08/06/23 07:03 68 08/06/23 06:00 64 20 100 08/06/23 05:30 63 17 93 08/06/23 05:30 138/81 08/06/23 05:00 63 21 95 08/06/23 05:00 129/71 08/06/23 04:30 71 16 96 08/06/23 04:30 144/89 H 08/06/23 04:00 71 17 94 08/06/23 04:00 137/87 08/06/23 03:30 67 16 94 08/06/23 03:30 149/86 H 08/06/23 03:00 69 22 132/91 93 08/06/23 02:30 81 22 129/83 95 08/06/23 02:00 68 20 138/88 96 08/06/23 01:30 62 12 125/77 95 Laboratory Results 08/06/23 04:26 08/06/23 04:26 PG Care Time/CCT Total # of Minutes Spent Total Time Spent with Patient: Total time spent is greater than 50% in coordination of care (as documented) at patient's floor/unit and/or counseling patient: Coding Level of Care Code 33879 SUB INP/OBS CARE 3/50MIN Diagnoses History of alcohol withdrawal syndrome Z86.59 Alcohol intoxication F10.929 HTN (hypertension) I10 Anxiety F41.9 Alcoholic fatty liver K70.0 Hx of opioid abuse F11.11
[2023-08-06] MEDS ORDERED: chlordiazePOXIDE HCl 25 MG CAP PO SCH (15:30)
[2023-08-06] MEDS: LORazepam 2 MG/1 ML VIAL IV PRN ×2 (16:44→22:20)
[2023-08-06] MEDS ORDERED: VORTIOXETINE HYDROBROMIDE 20 MG PO SCH (17:00)
[2023-08-07] MEDS ORDERED: LORazepam 2 MG/1 ML VIAL IV STA (02:00)
--- NOTE | 2023-08-07 06:56 | Electrocardiogram Report ---
Test Reason : Blood Pressure : / mmHG Vent. Rate : 068 BPM Atrial Rate : 068 BPM P-R Int : 142 ms QRS Dur : 092 ms QT Int : 398 ms P-R-T Axes : 038 019 036 degrees QTc Int : 423 ms Normal sinus rhythm Normal ECG When compared with ECG of 22-APR-2023 21:54, No significant change was found Confirmed by Asher Lawler ([id number]) on 08/07/2023 6:56:02 AM Referred By: REFERRED SELF Confirmed By:Asher Lawler
[2023-08-07] MEDS ORDERED: THIAMINE HCL 100 MG in SYRINGE 9 ML IV SCH (09:00)
[2023-08-08] MEDS ORDERED: chlordiazePOXIDE HCl 5 MG CAP PO SCH (19:30)
== END 2023-08-07 02:10 | disposition left against medical advice (07) | DRG 894 ==
LOC: ED 11:10 → SUATTDRO 13:21 → EDINP 13:21

== ENCOUNTER 2023-08-07 06:40 | Inpatient (IN) ==
--- NOTE | 2023-08-07 06:54 | Emergency Department Note ---
Impression & Plan Alcohol withdrawal, Pancytopenia ED Provider Note NAME: KARL KAUFMAN JR AGE: 47 SEX: M : 1975 ARRIVES VIA: Walk-In INFORMANT: Patient, ED PROVIDER(S): Ricardo Castillo MD CHIEF COMPLAINT: Possible intoxication MEDICAL DECISION MAKING: Patient presents due to concern for possible intoxication in the setting of reporting that he drinks several beers after leaving AMA for possible drawl. Patient does seem somewhat tremulous and was ordered p.o. Librium as well as IV Ativan along with CIWA protocol IV fluids and blood work. Banana bag also ordered. Blood work shows leukopenia anemia and thrombocytopenia. The patient's kidney function is unremarkable. AST of 50. Current alcohol is negative. Patient was ordered phenobarbital. I did speak with pharmacy about initiating standing orders. I did speak with the intensive care unit Dr. Arnold. He agrees with current management they discussed that if he did not improve they can consider Precedex in the unit. CT head obtained and without ICH. I did speak with the on-call hospitalist service Dr. Smith and the patient was admitted to the medicine service. Discussion w/ other healthcare providers: Dr. Smith and Reggie Gage PA-C with inpatient medicine service Dr. Mary logistics support Prior /Outside records reviewed: Reviewed a primary care visit from July 06, 2023. The patient does have a known history of alcohol dependence sciatica knee pain and history of total hip replacement. Differential diagnosis: Alcohol withdrawal, alcohol intoxication, infection, dehydration, metabolic abnormality, hypo/hyperglycemia, electrolyte imbalance, anemia, UTI, pneumonia, thyroid dysfunction among others were considered. Diagnostics, as interpreted by me: ECG: None Cardiac monitoring: An order was placed for continuous cardiac monitoring. The monitor shows a rate of 85 with sinus rhythm. Patient was placed on pulse oximetry Medical decision rules: CIWA score Imaging studies: I informally interpreted the patient's CT head which does not show obvious ICH with formal report to follow. HPI: Patient presents due to concern for possible intoxication versus withdrawal. The patient reportedly had left AGAINST MEDICAL ADVICE and may have gone somewhere to drink some beer and states that he drank about 4 beers this morning. There was also discussion that the patient had gone to the construction workers outside of the hospital and asked them where to get a sixpack. Patient currently denies any chest pain or shortness of breath and stated that he would like to go home tissue pumpkins. Patient denies any abdominal pain. The patient states that he typically drinks anywhere from 15-20 beers daily. PAST MEDICAL HISTORY: See Below PAST SURGICAL HISTORY: See Below SOCIAL HISTORY: See Below HOME MEDICATIONS: See Below ALLERGIES: See Below VITALS: See Below PHYSICAL EXAMINATION: GENERAL: Tremulous in appearance EYE EXAM: Normal conjunctiva. PERRL, no anisocoria and EOM's grossly intact w/o pain. OROPHARYNX: Dry mucus membranes, grossly normal dentition. Tongue fasciculations noted NECK: Supple, no nuchal rigidity, no adenopathy, non-tender. No signs of meningismus. FROM of the neck with good chin to chest and neck extension. No stridor. LUNGS: Clear to auscultation. Normal chest wall mechanics. HEART: NSR, no MRG. ABDOMEN: Abdomen soft, non-tender, no masses, no rebound or guarding. BACK: No CVA TTP. SKIN: No rashes and no bruising. UPPER EXTREMITIES: Upper extremities are grossly normal. Bilateral upper extremity tremor noted LOWER EXTREMITIES: Grossly normal, no edema. NEURO EXAM: Awake and alert follows basic commands, cranial nerves II-XII grossly intact, normal speech, moves all 4 extremities. Past Med/Surg History Medical History Alcohol withdrawal Delirium tremens Depression, unspecified Elevated liver enzymes Erectile dysfunction History of healed fragility fracture HTN (hypertension) Opioid use disorder, moderate, in sustained remission Psychosis Seizure (06/27/20) Suicidal intent Vitamin D deficiency Surgical History History of total hip replacement No significant past surgical history Family History Grandmother Breast cancer Social History Smoking Status: Never smoker Tobacco Type: Smokeless Tobacco (Dip or Chew) Age Started Using Tobacco: 13; Second Hand Exposure: No; Do You Dip or Chew Tobacco: Yes; Hx Alcohol Use: Yes Alcohol type: beer Alcohol Intake Frequency Comment: 6 beers per day Hx Substance Use: Yes Last Used Substance: Unknown Last Used Substance Other:: treatment in the past Preferred Language: Bolivian Communication Ability: Effective Photoengraver Required: No Beliefs That Will Affect Care: None marital status: Single Current Living Situation: Spouse current occupational status: employed Feels Safe at Home: Yes Diet: regular caffeine: Yes Assistive Devices: None Allergies Allergies Allergy/AdvReac Type Severity Reaction Status Date / Time bupropion AdvReac Severe Anxiety Verified 05/16/23 10:29 [From Wellbutrin SR] Home Meds Home Medications Medication Instructions Recorded Confirmed buprenorphine 8 mg-naloxone 2 mg 3 film sublingual DAILY 08/13/19 08/07/23 sublingual film (Suboxone) Previous Rx's Medication Instructions Recorded thiamine HCl (vitamin B1) 50 mg 100 mg PO DAILY 90 days #180 tabs 10/18/22 tablet escitalopram oxalate 20 mg tablet 20 mg PO DAILY #90 tabs 02/22/23 vortioxetine 20 mg tablet 20 mg PO DAILY #90 tabs 02/22/23 amlodipine 5 mg-olmesartan 40 mg 1 tab PO DAILY #90 tabs 03/20/23 tablet cholecalciferol (vitamin D3) 25 25 mcg PO DAILY #90 caps 04/04/23 mcg (1,000 unit) capsule pantoprazole 40 mg tablet,delayed 40 mg PO DAILY #90 tabs 04/04/23 release ondansetron HCl 4 mg tablet 4 mg PO Q8H PRN nausea and 06/14/23 vomiting #30 tabs gabapentin 600 mg tablet 600 mg PO QID 90 days #360 tabs 06/26/23 Results & Data (ED) Vital Signs Vital Signs - 24 hr 08/07/23 06:45 08/07/23 07:37 08/07/23 07:27 Temperature 36.9 C 36.8 C Temperature Source Temporal Artery Scan Oral Pulse Rate 87 78 Pulse Rate [Left] 86 Pulse Rate from SpO2 Sensor Pulse Rhythm Regular Pulse Rhythm [Left] Regular Pulse Strength Normal Pulse Strength [Left] Normal Respiratory Rate 20 22 Respiratory Effort / Characteristics Non-Labored Spontaneous Non-Labored Spontaneous Respiratory Depth Normal Normal Respiratory Pattern Regular Blood Pressure 182/100 H Blood Pressure [Right Arm] 142/104 H Blood Pressure Mean 127 Blood Pressure Mean [Right Arm] 116 Blood Pressure Position [Right Arm] Sitting Pulse Oximetry 97 98 Oxygen Delivery Method Room Air Room Air Sepsis Recent Fever Within 48 Hours No Sepsis New/Unexplained Change in Mental Status N/A Sepsis Action Taken by Nursing No Action Required 08/07/23 08:26 08/07/23 08:30 08/07/23 07:30 Temperature 36.9 C Temperature Source Oral Pulse Rate 101 H 94 H Pulse Rate [Left] Pulse Rate from SpO2 Sensor Pulse Rhythm Pulse Rhythm [Left] Pulse Strength Pulse Strength [Left] Respiratory Rate 22 21 Respiratory Effort / Characteristics Respiratory Depth Respiratory Pattern Blood Pressure 139/91 142/104 H Blood Pressure [Right Arm] Blood Pressure Mean 116 Blood Pressure Mean [Right Arm] Blood Pressure Position [Right Arm] Pulse Oximetry 98 Oxygen Delivery Method Room Air Sepsis Recent Fever Within 48 Hours Sepsis New/Unexplained Change in Mental Status Sepsis Action Taken by Nursing 08/07/23 07:50 08/07/23 08:01 08/07/23 08:26 Temperature Temperature Source Pulse Rate 75 74 82 Pulse Rate [Left] Pulse Rate from SpO2 Sensor Pulse Rhythm Pulse Rhythm [Left] Pulse Strength Pulse Strength [Left] Respiratory Rate 19 16 Respiratory Effort / Characteristics Respiratory Depth Respiratory Pattern Blood Pressure 166/96 H 145/80 H 139/91 Blood Pressure [Right Arm] Blood Pressure Mean 119 101 107 Blood Pressure Mean [Right Arm] Blood Pressure Position [Right Arm] Pulse Oximetry 96 96 96 Oxygen Delivery Method Room Air Room Air Room Air Sepsis Recent Fever Within 48 Hours Sepsis New/Unexplained Change in Mental Status Sepsis Action Taken by Nursing 08/07/23 08:30 08/07/23 08:53 08/07/23 09:00 Temperature Temperature Source Pulse Rate 72 81 72 Pulse Rate [Left] Pulse Rate from SpO2 Sensor Pulse Rhythm Pulse Rhythm [Left] Pulse Strength Pulse Strength [Left] Respiratory Rate 16 23 19 Respiratory Effort / Characteristics Respiratory Depth Respiratory Pattern Blood Pressure 144/80 H 148/86 H 135/88 Blood Pressure [Right Arm] Blood Pressure Mean 101 106 103 Blood Pressure Mean [Right Arm] Blood Pressure Position [Right Arm] Pulse Oximetry 98 98 Oxygen Delivery Method Room Air Room Air Room Air Sepsis Recent Fever Within 48 Hours Sepsis New/Unexplained Change in Mental Status Sepsis Action Taken by Nursing 08/07/23 09:30 08/07/23 09:43 08/07/23 10:15 Temperature 36.9 C 37.0 C Temperature Source Oral Oral Pulse Rate 79 Pulse Rate [Left] 79 74 Pulse Rate from SpO2 Sensor Pulse Rhythm Pulse Rhythm [Left] Regular Regular Pulse Strength Pulse Strength [Left] Normal Respiratory Rate 24 24 20 Respiratory Effort / Characteristics Non-Labored Non-Labored Respiratory Depth Normal Normal Respiratory Pattern Regular Regular Blood Pressure 156/92 H Blood Pressure [Right Arm] 156/92 H 149/93 H Blood Pressure Mean Blood Pressure Mean [Right Arm] 113 111 Blood Pressure Position [Right Arm] Sitting Lying Pulse Oximetry 98 99 Oxygen Delivery Method Room Air Room Air Sepsis Recent Fever Within 48 Hours Sepsis New/Unexplained Change in Mental Status Sepsis Action Taken by Nursing 08/07/23 10:24 08/07/23 09:30 08/07/23 10:05 Temperature Temperature Source Pulse Rate 77 99 H 73 Pulse Rate [Left] Pulse Rate from SpO2 Sensor Pulse Rhythm Pulse Rhythm [Left] Pulse Strength Pulse Strength [Left] Respiratory Rate 20 23 21 Respiratory Effort / Characteristics Respiratory Depth Respiratory Pattern Blood Pressure 149/93 H 156/92 H 136/96 Blood Pressure [Right Arm] Blood Pressure Mean 113 109 Blood Pressure Mean [Right Arm] Blood Pressure Position [Right Arm] Pulse Oximetry 96 Oxygen Delivery Method Room Air Sepsis Recent Fever Within 48 Hours Sepsis New/Unexplained Change in Mental Status Sepsis Action Taken by Nursing 08/07/23 10:13 08/07/23 10:30 08/07/23 11:27 Temperature Temperature Source Pulse Rate 74 107 H 110 H Pulse Rate [Left] Pulse Rate from SpO2 Sensor 73 Pulse Rhythm Pulse Rhythm [Left] Pulse Strength Pulse Strength [Left] Respiratory Rate 19 17 22 Respiratory Effort / Characteristics Respiratory Depth Respiratory Pattern Blood Pressure 149/93 H 150/95 H 146/104 H Blood Pressure [Right Arm] Blood Pressure Mean 111 113 Blood Pressure Mean [Right Arm] Blood Pressure Position [Right Arm] Pulse Oximetry 98 98 Oxygen Delivery Method Room Air Room Air Sepsis Recent Fever Within 48 Hours Sepsis New/Unexplained Change in Mental Status Sepsis Action Taken by Nursing 08/07/23 11:02 08/07/23 11:02 08/07/23 11:30 Temperature 36.6 C Temperature Source Oral Pulse Rate 73 77 Pulse Rate [Left] Pulse Rate from SpO2 Sensor Pulse Rhythm Pulse Rhythm [Left] Pulse Strength Pulse Strength [Left] Respiratory Rate 17 16 Respiratory Effort / Characteristics Respiratory Depth Respiratory Pattern Blood Pressure 146/104 H 133/97 Blood Pressure [Right Arm] Blood Pressure Mean 118 109 Blood Pressure Mean [Right Arm] Blood Pressure Position [Right Arm] Pulse Oximetry 95 95 Oxygen Delivery Method Room Air Room Air Sepsis Recent Fever Within 48 Hours Sepsis New/Unexplained Change in Mental Status Sepsis Action Taken by Nursing 08/07/23 12:27 08/07/23 12:29 08/07/23 12:30 Temperature 36.7 C Temperature Source Oral Pulse Rate 77 68 Pulse Rate [Left] Pulse Rate from SpO2 Sensor 68 Pulse Rhythm Pulse Rhythm [Left] Pulse Strength Pulse Strength [Left] Respiratory Rate Respiratory Effort / Characteristics Respiratory Depth Respiratory Pattern Blood Pressure 147/88 H 153/99 H Blood Pressure [Right Arm] Blood Pressure Mean 107 117 Blood Pressure Mean [Right Arm] Blood Pressure Position [Right Arm] Pulse Oximetry 96 Oxygen Delivery Method Room Air Sepsis Recent Fever Within 48 Hours Sepsis New/Unexplained Change in Mental Status Sepsis Action Taken by Retirement Medications Current Medication List: was personally reviewed by me Laboratory Data Attestation: I reviewed the patient's lab results. 08/07/23 08:31 08/07/23 08:31 Lab Results 08/07/23 08/07/23 08/07/23 Range/Units 08:31 08:31 08:31 WBC 3.78 L (4.8-10.8) K/ul RBC 3.35 L (4.70-6.10) M/uL Hgb 10.9 L (14.0-18.0) g/dl Hct 32.1 L (42.0-52.0) % MCV 95.8 (80.0-100.0) fL MCH 32.5 (25.0-34.0) pg MCHC 34.0 (32.0-36.0) g/dL RDW Std Deviation 52.6 H (36.4-46.3) fL RDW Coeff of Ric 14.8 H (11.5-14.5) % Plt Count 129 L (130-400) K/uL MPV 9.8 (9.4-12.4) fL Immature Gran % (Auto) 0.3 % Neut % (Auto) 75.3 % Lymph % (Auto) 13.5 % [place] % (Auto) 9.5 % Eos % (Auto) 0.3 % Baso % (Auto) 1.1 % Neut # (Auto) 2.85 (1.40-6.50) K/uL Lymph # (Auto) 0.51 L (1.20-3.40) K/uL [place] # (Auto) 0.36 (0.11-0.59) K/uL Eos # (Auto) 0.01 (0.00-0.50) K/uL Baso # (Auto) 0.04 (0.00-0.20) K/uL Immature Gran # (Auto) 0.01 (0.01-0.20) K/uL PT 10.9 (9.0-12.0) Seconds INR 1.0 (0.9-1.1) APTT 22.6 (21.0-31.0) Seconds PTT Ratio 0.8 Sodium 138 (136-145) mmol/L Potassium 3.6 (3.5-5.1) mmol/L Chloride 102 (98-107) mmol/L Carbon Dioxide 29 (21-32) mmol/L Anion Gap 7 (3-11) BUN 16 (6-23) mg/dl Creatinine 0.90 (0.6-1.4) mg/dl Est Cr Clr Drug Dosing 105.9 ml/min Est GFR ( Amer) 118.3 ml/min Est GFR (Non-Af Amer) 102.1 ml/min BUN/Creatinine Ratio 17.8 (10-20) Glucose 96 (70-99(Fasting)) mg/dl Calcium 8.8 (8.6-10.3) mg/dl Phosphorus 1.7 L (2.5-4.9) mg/dl Magnesium 1.8 (1.7-2.4) mg/dl Total Bilirubin 0.7 (0.2-1.0) mg/dl AST 50 H (13-39) U/L ALT 50 (7-52) U/L Alkaline Phosphatase 42 (34-104) U/L Total Protein 7.9 (6.0-8.3) gm/dl Albumin 4.4 (3.4-5.0) gm/dl Globulin 3.5 (2.5-4.0) gm/dl Albumin/Globulin Ratio 1.3 (0.9-2) Ethyl Alcohol mg/dL (<10.0) mg/dl 08/07/23 Range/Units 08:31 WBC (4.8-10.8) K/ul RBC (4.70-6.10) M/uL Hgb (14.0-18.0) g/dl Hct (42.0-52.0) % MCV (80.0-100.0) fL MCH (25.0-34.0) pg MCHC (32.0-36.0) g/dL RDW Std Deviation (36.4-46.3) fL RDW Coeff of Ric (11.5-14.5) % Plt Count (130-400) K/uL MPV (9.4-12.4) fL Immature Gran % (Auto) % Neut % (Auto) % Lymph % (Auto) % [place] % (Auto) % Eos % (Auto) % Baso % (Auto) % Neut # (Auto) (1.40-6.50) K/uL Lymph # (Auto) (1.20-3.40) K/uL [place] # (Auto) (0.11-0.59) K/uL Eos # (Auto) (0.00-0.50) K/uL Baso # (Auto) (0.00-0.20) K/uL Immature Gran # (Auto) (0.01-0.20) K/uL PT (9.0-12.0) Seconds INR (0.9-1.1) APTT (21.0-31.0) Seconds PTT Ratio Sodium (136-145) mmol/L Potassium (3.5-5.1) mmol/L Chloride (98-107) mmol/L Carbon Dioxide (21-32) mmol/L Anion Gap (3-11) BUN (6-23) mg/dl Creatinine (0.6-1.4) mg/dl Est Cr Clr Drug Dosing ml/min Est GFR ( Amer) ml/min Est GFR (Non-Af Amer) ml/min BUN/Creatinine Ratio (10-20) Glucose (70-99(Fasting)) mg/dl Calcium (8.6-10.3) mg/dl Phosphorus (2.5-4.9) mg/dl Magnesium (1.7-2.4) mg/dl Total Bilirubin (0.2-1.0) mg/dl AST (13-39) U/L ALT (7-52) U/L Alkaline Phosphatase (34-104) U/L Total Protein (6.0-8.3) gm/dl Albumin (3.4-5.0) gm/dl Globulin (2.5-4.0) gm/dl Albumin/Globulin Ratio (0.9-2) Ethyl Alcohol mg/dL < 10.0 (<10.0) mg/dl Administered Medications Phenobarbital Sodium (Phenobarbital Sodium 65 Mg/Ml Vial) 65 mg IV Q6H PRN PRN Reason: AWSS greater than 8 Stop: 08/11/23 23:59 Last Admin: 08/07/23 11:27 Dose: 65 mg Documented By: CASSANDRA Discontinued Medications Chlordiazepoxide HCl (Chlordiazepoxide Hcl 25 Mg Cap) 100 mg PO NOW ONE Stop: 08/07/23 07:11 Last Admin: 08/07/23 07:31 Dose: 100 mg Documented By: DAX Sodium Chloride (Nss) 1,000 mls @ 999 mls/hr IV .Q1H1M ONE Stop: 08/07/23 08:12 Last Infusion: 08/07/23 11:37 Dose: 0 mls/hr Documented By: Admin: 08/07/23 07:35 Dose: 999 mls/hr Documented By: DAX Multivitamins 10 ml/ Thiamine HCl 100 mg/ Folic Acid 1 mg/Sodium Chloride 1,011.2 mls @ 500 mls/hr IV .Q2H2M ONE Stop: 08/07/23 10:00 Last Infusion: 08/07/23 11:36 Dose: 0 mls/hr Documented By: Admin: 08/07/23 08:57 Dose: 500 mls/hr Documented By: DAX Magnesium Sulfate/Dextrose (Magnesium Sulfate / D5w) 1 gm in 100 mls @ 100 mls/hr IV Q1H MANNY Stop: 08/07/23 11:50 Last Infusion: 08/07/23 12:42 Dose: 0 mls/hr Documented By: Admin: 08/07/23 11:26 Dose: 100 mls/hr Documented By: Infusion: 08/07/23 11:26 Dose: 100 mls/hr Documented By: Admin: 08/07/23 10:27 Dose: 100 mls/hr Documented By: ZHANE Lorazepam (Lorazepam 2 Mg/1 Ml Vial) 2 mg IV NOW STA Stop: 08/07/23 07:11 Last Admin: 08/07/23 07:32 Dose: 2 mg Documented By: DAX Lorazepam (Lorazepam 2 Mg/1 Ml Vial) 2 mg IV NOW STA Stop: 08/07/23 08:16 Last Admin: 08/07/23 08:29 Dose: Not Given Documented By: DAX Phenobarbital (Phenobarbital Po Alcohol Withdrawal) 1 each PO NOW STA; Protocol Stop: 08/07/23 09:02 Last Admin: 08/07/23 11:04 Dose: Not Given Documented By: DAX Phenobarbital Sodium (Phenobarbital Sodium 130 Mg/Ml Vial) 130 mg IM NOW STA Stop: 08/07/23 08:00 Last Admin: 08/07/23 08:26 Dose: 130 mg Documented By: NH Phenobarbital Sodium (Phenobarbital Sodium 65 Mg/Ml Vial) 65 mg IV Q15M PRN PRN Reason: AWSS greater than 8 Stop: 08/07/23 11:02 Last Admin: 08/07/23 10:24 Dose: 65 mg Documented By: Admin: 08/07/23 09:43 Dose: 65 mg Documented By: DAX Imaging Data Radiologist's Impression: Head CT 08/07/23 09:51 CT OF THE HEAD WITHOUT CONTRAST CLINICAL HISTORY: DTs COMPARISON STUDY: MRI of the brain September 08, 2020. Head CT June 27, 2020. CT DOSE: 705.24 mGy.cm TECHNIQUE: Helical axial images of the head were obtained without IV contrast. Automated exposure control was utilized for the study. A dose lowering technique was utilized adhering to the principles of ALARA. FINDINGS: This study is mildly compromised by motion artifact. No acute intracranial hemorrhage, midline shift or mass effect is present. The ventricular system is unremarkable. The basal cisterns are patent. No extra- axial collections are present. There are no findings to suggest acute dural sinus thrombosis or acute territorial infarct. No significant calvarial abnormalities are present. Visualized portions of the sinuses and mastoid air cells are clear. IMPRESSION: No acute intracranial findings. ACT 112: Negative or not required by law. Electronically signed by: Shahriar Oakley M.D. 08/07/2023 12:44 PM Discharge Plan Visit Data Chief Complaint: Detox Request Stated Complaint: ALCOHOL DETOX ED Provider: Ricardo Castillo Discharge Problem: Alcohol withdrawal, Pancytopenia Patient Disposition: Admitted As Inpatient Discharge Instructions Interventions: ED Discharge Assessment Last Done: 08/07/23 14:28
[2023-08-07] MEDS ORDERED: LORazepam 2 MG/1 ML VIAL IV STA ×2 (07:10→08:15)
[2023-08-07] MEDS ORDERED: chlordiazePOXIDE HCl 25 MG CAP PO ONE (07:10)
[2023-08-07] MEDS ORDERED: LORazepam 2 MG/1 ML VIAL IV PRN ×6 (07:10→12:26)
[2023-08-07] MEDS ORDERED: Ativan IV Alcohol Withdrawal--Active Protocol IV PRN ×2 (07:10→12:26)
[2023-08-07] MEDS ORDERED: SODIUM CHLORIDE 0.9% 1,000 ML IV ONE (07:12)
[2023-08-07] MEDS ORDERED: PHENobarbital sodium 130 MG/ML VIAL IM STA (07:59)
[2023-08-07] MEDS ORDERED: MULTI-VITAMIN INFUSION 10 ML, THIAMINE HCL 100 MG, FOLIC ACID 1 MG in SODIUM CHLORIDE 0... IV ONE (07:59)
[2023-08-07 08:52] LABS: Basophils # (auto) 0.04 K/uL (0.00-0.20); Basophils % (auto) 1.1 %; Eosinophils # (auto) 0.01 K/uL (0.00-0.50); Eosinophils % (auto) 0.3 %; Hematocrit (blood only) 32.1 % (42.0-52.0); Hemoglobin 10.9 g/dl (14.0-18.0); Immature Granulocytes # (auto) 0.01 K/uL (0.01-0.20); Immature Granulocytes % (auto) 0.3 %; Lymphocytes # (auto) 0.51 K/uL (1.20-3.40); Lymphocytes % (auto) 13.5 %; Mean Corpuscular Hemoglobin 32.5 pg (25.0-34.0); Mean Corpuscular Volume 95.8 fL (80.0-100.0); Mean Platelet Volume 9.8 fL (9.4-12.4); Monocytes # (auto) 0.36 K/uL (0.11-0.59); Monocytes % (auto) 9.5 %; Neutrophils # (auto) 2.85 K/uL (1.40-6.50); Neutrophils % (auto) 75.3 %; Platelet Count 129 K/uL (130-400); RDW Coefficient of Variation 14.8 % (11.5-14.5); RDW Standard Deviation 52.6 fL (36.4-46.3); Red Blood Count 3.35 M/uL (4.70-6.10); White Blood Count 3.78 K/ul (4.8-10.8)
[2023-08-07] MEDS ORDERED: PHENobarbital PO Alcohol Withdrawal PO STA (09:01)
[2023-08-07 09:10] LABS: Albumin Globulin Ratio 1.3 (0.9-2); Albumin Level 4.4 gm/dl (3.4-5.0); BUN Creatinine Ratio 17.8 (10-20); Bilirubin,Total 0.7 mg/dl (0.2-1.0); Calcium 8.8 mg/dl (8.6-10.3); Creatinine Clr Calc Pharmacy 105.9 ml/min; Est GFR (African American) 118.3 ml/min; Est GFR (Non-African American) 102.1 ml/min; Globulin 3.5 gm/dl (2.5-4.0); Magnesium 1.8 mg/dl (1.7-2.4); Phosphorus 1.7 mg/dl (2.5-4.9); Potassium 3.6 mmol/L (3.5-5.1); Total Protein 7.9 gm/dl (6.0-8.3)
[2023-08-07 09:19] LABS: Partial Thromboplastin Ratio 0.8; Partial Thromboplastin Time 22.6 Seconds (21.0-31.0); Prothrombin Time 10.9 Seconds (9.0-12.0)
[2023-08-07] MEDS: PHENobarbital sodium 65 MG/ML VIAL IV PRN ×2 (09:43→10:24)
--- NOTE | 2023-08-07 10:22 | History & Physical Report ---
Date of Service August 07, 2023 Assessment & Plan (1) Alcohol withdrawal: Plan: Clinically, patient exhibits tremors, confusion, and may be exhibiting auditory/visual hallucinations Patient is oriented to name, but not birthday, time, or location Unable to obtain an accurate history Glucose 96 on arrival Tox screen pending Per most recent admission on 08/05, patient was reportedly drinking 15-20 beers daily He left AMA from [facility] on 08/07 at 0200, but returned via EMS covered in mud Last alcoholic drink is unknown; however, ethyl alcohol level at 0831 on 08/07 was <10.0 mg/dL Patient received banana bag, magnesium, Ativan, Librium, and phenobarbital in the ED Despite this, he was still agitated/active in bed Head CT revealed no acute intracranial findings Per prior notes, he has done well on Librium with prior withdrawals; Librium 100 mg given in the ED Admit to ICU; hold Librium as a large dose was given in the ED; continue phenobarbital protocol Hepatic steatosis; AST mildly elevated at 50 AWSS risk protocol Continuous telemetry monitoring EKG pending; last QTc on 08/05 was WNL at 423 Seizure precautions; avoid medications that may lower seizure threshold Fall precautions Ativan and Precedex as per AWSS protocol for agitation; however, monitor and avoid Ativan use if patient exhibits signs of respiratory depression Monitor electrolytes with daily BMP; keep K>4, Mg>2 Consider case management consult for alcohol cessation and rehab placement upon discharge; per review of note on 04/22/23, sounds like he is unwilling to commit himself to rehab because he needs to help his parents (2) History of alcohol withdrawal syndrome: Plan: Previous episodes of alcohol withdrawal requiring ICU admission at [facility] in 04/2023 Hx of alcohol withdrawal seizures; per review of notes, seizure in [employer] in 06/2020 which was likely due to reduction in alc intake Unable to determine last known seizure at this time (3) HTN (hypertension): Plan: Mild hypertension on admission Continue amlodipineolmesartan daily (4) Anxiety: Plan: Recommend reduction in home dose of gabapentin from 600mg --> 300mg while on Librium Ativan as per AWSS protocol (5) Hx of opioid abuse: Plan: Patiently reportedly on Suboxone Continue Suboxone 8-2 mg 3 times daily (6) Depression, unspecified: Plan: Continue vortioxetine Plan Disposition: Admit to ICU Full code Regular diet as tolerated VTE PPx: Will defer to ICU (last admission the patient received Lovenox, SCDs; renal panel WNL) History of Present Illness Chief Complaint: Alcohol detox Primary Care Provider: Victor Hugo Puckett DO Clement is a 47-year-old male with PMH of alcohol withdrawal syndrome, opioid abuse, HTN, anxiety, and depression. He presents to the ED for acute alcohol withdrawal. Long history of alcohol abuse and alcohol withdrawal seizures requiring prior ICU admission. Today, he exhibits agitation and confusion and is not oriented to birthday, time, or location. He reportedly drinks 15 to 20 beers daily. Hospital course: Came into the ED for alcohol detox on 08/05 but left AMA at 0200 on 08/07. He returned via EMS at 0500 on 08/07 covered in mud. He is unable to provide a history of what occurred while he was outside of the hospital. Patient's last drink is unknown; however, it should be noted that the patient's ethyl alcohol level at 0831 today was < 10.0 mg/dL. Unknown if patient took morning medications. Unknown if any seizures within current withdrawal period. Mild hypertension on admission; otherwise, vitals stable. Unable to obtain accurate ROS given patient's current mental state; however, he currently denies any head pain, neck pain, chest pain, or SOB. Spoke to nursing staff at 1030 who report the patient has been declining (worsening tremors and confusion) since he arrived in the ED around 0500. ED course: Lorazepam 2mg IV, Librium 100 mg p.o., NSS 1000 mL, phenobarbital 130 mg IM, and a banana bag Allergies Allergy/AdvReac Type Severity Reaction Status Date / Time bupropion AdvReac Severe Anxiety Verified 05/16/23 10:29 [From Wellbutrin SR] Home Medications Medication Instructions Recorded Confirmed Type buprenorphine 8 mg-naloxone 2 mg 3 film sublingual DAILY 08/13/19 08/07/23 History sublingual film (Suboxone) thiamine HCl (vitamin B1) 50 mg 100 mg PO DAILY 90 days #180 tabs 10/18/22 08/07/23 Rx tablet escitalopram oxalate 20 mg tablet 20 mg PO DAILY #90 tabs 02/22/23 08/07/23 Rx vortioxetine 20 mg tablet 20 mg PO DAILY #90 tabs 02/22/23 08/07/23 Rx amlodipine 5 mg-olmesartan 40 mg 1 tab PO DAILY #90 tabs 03/20/23 08/07/23 Rx tablet cholecalciferol (vitamin D3) 25 25 mcg PO DAILY #90 caps 04/04/23 08/07/23 Rx mcg (1,000 unit) capsule pantoprazole 40 mg tablet,delayed 40 mg PO DAILY #90 tabs 04/04/23 08/07/23 Rx release ondansetron HCl 4 mg tablet 4 mg PO Q8H PRN nausea and 06/14/23 08/07/23 Rx vomiting #30 tabs gabapentin 600 mg tablet 600 mg PO QID 90 days #360 tabs 06/26/23 08/07/23 Rx Past Med/Surg History Medical History (Updated 08/07/23 @ 16:02 by Alfonso Motta MD) Acute hyperactive alcohol withdrawal delirium Alcohol withdrawal Delirium tremens Depression, unspecified Elevated liver enzymes Erectile dysfunction History of healed fragility fracture HTN (hypertension) Opioid use disorder, moderate, in sustained remission Psychosis Seizure (06/27/20) Suicidal intent Vitamin D deficiency Surgical History History of total hip replacement No significant past surgical history Family History Grandmother Breast cancer Social History Smoking Status: Never smoker Tobacco Type: Smokeless Tobacco (Dip or Chew) Age Started Using Tobacco: 13; Second Hand Exposure: No; Do You Dip or Chew Tobacco: Yes; Tobacco Cessation Education Requested by Patient: No Hx Alcohol Use: Yes Alcohol type: beer Alcohol Intake Frequency Comment: 6 beers per day Hx Substance Use: Yes Last Used Substance: Unknown Last Used Substance Other:: treatment in the past Preferred Language: Romansh Communication Ability: Effective Return To Service Inspector Required: No Beliefs That Will Affect Care: None marital status: Single Current Living Situation: Spouse current occupational status: employed Other Information That Helps Us Care for You: No Feels Safe at Home: Yes Safety Concerns: Feels Safe At This Time Diet: regular caffeine: Yes Assistive Devices: None Review of Systems Review of Systems: See above Physical Exam Physical Exam: Nursing staff present on physical exam; patient in a 1:1 for alcohol withdrawal General: patient is tremulous and not oriented to name, time, or location; he appears his stated age HEENT: Normocephalic; no abrasions noted on head; no scleral icterus; pupils minimally reactive to light; EOMs intact; moist mucus membrane; trachea midline; vision and hearing grossly intact Skin: warm, dry without signs of tenting; no cyanosis; no rashes or lesions noted Cardiac: RRR; no new murmurs noted Pulm: no acute respiratory distress; symmetrical chest expansion; clear breath sounds across all lung olivarez without adventitious sounds Abdominal: Soft, nontender to palpation; BS present; no ascites; no distention MSK: Hand tremors; no tics or fasciculations; no edema noted in the LEs b/l; pulses intact and symmetrical at radial, DP, and PT Neuro: A&Ox0; patient reaching for objects, bed rails, IVs, wires during exam; he also mumbles to himself (may be suggestive of audio/visual hallucinations); speech is fluent when responding to questioning, but thought process is incoherent Results & Data Results & Data Vital Signs (Past 12 Hours) Vital Signs Temp Pulse Pulse Resp BP BP Pulse Ox 08/07/23 09:43 79 24 156/92 H 08/07/23 09:30 36.9 C 79 24 156/92 H 98 08/07/23 09:00 72 19 135/88 98 08/07/23 08:53 81 23 148/86 H 98 08/07/23 08:30 72 16 144/80 H 08/07/23 08:26 82 16 139/91 96 08/07/23 08:01 74 19 145/80 H 96 08/07/23 07:50 75 166/96 H 96 08/07/23 07:30 94 H 21 142/104 H 98 08/07/23 08:30 36.9 C 08/07/23 08:26 101 H 22 139/91 08/07/23 07:27 36.8 C 86 22 142/104 H 98 08/07/23 07:37 78 08/07/23 06:45 36.9 C 87 20 182/100 H 97 O2 Del Method 08/07/23 09:43 08/07/23 09:30 Room Air 08/07/23 09:00 Room Air 08/07/23 08:53 Room Air 08/07/23 08:30 Room Air 08/07/23 08:26 Room Air 08/07/23 08:01 Room Air 08/07/23 07:50 Room Air 08/07/23 07:30 Room Air 08/07/23 08:30 08/07/23 08:26 08/07/23 07:27 Room Air 08/07/23 07:37 08/07/23 06:45 Room Air Laboratory Results Abnormal lab results 08/07/23 08/07/23 Range/Units 08:31 08:31 WBC 3.78 L (4.8-10.8) K/ul RBC 3.35 L (4.70-6.10) M/uL Hgb 10.9 L (14.0-18.0) g/dl Hct 32.1 L (42.0-52.0) % RDW Std Deviation 52.6 H (36.4-46.3) fL RDW Coeff of Ric 14.8 H (11.5-14.5) % Plt Count 129 L (130-400) K/uL Lymph # (Auto) 0.51 L (1.20-3.40) K/uL Phosphorus 1.7 L (2.5-4.9) mg/dl AST 50 H (13-39) U/L Diagnostic Findings Head CT 08/07/23 09:51 CT OF THE HEAD WITHOUT CONTRAST CLINICAL HISTORY: DTs COMPARISON STUDY: MRI of the brain September 08, 2020. Head CT June 27, 2020. CT DOSE: 705.24 mGy.cm TECHNIQUE: Helical axial images of the head were obtained without IV contrast. Automated exposure control was utilized for the study. A dose lowering technique was utilized adhering to the principles of ALARA. FINDINGS: This study is mildly compromised by motion artifact. No acute intracranial hemorrhage, midline shift or mass effect is present. The ventricular system is unremarkable. The basal cisterns are patent. No extra- axial collections are present. There are no findings to suggest acute dural sinus thrombosis or acute territorial infarct. No significant calvarial abnorma lities are present. Visualized portions of the sinuses and mastoid air cells are clear. IMPRESSION: No acute intracranial findings. ACT 112: Negative or not required by law. Electronically signed by: Shahriar Oakley M.D. 08/07/2023 12:44 PM Code Status & VTE Plan Code Status Full code Supervising Physician Co-Signing Physician Notes Patient seen and examined, chart reviewed, case discussed with Devendra Falk PA-C and I agree with the assessment and plan as above except as otherwise noted Labs and images reviewed 47-year-old male with past medical history of alcohol abuse and withdrawal, seizures who was admitted for a desire to get sober on 08/05/2023 and subsequent left AMA, returns to the ER altered and tremulous with concern for acute alcohol withdrawal. While in the ER he received phenobarbital load, 100 mg Librium, and Ativan 4 mg. Patient remains confused, tremulous, tachycardic, and is attempting to pull off medical equipment. Heart rate is regular but tachycardic, he is normotensive. Patient is not oriented to his surroundings, and is not able to be reoriented. A full alcohol on admission is negative. U tox is pending. CThead is pending, patient denies head injury. Lungs are clear, skin is warm. Tremulous and responds to nonexistent visual stimuli. CT- h naf--> recommend admission to ICU for alcohol withdrawal, suspected developing delirium tremens with high risk withdrawal history including seizures. Continue phenobarbital taper, AWSS with ativan, may need adjunct precedex for agitation. PG Care Time/CCT Total # of Minutes Spent Total Time Spent with Patient: Total time spent is greater than 50% in coordination of care (as documented) at patient's floor/unit and/or counseling patient: Coding [place] [address] INT INP/OBS CARE 3/75MIN Patient Type Established Medical Decision Making High Complexity Diagnoses Alcohol withdrawal F10.239 History of alcohol withdrawal syndrome Z86.59 HTN (hypertension) I10 Anxiety F41.9 Hx of opioid abuse F11.11 Depression, unspecified F32.A
[2023-08-07] MEDS: MAGNESIUM SULFATE / D5W 1 GM/100 ML BAG IV SCH ×2 (10:27→11:26)
[2023-08-07] MEDS ORDERED: PHENobarbital sodium 65 MG/ML VIAL IV PRN (11:02)
--- NOTE | 2023-08-07 12:45 | CT Scan Report ---
CT OF THE HEAD WITHOUT CONTRAST CLINICAL HISTORY: DTs COMPARISON STUDY: MRI of the brain September 08, 2020. Head CT June 27, 2020. CT DOSE: 705.24 mGy.cm TECHNIQUE: Helical axial images of the head were obtained without IV contrast. Automated exposure con trol was utilized for the study. A dose lowering technique was utilized adhering to the principles o f ALARA. FINDINGS: This study is mildly compromised by motion artifact. No acute intracranial hemorrhage, midl ine shift or mass effect is present. The ventricular system is unremarkable. The basal cisterns are p atent. No extra-axial collections are present. There are no findings to suggest acute dural sinus thr ombosis or acute territorial infarct. No significant calvarial abnormalities are present. Visualized portions of the sinuses and mastoid air cells are clear. IMPRESSION: No acute intracranial findings. ACT 112: Negative or not required by law. Electronically signed by: Shahriar Oakley M.D. 08/07/2023 12:44 PM
[2023-08-07] MEDS: LORazepam 2 MG/1 ML VIAL IV PRN ×2 (14:58→18:01)
[2023-08-07] MEDS: ICU Protocol for HYPERglycemia SCH ×2 (14:59→20:35)
--- NOTE | 2023-08-07 15:30 | Critical Care Consultation ---
Date of Consultation August 07, 2023 Assessment & Plan (1) Acute hyperactive alcohol withdrawal delirium: (2) Pancytopenia: (3) HTN (hypertension): Plan Continue with alcohol withdrawal protocol. No signs of seizure activity at this time. Patient tolerating phenobarbital. Continue end-tidal CO2 monitoring. Continue one-to-one sitter given severe agitated delirium. Consider the use of Precedex to augment adrenergic symptoms. Continue home antihypertensive therapy. Initiate high-dose thiamine 3 times daily for 3 days then will decrease to 100 mg daily. Aspiration precautions. SCDs for DVT prophylaxis. Continue pantoprazole. Mild pancytopenia likely secondary to myelosuppression of bone marrow from alcoholism. History of Present Illness Attending Physician: Jono Smith MD History of Present Illness 47-year-old male with a past medical history of alcohol abuse, opiate abuse, anxiety depression presenting to the ER today due to acute alcohol withdrawal. Reportedly he drinks 15-20 beers a day. He is unable to provide any history due to acute delirium. History is obtained from discussion with the nurse, chart review, discussion with the admitting hospitalist and ER provider. He actually came to the hospital on the and ultimately left AMA soon after last night. This morning he was found by EMS to be covered in dirt. He was given 130 mg of IM phenobarbital in the ER, 100 mg of Librium and 2 mg of IV lorazepam. He was started on phenobarbital taper by the hospitalist service. His labs are significant for mild pancytopenia and hypophosphatemia. His LFTs are trending downwards and his AST is currently 50 along with his ALT. Noncontrast head CT without acute findings. Chest x-ray largely unremarkable aside minimal atelectasis/infiltrate in the right middle lobe on personal review. Radiology interpretation noted and agree with their interpretation. He currently has a one-to-one sitter at bedside and is unable to provide any meaningful history. He appears to be looking around the room and hallucinating. He is not currently combative. Allergies Allergy/AdvReac Type Severity Reaction Status Date / Time bupropion AdvReac Severe Anxiety Verified 05/16/23 10:29 [From Wellbutrin SR] Home Medications Medication Instructions Recorded Confirmed Type buprenorphine 8 mg-naloxone 2 mg 3 film sublingual DAILY 08/13/19 08/07/23 History sublingual film (Suboxone) thiamine HCl (vitamin B1) 50 mg 100 mg PO DAILY 90 days #180 tabs 10/18/22 08/07/23 Rx tablet escitalopram oxalate 20 mg tablet 20 mg PO DAILY #90 tabs 02/22/23 08/07/23 Rx vortioxetine 20 mg tablet 20 mg PO DAILY #90 tabs 02/22/23 08/07/23 Rx amlodipine 5 mg-olmesartan 40 mg 1 tab PO DAILY #90 tabs 03/20/23 08/07/23 Rx tablet cholecalciferol (vitamin D3) 25 25 mcg PO DAILY #90 caps 04/04/23 08/07/23 Rx mcg (1,000 unit) capsule pantoprazole 40 mg tablet,delayed 40 mg PO DAILY #90 tabs 04/04/23 08/07/23 Rx release ondansetron HCl 4 mg tablet 4 mg PO Q8H PRN nausea and 06/14/23 08/07/23 Rx vomiting #30 tabs gabapentin 600 mg tablet 600 mg PO QID 90 days #360 tabs 06/26/23 08/07/23 Rx Patient History Medical History (Updated 08/07/23 @ 16:02 by Alfonso Motta MD) Acute hyperactive alcohol withdrawal delirium Alcohol withdrawal Delirium tremens Depression, unspecified Elevated liver enzymes Erectile dysfunction History of healed fragility fracture HTN (hypertension) Opioid use disorder, moderate, in sustained remission Psychosis Seizure (06/27/20) Suicidal intent Vitamin D deficiency Surgical History History of total hip replacement No significant past surgical history Family History Grandmother Breast cancer Social History Smoking Status: Never smoker Tobacco Type: Smokeless Tobacco (Dip or Chew) Age Started Using Tobacco: 13; Second Hand Exposure: No; Do You Dip or Chew Tobacco: Yes; Tobacco Cessation Education Requested by Patient: No Hx Alcohol Use: Yes Alcohol type: beer Alcohol Intake Frequency Comment: 6 beers per day Hx Substance Use: Yes Last Used Substance: Unknown Last Used Substance Other:: treatment in the past Preferred Language: Palauan Communication Ability: Effective Polls Or Surveys Interviewer Required: No Beliefs That Will Affect Care: None marital status: Single Current Living Situation: Spouse current occupational status: employed Other Information That Helps Us Care for You: No Feels Safe at Home: Yes Safety Concerns: Feels Safe At This Time Diet: regular caffeine: Yes Assistive Devices: None Review of Systems Review of Systems: All systems reviewed & are unremarkable except as noted in HPI & below Physical Exam Physical Exam: Constitutional: Patient appears to be of their stated age. Patient is in no apparent distress. Patient is well-developed. Eyes: Pupils are equal round and reactive to light. Conjunctivae are normal. Anicteric sclera. Ears nose, mouth and throat: Mallampati class 2. Normal posterior oropharynx. Uvula is midline. Neck: Trachea is midline. Visual inspection is normal. Respiratory: Clear to auscultation bilaterally. No use of accessory muscles. No significant clubbing noted. Cardiovascular: Regular rate and rhythm. No murmurs. No edema. Gastrointestinal: Normal bowel sounds, soft, nontender and nondistended. No hepatosplenomegaly noted. Musculoskeletal: No cyanosis. Patient is able to move all extremities. Strength is 5 out of 5 in the upper and lower extremities. Skin: No rashes, warm dry and intact. Neurologic: No obvious focal neurological deficits seen. Psychiatric: Patient mumbling to himself and reaching for things. Appears to be hallucinating. Results & Data Results & Data Vital Signs (Past 12 Hours) Vital Signs Temp Pulse Pulse Resp BP BP Pulse Ox 08/07/23 14:49 08/07/23 14:37 154/93 H 08/07/23 14:37 80 13 98 08/07/23 14:55 36.7 C 08/07/23 14:00 67 130/87 96 08/07/23 13:30 68 141/88 H 95 08/07/23 13:00 69 144/100 H 96 08/07/23 12:30 68 153/99 H 96 08/07/23 12:29 77 147/88 H 08/07/23 12:27 36.7 C 08/07/23 11:30 77 16 133/97 95 08/07/23 11:02 73 17 146/104 H 95 08/07/23 11:02 36.6 C 08/07/23 11:27 110 H 22 146/104 H 08/07/23 10:30 107 H 17 150/95 H 98 08/07/23 10:13 74 19 149/93 H 98 08/07/23 10:05 73 21 136/96 08/07/23 09:30 99 H 23 156/92 H 96 08/07/23 10:24 77 20 149/93 H 08/07/23 10:15 37.0 C 74 20 149/93 H 99 08/07/23 09:43 79 24 156/92 H 08/07/23 09:30 36.9 C 79 24 156/92 H 98 08/07/23 09:00 72 19 135/88 98 08/07/23 08:53 81 23 148/86 H 98 08/07/23 08:30 72 16 144/80 H 08/07/23 08:26 82 16 139/91 96 08/07/23 08:01 74 19 145/80 H 96 08/07/23 07:50 75 166/96 H 96 08/07/23 07:30 94 H 21 142/104 H 98 08/07/23 08:30 36.9 C 08/07/23 08:26 101 H 22 139/91 08/07/23 07:27 36.8 C 86 22 142/104 H 98 08/07/23 07:37 78 08/07/23 06:45 36.9 C 87 20 182/100 H 97 O2 Del Method 08/07/23 14:49 Room Air 08/07/23 14:37 08/07/23 14:37 Room Air 08/07/23 14:55 08/07/23 14:00 Room Air 08/07/23 13:30 Room Air 08/07/23 13:00 Room Air 08/07/23 12:30 Room Air 08/07/23 12:29 08/07/23 12:27 08/07/23 11:30 Room Air 08/07/23 11:02 Room Air 08/07/23 11:02 08/07/23 11:27 08/07/23 10:30 Room Air 08/07/23 10:13 Room Air 08/07/23 10:05 08/07/23 09:30 Room Air 08/07/23 10:24 08/07/23 10:15 Room Air 08/07/23 09:43 08/07/23 09:30 Room Air 08/07/23 09:00 Room Air 08/07/23 08:53 Room Air 08/07/23 08:30 Room Air 08/07/23 08:26 Room Air 08/07/23 08:01 Room Air 08/07/23 07:50 Room Air 08/07/23 07:30 Room Air 08/07/23 08:30 08/07/23 08:26 08/07/23 07:27 Room Air 08/07/23 07:37 08/07/23 06:45 Room Air Coding Level of Care Code 64390 IN/OBS CONSULT LVL 5,80M Diagnoses Acute hyperactive alcohol withdrawal delirium F10.931 Pancytopenia D61.818 HTN (hypertension) I10
[2023-08-07] MEDS: THIAMINE HCL 500 MG in SODIUM CHLORIDE 0.9% 50 ML IV SCH (16:54)
--- NOTE | 2023-08-07 17:52 | Electrocardiogram Report ---
Test Reason : Blood Pressure : / mmHG Vent. Rate : 056 BPM Atrial Rate : 056 BPM P-R Int : 142 ms QRS Dur : 090 ms QT Int : 472 ms P-R-T Axes : 027 013 025 degrees QTc Int : 455 ms Sinus bradycardia T wave abnormality, consider anterior ischemia Abnormal ECG When compared with ECG of 05-AUG-2023 12:43, T wave inversion now evident in Anterior leads Confirmed by Goldy Dowd ([id number]) on 08/07/2023 5:52:22 PM Referred By: REFERRED SELF Confirmed By:Goldy Dowd
[2023-08-07 18:48] LABS: Amphetamines+Metham, Urine Neg (Neg); Barbiturates, Urine Pos (Neg); Benzodiazepine, Urine Pos (Neg); Cocaine, Urine Neg (Neg); MDMA (Ecstacy), Urine Neg (Neg); Methadone, Urine Neg (Neg); Opiate, Urine Neg (Neg); Phencyclidine, Urine Neg (Neg)
[2023-08-08] MEDS: THIAMINE HCL 500 MG in SODIUM CHLORIDE 0.9% 50 ML IV SCH ×3 (00:16→17:27)
[2023-08-08] MEDS: PANTOprazole 40 MG TAB PO SCH ×2 (06:15→09:32)
[2023-08-08] MEDS: ICU Protocol for HYPERglycemia SCH (08:15)
--- NOTE | 2023-08-08 08:20 | Hospitalist Progress Note ---
Date of Service August 08, 2023 Assessment & Plan (1) Acute hyperactive alcohol withdrawal delirium: Plan: severe acute alcohol withdrawal, improving Continue alcohol withdrawal protocol monitor AWSS, continue oral phenobarbital taper, continue as needed lorazepam IV and as needed phenobarbital IV continue thiamine replacement, changed to oral tomorrow, currently on high-dose IV monitor and replace electrolytes, CMP pending for this morning advance to general diet social work consult for alcohol quit resources safe to downgrade to PCU status possibly floor status by the end of the day if no further IV lorazepam Present on Admission?: Yes (2) HTN (hypertension): Plan: hypertension improved with improving alcohol withdrawal. Continue oral ou tpatient antihypertensive amlodipine/ARB. BP reviewed today and at goal (3) Anxiety: Plan: anxiety and depression: continue gabapentin, SSRI, Trintellix is nonformulary thus held (4) Opioid use disorder, moderate, in sustained remission: Plan: Continue Suboxone 3 times daily (5) Hx of opioid abuse: Plan: Patiently reportedly on Suboxone Continue Suboxone 8-2 mg 3 times daily (6) Abnormal EKG: Plan: admission EKG with new anterior T wave inversions. Asymptomatic no chest pain hypoxia or dyspnea. Check repeat EKG today, check high-sensitivity troponin x1 (7) History of alcohol withdrawal syndrome: Plan: Previous episodes of alcohol withdrawal requiring ICU admission at [facility] in 04/2023 Hx of alcohol withdrawal seizures; per review of notes, seizure in [employer] in 06/2020 which was likely due to reduction in alc intake Unable to determine last known seizure at this time (8) Hypophosphatemia: Plan: recheck phosphorus this morning's lab, replace if necessary (9) Pancytopenia: Plan: highly likely related to bone marrow suppressive effects of alcohol, monitor CBC periodically, outpatient follow-up (10) Elevated liver enzymes: Plan: AST improved compared to a few days ago, reflecting alcoholic steatosis (11) Depression, unspecified: (12) Opiate dependence: Plan DVT prophylaxis: Enoxaparin Hurtado: No, Central lines: No Admission and Anticipated Discharge Date Admission Date: August 07, 2023 Subjective Mr. Sinha feels much improved this morning. He recalls leaving the hospital AMA a few days ago but cannot remember what happened leading up to his readmission he states that he is hungry he denies tremulousness sweats headache hallucinations. He is oriented to the hospital he states that he intends to quit drinking but that he cannot attend inpatient rehab because he is currently working. He denies any chest pain abdominal pain nausea vomiting Physical Exam Physical Exam: PHYSICAL EXAMINATION Last 24h vital signs reviewed, see documentation in flowsheet General: comfortable appearing, no distress, mildly disheveled awake HEENT: Normocephalic, atraumatic, pupils round and equal, sclerae anicteric, no conjunctival injection, dry mucus membranes Lungs: Normal respiratory effort. Clear to auscultation bilaterally. No RRW Heart: Regular rate and rhythm, no murmurs. No JVD Abdomen: Soft, nontender, nondistended. Bowel sounds present. Extremities: Warm, dry, well-perfused. No extremity edema. Neuro: Alert and oriented x hospital in basic situation, not oriented to day of the week, poor memory of recent events, denies hallucinations, following commands and is calm, only minimally tremulous no diaphoresis face symmetric, moves 4 extremities well Psych: Normal affect and behavior Results & Data Results & Data Vital Signs (Past 12 Hours) Vital Signs Temp Pulse Resp BP Pulse Ox 08/08/23 07:25 36.5 C 08/08/23 06:00 57 L 10 L 138/81 94 08/08/23 05:00 54 L 16 141/89 H 97 08/08/23 04:29 60 14 139/92 95 08/08/23 04:32 36.6 C 08/08/23 04:00 56 L 13 139/89 93 08/08/23 03:00 52 L 12 119/81 94 08/08/23 02:00 59 L 11 L 124/78 92 08/08/23 01:00 58 L 11 L 136/97 93 08/08/23 00:06 75 17 148/100 H 94 08/08/23 00:00 57 L 08/08/23 00:13 148/100 H 08/08/23 00:00 61 15 141/87 H 94 08/07/23 23:00 58 L 10 L 131/89 94 08/07/23 22:00 54 L 14 133/81 95 08/07/23 21:00 57 L 16 126/87 95 08/08/23 00:12 36.8 C Laboratory Results this morning labs are pending. Previous labs notable for low phosphorus Medications Administered lorazepam 2 mg IV was given overnight, single dose ECG Additional Comments: Normal EKG on 08/05, Readmission EKG on 08/07 notable for sinus jong and new anterior T-wave inversions Chemistry (BMP) Results BMP Results: Sodium 135 mmol/L (136-145) L 08/08/23 Potassium 3.9 mmol/L (3.5-5.1) 08/08/23 Chloride 101 mmol/L (98-107) 08/08/23 Carbon Dioxide 25 mmol/L (21-32) 08/08/23 Anion Gap 9 (3-11) 08/08/23 BUN 9 mg/dl (6-23) 08/08/23 Creatinine 0.67 mg/dl (0.6-1.4) 08/08/23 Glucose 77 mg/dl (70-99(Fasting)) 08/08/23 PG Care Time/CCT Total # of Minutes Spent Total Time Spent with Patient: Total time spent is greater than 50% in coordination of care (as documented) at patient's floor/unit and/or counseling patient: Coding Level of Care Code 41587 SUB INP/OBS CARE 3/50MIN Diagnoses Acute hyperactive alcohol withdrawal delirium F10.931 HTN (hypertension) I10 Anxiety F41.9 Opioid use disorder, moderate, in sustained remission F11.21 Hx of opioid abuse F11.11 Abnormal EKG R94.31 History of alcohol withdrawal syndrome Z86.59 Hypophosphatemia E83.39 Pancytopenia D61.818 Elevated liver enzymes R74.8 Depression, unspecified F32.A Opiate dependence F11.20
[2023-08-08 08:46] LABS: Hematocrit (blood only) 34.3 % (42.0-52.0); Hemoglobin 11.4 g/dl (14.0-18.0); Mean Corpuscular Hemoglobin 31.8 pg (25.0-34.0); Mean Corpuscular Hgb Conc 33.2 g/dL (32.0-36.0); Mean Corpuscular Volume 95.5 fL (80.0-100.0); Mean Platelet Volume 9.9 fL (9.4-12.4); Platelet Count 127 K/uL (130-400); RDW Coefficient of Variation 14.3 % (11.5-14.5); RDW Standard Deviation 50.2 fL (36.4-46.3); Red Blood Count 3.59 M/uL (4.70-6.10); White Blood Count 3.29 K/ul (4.8-10.8)
[2023-08-08] MEDS ORDERED: NON-FORMULARY MEDICATION (Amlodipine-Olmesartan 5-40 mg tablet) PO SCH (09:00)
[2023-08-08 09:18] LABS: Albumin Globulin Ratio 1.2 (0.9-2); Albumin Level 4.3 gm/dl (3.4-5.0); BUN Creatinine Ratio 13.4 (10-20); Bilirubin,Total 0.8 mg/dl (0.2-1.0); Calcium 8.7 mg/dl (8.6-10.3); Creatinine Clr Calc Pharmacy 142.2 ml/min; Est GFR (African American) 133.6 ml/min; Est GFR (Non-African American) 115.2 ml/min; Globulin 3.7 gm/dl (2.5-4.0); Potassium 3.9 mmol/L (3.5-5.1); Troponin I High Sensitivity 4.8 pg/ml (0-20)
[2023-08-08] MEDS: BUPRENORPHINE/NALOXONE 8/2 MG TAB SL SCH (09:29)
[2023-08-08] MEDS: LOSARTAN POTASSIUM 50 MG TAB PO SCH (09:30)
[2023-08-08] MEDS: amLODIPine BESYLATE 5 MG TAB PO SCH (09:31)
[2023-08-08] MEDS: ESCITALOPRAM OXALATE 20 MG TAB PO SCH (09:31)
[2023-08-08] MEDS: PHENobarbitaL 30 MG TAB PO SCH ×2 (09:35→19:53)
[2023-08-08 10:10] LABS: Phosphorus 3.4 mg/dl (2.5-4.9)
[2023-08-08] MEDS ORDERED: ONDANSETRON 4 MG OD TAB PO PRN (10:15)
[2023-08-08] MEDS: GABAPENTIN 600 MG TAB PO SCH ×3 (12:56→19:52)
[2023-08-08] MEDS: NICOTINE 14 MG/24 HR PATCH TD SCH (12:56)
--- NOTE | 2023-08-08 16:46 | Electrocardiogram Report ---
Test Reason : Blood Pressure : / mmHG Vent. Rate : 060 BPM Atrial Rate : 060 BPM P-R Int : 152 ms QRS Dur : 084 ms QT Int : 480 ms P-R-T Axes : 047 025 032 degrees QTc Int : 480 ms Normal sinus rhythm T wave abnormality, consider anterior ischemia Prolonged QT Abnormal ECG When compared with ECG of 07-AUG-2023 15:03, No significant change was found Confirmed by Asher Lawler ([id number]) on 08/08/2023 4:45:47 PM Referred By: REFERRED SELF Confirmed By:Asher Lawler
[2023-08-08] MEDS: ENOXAPARIN INJ 40 MG/0.4 ML SYR SQ SCH (19:54)
[2023-08-09] MEDS: PANTOprazole 40 MG TAB PO SCH (05:17)
[2023-08-09 07:31] LABS: Albumin Globulin Ratio 1.2 (0.9-2); Albumin Level 4.3 gm/dl (3.4-5.0); BUN Creatinine Ratio 11.8 (10-20); Bilirubin,Total 0.7 mg/dl (0.2-1.0); Calcium 8.8 mg/dl (8.6-10.3); Creatinine Clr Calc Pharmacy 125.4 ml/min; Est GFR (African American) 126.8 ml/min; Est GFR (Non-African American) 109.4 ml/min; Globulin 3.7 gm/dl (2.5-4.0); Potassium 3.4 mmol/L (3.5-5.1)
[2023-08-09] MEDS: GABAPENTIN 600 MG TAB PO SCH ×4 (08:24→20:20)
[2023-08-09] MEDS: NICOTINE 14 MG/24 HR PATCH TD SCH (08:24)
[2023-08-09] MEDS: ESCITALOPRAM OXALATE 20 MG TAB PO SCH (08:25)
[2023-08-09] MEDS: amLODIPine BESYLATE 5 MG TAB PO SCH (08:25)
[2023-08-09] MEDS: LOSARTAN POTASSIUM 50 MG TAB PO SCH (08:25)
[2023-08-09] MEDS: THIAMINE HCL 100 MG TAB PO SCH (08:25)
[2023-08-09] MEDS: BUPRENORPHINE/NALOXONE 8/2 MG TAB SL SCH (08:27)
[2023-08-09] MEDS: PHENobarbitaL 30 MG TAB PO SCH ×2 (08:31→20:20)
--- NOTE | 2023-08-09 15:53 | Hospitalist Progress Note ---
Date of Service August 09, 2023 Assessment & Plan (1) Acute hyperactive alcohol withdrawal delirium: Plan: severe acute alcohol withdrawal, resolving but mentation not completely cleared so will not discharge today though highly likely he will be able to go in the [facility] Continue alcohol withdrawal protocol monitor AWSS, continue oral phenobarbital taper, has not needed additional doses last 24 hours continue thiamine replacement Endorses that he has alcohol quit resources given to him by care coordination, intends to try to quit, states he will attend meetings (2) HTN (hypertension): Plan: hypertension improved with improving alcohol withdrawal. Continue oral outpatient antihypertensive amlodipine/ARB. BP reviewed today and at goal (3) Anxiety: Plan: anxiety and depression: continue gabapentin, SSRI, Trintellix is nonformulary thus held (4) Opioid use disorder, moderate, in sustained remission: Plan: Continue Suboxone 3 times daily (5) Hx of opioid abuse: Plan: Patiently reportedly on Suboxone Continue Suboxone 8-2 mg 3 times daily (6) Abnormal EKG: Plan: admission EKG with new anterior T wave inversions. Asymptomatic no chest pain hypoxia or dyspnea. repeat EKG unchanged, high-sensitivity troponin normal -follow up with PCP consider outpatient stress test - discussed with him (7) History of alcohol withdrawal syndrome: Plan: Previous episodes of alcohol withdrawal requiring ICU admission at [facility] in 04/2023 Hx of alcohol withdrawal seizures; per review of notes, seizure in [employer] in 06/2020 which was likely due to reduction in alc intake Unable to determine last known seizure at this time (8) Hypophosphatemia: Plan: replaced and resolved (9) Pancytopenia: Plan: highly likely related to bone marrow suppressive effects of alcohol, monitor CBC periodically, outpatient follow-up (10) Elevated liver enzymes: Plan: AST improved compared to a few days ago, reflecting alcoholic steatosis (11) Depression, unspecified: (12) Opiate dependence: Plan DVT prophylaxis: Enoxaparin Hurtado: No, Central lines: No Admission and Anticipated Discharge Date Admission Date: August 07, 2023 Subjective Remains tremulous but generally feels much better, tangential but oriented today. He denies hallucinations. Eating well. 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 No PRN doses of phenobarb overnight. Physical Exam Physical Exam: PHYSICAL EXAMINATION Last 24h vital signs reviewed, see documentation in flowsheet General: comfortable appearing, no distress sitting up in bed HEENT: Normocephalic, atraumatic, pupils round and equal, sclerae anicteric, no conjunctival injection, moist mucus membranes Lungs: Normal respiratory effort. Clear to auscultation bilaterally. No RRW Heart: Regular rate and rhythm, no murmurs. No JVD Abdomen: Soft, nontender, nondistended. Bowel sounds present. Extremities: Warm, dry, well-perfused. No extremity edema. Neuro: Alert and oriented x hospital in basic situation, somewhat tangential may be some slight confusion told one story that was not apropos, mild to moderate tremor present, face symmetric, moves 4 extremities well Skin is warm and dry Psych: Normal affect and behavior Results & Data Results & Data Vital Signs (Past 12 Hours) Vital Signs Temp Pulse Resp BP BP Pulse Ox O2 Del Method 08/09/23 15:05 36.7 C 59 L 19 123/72 95 Room Air 08/09/23 11:01 36.7 C 76 19 129/82 95 Room Air 08/09/23 07:06 37 C 59 L 16 138/89 97 Room Air PG Care Time/CCT Total # of Minutes Spent Total Time Spent with Patient: Total time spent is greater than 50% in coordination of care (as documented) at patient's floor/unit and/or counseling patient: Coding Level of Care Code 98233 SUB INP/OBS CARE 2/35MIN Diagnoses Acute hyperactive alcohol withdrawal delirium F10.931 HTN (hypertension) I10 Anxiety F41.9 Opioid use disorder, moderate, in sustained remission F11.21 Hx of opioid abuse F11.11 Abnormal EKG R94.31 History of alcohol withdrawal syndrome Z86.59 Hypophosphatemia E83.39 Pancytopenia D61.818 Elevated liver enzymes R74.8 Depression, unspecified F32.A Opiate dependence F11.20
[2023-08-09] MEDS: ENOXAPARIN INJ 40 MG/0.4 ML SYR SQ SCH (20:20)
[2023-08-09 21:42] LABS: 7-Aminoclonaz, Confirm NEGATIVE ng/mL (<25); Amobarbital, Urine Conf NEGATIVE ng/mL (<100); Butalbital, Urine NEGATIVE ng/mL (<100); Hydro-Alp Ur, GC/MS NEGATIVE ng/mL (<25); Hydroxyethylflurazepam, Conf NEGATIVE ng/mL (<50); Hydroxymidazolam Ur, GC/MS NEGATIVE ng/mL (<50); Hydroxytriazolam NEGATIVE ng/mL (<50); Lorazepam, Ur GC/MS >2000 ng/mL (<50); Nordiazepam, Confirm NEGATIVE ng/mL (<50); Oxazepam Ur, GC/MS 62 ng/mL (<50); Pentobarbital, Urine Conf NEGATIVE ng/mL (<100); Phenobarbital, Urine >5000 ng/mL (<100); Secobarbital, Urine Conf NEGATIVE ng/mL (<100); Temazepam, Confirm NEGATIVE ng/mL (<50)
[2023-08-10] MEDS: PANTOprazole 40 MG TAB PO SCH (05:39)
[2023-08-10 07:01] LABS: Albumin Globulin Ratio 1.2 (0.9-2); Albumin Level 4.3 gm/dl (3.4-5.0); BUN Creatinine Ratio 17.8 (10-20); Bilirubin,Total 0.4 mg/dl (0.2-1.0); Calcium 9.1 mg/dl (8.6-10.3); Creatinine Clr Calc Pharmacy 130.6 ml/min; Est GFR (African American) 128.9 ml/min; Est GFR (Non-African American) 111.2 ml/min; Globulin 3.6 gm/dl (2.5-4.0); Potassium 4.4 mmol/L (3.5-5.1); Total Protein 7.9 gm/dl (6.0-8.3)
[2023-08-10] MEDS: amLODIPine BESYLATE 5 MG TAB PO SCH (08:13)
[2023-08-10] MEDS: LOSARTAN POTASSIUM 50 MG TAB PO SCH (08:13)
[2023-08-10] MEDS: ESCITALOPRAM OXALATE 20 MG TAB PO SCH (08:13)
[2023-08-10] MEDS: THIAMINE HCL 100 MG TAB PO SCH (08:13)
[2023-08-10] MEDS: BUPRENORPHINE/NALOXONE 8/2 MG TAB SL SCH (08:13)
[2023-08-10] MEDS: GABAPENTIN 600 MG TAB PO SCH (08:14)
[2023-08-10] MEDS: NICOTINE 14 MG/24 HR PATCH TD SCH (08:14)
[2023-08-10] MEDS ORDERED: PHENobarbitaL 30 MG TAB PO SCH (20:00)
--- NOTE | 2023-08-10 20:00 | Discharge Summary ---
Date of Service August 10, 2023 Admission HPI Per Admitting Provider Clement is a 47-year-old male with PMH of alcohol withdrawal syndrome, opioid abuse, HTN, anxiety, and depression. He presents to the ED for acute alcohol withdrawal. Long history of alcohol abuse and alcohol withdrawal seizures requiring prior ICU admission. Today, he exhibits agitation and confusion and is not oriented to birthday, time, or location. He reportedly drinks 15 to 20 beers daily. Hospital course: Came into the ED for alcohol detox on 08/05 but left AMA at 0200 on 08/07. He returned via EMS at 0500 on 08/07 covered in mud. He is unable to provide a history of what occurred while he was outside of the hospital. Patient's last drink is unknown; however, it should be noted that the patient's ethyl alcohol level at 0831 today was < 10.0 mg/dL. Unknown if patient took morning medications. Unknown if any seizures within current withdrawal period. Mild hypertension on admission; otherwise, vitals stable. Unable to obtain accurate ROS given patient's current mental state; however, he currently denies any head pain, neck pain, chest pain, or SOB. Spoke to nursing staff at 1030 who report the patient has been declining (worsening tremors and confusion) since he arrived in the ED around 0500. ED course: Lorazepam 2mg IV, Librium 100 mg p.o., NSS 1000 mL, phenobarbital 130 mg IM, and a banana bag Principal Diagnosis acute alcohol withdrawal Discharge Exam PHYSICAL EXAMINATION Last 24h vital signs reviewed, see documentation in flowsheet General: comfortable appearing, no distress HEENT: Normocephalic, atraumatic, pupils round and equal, sclerae anicteric, no conjunctival injection, moist mucus membranes Lungs: Normal respiratory effort. Clear to auscultation bilaterally. No RRW Heart: Regular rate and rhythm, no murmurs. No JVD Abdomen: Soft, nontender, nondistended. Bowel sounds present. Extremities: Warm, dry, well-perfused. No extremity edema. no tremor skin warm dry Neuro: Alert and oriented x 4, confusion resolved,face symmetric, moves 4 extremities well Psych: Normal affect and behavior Discharge Data Allergies Allergy/AdvReac Type Severity Reaction Status Date / Time bupropion AdvReac Severe Anxiety Verified 05/16/23 10:29 [From Wellbutrin SR] Consultations 08/07/23 10:09 ED Decision to Admit Stat 08/07/23 14:49 Consult [employer] Operator Routine Ordered Studies 08/07/23 09:51 CT head/brain wo con Stat Hospital Course (1) Acute hyperactive alcohol withdrawal delirium: required treatment in intensive care unit with IV then p.o. phenobarbital and intravenous benzodiazepines. Alcohol withdrawal improved and eventually he was transferred to the medical unit on oral phenobarbital taper. Day of discharge confusion had resolved and mentation was normal. Discharged with 3 chlordiazepoxide tablets for mild residual withdrawal. He will continue his normal gabapentin which also helps somewhat with withdrawal symptoms. I counseled him to stop drinking alcohol and enroll in alcohol rehab program or attend meetings. He was given Packet with alcohol quit resources by care coordination. (2) Abnormal EKG: readmission EKG with new anterior T wave inversions compared to prior EKG from initial admission. Asymptomatic no chest pain hypoxia or dyspnea. repeat EKG unchanged and flipped T waves were maintained therefore it is possible it represents pseudonormalization after resolution of severe alcohol withdrawal, high-sensitivity troponin was normal -follow up with PCP consider outpatient stress test or cardiology referral - discussed with him (3) HTN (hypertension): well-controlled on his home amlodipineolmesartan once withdrawal resolved (4) Anxiety: (5) Opioid use disorder, moderate, in sustained remission: continue Suboxone (6) Hx of opioid abuse: (7) History of alcohol withdrawal syndrome: (8) Hypophosphatemia: (9) Pancytopenia: (10) Elevated liver enzymes: related to alcoholic steatosis (11) Depression, unspecified: (12) Opiate dependence: Total Time Total Time Spent Total Time Spent (In Minutes): 25 Discharge Plan Discharge Items Patient Disposition: Home - Self-Care Reason For Visit: ALCOHOL WITHDRAWAL Discharge Diagnosis: Alcohol Withdrawal Activity: Resume your previous activity Non-emergency contact: Primary Care Provider Call non-emergency contact if: you have any medication questions and your symptoms worsen Follow-up/Referrals: Victor Hugo Puckett DO [Primary Care Provider] - 08/16/23 1:00 pm Diet: Regular Addtl Attending Provider Instructions: You were treated for severe alcohol withdrawal - AKA "DT's" which caused confusion and tremors -take chlordiazepoxide 1 tablet tomorrow morning and Sunday morning, withdrawals will be resolved by then -I strongly advise you stop drinking alcohol and begin to attend alcohol rehab meetings -You have fatty liver related to your alcoholism - this can improve/reverse if you stop drinking You had an abnormal EKG that was asymptomatic -follow up with primary care to discuss whether you should schedule a stress test as an outpatient Pending Studies at Discharge: No Stand-Alone Forms: My [facility], Smoking Cessation Medications and DC Order Prescriptions: New chlordiazepoxide HCl 25 mg capsule 25 mg PO BID Qty: 3 0RF Rx Instructions: take once or twice a day on Sunday, take one cap Sunday morning, then stop Continued amlodipine-olmesartan 5-40 mg tablet 1 tab PO DAILY Qty: 90 1RF ondansetron HCl 4 mg tablet 4 mg PO Q8H PRN (Reason: nausea and vomiting) Qty: 30 2RF gabapentin 600 mg tablet 600 mg PO QID 90 Days Qty: 360 1RF buprenorphine-naloxone [Suboxone] 8-2 mg film 3 film SL DAILY thiamine HCl (vitamin B1) 50 mg tablet 100 mg PO DAILY 90 Days Qty: 180 6RF pantoprazole 40 mg tablet,delayed release (DR/EC) 40 mg PO DAILY Qty: 90 2RF Rx Instructions: eat 30 minutes after taking cholecalciferol (vitamin D3) 25 mcg (1,000 unit) capsule 25 mcg PO DAILY Qty: 90 2RF vortioxetine 20 mg tablet 20 mg PO DAILY Qty: 90 2RF escitalopram oxalate 20 mg tablet 20 mg PO DAILY Qty: 90 2RF Discharge Orders: Discharge Order (Routine); Ordered 08/10/23 Ordered By: Lucy Gil/Other Patient Handouts: Alcoholism Resources, Alcohol Withdrawal: What to Expect Admission Data Admit Date/Time: 08/07/23 12:49 Attending Provider: Lucy Orellana Admit Provider: Jono Smith Primary Care Provider: Victor Hugo Puckett Other Providers: Jono Smith ; Alfonso Motta Other Interventions: Discharge Summary Assessment (RN) Last Done: 08/10/23 10:52 Coding Level of Care Code 37933 IN/OBS DISCH 30 MIN/LESS Diagnoses Acute hyperactive alcohol withdrawal delirium F10.931 Abnormal EKG R94.31 HTN (hypertension) I10 Anxiety F41.9 Opioid use disorder, moderate, in sustained remission F11.21 Hx of opioid abuse F11.11 History of alcohol withdrawal syndrome Z86.59 Hypophosphatemia E83.39 Pancytopenia D61.818 Elevated liver enzymes R74.8 Depression, unspecified F32.A Opiate dependence F11.20
--- OUTSIDE RECORDS SUMMARY | 2023-08-16 08:22 | External Medical Summary ---
Author Name Unknown Address Unknown Organization [place] [address] Laboratory Report Ordering Provider Test Date Status DULCEBORISHARLAN 08/13/2018 19:53:00 Observation Date Value Abnormality Reference Status Acetaminophen 08/13/2018 19:53 < 2.0 Below low normal 10 .0-30.0 Final Performing Location [address] [address]
--- OUTSIDE RECORDS SUMMARY | 2023-08-16 08:22 | External Medical Summary ---
Author Name Unknown Address Unknown Organization [place] [address] Laboratory Report Ordering Provider Test Date Status BARRETT CARDONA 08/13/2018 19:53:00 Observation Date Value Abnormality Reference Status Sodium 08/13/2018 19:53 136 136-145 Fin al Potassium 08/13/2018 19:53 3.7 3.5-5.1 Fin al Cl 08/13/2018 19:53 103 98-107 Fin al CO2 08/13/2018 19:53 27.0 21-32 Fin al Anion gap 08/13/2018 19:53 10 7-15 Fin al BUN 08/13/2018 19:53 8 7-18 Fin al Creatinine 08/13/2018 19:53 1.24 0.6-1.3 Fi nal Performing Location [place] [id number]
--- OUTSIDE RECORDS SUMMARY | 2023-08-16 08:22 | External Medical Summary ---
Author Name Unknown Address Unknown Organization K0[place] [address] Laboratory Report Ordering Provider Test Date Status BARRETT CARDONA 08/13/2018 19:53:00 Observation Date Value Abnormality Reference Status Salicylates 08/13/2018 19:53 < 1.7 Below low normal 10-3 0 [place] [address]
--- OUTSIDE RECORDS SUMMARY | 2023-08-16 08:22 | External Medical Summary ---
Author Name Unknown Address Unknown Organization K0Y:[place] [id number] Laboratory Report Ordering Provider Test Date Status BARRETT CARDONA 08/13/2018 19:53:00 Observation Date Value Abnormality Reference Status Clarity, Urine 08/13/2018 19:53 CLEAR CLEAR Final Color, Urine 08/13/2018 19:53 YELLOW YELLOW;LY Final Specific gravity, Urine 08/13/2018 19:53 1.016 1.000-1.025 Final pH, Urine 08/13/2018 19:53 6.5 5-7 Fin al Leukocyte Esterase, Urine 08/13/2018 19:53 NEGATIVE NEGATIVE Final Nitrite, Urine 08/13/2018 19:53 NEGATIVE NEGATIVE Final Protein, Urine 08/13/2018 19:53 NEGATIVE NEGATIVE Final Glucose, Urine 08/13/2018 19:53 NEGATIVE NEGATIVE Final Ketones, Urine 08/13/2018 19:53 TRACE Abnormal NEGATIVE Final Urobilinogen, Urine 08/13/2018 19:53 0.2 0.0 -1.0 Final Performing Location [place] [id number] [place] [id number]
--- OUTSIDE RECORDS SUMMARY | 2023-08-16 08:22 | External Medical Summary ---
Author Name Unknown Address Unknown Organization K0Y:[place] [id number] Laboratory Report Ordering Provider Test Date Status [...] 19:53 0.2 0.0 -1.0 Final Performing Location [place] [id number] [place] [id number]
--- OUTSIDE RECORDS SUMMARY | 2023-08-16 08:22 | External Medical Summary ---
Author Name Unknown Address Unknown Organization Y:[place] [id number] Laboratory Report Ordering Provider Test Date Status BARRETT CARDONA 08/13/2018 19:53:00 Observation Date Value Abnormality Reference Status WBC 08/13/2018 19:53 6.84 4.0-9.1 Fin al RBC 08/13/2018 19:53 4.35 Below low normal 4.6-6. 1 Final Hemoglobin 08/13/2018 19:53 13.2 Below low normal 13.7- 17.5 Final HCT 08/13/2018 19:53 38.7 Below low normal 40-51 Final MCV 08/13/2018 19:53 89.0 79-92 Fin al MCH 08/13/2018 19:53 30.3 26-32 Fin al MCHC 08/13/2018 19:53 34.1 32-37 Fin al RDW 08/13/2018 19:53 13.9 11.6-14.4 Fin al Platelets 08/13/2018 19:53 377 Above high normal 150-3 30 Final Segs 08/13/2018 19:53 61.0 34.0-67.9 Fin al Lymphocytes 08/13/2018 19:53 28.2 21.8-53.1 F inal Monos 08/13/2018 19:53 9.5 5.3-12.2 Fin al Eosinophils 08/13/2018 19:53 0.6 Below low normal 0.8- 7.0 Final Basos 08/13/2018 19:53 0.7 0.1-1.2 Fin al Segmented Neutrophils, Abs 08/13/2018 19:53 4.17 1.8-5.4 Final Lymphs, Abs 08/13/2018 19:53 1.93 1.3-3.6 F inal Monos, Abs 08/13/2018 19:53 0.65 0.3-0.8 Fi nal Eos, Abs 08/13/2018 19:53 0.04 0.0-0.5 Fin al Basos, Abs 08/13/2018 19:53 0.05 0.0-0.1 Fi nal Nucleated RBCs 08/13/2018 19:53 0.0 0-0.2 Final Nucleated RBCs, Number 08/13/2018 19:53 0.00 0 Final Performing Location [place] [id number]
== END 2023-08-10 12:23 | disposition home or self-care (01) | DRG 897 ==
LOC: ED 06:40 → SUATTDRO 12:49 → 1E 12:49 → 2S 08-08 11:33

== ENCOUNTER 2023-09-10 11:23 | Inpatient (IN) ==
--- NOTE | 2023-09-10 11:41 | ED Triage Note ---
Date of Service September 10, 2023 History of Present Illness This patient was briefly evaluated while in triage. An abbreviated physical exam was performed. This patient is a 47-year-old Male who presents to the ED for evaluation of alcohol withdrawal. Reports last drink 15 minutes ago. Attempting to get p lacement with [facility] and went on Sunday but was drinking and wouldn't accept him. Physical Exam Constitutional: alert and oriented x3. no acute distress. HEENT: normocephalic, atraumatic. normal conjunctiva.PERRLA. EOM's grossly intact. Respiratory: lungs are clear to auscultation without wheezes, rhonchi, or rales bilaterally. equal chest rise. normal respiratory effort, no accessory muscle use. Cardiovascular: normal heart sounds without murmur. regular rate and rhythm. GI: abdomen is soft, nontender. No palpable masses. No rebound tenderness or guarding. MSK: moves all 4 extremities spontaneously Psych:appropriate mood and affect. Initial orders for labs and / or imaging were placed and patient was placed in the waiting area until a bed is available. Please see further documentation for the full ED course.
[2023-09-10] MEDS ORDERED: diazePAM INJ 5 MG/ML 2 ML CARP IV STA (13:23)
[2023-09-10] MEDS ORDERED: MULTI-VITAMIN INFUSION 10 ML, THIAMINE HCL 100 MG, FOLIC ACID 1 MG in SODIUM CHLORIDE 0... IV ONE (13:23)
[2023-09-10 14:12] LABS: Basophils # (auto) 0.03 K/uL (0.00-0.20); Basophils % (auto) 0.9 %; Eosinophils # (auto) 0.01 K/uL (0.00-0.50); Eosinophils % (auto) 0.3 %; Hematocrit (blood only) 37.2 % (42.0-52.0); Hemoglobin 12.9 g/dl (14.0-18.0); Lymphocytes # (auto) 1.05 K/uL (1.20-3.40); Mean Corpuscular Hgb Conc 34.7 g/dL (32.0-36.0); Mean Corpuscular Volume 92.3 fL (80.0-100.0); Monocytes # (auto) 0.27 K/uL (0.11-0.59); Monocytes % (auto) 7.7 %; Neutrophils # (auto) 2.14 K/uL (1.40-6.50); Neutrophils % (auto) 61.1 %; Platelet Count 115 K/uL (130-400); RDW Coefficient of Variation 12.6 % (11.5-14.5); RDW Standard Deviation 42.9 fL (36.4-46.3); Red Blood Count 4.03 M/uL (4.70-6.10)
[2023-09-10 14:27] LABS: Albumin Globulin Ratio 1.2 (0.9-2); Albumin Level 5.1 gm/dl (3.4-5.0); Bilirubin,Total 0.5 mg/dl (0.2-1.0); Calcium 9.7 mg/dl (8.6-10.3); Creatinine Clr Calc Pharmacy 123.8 ml/min; Est GFR (African American) 126.1 ml/min; Est GFR (Non-African American) 108.8 ml/min; Globulin 4.1 gm/dl (2.5-4.0); Total Protein 9.2 gm/dl (6.0-8.3)
--- NOTE | 2023-09-10 14:31 | XRay Report ---
XR chest 1V portable HISTORY: alcohol withdrawal COMPARISON: Chest 08/05/2023. FINDINGS: The lungs are clear. Cardiac silhouette is normal in size. No pleural effusions. No pneumot horax. IMPRESSION: No acute process. ACT 112: Negative or not required by law. Electronically signed by: Devendra Stock M.D. 09/10/2023 2:29 PM
--- NOTE | 2023-09-10 15:01 | Emergency Department Note ---
Impression & Plan Alcohol withdrawal ED Provider Note NAME: KARL KAUFMAN AGE: 47 SEX: M : 1975 ARRIVES VIA: Walk-In INFORMANT: [Patient][, ] ED PROVIDER(S): Tito Peña MD CHIEF COMPLAINT: Detox HPI: This is a 47-year-old male with history of alcohol use disorder, timing deficiency, hypertension, and depression presenting for detox request. Patient states that he was here in July and had required admission for his withdrawals. He unfortunate left against medical vice at that time. Patient states that he drank alcohol, 15-20 beers per day for the last few months. He notes that he is required Librium and phenobarb in the past. At this time he has not had any recent falls, head trauma, nausea, vomiting. Past he has had hallucinations from withdrawal as well as alcohol withdrawal seizures. Patient he is now set up with outpatient resources including counseling. ROS: See above HPI for pertinent positives & negatives. A total of 10 systems reviewed and were otherwise negative. PAST MEDICAL HISTORY: See Below PAST SURGICAL HISTORY: See Below FAMILY HISTORY: See Below SOCIAL HISTORY: See Below HOME MEDICATIONS: See Below ALLERGIES: See Below VITALS: See Below PHYSICAL EXAMINATION: General: resting comfortably in no acute distress, mildly tremulous Head: Normocephalic and atraumatic Eyes: Normal inspection, extraocular muscles intact Ear, nose, throat: Normal external exam Neck: Normal range of motion Respiratory: lungs clear to auscultation bilaterally Cardiovascular: Regular rate/rhythm, no murmur GI: soft, nontender, no guarding or rebound Extremities: nontender, moves all extremities Neuro: The patient awake and alert, appropriately conversive, no focal deficits, symmetric faces Skin: Warm, dry, and intact MEDICAL DECISION MAKING: This is a 47-year-old male with history of alcohol use disorder, thiamine deficiency hypertension and depression presenting for alcohol detox request. He has had alcohol withdrawal seizures as well as hallucinations in the past. He is with his mother at this time and is requesting admission for alcohol withdrawal. We will get screening blood work and admit for alcohol withdrawal. He has significant amounts of his lab work, requiring redraws. Currently patient has leukopenia, mildly anemic, platelet count thrombocytopenic. He has no hyponatremia. LFTs not elevated. Alcohol level is 222, consistent with patient's history of drinking just before coming into the hospital. Chest Xray independently interpreted by me showing no pneumothorax, focal opacity, or pleural effusions. We will do patient with Valium IV to prevent worsening of alcohol withdrawal. Outside records reviewed showing admission HPI/discharge summary from July 2023. At this time he is admitted for alcohol withdrawal and left AGAINST MEDICAL ADVICE. Patient EKG reviewed as below, ST elevation in V3, not consistent with STEMI criteria with 2 contiguous leads and reciprocal changes. Patient has no acute pain at this time. After 10 mg of IV Valium, patient had acute desaturation requiring O2 administration. Patient closely monitored. Patient require admission for his alcohol drawl at this time Triage Nursing notes reviewed. Prior medical records reviewed Vital Signs: reviewed and remarkable for no significant abnormalities Differential diagnosis: Alcohol withdrawal, trauma, hyponatremia, beer potomania ER treatment provided: See below Diagnostics interpreted by me: ECG: ECG independently interpreted by me with normal sinus rhythm, rate of 75, normal axis, normal ND, normal QRS, normal QTc, slight ST elevation in lead V3, not consistent with STEMI criteria Cardiac Monitoring: An order was placed for continuous cardiac monitoring. The monitor shows a rate of 73 with sinus rhythm Laboratory studies: As stated above and show below. Imaging studies: See below. Radiographic imaging was reviewed by myself Consultation(s): None Critical Care Note: I have personally spent 35 minutes of critical care time in the direct management of this patient. This includes bedside care, interpretation of diagnostic studies, and testing, discussion with consultants, patient, and family members, and other required patient management activities. This 35 minutes is in excess of all separately billable procedures. Past Med/Surg History Medical History (Updated 09/10/23 @ 16:06 by Tito Peña MD) Acute hyperactive alcohol withdrawal delirium Delirium tremens History of healed fragility fracture Erectile dysfunction Depression, unspecified Opioid use disorder, moderate, in sustained remission Suicidal intent Seizure (06/27/20) Vitamin D deficiency Elevated liver enzymes Psychosis HTN (hypertension) Alcohol withdrawal Surgical History (Updated 09/07/23 @ 00:10 by Flores Feliciano) History of total hip replacement No significant past surgical history Family History Grandmother Breast cancer Social History Smoking Status: Never smoker Tobacco Type: Smokeless Tobacco (Dip or Chew) Age Started Using Tobacco: 13; Second Hand Exposure: No; Do You Dip or Chew Tobacco: Yes; Hx Alcohol Use: Yes Alcohol type: beer Alcohol Intake Frequency Comment: 6 beers per day Hx Substance Use: Yes Last Used Substance: Unknown Last Used Substance Other:: treatment in the past Preferred Language: Setswana Communication Ability: Effective Pharmacovigilance Scientist Required: No Beliefs That Will Affect Care: None marital status: Single Current Living Situation: Spouse current occupational status: employed Feels Safe at Home: Yes Diet: regular caffeine: Yes Assistive Devices: None Allergies Allergies Allergy/AdvReac Type Severity Reaction Status Date / Time bupropion AdvReac Severe Anxiety Verified 09/10/23 15:41 [From Wellbutrin SR] Home Meds Home Medications Medication Instructions Recorded Confirmed buprenorphine 8 mg-naloxone 2 mg 3 film sublingual DAILY 08/13/19 09/10/23 sublingual film (Suboxone) cholecalciferol (vitamin D3) 25 0 mcg PO DAILY 09/10/23 09/10/23 mcg (1,000 unit) tablet (Vitamin D3) Previous Rx's Medication Instructions Recorded escitalopram oxalate 20 mg tablet 20 mg PO DAILY #90 tabs 02/22/23 vortioxetine 20 mg tablet 20 mg PO DAILY #90 tabs 02/22/23 amlodipine 5 mg-olmesartan 40 mg 1 tab PO DAILY #90 tabs 03/20/23 tablet pantoprazole 40 mg tablet,delayed 40 mg PO DAILY #90 tabs 04/04/23 release ondansetron HCl 4 mg tablet 4 mg PO Q8H PRN nausea and 06/14/23 vomiting #30 tabs gabapentin 600 mg tablet 600 mg PO QID 90 days #360 tabs 06/26/23 Results & Data (ED) Vital Signs Vital Signs - 24 hr 09/10/23 11:35 09/10/23 13:16 09/10/23 13:38 Temperature 36.6 C Temperature Source Skin Pulse Rate 92 H Pulse Rate from SpO2 Sensor Respiratory Rate 18 Blood Pressure 147/94 H 142/90 H Blood Pressure Mean 111 103 Pulse Oximetry 97 98 Oxygen Delivery Method Room Air Room Air Oxygen Flow Rate 0 Sepsis Recent Fever Within 48 Hours No Sepsis New/Unexplained Change in Mental Status No Sepsis Action Taken by Nursing No Action Required 09/10/23 13:38 09/10/23 13:40 09/10/23 13:50 Temperature Temperature Source Pulse Rate 79 83 78 Pulse Rate from SpO2 Sensor 79 83 79 Respiratory Rate 14 20 24 Blood Pressure Blood Pressure Mean Pulse Oximetry 92 100 100 Oxygen Delivery Method Oxygen Flow Rate Sepsis Recent Fever Within 48 Hours Sepsis New/Unexplained Change in Mental Status Sepsis Action Taken by Nursing 09/10/23 13:53 09/10/23 14:00 09/10/23 14:00 Temperature Temperature Source Pulse Rate 76 Pulse Rate from SpO2 Sensor 75 Respiratory Rate 22 Blood Pressure 143/98 H Blood Pressure Mean 109 Pulse Oximetry 100 100 Oxygen Delivery Method Nasal Cannula Oxygen Flow Rate 2 Sepsis Recent Fever Within 48 Hours Sepsis New/Unexplained Change in Mental Status Sepsis Action Taken by Nursing 09/10/23 14:03 09/10/23 14:10 09/10/23 14:20 Temperature Temperature Source Pulse Rate 75 69 68 Pulse Rate from SpO2 Sensor 69 67 Respiratory Rate 18 16 Blood Pressure Blood Pressure Mean Pulse Oximetry 100 100 Oxygen Delivery Method Oxygen Flow Rate Sepsis Recent Fever Within 48 Hours Sepsis New/Unexplained Change in Mental Status Sepsis Action Taken by Nursing 09/10/23 14:30 09/10/23 14:30 09/10/23 14:40 Temperature Temperature Source Pulse Rate 66 64 Pulse Rate from SpO2 Sensor 66 64 Respiratory Rate 16 14 Blood Pressure 132/84 Blood Pressure Mean 93 Pulse Oximetry 100 100 Oxygen Delivery Method Oxygen Flow Rate Sepsis Recent Fever Within 48 Hours Sepsis New/Unexplained Change in Mental Status Sepsis Action Taken by Nursing 09/10/23 14:50 Temperature Temperature Source Pulse Rate 69 Pulse Rate from SpO2 Sensor 70 Respiratory Rate 17 Blood Pressure Blood Pressure Mean Pulse Oximetry 100 Oxygen Delivery Method Oxygen Flow Rate Sepsis Recent Fever Within 48 Hours Sepsis New/Unexplained Change in Mental Status Sepsis Action Taken by Nursing Laboratory Data 09/10/23 13:40 09/10/23 13:40 Lab Results 09/10/23 Range/Units 13:40 WBC 3.50 L (4.8-10.8) K/ul RBC 4.03 L (4.70-6.10) M/uL Hgb 12.9 L (14.0-18.0) g/dl Hct 37.2 L (42.0-52.0) % MCV 92.3 (80.0-100.0) fL MCH 32.0 (25.0-34.0) pg MCHC 34.7 (32.0-36.0) g/dL RDW Std Deviation 42.9 (36.4-46.3) fL RDW Coeff of Ric 12.6 (11.5-14.5) % Plt Count 115 L (130-400) K/uL MPV 10.0 (9.4-12.4) fL Immature Gran % (Auto) 0.0 % Neut % (Auto) 61.1 % Lymph % (Auto) 30.0 % [place] % (Auto) 7.7 % Eos % (Auto) 0.3 % Baso % (Auto) 0.9 % Neut # (Auto) 2.14 (1.40-6.50) K/uL Lymph # (Auto) 1.05 L (1.20-3.40) K/uL [place] # (Auto) 0.27 (0.11-0.59) K/uL Eos # (Auto) 0.01 (0.00-0.50) K/uL Baso # (Auto) 0.03 (0.00-0.20) K/uL Immature Gran # (Auto) 0.00 L (0.01-0.20) K/uL Sodium 136 (136-145) mmol/L Potassium 4.0 (3.5-5.1) mmol/L Chloride 96 L (98-107) mmol/L Carbon Dioxide 28 (21-32) mmol/L Anion Gap 12 H (3-11) BUN 10 (6-23) mg/dl Creatinine 0.77 (0.6-1.4) mg/dl Est Cr Clr Drug Dosing 123.8 ml/min Est GFR ( Amer) 126.1 ml/min Est GFR (Non-Af Amer) 108.8 ml/min BUN/Creatinine Ratio 13.0 (10-20) Glucose 88 (70-99(Fasting)) mg/dl Calcium 9.7 (8.6-10.3) mg/dl Total Bilirubin 0.5 (0.2-1.0) mg/dl AST 35 (13-39) U/L ALT 27 (7-52) U/L Alkaline Phosphatase 53 (34-104) U/L Total Protein 9.2 H (6.0-8.3) gm/dl Albumin 5.1 H (3.4-5.0) gm/dl Globulin 4.1 H (2.5-4.0) gm/dl Albumin/Globulin Ratio 1.2 (0.9-2) Ethyl Alcohol mg/dL 222.6 H (<10.0) mg/dl Administered Medications Discontinued Medications Diazepam (Diazepam Inj 5 Mg/Ml 2 Ml Carp) 20 mg IV NOW STA Stop: 09/10/23 13:24 Last Admin: 09/10/23 13:33 Dose: 10 mg Documented By: LISA Multivitamins 10 ml/ Thiamine HCl 100 mg/ Folic Acid 1 mg/Sodium Chloride 1,011.2 mls @ 500 mls/hr IV .Q2H2M ONE Stop: 09/10/23 15:24 Last Infusion: 09/10/23 16:03 Dose: Infused Documented By: Admin: 09/10/23 13:59 Dose: 500 mls/hr Documented By: LISA Phenobarbital Sodium (Phenobarbital Sodium 130 Mg/Ml Vial) 260 mg IM NOW STA Stop: 09/10/23 15:19 Last Admin: 09/10/23 15:54 Dose: 260 mg Documented By: LIAS Imaging Data Radiologist's Impression: Chest X-Ray 09/10/23 11:36 XR chest 1V portable HISTORY: alcohol withdrawal COMPARISON: Chest 08/05/2023. FINDINGS: The lungs are clear. Cardiac silhouette is normal in size. No pleural effusions. No pneumothorax. IMPRESSION: No acute process. ACT 112: Negative or not required by law. Electronically signed by: Devendra Stock M.D. 09/10/2023 2:29 PM Discharge Plan Visit Data Chief Complaint: Detox Request Stated Complaint: ALCOHOL DETOX, MHE ED Provider: Tito Peña Discharge Problem: Alcohol withdrawal Forms Stand Alone Forms: My [facility], Suicide Prevention Resources Prescriptions Prescriptions: No Action amlodipine-olmesartan 5-40 mg tablet 1 tab PO DAILY Qty: 90 1RF ondansetron HCl 4 mg tablet 4 mg PO Q8H PRN (Reason: nausea and vomiting) Qty: 30 2RF gabapentin 600 mg tablet 600 mg PO QID 90 Days Qty: 360 1RF buprenorphine-naloxone [Suboxone] 8-2 mg film 3 film SL DAILY Rx Instructions: Takes AM, LUNCH & PM pantoprazole 40 mg tablet,delayed release (DR/EC) 40 mg PO DAILY Qty: 90 2RF Rx Instructions: eat 30 minutes after taking vortioxetine 20 mg tablet 20 mg PO DAILY Qty: 90 2RF escitalopram oxalate 20 mg tablet 20 mg PO DAILY Qty: 90 2RF cholecalciferol (vitamin D3) [Vitamin D3] 25 mcg (1,000 unit) Tablet 0 mcg PO DAILY Rx Instructions: TAKES 2 TAB AM, UNKNOWN STRENGTH Referrals Referrals: Victor Hugo Puckett DO [Primary Care Provider] -
[2023-09-10] MEDS ORDERED: PHENobarbital sodium 130 MG/ML VIAL IM STA (15:18)
[2023-09-10] MEDS ORDERED: PHENobarbital PO Alcohol Withdrawal PO STA (15:18)
[2023-09-10] MEDS ORDERED: PHENobarbital sodium 65 MG/ML VIAL IM PRN (15:18)
--- NOTE | 2023-09-10 15:19 | History & Physical Report ---
Date of Service September 10, 2023 Assessment & Plan (1) Alcohol withdrawal: Plan: Patient reports generally he does a lot better with phenobarbital than benzodiazepines. He also has a history of hallucinations from withdrawal therefore would benefit more from phenobarbital than benzodiazepines to avoid delirium from benzodiazepines. Starting alcohol withdrawal with elevated alcohol level concerning Phenobarbital, will utilize dosing for > 6 feet as generally the protocol is an underdosing to other hospitals Start 260mg IM now then 130 q3h for 2 doses Phenobarbital 65mg q8h IM for AWSS > 8 Tapering to oral dose following this (2) Abnormal EKG: Plan: Concerning ischemic changes but no chest pain and troponin negative Repeat EKG in AM (3) HTN (hypertension): Plan: Continue routine meds (4) Depression, unspecified: Plan: Continue routine meds (5) Hx of opioid abuse: Plan: Continue routine meds Plan VTE Prophylaxis - low risk Diet - regular Disposition - admit to PCU Admission and Anticipated Discharge Date Admission Date: September 10, 2023 History of Present Illness Chief Complaint: Alcohol withdrawal Primary Care Provider: Victor Hugo Puckett DO Clement Oswald is a 47 year old male who presents to the ER with tremors and agitation. He has had multiple prior episodes of alcohol withdrawal reportedly with seizures in the past and hallucinations last admission. He left AMA last admission in July. Reportedly he does much better with phenobarbital than benzodiazepines when he goes through withdrawal. He drinks 15-20 beers / day. No liquor. Started going through withdrawal yesterday trying to manage himself but having tremors and nausea therefore drank 7 beers this morning to help combat th is and decided to come to the ER to help manage the withdrawal. Allergies Allergy/AdvReac Type Severity Reaction Status Date / Time bupropion AdvReac Severe Anxiety Verified 09/10/23 15:41 [From Wellbutrin SR] Home Medications Medication Instructions Recorded Confirmed Type buprenorphine 8 mg-naloxone 2 mg 3 film sublingual DAILY 08/13/19 09/10/23 History sublingual film (Suboxone) escitalopram oxalate 20 mg tablet 20 mg PO DAILY #90 tabs 02/22/23 09/10/23 Rx vortioxetine 20 mg tablet 20 mg PO DAILY #90 tabs 02/22/23 09/10/23 Rx amlodipine 5 mg-olmesartan 40 mg 1 tab PO DAILY #90 tabs 03/20/23 09/10/23 Rx tablet pantoprazole 40 mg tablet,delayed 40 mg PO DAILY #90 tabs 04/04/23 09/10/23 Rx release ondansetron HCl 4 mg tablet 4 mg PO Q8H PRN nausea and 06/14/23 09/10/23 Rx vomiting #30 tabs gabapentin 600 mg tablet 600 mg PO QID 90 days #360 tabs 06/26/23 09/10/23 Rx cholecalciferol (vitamin D3) 25 0 mcg PO DAILY 09/10/23 09/10/23 History mcg (1,000 unit) tablet (Vitamin D3) Past Med/Surg History Medical History (Updated 09/10/23 @ 16:06 by Tito Peña MD) Acute hyperactive alcohol withdrawal delirium Delirium tremens History of healed fragility fracture Erectile dysfunction Depression, unspecified Opioid use disorder, moderate, in sustained remission Suicidal intent Seizure (06/27/20) Vitamin D deficiency Elevated liver enzymes Psychosis HTN (hypertension) Alcohol withdrawal Surgical History (Updated 09/07/23 @ 00:10 by Flores Feliciano) History of total hip replacement No significant past surgical history Family History Grandmother Breast cancer Social History Smoking Status: Heavy tobacco smoker Tobacco Type: Smokeless Tobacco (Dip or Chew) Age Started Using Tobacco: 13; Second Hand Exposure: No; Do You Dip or Chew Tobacco: Yes; Hx Alcohol Use: Yes Alcohol type: beer Alcohol Intake Frequency Comment: 6 beers per day Hx Substance Use: No Preferred Language: [place] Islander Communication Ability: Effective Manager Of Corporate Required: No Beliefs That Will Affect Care: None marital status: Single Current Living Situation: Family current occupational status: employed Feels Safe at Home: Yes Diet: regular caffeine: Yes Assistive Devices: None Review of Systems Review of Systems: All systems reviewed & are unremarkable except as noted in HPI & below Physical Exam Constitutional: WD/WN, vitals as above Eyes: PERRL, conjunctivae normal, anicteric sclerae ENMT: external ear and nose normal, oropharynx normal Neck: trachea midline, no thyromegaly Respiratory: normal respiratory effort, lungs clear to auscultation Cardiovascular: RRR, no murmur, no edema Gastrointestinal (Abdomen): normal bowel sounds, soft, nontender, no hepatosplenomegaly Musculoskeletal: no cyanosis or clubbing, extremities motor strength 5/5 Skin: no rashes, warm and dry Neurologic: moves all extremities and awake; not confused Psychiatric: A+Ox3, euthymic affect Genitourinary: no CVA tenderness Results & Data Results & Data Vital Signs (Past 12 Hours) Vital Signs Temp Pulse Resp BP Pulse Ox O2 Del Method O2 Flow Rate 09/10/23 14:50 69 17 100 09/10/23 14:40 64 14 100 09/10/23 14:30 66 16 100 09/10/23 14:30 132/84 09/10/23 14:20 68 16 100 09/10/23 14:10 69 18 100 09/10/23 14:03 75 09/10/23 14:00 76 22 100 09/10/23 14:00 143/98 H 09/10/23 13:53 100 Nasal Cannula 2 09/10/23 13:50 78 24 100 09/10/23 13:40 83 20 100 09/10/23 13:38 79 14 92 09/10/23 13:38 142/90 H 09/10/23 13:16 98 Room Air 0 09/10/23 11:35 36.6 C 92 H 18 147/94 H 97 Room Air Laboratory Results Abnormal lab results 09/10/23 Range/Units 13:40 WBC 3.50 L (4.8-10.8) K/ul RBC 4.03 L (4.70-6.10) M/uL Hgb 12.9 L (14.0-18.0) g/dl Hct 37.2 L (42.0-52.0) % Plt Count 115 L (130-400) K/uL Lymph # (Auto) 1.05 L (1.20-3.40) K/uL Immature Gran # (Auto) 0.00 L (0.01-0.20) K/uL Chloride 96 L (98-107) mmol/L Anion Gap 12 H (3-11) Total Protein 9.2 H (6.0-8.3) gm/dl Albumin 5.1 H (3.4-5.0) gm/dl Globulin 4.1 H (2.5-4.0) gm/dl Ethyl Alcohol mg/dL 222.6 H (<10.0) mg/dl Diagnostic Findings XR chest 1V portable HISTORY: alcohol withdrawal COMPARISON: Chest 08/05/2023. FINDINGS: The lungs are clear. Cardiac silhouette is normal in size. No pleural effusions. No pneumothorax. IMPRESSION: No acute process. Medications Administered ER Medications Given: Diazepam 20mg IV ECG Rate (beats per minute): 75 Rhythm: normal sinus Findings: + T-wave inversion (Lateral) and + ST elevation (Anterior) Comparison ECG Date: from (August 08, 2023) Change: the following changes noted (ST and T wave changes are new) Code Status & VTE Plan Code Status Full VTE Prophylaxis Plan VTE Prophylaxis will be ordered: No PG Care Time/CCT Total # of Minutes Spent Total Time Spent with Patient: Total time spent is greater than 50% in coordination of care (as documented) at patient's floor/unit and/or counseling patient: Coding Level of Care Code 31356 INT INP/OBS CARE 2/55MIN Diagnoses Alcohol withdrawal F10.239 Abnormal EKG R94.31 HTN (hypertension) I10 Depression, unspecified F32.A Hx of opioid abuse F11.11
[2023-09-10] MEDS: PHENobarbital sodium 130 MG/ML VIAL IM SCH ×2 (19:04→22:15)
[2023-09-10] MEDS: GABAPENTIN 600 MG TAB PO SCH (22:15)
[2023-09-11 08:31] LABS: Basophils # (auto) 0.03 K/uL (0.00-0.20); Basophils % (auto) 0.9 %; Eosinophils # (auto) 0.07 K/uL (0.00-0.50); Eosinophils % (auto) 2.1 %; Hemoglobin 12.2 g/dl (14.0-18.0); Immature Granulocytes # (auto) 0.01 K/uL (0.01-0.20); Immature Granulocytes % (auto) 0.3 %; Lymphocytes # (auto) 0.97 K/uL (1.20-3.40); Lymphocytes % (auto) 28.5 %; Mean Corpuscular Hgb Conc 33.9 g/dL (32.0-36.0); Mean Corpuscular Volume 94.5 fL (80.0-100.0); Mean Platelet Volume 9.9 fL (9.4-12.4); Monocytes % (auto) 8.8 %; Neutrophils # (auto) 2.02 K/uL (1.40-6.50); Neutrophils % (auto) 59.4 %; Platelet Count 101 K/uL (130-400); RDW Coefficient of Variation 12.5 % (11.5-14.5); RDW Standard Deviation 43.6 fL (36.4-46.3); Red Blood Count 3.81 M/uL (4.70-6.10)
[2023-09-11] MEDS: CHOLECALCIFEROL 1,000 UNITS 25 MCG TAB PO SCH (08:34)
[2023-09-11] MEDS: BUPRENORPHINE/NALOXONE 8/2 MG TAB SL SCH (08:35)
[2023-09-11] MEDS: LOSARTAN POTASSIUM 50 MG TAB PO SCH (08:35)
[2023-09-11] MEDS: ESCITALOPRAM OXALATE 20 MG TAB PO SCH (08:35)
[2023-09-11] MEDS: GABAPENTIN 600 MG TAB PO SCH ×4 (08:36→21:21)
[2023-09-11] MEDS: amLODIPine BESYLATE 5 MG TAB PO SCH (08:36)
[2023-09-11] MEDS: PANTOprazole 40 MG TAB PO SCH (08:36)
[2023-09-11] MEDS: VORTIOXETINE HYDROBROMIDE 20 MG PO SCH (08:39)
[2023-09-11 08:50] LABS: Albumin Level 4.5 gm/dl (3.4-5.0); Potassium 4.2 mmol/L (3.5-5.1)
[2023-09-11 08:56] LABS: Albumin Globulin Ratio 1.3 (0.9-2); BUN Creatinine Ratio 20.3 (10-20); Creatinine Clr Calc Pharmacy 148.9 ml/min; Est GFR (African American) 136.1 ml/min; Est GFR (Non-African American) 117.4 ml/min; Globulin 3.5 gm/dl (2.5-4.0)
[2023-09-11] MEDS ORDERED: VORTIOXETINE HYDROBROMIDE 20 MG PO SCH (09:00)
[2023-09-11] MEDS ORDERED: NON-FORMULARY MEDICATION (Amlodipine-Olmesartan 5-40 mg tablet) PO SCH (09:00)
[2023-09-11] MEDS: PHENobarbitaL 30 MG TAB PO SCH ×2 (09:47→21:20)
[2023-09-11] MEDS ORDERED: FOLIC ACID 1 MG in SYRINGE 9.8 ML IV ONE (10:30)
[2023-09-11] MEDS: THIAMINE HCL 500 MG in SODIUM CHLORIDE 0.9% 50 ML IV SCH ×2 (11:07→18:18)
--- NOTE | 2023-09-11 20:42 | Hospitalist Progress Note ---
Date of Service September 11, 2023 Assessment & Plan (1) Alcohol withdrawal: Plan: Stable thus far. s/p phenobarbital 260mg IM x 1, then 130mg doses, then ongoing taper over next 2-3 days. Phenobarbital 65mg q8h IM for AWSS > 8. Add thiamine 500mg IV TID x 2 days, then 200mg PO BID thereafter. Add folic acid. (2) Abnormal EKG: Plan: Just had negative stress test on 09/05/23 as outpatient. Repeat EKG in am for stability. Mag/K wnl. No ischemic symptoms at this time. (3) HTN (hypertension): Plan: Continue usual losartan & amlodipine (4) Depression, unspecified: Plan: Continue routine meds (5) Hx of opioid abuse: Plan: Continue buprenorphine/naloxone 3 tabs/day Chronic med "for years" (6) Pancytopenia: Plan: likely 2nd to etoh abuse could be early liver disease could be nutritional check b12 level am folate supplementation cbc again in am Admission and Anticipated Discharge Date Admission Date: September 10, 2023 Subjective patient comfortable minimal withdrawal symptoms since getting to his room on PCU no tremors eating ok no vomiting no abd pain no dyspnea last drink was about 36 hours ago he has intensive outpatient rehab/counseling planned - 3 days/week for several hours each of those days does want to abstain/be sober Review of Systems Review of Systems: gen - no fevers cv - no chest pain, no orthopnea pulm - no dyspnea or cough Physical Exam Physical Exam: gen - NAD, no signs of DTs, a/o x 3 eyes - mild horizontal nystagmus mouth - MMM heart - RRR, s1 s2, no murmur lungs - CTA b/l abd - soft NT ND BS+; no HSM ext - no edema, pulses 2+ b/l neuro - no tremors psych - no hallucinations; a/o x 3 Results & Data Results & Data Vital Signs (Past 12 Hours) Vital Signs Temp Pulse Pulse Resp BP Pulse Ox O2 Del Method 09/11/23 19:19 36.9 C 56 L 18 136/84 98 Room Air 09/11/23 15:53 37.0 C 69 18 145/85 H 96 Room Air 09/11/23 15:13 88 09/11/23 10:58 37.0 C 66 18 157/83 H 97 Room Air 09/11/23 10:39 Room Air 09/11/23 08:50 71 12 98 Laboratory Results Laboratory Results - last 24 hr 09/11/23 08:02 Sodium 138 Potassium 4.2 Chloride 100 Carbon Dioxide 29 Anion Gap 9 BUN 13 Creatinine 0.64 Est Cr Clr Drug Dosing 148.9 Est GFR ( Amer) 136.1 Est GFR (Non-Af Amer) 117.4 BUN/Creatinine Ratio 20.3 H Glucose 76 Calcium 9.0 Magnesium 2.2 Total Bilirubin 1.0 D AST 49 H ALT 31 Alkaline Phosphatase 48 Total Protein 8.0 Albumin 4.5 Globulin 3.5 Albumin/Globulin Ratio 1.3 PG Care Time/CCT Total # of Minutes Spent Total Time Spent with Patient: Total time spent is greater than 50% in coordination of care (as documented) at patient's floor/unit and/or counseling patient: Coding Level of Care Code 08034 SUB INP/OBS CARE 2/35MIN Diagnoses Alcohol withdrawal F10.239 Abnormal EKG R94.31 HTN (hypertension) I10 Depression, unspecified F32.A Hx of opioid abuse F11.11 Pancytopenia D61.818
[2023-09-12] MEDS: THIAMINE HCL 500 MG in SODIUM CHLORIDE 0.9% 50 ML IV SCH ×3 (02:54→19:42)
[2023-09-12] MEDS: LOSARTAN POTASSIUM 50 MG TAB PO SCH (08:18)
[2023-09-12] MEDS: PANTOprazole 40 MG TAB PO SCH (08:19)
[2023-09-12] MEDS: CHOLECALCIFEROL 1,000 UNITS 25 MCG TAB PO SCH (08:19)
[2023-09-12] MEDS: ESCITALOPRAM OXALATE 20 MG TAB PO SCH (08:19)
[2023-09-12] MEDS: GABAPENTIN 600 MG TAB PO SCH ×4 (08:19→20:42)
[2023-09-12] MEDS: amLODIPine BESYLATE 5 MG TAB PO SCH (08:19)
[2023-09-12] MEDS: VORTIOXETINE HYDROBROMIDE 20 MG PO SCH (08:19)
[2023-09-12] MEDS: BUPRENORPHINE/NALOXONE 8/2 MG TAB SL SCH ×4 (08:26→20:43)
[2023-09-12] MEDS: PHENobarbitaL 30 MG TAB PO SCH ×2 (08:28→21:10)
[2023-09-12] MEDS ORDERED: BUPRENORPHINE/NALOXONE 8/2 MG TAB SL SCH (09:00)
[2023-09-12] MEDS ORDERED: FOLIC ACID 1 MG in SYRINGE 9.8 ML IV SCH (09:00)
[2023-09-12 09:29] LABS: Basophils # (auto) 0.01 K/uL (0.00-0.20); Basophils % (auto) 0.3 %; Eosinophils # (auto) 0.08 K/uL (0.00-0.50); Eosinophils % (auto) 2.3 %; Hematocrit (blood only) 38.3 % (42.0-52.0); Hemoglobin 12.9 g/dl (14.0-18.0); Lymphocytes % (auto) 26.2 %; Mean Corpuscular Hemoglobin 32.2 pg (25.0-34.0); Mean Corpuscular Hgb Conc 33.7 g/dL (32.0-36.0); Mean Corpuscular Volume 95.5 fL (80.0-100.0); Mean Platelet Volume 10.7 fL (9.4-12.4); Monocytes # (auto) 0.34 K/uL (0.11-0.59); Monocytes % (auto) 9.9 %; Neutrophils % (auto) 61.3 %; Platelet Count 114 K/uL (130-400); RDW Coefficient of Variation 12.3 % (11.5-14.5); RDW Standard Deviation 43.8 fL (36.4-46.3); Red Blood Count 4.01 M/uL (4.70-6.10); White Blood Count 3.43 K/ul (4.8-10.8)
[2023-09-12 09:36] LABS: BUN Creatinine Ratio 15.9 (10-20); Calcium 9.5 mg/dl (8.6-10.3); Creatinine Clr Calc Pharmacy 138.1 ml/min; Est GFR (Non-African American) 113.8 ml/min
[2023-09-12] MEDS ORDERED: METOPROLOL TARTRATE 25 MG TAB PO STA (15:51)
[2023-09-12] MEDS ORDERED: ENOXAPARIN INJ 40 MG/0.4 ML SYR SQ ONE (18:15)
[2023-09-12] MEDS ORDERED: LORazepam 1 MG TAB PO STA (19:33)
--- NOTE | 2023-09-12 21:47 | Hospitalist Progress Note ---
Date of Service September 12, 2023 Assessment & Plan (1) Alcohol withdrawal: Plan: Stable, although he developed withdrawal symptoms this afternoon because of declining his AM phenobarbital. s/p IM phenobarbital this afternoon per protocol with good results and improve ment in tremors/sweats/etc. He will continue the phenobarb taper otherwise. Cont Phenobarbital 65mg q8h IM for AWSS > 8. Cont thiamine 500mg IV TID x 2 days (ends in am tomorrow), then 200mg PO BID t hereafter. Cont folic acid. Will need PT eval since he is unsteady/weak. (2) Abnormal EKG: Plan: Just had negative stress test on 09/05/23 as outpatient. Repeat EKG today with LVH and nonspecific anterior ST changes. The mild j-point elevation seen on admission EKG was resolved today. He has had no ischemic symptoms at any time this admission. J-point elevation due to LVH? (3) HTN (hypertension): Plan: Continue usual losartan & amlodipine Added metoprolol 50mg BID for uncontrolled BPs Uncontrolled BPs likely are due to #1 If needed could consider clonidine for refractory HTN but hold off on this for now as he responded to the beta natalie earlier today (4) Depression, unspecified: Plan: Continue routine meds (5) Hx of opioid abuse: Plan: Continue buprenorphine/naloxone 3 tabs/day Chronic med "for years" (6) Pancytopenia: Plan: likely 2nd to etoh abuse could be early liver disease could be nutritional B12 level wnl cont folate supplementation cell lines are mildly low but remain stable Plan DVT proph - add lovenox 40mg daily will order a PT consult tomorrow Admission and Anticipated Discharge Date Admission Date: September 10, 2023 Subjective pt states he refused his AM phenobarbital today by early afternoon he was sweaty, shaky, and hypertensive felt unsteady on his feet he ultimately received phenobarbital IM x 1 and symptoms improved with such he ate good breakfast and lunch but had little appetite for dinner he is willing to stay hospitalized to complete the withdrawal process Review of Systems Review of Systems: gen - no fevers cv - no orthopnea, no chest pain pulm - no dyspnea GI - no N/V Physical Exam Physical Exam: gen - NAD, a/o x 3, looks similar to yesterday except has mild tremors today eyes - mild horizontal nystagmus unchanged mouth - MMM heart - RRR, s1 s2, no murmur lungs - CTA b/l abd - soft NT ND BS+; no HSM ext - no edema, pulses 2+ b/l neuro - mild tremors psych - no hallucinations or delusions; a/o x 3 Results & Data Results & Data Vital Signs (Past 12 Hours) Vital Signs Temp Pulse Pulse Resp BP Pulse Ox Pulse Ox 09/12/23 21:00 96 09/12/23 19:10 37.1 C 72 16 167/108 H 97 09/12/23 16:17 19 09/12/23 15:02 37.5 C 86 19 181/103 H 99 09/12/23 10:58 37.3 C 74 18 182/95 H 97 09/12/23 09:57 56 L O2 Del Method O2 Del Method 09/12/23 21:00 Room Air 09/12/23 19:10 Room Air 09/12/23 16:17 09/12/23 15:02 Room Air 09/12/23 10:58 Room Air 09/12/23 09:57 Laboratory Results Laboratory Results 09/12/23 08:48 WBC 3.43 L RBC 4.01 L Hgb 12.9 L Hct 38.3 L MCV 95.5 MCH 32.2 MCHC 33.7 RDW Std Deviation 43.8 RDW Coeff of Ric 12.3 Plt Count 114 L MPV 10.7 Immature Gran % (Auto) 0.0 Neut % (Auto) 61.3 Lymph % (Auto) 26.2 Foster % (Auto) 9.9 Eos % (Auto) 2.3 Baso % (Auto) 0.3 Neut # (Auto) 2.10 Lymph # (Auto) 0.90 L Foster # (Auto) 0.34 Eos # (Auto) 0.08 Baso # (Auto) 0.01 Immature Gran # (Auto) 0.00 L Sodium 134 L Potassium 4.0 Chloride 97 L Carbon Dioxide 30 Anion Gap 7 BUN 11 Creatinine 0.69 Est Cr Clr Drug Dosing 138.1 Est GFR ( Amer) 132.0 Est GFR (Non-Af Amer) 113.8 BUN/Creatinine Ratio 15.9 Glucose 175 H Calcium 9.5 Vitamin B12 445 PG Care Time/CCT Total # of Minutes Spent Total Time Spent with Patient: Total time spent is greater than 50% in coordination of care (as documented) at patient's floor/unit and/or counseling patient: Coding Level of Care Code 50429 SUB INP/OBS CARE MIN Diagnoses Alcohol withdrawal F10.239 Abnormal EKG R94.31 HTN (hypertension) I10 Depression, unspecified F32.A Hx of opioid abuse F11.11 Pancytopenia D61.818
[2023-09-12] MEDS ORDERED: METOPROLOL TARTRATE 50 MG TAB PO SCH (22:00)
[2023-09-12] MEDS ORDERED: PHENobarbitaL 30 MG TAB PO STA (23:54)
[2023-09-13] MEDS: THIAMINE HCL 500 MG in SODIUM CHLORIDE 0.9% 50 ML IV SCH (03:25)
--- NOTE | 2023-09-13 05:48 | Electrocardiogram Report ---
Test Reason : Blood Pressure : / mmHG Vent. Rate : 075 BPM Atrial Rate : 075 BPM P-R Int : 142 ms QRS Dur : 088 ms QT Int : 390 ms P-R-T Axes : 058 073 050 degrees QTc Int : 436 ms Normal sinus rhythm T wave abnormality, consider anterolateral ischemia Prolonged QT Abnormal ECG When compared with ECG of 08-AUG-2023 08:35, ST elevation now present in Anterior leads T wave inversion less evident in Anterior leads T wave inversion now evident in Anterolateral leads Confirmed by Adin Jha ([id number]) on 09/13/2023 5:48:15 AM Referred By: REFERRED SELF Confirmed By:Adin Jha
--- NOTE | 2023-09-13 08:01 | Electrocardiogram Report ---
Test Reason : Blood Pressure : / mmHG Vent. Rate : 075 BPM Atrial Rate : 075 BPM P-R Int : 138 ms QRS Dur : 086 ms QT Int : 384 ms P-R-T Axes : 069 028 058 degrees QTc Int : 428 ms Normal sinus rhythm Minimal voltage criteria for LVH, may be normal variant Nonspecific T wave abnormality Abnormal ECG When compared with ECG of 10-SEP-2023 13:12, ST no longer elevated in Anterior leads Confirmed by Adin Jha ([id number]) on 09/13/2023 8:01:36 AM Referred By: REFERRED SELF Confirmed By:Adin Jha
[2023-09-13] MEDS ORDERED: BUPRENORPHINE/NALOXONE 8/2 MG TAB SL SCH (09:00)
[2023-09-13] MEDS ORDERED: ENOXAPARIN INJ 40 MG/0.4 ML SYR SQ SCH (09:00)
--- NOTE | 2023-09-13 11:47 | Discharge Summary ---
Date of Service September 13, 2023 Admission HPI Per Admitting Provider Clement Oswald is a 47 year old male who presents to the ER with tremors and agitation. He has had multiple prior episodes of alcohol withdrawal reportedly with seizures in the past and hallucinations last admission. He left AMA last admission in July. Reportedly he does much better with phenobarbital than benzodiazepines when he goes through withdrawal. He drinks 15-20 beers / day. No liquor. Started going through withdrawal yesterday trying to manage himself but having tremors and nausea therefore drank 7 beers this morning to help combat this and decided to come to the ER to help manage the withdrawal. Discharge Exam gen - NAD, a/o x 3, looks similar to yesterday except has mild tremors today eyes - mild horizontal nystagmus unchanged mouth - MMM heart - RRR, s1 s2, no murmur lungs - CTA b/l abd - soft NT ND BS+; no HSM ext - no edema, pulses 2+ b/l neuro - mild tremors psych - no hallucinations or delusions; a/o x 3 Discharge Data Allergies Allergy/AdvReac Type Severity Reaction Status Date / Time bupropion AdvReac Severe Anxiety Verified 09/10/23 15:41 [From Wellbutrin SR] Consultations 09/10/23 15:00 ED Decision to Admit Stat Hospital Course (1) Alcohol withdrawal: Stable, although he developed withdrawal symptoms this afternoon because of declining his AM phenobarbital. s/p IM phenobarbital this afternoon per protocol with good results and improvement in tremors/sweats/etc. He will continue the phenobarb taper otherwise. Cont Phenobarbital 65mg q8h IM for AWSS > 8. Cont thiamine 500mg IV TID x 2 days (ends in am tomorrow), then 200mg PO BID thereafter. Cont folic acid. Will need PT eval since he is unsteady/weak. (2) Abnormal EKG: Just had negative stress test on 09/05/23 as outpatient. Repeat EKG today with LVH and nonspecific anterior ST changes. The mild j-point elevation seen on admission EKG was resolved today. He has had no ischemic symptoms at any time this admission. J-point elevation due to LVH? (3) HTN (hypertension): Continue usual losartan & amlodipine Added metoprolol 50mg BID for uncontrolled BPs Uncontrolled BPs likely are due to #1 If needed could consider clonidine for refractory HTN but hold off on this for now as he responded to the beta natalie earlier today (4) Depression, unspecified: Continue routine meds (5) Hx of opioid abuse: Continue buprenorphine/naloxone 3 tabs/day Chronic med "for years" (6) Pancytopenia: likely 2nd to etoh abuse could be early liver disease could be nutritional B12 level wnl cont folate supplementation cell lines are mildly low but remain stable Plan DVT proph - add lovenox 40mg daily will order a PT consult tomorrow Discharge Plan Discharge Items Patient Disposition: Against Medical Advice Reason For Visit: ALCOHOL WITHDRAWAL Activity: Resume your previous activity Non-emergency contact: Primary Care Provider Follow-up/Referrals: Victor Hugo Puckett, DO [Primary Care Provider] - (see Dr Puckett feroz after hospital discharge ) Pending Studies at Discharge: No Stand-Alone Forms: My [employer], Smoking Cessation Medications and DC Order Prescriptions: Continued amlodipine-olmesartan 5-40 mg tablet 1 tab PO DAILY Qty: 90 1RF ondansetron HCl 4 mg tablet 4 mg PO Q8H PRN (Reason: nausea and vomiting) Qty: 30 2RF gabapentin 600 mg tablet 600 mg PO QID 90 Days Qty: 360 1RF pantoprazole 40 mg tablet,delayed release (DR/EC) 40 mg PO DAILY Qty: 90 2RF Rx Instructions: eat 30 minutes after taking vortioxetine 20 mg tablet 20 mg PO DAILY Qty: 90 2RF escitalopram oxalate 20 mg tablet 20 mg PO DAILY Qty: 90 2RF cholecalciferol (vitamin D3) [Vitamin D3] 25 mcg (1,000 unit) Tablet 0 mcg PO DAILY Rx Instructions: TAKES 2 TAB AM, UNKNOWN STRENGTH Changed buprenorphine-naloxone [Suboxone] 8-2 mg film 1 film SL TID Qty: 1 0RF Rx Instructions: Takes AM, LUNCH & PM Discharge Orders: Left Against Medical Advice (Routine); Ordered 09/13/23 Ordered By: Sridhar Flowers Admission Data Admit Date/Time: 09/10/23 15:59 Attending Provider: Sridhar Flowers Admit Provider: Sridhar Bettencourt Primary Care Provider: Victor Hugo Puckett Other Providers: Sridhar Bettencourt Coding Diagnoses Alcohol withdrawal F10.239 Abnormal EKG R94.31 HTN (hypertension) I10 Depression, unspecified F32.A Hx of opioid abuse F11.11 Pancytopenia D61.818
[2023-09-13] MEDS ORDERED: PHENobarbitaL 30 MG TAB PO SCH (21:00)
== END 2023-09-13 08:02 | disposition left against medical advice (07) | DRG 894 ==
LOC: ED 11:23 → EDINP 15:59 → SUATTDRO 15:59 → 2S 18:01

== ENCOUNTER 2023-12-10 10:52 | Inpatient (IN) ==
[2023-12-10] MEDS: SODIUM CHLORIDE 0.9% 1,000 ML IV ONE (11:58)
--- NOTE | 2023-12-10 11:58 | Emergency Department Note ---
Impression & Plan Alcohol intoxication, History of alcohol withdrawal delirium ED Provider Note Provider: Stanley Doty MD DATE OF SERVICE: 12/10/2023 CHIEF COMPLAINT: Alcohol abuse HISTORY OF PRESENT ILLNESS: Patient is a 48-year-old gentleman history of alcohol abuse as well as DTs and seizures presenting here today requesting assistance with quitting alcohol use. States he knows he needs to stop. On Suboxone but denies other drug use at this time. States he did fall asleep on his no the other day in the snow. Does have a hematoma to his right thigh and a little bit of bruise to his left knee but able to ambulate. Denies headache or head trauma. Denies any chest pain, abdominal pain, nausea or vomiting at this time. Last drink was around 8 AM when he had he believes a sixpack. States he often drinks when he begins to feel like he might withdraw. PAST MEDICAL HISTORY: As noted above MEDICATIONS: Reviewed home medications on Suboxone SOCIAL HISTORY: Endorses regular alcohol use but denies drug use. Lives with parent PHYSICAL EXAM: GENERAL: alert and oriented in no acute distress on stretcher Head: normocephalic and atraumatic EYES: No injection, discharge or icterus. PERRL, EOMI. NECK: Trachea midline. Supple. ENT: Mucous membranes pink and moist. Smells slightly of alcohol. LUNGS: Airway patent. No retractions. Breath sounds clear with good air entry bilaterally. HEART: Regular rate and rhythm. No chest wall tenderness ABDOMEN: Soft and non-tender, without guarding or rebound. Pelvis stable without tenderness. No flank tenderness. SKIN: Acyanotic, warm, dry, without rashes EXTREMITIES: Without swelling, tenderness or deformity with a 6 cm hematoma of the right lateral mid thigh without significant laceration or wound. Minimally tender. NEUROLOGICAL: No focal deficits. No aphasia. No facial droop or slurred speech. Normal strength and tone in the extremities. Sensation to gross touch normal. Ambulatory. EK bpm normal sinus rhythm. No PVC or PAC. No acute ST segment elevation or depression with QTc of 438 CONTINUOUS CARDIAC MONITORING: was ordered and showed a heart rate of 60s-70s bpm in normal sinus rhythm GCS 15. Patient's laboratory studies and imaging reviewed. Differential includes Alcohol intoxication, toxicologic, infection, hypoglycemia, electrolyte abnormalities, cardiac sources, intracerebral event, neurologic, trauma, as well as other pathologies. IMPRESSION/MEDICAL DECISION MAKING: Bloodwork obtained here. Chronic leukopenia, anemia, and thrombocytopenia. No severe electrolyte abnormalities. Slight AST ALT elevation likely related to his alcohol use. Negative urinalysis and urine drug screen. Denies any other drug use. Alcohol level significantly elevated. History of DTs with seizure in the past. Responds well to phenobarbital. Not withdrawal at this time. Given some IV fluids as well as banana bag. Will bring in for further care. Hospitalist contacted. Obtain x-ray of the right hip without significant findings due to the distal hematoma here as well as a CT of the head given possible fall and his alcohol use without significant acute finding noted on my review. Patient agreeable to stay. Patient is unsure about formal rehab placement. Not withdrawal yet does not require benzodiazepine or phenobarbital at this time. While sleeping oxygen level dips around 90% with his alcohol intoxication at this time. DIAGNOSIS: Alcohol abuse, alcohol intoxication DISPOSITION: Hospitalist will evaluate Patient was agreeable with this plan. Past Med/Surg History Medical History (Updated 12/10/23 @ 14:14 by Jono Smith MD) Acute hyperactive alcohol withdrawal delirium Delirium tremens History of healed fragility fracture Erectile dysfunction Depression, unspecified Opioid use disorder, moderate, in sustained remission Suicidal intent Seizure (06/27/20) Vitamin D deficiency Elevated liver enzymes Psychosis HTN (hypertension) Alcohol withdrawal Surgical History (Updated 09/16/23 @ 00:11 by Flores Feliciano) History of total hip replacement No significant past surgical history Family History Grandmother Breast cancer Social History Smoking Status: Current every day smoker Tobacco Type: Smokeless Tobacco (Dip or Chew) Age Started Using Tobacco: 13; Second Hand Exposure: No; Do You Dip or Chew Tobacco: Yes; Hx Alcohol Use: Yes Alcohol type: beer Alcohol Intake Frequency Comment: 6 beers per day Hx Substance Use: No Preferred Language: Congolese Communication Ability: Effective Svp Monetization Required: No Beliefs That Will Affect Care: None marital status: Single Current Living Situation: Family current occupational status: employed Feels Safe at Home: Yes Diet: regular caffeine: Yes Assistive Devices: None Allergies Allergies Allergy/AdvReac Type Severity Reaction Status Date / Time bupropion AdvReac Severe Anxiety Verified 09/10/23 15:41 [From Wellbutrin SR] Home Meds Home Medications Medication Instructions Recorded Confirmed cholecalciferol (vitamin D3) 25 0 mcg PO DAILY 09/10/23 12/10/23 mcg (1,000 unit) tablet (Vitamin D3) Previous Rx's Medication Instructions Recorded pantoprazole 40 mg tablet,delayed 40 mg PO DAILY #90 tabs 04/04/23 release buprenorphine 8 mg-naloxone 2 mg 1 film sublingual TID #1 ea 09/13/23 sublingual film (Suboxone) amlodipine 5 mg-olmesartan 40 mg 1 tab PO DAILY #90 tabs 09/26/23 tablet escitalopram oxalate 20 mg tablet 20 mg PO DAILY #90 tabs 11/01/23 gabapentin 600 mg tablet 600 mg PO QID 90 days #360 tabs 11/01/23 ondansetron HCl 4 mg tablet 4 mg PO Q8H PRN nausea and 11/01/23 vomiting #30 tabs vortioxetine 20 mg tablet 20 mg PO DAILY #90 tabs 11/01/23 Results & Data (ED) Vital Signs Vital Signs - 24 hr 12/10/23 10:53 12/10/23 10:53 12/10/23 11:22 Temperature 36.7 C Temperature Source Oral Pulse Rate 97 H Pulse Rate [Apical] Pulse Rhythm [Apical] Pulse Strength [Apical] Respiratory Rate 16 Respiratory Effort / Characteristics Non-Labored Respiratory Depth Normal Normal Respiratory Pattern Regular Blood Pressure 116/77 Blood Pressure [Right Arm] Blood Pressure Mean 90 Blood Pressure Mean [Right Arm] Blood Pressure Position [Right Arm] Pulse Oximetry 95 95 Oxygen Delivery Method Room Air Room Air Room Air Oxygen Flow Rate Sepsis Recent Fever Within 48 Hours No Sepsis New/Unexplained Change in Mental Status No Sepsis Action Taken by Nursing No Action Required 12/10/23 12:07 12/10/23 13:01 12/10/23 13:53 Temperature Temperature Source Pulse Rate 70 Pulse Rate [Apical] 74 66 Pulse Rhythm [Apical] Regular Regular Pulse Strength [Apical] Normal Normal Respiratory Rate 16 16 Respiratory Effort / Characteristics Non-Labored Spontaneous Non-Labored Spontaneous Respiratory Depth Normal Normal Respiratory Pattern Regular Regular Blood Pressure Blood Pressure [Right Arm] 136/65 126/71 Blood Pressure Mean Blood Pressure Mean [Right Arm] 88 89 Blood Pressure Position [Right Arm] Semi-fowlers Semi-fowlers Pulse Oximetry 95 97 Oxygen Delivery Method Nasal Cannula Nasal Cannula Oxygen Flow Rate 2 Sepsis Recent Fever Within 48 Hours Sepsis New/Unexplained Change in Mental Status Sepsis Action Taken by Nursing Laboratory Data 12/10/23 11:41 12/10/23 11:41 Lab Results 12/10/23 12/10/23 Range/Units 11:41 11:45 WBC 3.16 L (4.8-10.8) K/ul RBC 3.99 L (4.70-6.10) M/uL Hgb 12.7 L (14.0-18.0) g/dl Hct 38.3 L (42.0-52.0) % MCV 96.0 (80.0-100.0) fL MCH 31.8 (25.0-34.0) pg MCHC 33.2 (32.0-36.0) g/dL RDW Std Deviation 49.4 H (36.4-46.3) fL RDW Coeff of Ric 14.0 (11.5-14.5) % Plt Count 122 L (130-400) K/uL MPV 9.9 (9.4-12.4) fL Immature Gran % (Auto) 0.3 % Neut % (Auto) 38.0 % Lymph % (Auto) 46.8 % [place] % (Auto) 9.8 % Eos % (Auto) 3.5 % Baso % (Auto) 1.6 % Neut # (Auto) 1.20 L (1.40-6.50) K/uL Lymph # (Auto) 1.48 (1.20-3.40) K/uL [place] # (Auto) 0.31 (0.11-0.59) K/uL Eos # (Auto) 0.11 (0.00-0.50) K/uL Baso # (Auto) 0.05 (0.00-0.20) K/uL Immature Gran # (Auto) 0.01 (0.01-0.20) K/uL PT 9.6 (9.0-12.0) Seconds INR 0.9 (0.9-1.1) Sodium 138 (136-145) mmol/L Potassium 4.1 (3.5-5.1) mmol/L Chloride 98 (98-107) mmol/L Carbon Dioxide 31 (21-32) mmol/L Anion Gap 9 (3-11) BUN 14 (6-23) mg/dl Creatinine 0.84 (0.6-1.4) mg/dl Est Cr Clr Drug Dosing 112.3 ml/min Est GFR ( Amer) 120.8 ml/min Est GFR (Non-Af Amer) 104.3 ml/min BUN/Creatinine Ratio 16.7 (10-20) Glucose 106 H (70-99(Fasting)) mg/dl Calcium 9.3 (8.6-10.3) mg/dl Total Bilirubin 0.4 (0.2-1.0) mg/dl AST 89 H (13-39) U/L ALT 74 H (7-52) U/L Alkaline Phosphatase 53 (34-104) U/L Total Creatine Kinase 245 H (30-223) U/L Total Protein 9.0 H (6.0-8.3) gm/dl Albumin 4.9 (3.4-5.0) gm/dl Globulin 4.1 H (2.5-4.0) gm/dl Albumin/Globulin Ratio 1.2 (0.9-2) TSH 2.931 (0.300-4.500) uIu/ml Urine Color Yellow Urine Appearance Clear (Clear) Urine pH 5.5 (4.5-7.5) Ur Specific [place] 1.006 (1.000-1.030) Urine Protein Negative (Negative) Urine Glucose (UA) Negative (Negative) Urine Ketones Negative (Negative) Urine Blood Negative (Negative) Urine Nitrite Negative (Negative) Urine Bilirubin Negative (Negative) Urine Urobilinogen Negative (Negative) Ur Leukocyte Esterase Negative (Negative) Salicylates < 3.0 L (3.0-30) mg/dl Urine Opiates Screen Neg (Neg) Ur Methadone, Qual Neg (Neg) Acetaminophen < 3 L (10-30) ug/ml Urine Barbiturates Neg (Neg) Ur Phencyclidine (PCP) Neg (Neg) U Amphetamin/Meth Scrn Neg (Neg) MDMA (Ecstasy) Screen Neg (Neg) U Benzodiazepines Scrn Neg (Neg) Ur Cocaine Metabolite Neg (Neg) U Marijuana (THC) Screen Neg (Neg) Ethyl Alcohol mg/dL 353.6 H (<10.0) mg/dl Administered Medications Discontinued Medications Sodium Chloride (Nss) 1,000 mls @ 999 mls/hr IV .Q1H1M ONE Stop: 12/10/23 12:46 Last Infusion: 12/10/23 12:46 Dose: Infused Documented By: Admin: 12/10/23 11:58 Dose: 999 mls/hr Documented By: MARCELINA Multivitamins 10 ml/ Thiamine HCl 100 mg/ Folic Acid 1 mg/Sodium Chloride 1,011.2 mls @ 500 mls/hr IV .Q2H2M ONE Stop: 12/10/23 13:47 Last Admin: 12/10/23 12:16 Dose: 500 mls/hr Documented By: CASSANDRA Imaging Data Radiologist's Impression: Head CT 12/10/23 11:45 CT head/brain wo con CLINICAL HISTORY: falls, etoh Technique: Contiguous axial CT images of the head were acquired from the base of the skull to the vertex without intravenous contrast administration. Images were viewed in brain, subdural and bone windows. Automated dose lowering techniques and/or adjustment according to patient size were utilized for this exam. Comparison: Comparison is made to CT head 08/07/2023 Findings: Areas of decreased attenuation are present in the periventricular and subcortical white matter bilaterally consistent with small vessel ischemic disease. Generalized cerebral atrophy with commensurate enlargement of the ventricles, sulci, and cisterns is also present. There is no acute intracranial hemorrhage or evidence of acute territorial infarction. No shift of the midline structures, mass effect, or extra-axial abnormalities are shown. Atherosclerotic calcifications are present in the intracranial segments of the internal carotid arteries. Imaged portions of the paranasal sinuses and mastoid air cells are clear. The orbits appear normal. There are no acute fractures of the calvaria or scalp swelling. Impression: No acute intracranial hemorrhage, no evidence of acute territorial infarction or other acute intracranial disease process. ACT 112: Negative or not required by law. Electronically signed by: Flavio Rodriguez M.D. 12/10/2023 12:52 PM Hip X-Ray 12/10/23 11:45 XR hip RT min 2V CLINICAL HISTORY: falls, hematoma. Right hip pain. COMPARISON STUDY: None. FINDINGS: No fracture or dislocation within the right hip. There is a right total arthroplasty. The hardware is intact. No abnormal periprosthetic lucency. Soft tissues are unremarkable. IMPRESSION: No fracture or dislocation within the right hip. ACT 112: Negative or not required by law. Electronically signed by: Devendra Stock M.D. 12/10/2023 1:00 PM Discharge Plan Visit Data Chief Complaint: Detox Request Stated Complaint: DETOX FROM ALCOHOL ED Provider: Stanley Doty Discharge Problem: Alcohol intoxication, History of alcohol withdrawal delirium Patient Disposition: Being Evaluated by Hospitalist Forms Stand Alone Forms: [facility], Suicide Prevention Resources Prescriptions Prescriptions: No Action amlodipine-olmesartan 5-40 mg tablet 1 tab PO DAILY Qty: 90 3RF gabapentin 600 mg tablet 600 mg PO QID 90 Days Qty: 360 1RF escitalopram oxalate 20 mg tablet 20 mg PO DAILY Qty: 90 2RF vortioxetine 20 mg tablet 20 mg PO DAILY Qty: 90 2RF ondansetron HCl 4 mg tablet 4 mg PO Q8H PRN (Reason: nausea and vomiting) Qty: 30 2RF pantoprazole 40 mg tablet,delayed release (DR/EC) 40 mg PO DAILY Qty: 90 2RF Rx Instructions: eat 30 minutes after taking cholecalciferol (vitamin D3) [Vitamin D3] 25 mcg (1,000 unit) Tablet 0 mcg PO DAILY Rx Instructions: TAKES 2 TAB AM, UNKNOWN STRENGTH buprenorphine-naloxone [Suboxone] 8-2 mg film 1 film SL TID Qty: 1 0RF Rx Instructions: Takes AM, LUNCH & PM Referrals Referrals: Victor Hugo Puckett DO [Primary Care Provider] - Discharge Problem: Alcohol intoxication Qualifiers: Complication of substance-induced condition: with unspecified complication Q ualified Code(s): F10.929 - Alcohol use, unspecified with intoxication, unspecified
[2023-12-10 12:08] LABS: Basophils # (auto) 0.05 K/uL (0.00-0.20); Basophils % (auto) 1.6 %; Eosinophils # (auto) 0.11 K/uL (0.00-0.50); Eosinophils % (auto) 3.5 %; Hematocrit (blood only) 38.3 % (42.0-52.0); Hemoglobin 12.7 g/dl (14.0-18.0); Immature Granulocytes # (auto) 0.01 K/uL (0.01-0.20); Immature Granulocytes % (auto) 0.3 %; Lymphocytes # (auto) 1.48 K/uL (1.20-3.40); Lymphocytes % (auto) 46.8 %; Mean Corpuscular Hemoglobin 31.8 pg (25.0-34.0); Mean Corpuscular Hgb Conc 33.2 g/dL (32.0-36.0); Mean Platelet Volume 9.9 fL (9.4-12.4); Monocytes # (auto) 0.31 K/uL (0.11-0.59); Monocytes % (auto) 9.8 %; Platelet Count 122 K/uL (130-400); RDW Standard Deviation 49.4 fL (36.4-46.3); Red Blood Count 3.99 M/uL (4.70-6.10); White Blood Count 3.16 K/ul (4.8-10.8)
[2023-12-10 12:10] LABS: Appearance Urine Clear (Clear); Bilirubin Urine Negative (Negative); Blood Urine Negative (Negative); Color Urine Yellow; Glucose Urine UA Negative (Negative); Ketones Urine Negative (Negative); Leukocyte Esterase Urine Negative (Negative); Nitrite Urine Negative (Negative); Protein Urine Negative (Negative); Specific Gravity Urine 1.006 (1.000-1.030); Urobilinogen Urine Negative (Negative); pH Urine 5.5 (4.5-7.5)
[2023-12-10] MEDS: MULTI-VITAMIN INFUSION 10 ML, THIAMINE HCL 100 MG, FOLIC ACID 1 MG in SODIUM CHLORIDE 0... IV ONE (12:16)
[2023-12-10 12:24] LABS: Albumin Globulin Ratio 1.2 (0.9-2); Albumin Level 4.9 gm/dl (3.4-5.0); BUN Creatinine Ratio 16.7 (10-20); Bilirubin,Total 0.4 mg/dl (0.2-1.0); Calcium 9.3 mg/dl (8.6-10.3); Creatinine Clr Calc Pharmacy 112.3 ml/min; Est GFR (African American) 120.8 ml/min; Est GFR (Non-African American) 104.3 ml/min; Globulin 4.1 gm/dl (2.5-4.0); Potassium 4.1 mmol/L (3.5-5.1)
[2023-12-10 12:31] LABS: Acetaminophen < 3 ug/ml (10-30); Salicylate < 3.0 mg/dl (3.0-30)
[2023-12-10 12:32] LABS: INR 0.9 (0.9-1.1); Prothrombin Time 9.6 Seconds (9.0-12.0)
[2023-12-10 12:39] LABS: Thyroid Stimulating Hormone 2.931 uIu/ml (0.300-4.500)
[2023-12-10 12:40] LABS: Amphetamines+Metham, Urine Neg (Neg); Barbiturates, Urine Neg (Neg); Benzodiazepine, Urine Neg (Neg); Cocaine, Urine Neg (Neg); MDMA (Ecstacy), Urine Neg (Neg); Marijuana, Urine Neg (Neg); Methadone, Urine Neg (Neg); Opiate, Urine Neg (Neg); Phencyclidine, Urine Neg (Neg)
--- NOTE | 2023-12-10 12:54 | CT Scan Report ---
CT head/brain wo con CLINICAL HISTORY: falls, etoh Technique: Contiguous axial CT images of the head were acquired from the base of the skull to the coco paty without intravenous contrast administration. Images were viewed in brain, subdural and bone [facility] . Automated dose lowering techniques and/or adjustment according to patient size were utilized for this exam. Comparison: Comparison is made to CT head 08/07/2023 Findings: Areas of decreased attenuation are present in the periventricular and subcortical white matter bilate rally consistent with small vessel ischemic disease. Generalized cerebral atrophy with commensurate e nlargement of the ventricles, sulci, and cisterns is also present. There is no acute intracranial hem orrhage or evidence of acute territorial infarction. No shift of the midline structures, mass effect, or extra-axial abnormalities are shown. Atherosclerotic calcifications are present in the intracran ial segments of the internal carotid arteries. Imaged portions of the paranasal sinuses and mastoid air cells are clear. The orbits appear normal. There are no acute fractures of the calvaria or scalp swelling. Impression: No acute intracranial hemorrhage, no evidence of acute territorial infarction or other acute intracra nial disease process. ACT 112: Negative or not required by law. Electronically signed by: Flavio Rodriguez M.D. 12/10/2023 12:52 PM
--- NOTE | 2023-12-10 13:01 | XRay Report ---
XR hip RT min 2V CLINICAL HISTORY: falls, hematoma. Right hip pain. COMPARISON STUDY: None. FINDINGS: No fracture or dislocation within the right hip. There is a right total arthroplasty. The h ardware is intact. No abnormal periprosthetic lucency. Soft tissues are unremarkable. IMPRESSION: No fracture or dislocation within the right hip. ACT 112: Negative or not required by law. Electronically signed by: Devendra Stock M.D. 12/10/2023 1:00 PM
--- NOTE | 2023-12-10 13:32 | History & Physical Report ---
Date of Service December 10, 2023 Assessment & Plan (1) Alcohol use disorder, severe, dependence: Plan: Alcohol abuse, withdrawal, hx DTs and seizure Patient was seen for PCP follow-up 11/26/2023; at that point reported that he was planning to go into the hospital yesterday today to detox and at the the time of his PCP appointment could not detox as he was taking care of his mother. Has had admissions 08/05, 08/07, 09/10 for withdrawal. Required ICU admission 07/2023. Mild transaminitis bili/AST/ALT/alk phos normal/89/74/53 on admission Alcohol 353 on admitting assessment Urine tox, salicylate, Tylenol levels all negative on admission Will admit on phenobarbital protocol. Pt with MODERATE-INCREASED risk of sedation due to hepatic dysfunction/transaminitis abnormalities starting and suboxone use. HIGH RISK severe withdrawal due to DTs and Seizure with sx at ETOH 300s on admit - Target ~8mg/kg initial load. IBW: 5 foot 10 inches. IBW 73kg. ~584mg total loading dose at 9mg/kg --> 260 IM x1, then 130mg q3H x2 doses for 520mg total. Anticipate initial serum level of ~12-15mcg/mL. If RASS >1 at completion ~2200 --> +1 additional PO dose of phenobarb 120mg - Ondoing 65mg q8H IM or PO to target RASS 0/-1 Maintain on continuous end tidal CO2. Notify provider if rising/>45mmHg Continue thiamine 500 mg x 1, then 300 mgdaily x 1 day, then 100 mg daily Folic acid daily No history of CHF/volume overload. Sodium is normal on admission - Pancytopenia due to alcohol suppression. B12 normal, has been on folate repletion - Seizure precautions (2) Alcohol withdrawal: Plan: - As noted (3) Alcoholic fatty liver: Plan: - As noted (4) Elevated liver enzymes: Plan: - Likely etoh hepatitis - with ongoing etoh use. APAP negative - trended - INR wnl (5) HTN (hypertension): Plan: Hypertension Patient is currently normotensive, takes his amlodipine in the evening and olmesartan in the morning. (6) Hx of opioid abuse: Plan: History of opioid abuse Reportedly in remission. Continue Suboxone 1 tab 3 times daily home dose Continuous CO2 monitoring as above (7) History of fall: Plan: History of falls Denies falls preceding admission, denies pain at time of admission X-ray of the hip without acute finding CThead wnl (8) History of abnormal electrocardiogram: Plan: History of abnormal EKG EKG this admit normal sinus rhythm, no acute territorial signs of ischemia, QTc 430 Negative stress test 09/05/2023 EKG at prior admission with LVH, nonspecific ST changes, mild J-point elevations which improved on recheck. Suspected that changes were due to LVH at that time not coronary ischemia. History of Present Illness Primary Care Provider: Victor Hugo Puckett DO Clement is a 48-year-old male with past medical history of alcohol abuse, withdrawal with delirium tremens and seizure, and recurrent alcohol abuse who presents expressing a desire to get sober and quit alcohol. Reports he does not use recreational drugs, is on Suboxone. Patient reports that he has gone through withdrawal many times including severe withdrawal with DTs and seizures. He has done very well with phenobarbital protocol, has often not done well with benzos. Last admission for withdrawal 3111/13/22. Patient did leave AMA during that admission. Patient had declined inpatient alcohol treatment programs and reported he was going to go to an IOP program. Howie is seen in the ER [facility] 07, is in [place] [facility] due to bed availability denies any SI, HI, anxiety/depression at time of admission. He reports that he has made multiple attempts to get sober, at his last hospital admission he left AMA but regrets this. He reports he had not been able to attend an intensive outpatient program as previously intended as he was taking care of his mother, but has planned on getting sober and coming in today and would like to follow-up with [facility] and a counselor there and reports that he knows he must get sober. He reports that he is very concerned due to severe withdrawal in the past. Had a seizure many years ago none in the last few years. Has had delirium and confusion requiring ICU admission in the past when benzos have been used for withdrawal although notes that he does prefer the oral route to IM with phenobarbital also does not recall any side effects while on phenobarb protocol think this worked well for him. He reports he has fatty liver disease but no cirrhosis. He denies fever, chills, cough, shortness of breath, difficulty breathing, nausea, vomiting, diarrhea, lightheadedness, dizziness, chest pain, palpitations. He did take his morning medications today these include gabapentin 600 mg 4 times daily, Lexapro 20 mg daily, Trintellix, Suboxone 8-2 mg which she takes 3 times daily. He takes amlodipine in the evening as well. He denies recreational drug use and reports the Suboxone works well for him. Prior to presentation he reports he has been drinking at least 15 beers a day, and that he drinks continuously through the day. A 15 pack lasts him between half a day and the day at most. His last beer was at 930 this morning. Alcohol level on admission is 353 at 1141. He reports that he has had withdrawal symptoms even with alcohol levels in the 200 and prior to completely coming off alcohol, and that his symptoms seem to accelerate around a 3 in the past. FUll Code Regular Diet Allergies Allergy/AdvReac Type Severity Reaction Status Date / Time bupropion AdvReac Severe Anxiety Verified 09/10/23 15:41 [From Wellbutrin SR] Home Medications Medication Instructions Recorded Confirmed Type pantoprazole 40 mg tablet,delayed 40 mg PO DAILY #90 tabs 04/04/23 12/10/23 Rx release cholecalciferol (vitamin D3) 25 0 mcg PO DAILY 09/10/23 12/10/23 History mcg (1,000 unit) tablet (Vitamin D3) buprenorphine 8 mg-naloxone 2 mg 1 film sublingual TID #1 ea 09/13/23 12/10/23 Rx sublingual film (Suboxone) amlodipine 5 mg-olmesartan 40 mg 1 tab PO DAILY #90 tabs 09/26/23 12/10/23 Rx tablet escitalopram oxalate 20 mg tablet 20 mg PO DAILY #90 tabs 11/01/23 12/10/23 Rx gabapentin 600 mg tablet 600 mg PO QID 90 days #360 tabs 11/01/23 12/10/23 Rx ondansetron HCl 4 mg tablet 4 mg PO Q8H PRN nausea and 11/01/23 12/10/23 Rx vomiting #30 tabs vortioxetine 20 mg tablet 20 mg PO DAILY #90 tabs 11/01/23 12/10/23 Rx Past Med/Surg History Medical History (Updated 12/10/23 @ 14:14 by Jono Smith MD) Acute hyperactive alcohol withdrawal delirium Delirium tremens History of healed fragility fracture Erectile dysfunction Depression, unspecified Opioid use disorder, moderate, in sustained remission Suicidal intent Seizure (06/27/20) Vitamin D deficiency Elevated liver enzymes Psychosis HTN (hypertension) Alcohol withdrawal Surgical History (Updated 09/16/23 @ 00:11 by Flores Feliciano) History of total hip replacement No significant past surgical history Family History Grandmother Breast cancer Social History Smoking Status: Current every day smoker Tobacco Type: Smokeless Tobacco (Dip or Chew) Age Started Using Tobacco: 13; Second Hand Exposure: No; Do You Dip or Chew Tobacco: Yes; Hx Alcohol Use: Yes Alcohol type: beer Alcohol Intake Frequency Comment: 6 beers per day Hx Substance Use: No Preferred Language: Lithuanian Communication Ability: Effective [employer] Chair Required: No Beliefs That Will Affect Care: None marital status: Single Current Living Situation: Family current occupational status: employed Feels Safe at Home: Yes Diet: regular caffeine: Yes Assistive Devices: None Physical Exam Physical Exam: General: A&Ox3. NAD. Cooperative. HEENT: Atraumatic, normocephalic. Vision and hearing grossly intact Pulm: CTAB A&P. -wheezes, -rales, -rhonchi. Symmetrical chest rise. No increased work of breathing. No respiratory distress. Cardiac: RRR, -mrg. Radial pulses intact and symmetrical. Abdominal: Nontender, nondistended, soft. BS present. Extremities: Warm, slightly tremulous. Dry. 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 strength, elbow flexion, hip flexion, ankle dorsiflexion/plantarflexion is grossly intact/5/5 without asymmetry Results & Data Results & Data Vital Signs (Past 12 Hours) Vital Signs Temp Pulse Pulse Resp BP BP Pulse Ox 12/10/23 13:01 74 16 136/65 95 12/10/23 12:07 70 12/10/23 11:22 36.7 C 97 H 16 116/77 95 12/10/23 10:53 12/10/23 10:53 95 O2 Del Method 12/10/23 13:01 Nasal Cannula 12/10/23 12:07 12/10/23 11:22 Room Air 12/10/23 10:53 Room Air 12/10/23 10:53 Room Air PG Care Time/CCT Total # of Minutes Spent Total Time Spent with Patient: Total time spent is greater than 50% in coordination of care (as documented) at patient's floor/unit and/or counseling patient: Coding Level of Care Code 23310 INT INP/OBS CARE 3/75MIN Diagnoses Alcohol use disorder, severe, dependence F10.20 Alcohol withdrawal F10.239 Alcoholic fatty liver K70.0 Elevated liver enzymes R74.8 HTN (hypertension) I10 Hx of opioid abuse F11.11 History of fall Z91.81 History of abnormal electrocardiogram Z86.79
--- NOTE | 2023-12-10 14:05 | Electrocardiogram Report ---
Test Reason : Blood Pressure : / mmHG Vent. Rate : 072 BPM Atrial Rate : 072 BPM P-R Int : 132 ms QRS Dur : 094 ms QT Int : 400 ms P-R-T Axes : 043 031 056 degrees QTc Int : 438 ms Normal sinus rhythm Normal ECG When compared with ECG of 12-SEP-2023 14:19, No significant change was found Confirmed by Steve Schuster ([id number]) on 12/10/2023 2:04:56 PM Referred By: Confirmed By:Porter Schuster
[2023-12-10] MEDS: THIAMINE HCL 500 MG in SODIUM CHLORIDE 0.9% 50 ML IV STA (14:36)
[2023-12-10] MEDS: PHENobarbitaL 30 MG TAB PO PRN (15:17)
[2023-12-10] MEDS: LACTATED RINGER'S 1,000 ML IV SCH (16:12)
[2023-12-10] MEDS: BUPRENORPHINE/NALOXONE 8/2 MG TAB SL SCH (16:16)
[2023-12-10] MEDS: PHENobarbital sodium 130 MG/ML VIAL IM STA (17:52)
[2023-12-10] MEDS: PHENobarbital sodium 65 MG/ML VIAL IM SCH (21:26)
[2023-12-10] MEDS: HEPARIN SOD 5,000 UNIT/0.5 ML VIAL SQ SCH (21:28)
[2023-12-10] MEDS: amLODIPine BESYLATE 5 MG TAB PO SCH (21:28)
[2023-12-10] MEDS ORDERED: PHENobarbitaL 30 MG TAB PO ONE (22:00)
[2023-12-11] MEDS: PHENobarbital sodium 130 MG/ML VIAL IM SCH (00:39)
[2023-12-11] MEDS: PHENobarbital sodium 65 MG/ML VIAL IM PRN (03:28)
[2023-12-11] MEDS: PANTOprazole 40 MG TAB PO SCH (05:59)
[2023-12-11 06:31] LABS: Albumin Globulin Ratio 1.4 (0.9-2); Albumin Level 4.4 gm/dl (3.4-5.0); BUN Creatinine Ratio 17.8 (10-20); Bilirubin,Total 0.8 mg/dl (0.2-1.0); Calcium 8.7 mg/dl (8.6-10.3); Creatinine Clr Calc Pharmacy 129.2 ml/min; Est GFR (Non-African American) 110.5 ml/min; Globulin 3.2 gm/dl (2.5-4.0); Potassium 4.2 mmol/L (3.5-5.1); Total Protein 7.6 gm/dl (6.0-8.3)
[2023-12-11 06:36] LABS: Basophils # (auto) 0.02 K/uL (0.00-0.20); Basophils % (auto) 0.7 %; Eosinophils # (auto) 0.06 K/uL (0.00-0.50); Eosinophils % (auto) 2.1 %; Hematocrit (blood only) 35.1 % (42.0-52.0); Hemoglobin 11.4 g/dl (14.0-18.0); Immature Granulocytes # (auto) 0.01 K/uL (0.01-0.20); Immature Granulocytes % (auto) 0.4 %; Lymphocytes # (auto) 0.67 K/uL (1.20-3.40); Lymphocytes % (auto) 23.7 %; Mean Corpuscular Hemoglobin 31.1 pg (25.0-34.0); Mean Corpuscular Hgb Conc 32.5 g/dL (32.0-36.0); Mean Corpuscular Volume 95.9 fL (80.0-100.0); Mean Platelet Volume 10.7 fL (9.4-12.4); Monocytes # (auto) 0.32 K/uL (0.11-0.59); Monocytes % (auto) 11.3 %; Neutrophils # (auto) 1.75 K/uL (1.40-6.50); Neutrophils % (auto) 61.8 %; Platelet Count 97 K/uL (130-400); Platelet Estimate Decreased (Normal); RDW Coefficient of Variation 13.6 % (11.5-14.5); RDW Standard Deviation 48.5 fL (36.4-46.3); Red Blood Count 3.66 M/uL (4.70-6.10); Stomatocytes 1+; White Blood Count 2.83 K/ul (4.8-10.8)
[2023-12-11] MEDS: CHOLECALCIFEROL 25 MCG (1000 UNITS) TAB PO SCH (08:59)
[2023-12-11] MEDS: VORTIOXETINE HYDROBROMIDE PO SCH (08:59)
[2023-12-11] MEDS: LOSARTAN POTASSIUM 50 MG TAB PO SCH (08:59)
[2023-12-11] MEDS: THIAMINE HCL 300 MG in SODIUM CHLORIDE 0.9% 50 ML IV ONE (09:00)
[2023-12-11] MEDS ORDERED: VORTIOXETINE HYDROBROMIDE PO SCH (09:00)
[2023-12-11] MEDS: FOLIC ACID 1 MG in SYRINGE 9.8 ML IV SCH (09:00)
[2023-12-11] MEDS: NICOTINE 21 MG/24 HR TDSY TD SCH (10:04)
[2023-12-11] MEDS: PHENobarbital sodium 65 MG/ML VIAL IM STA (10:05)
[2023-12-11] MEDS: ONDANSETRON INJ 2 MG/ML 2 ML VIAL IV PRN (10:40)
--- NOTE | 2023-12-11 12:57 | Hospitalist Progress Note ---
Date of Service December 11, 2023 Assessment & Plan (1) Alcohol use disorder, severe, dependence: Plan: Alcohol abuse, withdrawal, hx DTs and seizure Has had admissions 08/05, 08/07, 09/10 for withdrawal. Required ICU admission 07/2023. -Offered some reasons why he could not go for detox earlier in the month Mild transaminitis bili/AST/ALT/alk phos normal/89/74/53 on admission Alcohol 353 on admitting assessment Urine tox, salicylate, Tylenol levels all negative on admission Will admit on phenobarbital protocol. -Patient still has severe tremors upon evaluation today -Continue thiamine and folate -Seizure and fall precaution (2) Alcohol withdrawal: Plan: - As noted (3) Alcoholic fatty liver: Plan: - As noted (4) Elevated liver enzymes: Plan: - Likely etoh hepatitis - with ongoing etoh use. APAP negative - trended - INR wnl (5) HTN (hypertension): Plan: Blood pressures under fair control Continue home medicines. (6) Hx of opioid abuse: Plan: History of opioid abuse Reportedly in remission. Continue Suboxone 1 tab 3 times daily home dose Continuous CO2 monitoring as above (7) History of fall: Plan: History of falls Denies falls preceding admission, denies pain at time of admission X-ray of the hip without acute finding CThead wnl (8) History of abnormal electrocardiogram: Plan: History of abnormal EKG EKG this admit normal sinus rhythm, no acute territorial signs of ischemia, QTc 430 Negative stress test 09/05/2023 EKG at prior admission with LVH, nonspecific ST changes, mild J-point elevations which improved on recheck. Suspected that changes were due to LVH at that time not coronary ischemia. Plan Continue to monitor in the hospital, patient still has a lot of tremors Admission and Anticipated Discharge Date Admission Date: December 10, 2023 Subjective Patient seen and examined, still very tremulous denies chest pain or shortness of breath Review of Systems Review of Systems: All systems reviewed are negative, apart from the ones contained in the history. Physical Exam Physical Exam: The patient is awake, alert and oriented 3, well developed and well nourished, normocephalic and atraumatic, lying in bed and in no acute distress. HEENT--PERRL, EOMI, mucous membranes and oropharynx mildly dry Neck--supple. No JVD. No bruits. Thyroid normal, trachea midline, no adenopathy. Heart--normal S1 and S2. No murmurs, rubs or gallops. Lungs--clear bilaterally, no respiratory distress, no accessory muscle use. Abdomen--normal bowel sounds and soft. Extremities--no cyanosis or clubbing. No edema. Dermatologic--normal skin turgor, normal color, no abnormal lymph nodes, no rash. Neurologic--cranial nerves II through XII grossly intact. Coarse tremors Rheumatologic--normal range of motion. Psychiatric--normal affect. Results & Data Results & Data Vital Signs (Past 12 Hours) Vital Signs Temp Pulse Pulse Resp BP BP Pulse Ox 12/11/23 11:31 98.1 F 62 18 163/90 H 97 12/11/23 10:05 71 20 156/87 H 12/11/23 08:56 172/90 H 12/11/23 08:20 98.1 F 60 18 176/91 H 98 12/11/23 08:15 82 12/11/23 03:28 62 20 141/83 H 12/11/23 02:54 98.2 F 58 L 17 141/83 H 97 O2 Del Method O2 Flow Rate 12/11/23 11:31 Room Air 12/11/23 10:05 12/11/23 08:56 12/11/23 08:20 Room Air 12/11/23 08:15 12/11/23 03:28 12/11/23 02:54 Nasal Cannula 2 PG Care Time/CCT Total # of Minutes Spent Total Time Spent with Patient: Total time spent is greater than 50% in coordination of care (as documented) at patient's floor/unit and/or counseling patient: Coding Level of Care Code 39141 SUB INP/OBS CARE 2/35MIN Diagnoses Alcohol use disorder, severe, dependence F10.20 Alcohol withdrawal F10.239 Alcoholic fatty liver K70.0 Elevated liver enzymes R74.8 HTN (hypertension) I10 Hx of opioid abuse F11.11 History of fall Z91.81 History of abnormal electrocardiogram Z86.79 Time Spent (min) 35
[2023-12-11] MEDS: GABAPENTIN 600 MG TAB PO SCH (13:47)
[2023-12-11] MEDS ORDERED: Ativan PO Alcohol Withdrawal--Active Protocol PO PRN (17:36)
[2023-12-11] MEDS: LORazepam 1 MG TAB PO PRN (18:19)
[2023-12-12] MEDS: LORazepam 1 MG TAB PO PRN ×2 (00:27→04:54)
[2023-12-12] MEDS: ACETAMINOPHEN 1,000 MG/100 ML VIAL IV STA (02:08)
[2023-12-12 06:22] LABS: Basophils # (auto) 0.03 K/uL (0.00-0.20); Basophils % (auto) 0.8 %; Eosinophils # (auto) 0.05 K/uL (0.00-0.50); Eosinophils % (auto) 1.3 %; Hematocrit (blood only) 33.8 % (42.0-52.0); Hemoglobin 11.6 g/dl (14.0-18.0); Immature Granulocytes # (auto) 0.01 K/uL (0.01-0.20); Immature Granulocytes % (auto) 0.3 %; Lymphocytes # (auto) 0.99 K/uL (1.20-3.40); Lymphocytes % (auto) 26.2 %; Mean Corpuscular Hemoglobin 31.9 pg (25.0-34.0); Mean Corpuscular Hgb Conc 34.3 g/dL (32.0-36.0); Mean Corpuscular Volume 92.9 fL (80.0-100.0); Mean Platelet Volume 11.2 fL (9.4-12.4); Monocytes # (auto) 0.39 K/uL (0.11-0.59); Monocytes % (auto) 10.3 %; Neutrophils # (auto) 2.31 K/uL (1.40-6.50); Neutrophils % (auto) 61.1 %; Platelet Count 104 K/uL (130-400); RDW Coefficient of Variation 12.9 % (11.5-14.5); RDW Standard Deviation 43.8 fL (36.4-46.3); Red Blood Count 3.64 M/uL (4.70-6.10); White Blood Count 3.78 K/ul (4.8-10.8)
[2023-12-12 06:32] LABS: Albumin Globulin Ratio 1.4 (0.9-2); Albumin Level 4.4 gm/dl (3.4-5.0); BUN Creatinine Ratio 12.7 (10-20); Calcium 8.9 mg/dl (8.6-10.3); Creatinine Clr Calc Pharmacy 119.4 ml/min; Est GFR (African American) 123.9 ml/min; Est GFR (Non-African American) 106.9 ml/min; Globulin 3.2 gm/dl (2.5-4.0); Potassium 3.8 mmol/L (3.5-5.1); Total Protein 7.6 gm/dl (6.0-8.3)
[2023-12-12] MEDS: LORazepam 1 MG in SYRINGE 0.5 ML IV STA (06:33)
[2023-12-12] MEDS: chlordiazePOXIDE HCl 25 MG CAP PO SCH (07:29)
[2023-12-12] MEDS: LORazepam 2 MG in SYRINGE 1 ML IV STA (07:29)
[2023-12-12] MEDS: chlordiazePOXIDE HCl 25 MG CAP PO PRN (08:54)
[2023-12-12] MEDS: THIAMINE HCL 100 MG in SYRINGE 9 ML IV SCH (08:55)
--- NOTE | 2023-12-12 14:44 | Hospitalist Progress Note ---
Date of Service December 12, 2023 Assessment & Plan (1) Alcohol use disorder, severe, dependence: Plan: Alcohol abuse, hx DTs and seizure. Has had admissions 08/05, 08/07, 09/10 for withdrawal. Required ICU admission 07/2023. (2) Alcohol withdrawal: Plan: Currently sedated with benzodiazepines. Will taper off gradually. Recommend outpatient alcohol treatment program (3) Alcoholic fatty liver: Plan: Noted. Serial labs (4) Elevated liver enzymes: Plan: Due to chronic alcoholism. Serial labs (5) HTN (hypertension): Plan: Stable. Continue current medical management (6) Hx of opioid abuse: Plan: Stable. Continue Suboxone therapy Plan Hopeful discharge to home soon Admission and Anticipated Discharge Date Admission Date: December 10, 2023 Subjective Asleep at the time of my assessment. He was suffering from DTs earlier today and has been sedated with benzodiazepines. Review of Systems 2 Review of Systems: The patient is asleep and cannot answer any questions regarding review of systems at this time Physical Exam 2 Physical Exam: General-asleep at the time of my rounds earlier this morning HEENT-head atraumatic and normocephalic Neck-no lymphadenopathy or thyromegaly, trachea midline Chest-clear to auscultation anteriorly. No rales, wheezing or rhonchi Cardiac-regular rate and rhythm, normal S1 and S2 Abdomen-normal bowel sounds,no hepatosplenomegaly Extremities-no cyanosis, clubbing, or edema Neuro-asleep. Cannot assess. Nursing states however that there were no apparent focal deficits when he was moving around earlier Psych-asleep. Cannot assess Results & Data Results & Data Vital Signs (Past 12 Hours) Vital Signs Temp Pulse Pulse Resp BP BP BP 12/12/23 14:07 36.7 C 69 18 177/111 H 12/12/23 13:01 163/100 H 12/12/23 13:01 60 15 12/12/23 13:00 59 L 13 12/12/23 12:50 59 L 13 12/12/23 12:40 60 12/12/23 12:30 60 14 12/12/23 12:20 65 18 12/12/23 12:10 74 25 H 12/12/23 12:00 62 15 12/12/23 11:50 61 13 12/12/23 11:40 60 14 12/12/23 11:30 59 L 13 12/12/23 11:20 61 13 12/12/23 11:10 63 12 12/12/23 11:02 36.6 C 12/12/23 11:01 149/93 H 12/12/23 11:01 65 11 L 12/12/23 11:00 63 149/93 H 12/12/23 10:30 68 16 12/12/23 10:00 74 12/12/23 09:30 80 12/12/23 09:20 65 12/12/23 09:20 140/96 12/12/23 09:10 72 12/12/23 09:01 85 18 165/113 H 12/12/23 09:00 12/12/23 08:54 165/113 H 12/12/23 08:54 93 H 12/12/23 08:50 115 H 12/12/23 08:40 86 12/12/23 08:30 69 12/12/23 08:21 70 12/12/23 08:21 170/87 H 12/12/23 08:20 66 12/12/23 08:10 87 12/12/23 08:00 71 12/12/23 07:56 66 16 152/100 H 12/12/23 07:13 36.8 C 74 16 159/90 H 12/12/23 07:06 95 H 18 165/99 H 12/12/23 06:13 79 20 158/95 H 12/12/23 05:16 36.7 C 65 20 152/96 H 12/12/23 02:43 36.8 C 61 18 166/88 H Pulse Ox O2 Del Method 12/12/23 14:07 97 Room Air 12/12/23 13:01 12/12/23 13:01 96 12/12/23 13:00 96 12/12/23 12:50 95 12/12/23 12:40 96 12/12/23 12:30 96 12/12/23 12:20 96 12/12/23 12:10 89 L 12/12/23 12:00 98 12/12/23 11:50 96 12/12/23 11:40 96 12/12/23 11:30 97 12/12/23 11:20 96 12/12/23 11:10 99 12/12/23 11:02 12/12/23 11:01 12/12/23 11:01 96 12/12/23 11:00 96 12/12/23 10:30 97 12/12/23 10:00 97 12/12/23 09:30 97 12/12/23 09:20 96 12/12/23 09:20 12/12/23 09:10 96 12/12/23 09:01 98 Room Air 12/12/23 09:00 98 12/12/23 08:54 12/12/23 08:54 97 12/12/23 08:50 99 12/12/23 08:40 97 12/12/23 08:30 12/12/23 08:21 12/12/23 08:21 12/12/23 08:20 12/12/23 08:10 12/12/23 08:00 12/12/23 07:56 92 Room Air 12/12/23 07:13 94 Room Air 12/12/23 07:06 98 Room Air 12/12/23 06:13 98 Room Air 12/12/23 05:16 98 Room Air 12/12/23 02:43 96 Room Air Laboratory Results 12/12/23 05:21 12/12/23 05:21 PG Care Time/CCT Total # of Minutes Spent Total Time Spent with Patient: Total time spent is greater than 50% in coordination of care (as documented) at patient's floor/unit and/or counseling patient: Coding Level of Care Code 44561 SUB INP/OBS CARE 3/50MIN Diagnoses Alcohol use disorder, severe, dependence F10.20 Alcohol withdrawal F10.239 Alcoholic fatty liver K70.0 Elevated liver enzymes R74.8 HTN (hypertension) I10 Hx of opioid abuse F11.11
[2023-12-13 06:31] LABS: Basophils # (auto) 0.04 K/uL (0.00-0.20); Basophils % (auto) 1.1 %; Eosinophils # (auto) 0.09 K/uL (0.00-0.50); Eosinophils % (auto) 2.5 %; Hematocrit (blood only) 34.9 % (42.0-52.0); Hemoglobin 11.7 g/dl (14.0-18.0); Immature Granulocytes # (auto) 0.01 K/uL (0.01-0.20); Immature Granulocytes % (auto) 0.3 %; Lymphocytes # (auto) 1.03 K/uL (1.20-3.40); Mean Corpuscular Hemoglobin 31.7 pg (25.0-34.0); Mean Corpuscular Hgb Conc 33.5 g/dL (32.0-36.0); Mean Corpuscular Volume 94.6 fL (80.0-100.0); Mean Platelet Volume 11.1 fL (9.4-12.4); Monocytes # (auto) 0.38 K/uL (0.11-0.59); Monocytes % (auto) 10.7 %; Neutrophils % (auto) 56.4 %; Platelet Count 115 K/uL (130-400); RDW Coefficient of Variation 13.2 % (11.5-14.5); RDW Standard Deviation 45.3 fL (36.4-46.3); Red Blood Count 3.69 M/uL (4.70-6.10); White Blood Count 3.55 K/ul (4.8-10.8)
[2023-12-13 06:51] LABS: BUN Creatinine Ratio 12.7 (10-20); Calcium 9.1 mg/dl (8.6-10.3); Creatinine Clr Calc Pharmacy 132.8 ml/min; Est GFR (African American) 129.5 ml/min; Est GFR (Non-African American) 111.7 ml/min; Potassium 3.8 mmol/L (3.5-5.1)
--- NOTE | 2023-12-13 12:09 | Hospitalist Progress Note ---
Date of Service December 13, 2023 Assessment & Plan (1) Alcohol use disorder, severe, dependence: Plan: Alcohol abuse, hx DTs and seizure. Has had admissions 08/05, 08/07, 09/10 for withdrawal. Required ICU admission 07/2023. (2) Alcohol withdrawal: Plan: DTs have resolved. Will taper Librium on a daily basis. IV fluids discontinued since her oral intake is adequate. Recommend outpatient alcohol treatment program (3) Alcoholic fatty liver: Plan: Noted. Serial labs (4) Elevated liver enzymes: Plan: Due to chronic alcoholism. Serial labs (5) HTN (hypertension): Plan: Stable. Continue current medical management (6) Hx of opioid abuse: Plan: Stable. Continue Suboxone therapy Plan Hopeful discharge to home soon. Likely within the next 2 to 3 days Admission and Anticipated Discharge Date Admission Date: December 10, 2023 Subjective Awake and oriented. He is able to converse. He is mildly lethargic from the Librium which has been down titrated to 20 mg 3 times a day. Will decrease dosage daily until he is weaned off. Oral intake is adequate. IV fluids discontinued. Review of Systems 2 Review of Systems: Constitutional-no fever or chills ENT-no blurred vision, no double vision, no epistaxis, no sore throat Respiratory-no cough, no wheezing, no shortness of breath Cardiac-no palpitations, no chest pain, no syncope GI-no nausea, vomiting, diarrhea, melena, hematochezia -no urinary retention, no urinary incontinence, no dysuria, no hematuria Musculoskeletal-no joint pain, no muscle tenderness Skin-no bruising, no rashes, no pruritus Neuro-no isolated weakness, no paresthesia, no weakness Psych-no depression, no anxiety Physical Exam 2 Physical Exam: General-awake and mildly lethargic for medication. Oriented x3, no fever, no chills HEENT-head atraumatic and normocephalic, pupils equal and reactive to light, extraocular muscles intact Neck-no lymphadenopathy or thyromegaly, trachea midline Chest-clear to auscultation. No rales, wheezing or rhonchi Cardiac-regular rate and rhythm, normal S1 and S2 Abdomen-normal bowel sounds, nontender, no hepatosplenomegaly Extremities-no cyanosis, clubbing, or edema Neuro-cranial nerves II through XII intact, motor and sensory function within normal limits, strength symmetrical, no focal deficits Psych-normal affect, normal mood Results & Data Results & Data Vital Signs (Past 12 Hours) Vital Signs Temp Pulse Pulse Resp BP BP Pulse Ox 12/13/23 10:22 36.8 C 80 19 156/99 H 94 12/13/23 07:37 75 12/13/23 06:53 37.0 C 79 22 138/97 98 12/13/23 02:58 37 C 68 18 141/102 H 98 O2 Del Method 12/13/23 10:22 Room Air 12/13/23 07:37 12/13/23 06:53 Room Air 12/13/23 02:58 Room Air Laboratory Results 12/13/23 05:48 12/13/23 05:48 PG Care Time/CCT Total # of Minutes Spent Total Time Spent with Patient: Total time spent is greater than 50% in coordination of care (as documented) at patient's floor/unit and/or counseling patient: Coding Level of Care Code 42681 SUB INP/OBS CARE 3/50MIN Diagnoses Alcohol use disorder, severe, dependence F10.20 Alcohol withdrawal F10.239 Alcoholic fatty liver K70.0 Elevated liver enzymes R74.8 HTN (hypertension) I10 Hx of opioid abuse F11.11
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
[2023-12-13] MEDS: LORazepam 2 MG in SYRINGE 1 ML IV PRN (18:32)
[2023-12-14 06:40] LABS: BUN Creatinine Ratio 17.4 (10-20); Calcium 9.9 mg/dl (8.6-10.3); Creatinine Clr Calc Pharmacy 109.6 ml/min; Est GFR (African American) 119.7 ml/min; Est GFR (Non-African American) 103.3 ml/min; Potassium 3.9 mmol/L (3.5-5.1)
[2023-12-14] MEDS ORDERED: chlordiazePOXIDE HCl 5 MG CAP PO SCH (09:00)
[2023-12-14] MEDS: chlordiazePOXIDE HCl 5 MG CAP PO SCH (11:15)
[2023-12-14] MEDS: FOLIC ACID 1 MG TAB PO SCH (11:15)
--- NOTE | 2023-12-14 14:47 | Hospitalist Progress Note ---
Date of Service December 14, 2023 Assessment & Plan (1) Alcohol use disorder, severe, dependence: Plan: Alcohol abuse, hx DTs and seizure. Has had admissions 08/05, 08/07, 09/10 for withdrawal. Required ICU admission 07/2023. (2) Alcohol withdrawal: Plan: DTs have resolved. Will taper Librium on a daily basis. IV fluids have been discontinued. Recommend outpatient alcohol treatment program (3) Alcoholic fatty liver: Plan: Noted. Serial labs (4) Elevated liver enzymes: Plan: Due to chronic alcoholism. Serial labs (5) HTN (hypertension): Plan: Stable. Continue current medical management (6) Hx of opioid abuse: Plan: Stable. Continue Suboxone therapy Plan Hopeful discharge to home tomorrow on a tapering dose of Librium, December 15 Admission and Anticipated Discharge Date Admission Date: December 10, 2023 Subjective Alert and oriented at the time of my examination. He was sleeping earlier this morning. Librium has been down titrated. He wanted to go home today but he agrees to stay until tomorrow. Librium tapering dose will be ordered at discharge. Review of Systems 2 Review of Systems: Constitutional-no fever or chills ENT-no blurred vision, no double vision, no epistaxis, no sore throat Respiratory-no cough, no wheezing, no shortness of breath Cardiac-no palpitations, no chest pain, no syncope GI-no nausea, vomiting, diarrhea, melena, hematochezia -no urinary retention, no urinary incontinence, no dysuria, no hematuria Musculoskeletal-no joint pain, no muscle tenderness Skin-no bruising, no rashes, no pruritus Neuro-no isolated weakness, no paresthesia, no weakness Psych-no depression, no anxiety Physical Exam 2 Physical Exam: General-awake and mildly lethargic for medication. Oriented x3, no fever, no chills HEENT-head atraumatic and normocephalic, pupils equal and reactive to light, extraocular muscles intact Neck-no lymphadenopathy or thyromegaly, trachea midline Chest-clear to auscultation. No rales, wheezing or rhonchi Cardiac-regular rate and rhythm, normal S1 and S2 Abdomen-normal bowel sounds, nontender, no hepatosplenomegaly Extremities-no cyanosis, clubbing, or edema Neuro-cranial nerves II through XII intact, motor and sensory function within normal limits, strength symmetrical, no focal deficits Psych-normal affect, normal mood Results & Data Results & Data Vital Signs (Past 12 Hours) Vital Signs Temp Pulse Resp BP Pulse Ox O2 Del Method 12/14/23 04:00 36.8 C 76 20 117/85 100 Room Air Laboratory Results 12/13/23 05:48 12/14/23 05:37 PG Care Time/CCT Total # of Minutes Spent Total Time Spent with Patient: Total time spent is greater than 50% in coordination of care (as documented) at patient's floor/unit and/or counseling patient: Coding Level of Care Code 21002 SUB INP/OBS CARE 2/35MIN Diagnoses Alcohol use disorder, severe, dependence F10.20 Alcohol withdrawal F10.239 Alcoholic fatty liver K70.0 Elevated liver enzymes R74.8 HTN (hypertension) I10 Hx of opioid abuse F11.11
[2023-12-15 06:38] LABS: BUN Creatinine Ratio 23.3 (10-20); Calcium 9.8 mg/dl (8.6-10.3); Creatinine Clr Calc Pharmacy 109.6 ml/min; Est GFR (African American) 119.7 ml/min; Est GFR (Non-African American) 103.3 ml/min
--- NOTE | 2023-12-15 11:58 | Discharge Summary ---
Date of Service December 15, 2023 Admission HPI Per Admitting Provider Clement is a 48-year-old male with past medical history of alcohol abuse, withdrawal with delirium tremens and seizure, and recurrent alcohol abuse who presents expressing a desire to get sober and quit alcohol. Reports he does not use recreational drugs, is on Suboxone. Patient reports that he has gone through withdrawal many times including severe withdrawal with DTs and seizures. He has done very well with phenobarbital protocol, has often not done well with benzos. Last admission for withdrawal . Patient did leave AMA during that admission. Patient had declined inpatient alcohol treatment programs and reported he was going to go to an IOP program. Howie is seen in the ER bay 07, is in [facility] due to bed availability denies any SI, HI, anxiety/depression at time of admission. He reports that he has made multiple attempts to get sober, at his last hospital admission he left AMA but regrets this. He reports he had not been able to attend an intensive outpatient program as previously intended as he was taking care of his mother, but has planned on getting sober and coming in today and [facility] there and reports that he knows he must get sober. He reports that he is very concerned due to severe withdrawal in the past. Had a seizure many years ago none in the last few years. Has had delirium and confusion requiring ICU admission in the past when benzos have been used for withdrawal although notes that he does prefer the oral route to IM with phenobarbital also does not recall any side effects while on phenobarb protocol think this worked well for him. He reports he has fatty liver disease but no cirrhosis. He denies fever, chills, cough, shortness of breath, difficulty breathing, nausea, vomiting, diarrhea, lightheadedness, dizziness, chest pain, palpitations. He did take his morning medications today these include gabapentin 600 mg 4 times daily, Lexapro 20 mg daily, Trintellix, Suboxone 8-2 mg which she takes 3 times daily. He takes amlodipine in the evening as well. He denies recreational drug use and reports the Suboxone works well for him. Prior to presentation he reports he has been drinking at least 15 beers a day, and that he drinks continuously through the day. A 15 pack lasts him between half a day and the day at most. His last beer was at 930 this morning. Alcohol level on admission is 353 at 1141. He reports that he has had withdrawal symptoms even with alcohol levels in the 200 and prior to completely coming off alcohol, and that his symptoms seem to accelerate around a 3 in the past. FUll Code Regular Diet Principal Diagnosis Alcohol withdrawal with DTs, elevated liver function enzymes Discharge Exam General-awake and mildly lethargic for medication. Oriented x3, no fever, no chills HEENT-head atraumatic and normocephalic, pupils equal and reactive to light, extraocular muscles intact Neck-no lymphadenopathy or thyromegaly, trachea midline Chest-clear to auscultation. No rales, wheezing or rhonchi Cardiac-regular rate and rhythm, normal S1 and S2 Abdomen-normal bowel sounds, nontender, no hepatosplenomegaly Extremities-no cyanosis, clubbing, or edema Neuro-cranial nerves II through XII intact, motor and sensory function within no rmal limits, strength symmetrical, no focal deficits. Bilateral hand tremors evident that may be chronic Psych-normal affect, normal mood Discharge Data Allergies Allergy/AdvReac Type Severity Reaction Status Date / Time bupropion AdvReac Severe Anxiety Verified 09/10/23 15:41 [From Wellbutrin SR] Consultations 12/10/23 13:26 ED Decision to Admit Stat 12/13/23 12:38 Consult Psychiatry Routine Ordered Studies 12/10/23 11:45 CT head/brain wo con Stat Hospital Course (1) Alcohol use disorder, severe, dependence: Alcohol abuse, hx DTs and seizure. Has had admissions 08/05, 08/07, 09/10 for withdrawal. Required ICU admission 07/2023. (2) Alcohol withdrawal: DTs have resolved. Will taper Librium on a daily basis. IV fluids have been discontinued. Recommend outpatient alcohol treatment program (3) Alcoholic fatty liver: Noted. Serial labs (4) Elevated liver enzymes: Due to chronic alcoholism. Serial labs (5) HTN (hypertension): Stable. Continue current medical management (6) Hx of opioid abuse: Stable. Continue Suboxone therapy Plan Home today, December 15, on a Librium tapering dose Total Time Total Time Spent Total Time Spent (In Minutes): 45 minutes Discharge Plan Discharge Items Patient Disposition: Home - Self-Care Reason For Visit: ETOH WITHDRAWAL Discharge Diagnosis: Alcohol withdrawal with DTs, elevated liver enzymes Activity: Resume your previous activity Non-emergency contact: Primary Care Provider Call non-emergency contact if: your symptoms worsen Follow-up/Referrals: Victor Hugo Puckett, [Primary Care Provider] - Diet: Regular Addtl Attending Provider Instructions: Take Librium in a tapering dose fashion as directed. Seek outpatient alcohol treatment Pending Studies at Discharge: No Stand-Alone Forms: [facility] [place] Snacks, Smoking Cessation Medications and DC Order Prescriptions: New chlordiazepoxide HCl 10 mg Capsule See Rx Instructions .ROUTE .COMPLEX Qty: 12 0RF Rx Instructions: 10 mg orally 3 times a day for 2 days, then 10 mg twice a day for 2 days, then 10 mg once a day for 2 days, then stop Continued amlodipine-olmesartan 5-40 mg tablet 1 tab PO DAILY Qty: 90 3RF gabapentin 600 mg tablet 600 mg PO QID 90 Days Qty: 360 1RF escitalopram oxalate 20 mg tablet 20 mg PO DAILY Qty: 90 2RF vortioxetine 20 mg tablet 20 mg PO DAILY Qty: 90 2RF ondansetron HCl 4 mg tablet 4 mg PO Q8H PRN (Reason: nausea and vomiting) Qty: 30 2RF pantoprazole 40 mg tablet,delayed release (DR/EC) 40 mg PO DAILY Qty: 90 2RF Rx Instructions: eat 30 minutes after taking cholecalciferol (vitamin D3) [Vitamin D3] 25 mcg (1,000 unit) Tablet 0 mcg PO DAILY Rx Instructions: TAKES 2 TAB AM, UNKNOWN STRENGTH buprenorphine-naloxone [Suboxone] 8-2 mg film 1 film SL TID Qty: 1 0RF Rx Instructions: Takes AM, LUNCH & PM Discharge Orders: Discharge Order (Routine); Ordered 12/15/23 Ordered By: Richard Tellez Admission Data Admit Date/Time: 12/10/23 14:08 Attending Provider: Richard Tellez Admit Provider: Jono Smith Primary Care Provider: Victor Hugo Puckett Other Providers: Jono Smith; Siomara Alvarez Coding Level of Care Code 66270 INP/OBS DISCH >30 MIN Diagnoses Alcohol use disorder, severe, dependence F10.20 Alcohol withdrawal F10.239 Alcoholic fatty liver K70.0 Elevated liver enzymes R74.8 HTN (hypertension) I10 Hx of opioid abuse F11.11
== END 2023-12-15 13:50 | disposition home or self-care (01) | DRG 897 ==
LOC: ED 10:52 → SUATTDRO 14:08 → 2E 14:08

== ENCOUNTER 2024-08-04 09:22 | Inpatient (IN) ==
[2024-08-04 10:21] LABS: Appearance Urine Clear (Clear); Bilirubin Urine Negative (Negative); Blood Urine Negative (Negative); Color Urine Yellow; Glucose Urine UA Negative (Negative); Ketones Urine Negative (Negative); Leukocyte Esterase Urine Negative (Negative); Nitrite Urine Negative (Negative); Protein Urine Negative (Negative); Specific Gravity Urine <= 1.005 (1.000-1.030); Urobilinogen Urine Negative (Negative); pH Urine 5.5 (4.5-7.5)
[2024-08-04 10:24] LABS: Hemoglobin 12.5 g/dl (14.0-18.0); Mean Corpuscular Hemoglobin 31.6 pg (25.0-34.0); Mean Corpuscular Hgb Conc 32.9 g/dL (32.0-36.0); Platelet Count 151 K/uL (130-400); RDW Coefficient of Variation 12.9 % (11.5-14.5); RDW Standard Deviation 45.8 fL (36.4-46.3); Red Blood Count 3.96 M/uL (4.70-6.10); White Blood Count 3.43 K/ul (4.8-10.8)
[2024-08-04 10:45] LABS: Albumin Globulin Ratio 1.3 (0.9-2); BUN Creatinine Ratio 14.3 (10-20); Bilirubin Direct 0.1 mg/dl (0-0.2); Bilirubin,Total 0.5 mg/dl (0.2-1.0); Calcium 9.4 mg/dl (8.6-10.3); Creatinine Clr Calc Pharmacy 122.5 ml/min; Globulin 3.8 gm/dl (2.5-4.0); Magnesium 1.9 mg/dl (1.7-2.4); Potassium 4.3 mmol/L (3.5-5.1); Total Protein 8.8 gm/dl (6.0-8.3)
[2024-08-04 10:55] LABS: INR 0.9 (0.9-1.1); Prothrombin Time 10.1 Seconds (9.0-12.0)
[2024-08-04 10:58] LABS: Thyroid Stimulating Hormone 3.011 uIu/ml (0.300-4.500)
[2024-08-04 11:00] LABS: Amphetamines+Metham, Urine Neg (Neg); Barbiturates, Urine Neg (Neg); Benzodiazepine, Urine Neg (Neg); Cocaine, Urine Neg (Neg); Fentanyl, Urine Neg (Neg); MDMA (Ecstacy), Urine Neg (Neg); Marijuana, Urine Neg (Neg); Methadone, Urine Neg (Neg); Opiate, Urine Neg (Neg); Phencyclidine, Urine Neg (Neg)
[2024-08-04 11:26] LABS: ALC (manual) 2.13 K/uL (1.2-3.4); ANC (manual) 0.82 K/uL (1.4-6.5); Basophils # (manual) 0.14 K/uL (0-0.2); Basophils % (manual) 4 %; Eosinophils # (manual) 0.14 K/uL (0-0.50); Eosinophils % (manual) 4 %; Large Granular Lymph % (manual) 32 %; Lymphocytes # (manual) 1.03 K/uL (1.2-3.4); Lymphocytes % (manual) 30 %; Monocytes # (manual) 0.21 K/uL (0.11-0.59); Monocytes % (manual) 6 %; Neutrophils # (manual) 0.82 K/uL (1.40-6.50); Neutrophils % (manual) 24 %
--- NOTE | 2024-08-04 12:22 | History & Physical Report ---
Date of Service August 04, 2024 Assessment & Plan (1) Alcohol withdrawal: Plan: Presented on 08/04 for alcohol detox request Ethyl alcohol level 307 on arrival Patient's last drink was the morning of 08/04 He reports that he drinks 20-25 beers daily UDS negative Lipase WNL Hx of DTs and seizures; required ICU admission 07/2023 Patient is not currently withdrawing at time of admission Magnesium WNL at 1.9 on arrival AWSS protocol with Ativan as needed Seizure precautions Banana bag x 1 Folate and B12 supplementation daily Per patient, he has done better on Librium when compared to phenobarbital during past withdrawals We will plan to start patient on Librium taper Due to transaminitis and concern for underlying liver disease, 1/2 dose Librium taper ordered Dose reduce gabapentin Patient has been slowly weaning off gabapentin, was previously on 600 mg QID, but now is currently on 600 mg BID Will dose reduced to 300 mg BID IV antiemetics as needed Continuous end-tidal CO2 monitoring Continuous pulse oximetry Supplemental oxygen as needed to maintain SpO2 >94% Case management consulted Patient is amenable to going to outpatient rehab and is specifically requesting [facility] on arrival A.m. CBC, CMP, Mag (2) Opioid use disorder, moderate, in sustained remission: Plan: In remission Continue Suboxone 8-2 mg films TID (3) Anemia: Plan: Chronic; Hgb 12.5 on arrival Clinically, no signs of active bleeding on physical exam Trend CBC (4) HTN (hypertension): Plan: Continue amlodipineolmesartan (5) Depression, unspecified: Plan: Continue escitalopram and Trintellix (or formulary equivalent) (6) Elevated liver enzymes: Plan: Trend CMP Plan Disposition: Admit to PCU telemetry Full code Regular diet VTE PPx: Lovenox 40 mg SQ q24h History of Present Illness Chief Complaint: Alcohol detox request Primary Care Provider: Victor Hugo Puckett DO Clement is a 48-year-old male with PMH of alcoholism, DTs, opioid use disorder (in remission), anxiety, depression, pancytopenia, HTN, and gout. He presented on 08/04 for an alcohol detox request. Patient's last drink was the morning of 08/04. He reports that he drinks been drinking 20-25 beers daily for extended period of time. He denies hard alcohol use. He does have a history of 1 alcohol-induced seizure which occurred in June 2023 outside of [facility]. He also has a history of DTs and visual hallucinations with alcohol withdrawal. Patient reports that he did take his regular morning medicines today, and reports good compliance plans with taking his medications daily. He has been trying to wean down on gabapentin recently, and is currently on 600 mg tablets twice daily. He did stop taking his colchicine for gout because he was having loose stool. He reports a good diet despite drinking beer throughout the day. No sick contacts. No supplemental oxygen at baseline. Patient reports he does use chewing tobacco. He denies smoking tobacco and recreational drug use.. No history of pancreatitis. He reports that he is not interested in inpatient rehab (did not have a good experience at [facility] in [place]), but reports he is amenable to outpatient alcoholic rehab (at [facility]). Last alcoholic drink was this morning on 08/04. He does have a history of alcohol related seizures when he stops drinking. Patient's vitals are stable at time of admission. ED course: Thiamine 250 mg IV ROS: Patient endorses sweating, dizziness/lightheadedness when bending over, intermittent posterior headaches, tinnitus (which patient attributes to shooting on range), right flank pain (resolved), loose stool, nausea (takes zofran frequently, which helps), straining with urination, Patient denies fever, chills, visual/auditory hallucinations, chest pain, SOB, chest palpitations, pleuritic CP, abdominal pain, vomiting, loss of appetite, burning with urination, blood in the urine/stool, or numbness/tingling in arms or legs. Allergies Allergy/AdvReac Type Severity Reaction Status Date / Time bupropion AdvReac Severe Anxiety Verified 07/16/24 07:38 [From Wellbutrin SR] Home Medications Medication Instructions Recorded Confirmed Type buprenorphine 8 mg-naloxone 2 mg 1 film sublingual TID #1 ea 09/13/23 08/04/24 Rx sublingual film (Suboxone) amlodipine 5 mg-olmesartan 40 mg 1 tab PO DAILY #90 tabs 09/26/23 08/04/24 Rx tablet escitalopram oxalate 20 mg tablet 20 mg PO DAILY #90 tabs 11/01/23 08/04/24 Rx gabapentin 600 mg tablet 600 mg PO QID 90 days #360 tabs 01/02/24 08/04/24 Rx ondansetron HCl 4 mg tablet 4 mg PO Q8H PRN nausea and 03/20/24 08/04/24 Rx vomiting #30 tabs vortioxetine 20 mg tablet 20 mg PO DAILY 08/04/24 08/04/24 History (Trintellix) Past Med/Surg History Problem List (Updated 08/04/24 @ 12:30 by Fred Aaron MD) Alcohol withdrawal Gout Right knee DJD Left knee DJD Left knee pain HTN (hypertension) Depression, unspecified (Chronic) Alcoholism (Acute) Abnormal EKG Pancytopenia (Acute) Hypophosphatemia Elevated liver enzymes (Chronic) Opioid use disorder, moderate, in sustained remission Right sided sciatica History of total hip replacement Right knee pain Erectile dysfunction Elevated HDL (Chronic) Anxiety (Chronic) Anemia (Acute) Vitamin D deficiency Thiamine deficiency (Chronic) Medical History History of abnormal electrocardiogram History of fall Hx of opioid abuse Alcohol use disorder, severe, dependence Alcoholic fatty liver Delirium tremens History of healed fragility fracture Suicidal intent Seizure (06/27/20) Psychosis Surgical History No significant past surgical history Family History Grandmother Breast cancer Social History Smoking Status: Never smoker Tobacco Type: Smokeless Tobacco (Dip or Chew) Age Started Using Tobacco: 13; Second Hand Exposure: No; Do You Dip or Chew Tobacco: Yes; Hx Alcohol Use: Yes Alcohol type: beer Alcohol Intake Frequency: 4 or More x per/Week Alcohol Intake Frequency Comment: a case daily (15 beers) Hx Substance Use: No Preferred Language: Tamazight Communication Ability: Effective [employer] Heater Required: No Beliefs That Will Affect Care: None marital status: Single Current Living Situation: Family current occupational status: employed Feels Safe at Home: Yes Diet: regular caffeine: Yes Assistive Devices: None Review of Systems Review of Systems: See HPI above Physical Exam Physical Exam: General: no acute distress; pleasant affect; non-toxic appearing; cooperative; SpO2 100 send on 2L NC HEENT: normocephalic, atraumatic; no scleral icterus; PERRLA; vision and hearing grossly intact Neck: supple; no lymphadenopathy; trachea midline Skin: warm, dry without signs of tenting; no cyanosis; no rashes, bruising, lesions, or erythema noted CV: chest wall NTP; RRR; S1/S2 normal; no murmurs/rubs/gallops; pulses intact and symmetric at radial, DP, and PT Lungs: no acute respiratory distress; symmetrical chest wall expansion; clear breath sounds across all lung olivarez w/o adventitious sounds; no wheezing ABD: Soft, NTP; BS present; no rebound/guarding; no distention MSK: no tics or fasciculations; no tremor; no edema noted in the LEs b/l, nonerythematous Back: No flank or lower back pain on palpation; no signs of bruising or rashes on the abdomen or flanks bilaterally Neuro: A&Ox3; normal mood and affect; fluent speech; no focal deficits; sensation intact and symmetric in the lower extremities bilaterally Results & Data Results & Data Vital Signs (Past 12 Hours) Vital Signs Temp Pulse Resp BP Pulse Ox O2 Del Method O2 Flow Rate 08/04/24 12:03 63 15 130/92 99 08/04/24 11:30 60 21 140/90 99 08/04/24 11:00 125/80 08/04/24 11:00 64 17 98 08/04/24 10:42 75 22 99 08/04/24 10:28 85 L Nasal Cannula 0 08/04/24 10:24 67 08/04/24 10:12 65 20 126/83 89 L 08/04/24 09:47 82 20 93 Room Air 08/04/24 09:28 36.7 C 82 20 137/89 93 Room Air Laboratory Results Abnormal lab results 08/04/24 Range/Units 10:00 WBC 3.43 L (4.8-10.8) K/ul RBC 3.96 L (4.70-6.10) M/uL Hgb 12.5 L (14.0-18.0) g/dl Hct 38.0 L (42.0-52.0) % Neutrophils # (Manual) 0.82 L (1.40-6.50) K/uL Total Absolute Neuts 0.82 L* (1.4-6.5) K/uL Lymphocytes # (Manual) 1.03 L (1.2-3.4) K/uL Sodium 134 L (136-145) mmol/L Chloride 95 L (98-107) mmol/L AST 83 H (13-39) U/L ALT 72 H (7-52) U/L Total Protein 8.8 H (6.0-8.3) gm/dl Ethyl Alcohol mg/dL 307.5 H (<10.0) mg/dl ECG Additional Comments: ECG ordered, pending Code Status & VTE Plan Code Status Full code VTE Prophylaxis Plan VTE Prophylaxis will be ordered: Yes Supervising Physician Co-Signing Physician Notes Patient seen and examined, chart reviewed, case discussed with Devendra Falk PA-C and I agree with the assessment and plan as above except as otherwise noted Labs and images reviewed 8-year-old male with multiple history for alcohol withdrawal who has a history of seizures and ICU admission for withdrawal who presents 08/04 with alcohol level of 307 and requesting alcohol detox. Does have a mild chronic transaminitis. Patient reports he has done better with Librium then phenobarbital in the past, although did receive phenobarbital last time he was here. Will admit on dose reduced Librium taper given underlying transaminitis, AVSS. Thiamine/folate supplementation, banana bag x 1. Seizure precautions with on-call Ativan as needed for breakthrough seizure. CTAB, regular rate and rhythm, no diaphoresis on admission. Patient is with a positive alcohol level and does not yet show signs of withdrawal, but is high risk by history and admit for treatment of benzodiazepine taper with case management consulted to help facilitate rehab resources. Agree with above. PG Care Time/CCT Total # of Minutes Spent Total Time Spent with Patient: Total time spent is greater than 50% in coordination of care (as documented) at patient's floor/unit and/or counseling patient: [place] [address] INT INP/OBS CARE 3/75MIN Patient Type Established Medical Decision Making High Complexity Diagnoses Alcohol withdrawal F10.939 Opioid use disorder, moderate, in sustained remission F11.21 Anemia D64.9 HTN (hypertension) I10 Depression, unspecified F32.A Elevated liver enzymes R74.8
--- NOTE | 2024-08-04 12:25 | Emergency Department Note ---
Impression & Plan Alcoholism, Pancytopenia ED Provider Note NAME: KARL KAUFMAN Jr AGE: 48 SEX: M : 1975 ARRIVES VIA: Walk-In INFORMANT: Patient ED PROVIDER(S): Fred Aaron MD CHIEF COMPLAINT: PLAN: Disposition: MEDICAL DECISION MAKING: The patient is a pleasant 48-year-old gentleman with a past medical history of alcoholism/dependence, alcohol withdrawal who presents emergency department via walk-in for evaluation of request for detox as he recognizes his alcohol dependence and would like to be clean. He had described to triage that he was not interested in rehab but he clarifies to this provider that he is interested in outpatient rehab program. Patient reports his last drink was this morning. He reports he does tend to wake up in the night with symptoms he sees as a warning for withdrawal and will have drinks throughout the night. He estimates he may have 10-20 beers daily. He has not recent fevers, chills. He reports some chronic postnasal drip denies any new cough, chest pain shortness of breath. He reports he is supposed to get a sleep study and does snore but has yet to obtain this study. On evaluation the patient is no distress, afebrile with stable vital signs. O2 saturations noted to decline to the mid 80s on room air while sleeping and was placed on nasal cannula. Suspect likely related to underlying sleep apnea. WBC 3.4K, with neutropenia and lymphopenia, nonspecific in the setting of the patient's alcoholism in addition to anemia with hemoglobin 12.5/38 and platelets of 151. Chemistry without metabolic acidosis. AST and ALT are 83 and 72, respectively in the setting of his alcoholism. Total bilirubin is normal. Lipase is normal. INR is within normal limits. UA without evidence of infection. Medical alcohol was 307. Patient does agree with plan for admission for further management. IV thiamine was ordered and a ASS scoring. Triage Nursing notes reviewed and agree them. Prior/external medical records reviewed Vital Signs: reviewed Differential diagnosis: .dd ER treatment provided: See below. Diagnostics interpreted by me: ECG: None Cardiac Monitoring: An order for continuous cardiac monitoring was placed and demonstrated Laboratory studies: See below Imaging studies: See below Consultation(s): None HPI: The patient is a pleasant 48-year-old gentleman with a past medical history of alcoholism/dependence, alcohol withdrawal who presents emergency department via walk-in for evaluation of request for detox as he recognizes his alcohol dependence and would like to be clean. He had described to triage that he was not interested in rehab but he clarifies to this provider that he is interested in outpatient rehab program. Patient reports his last drink was this morning. He reports he does tend to wake up in the night with symptoms he sees as a warning for withdrawal and will have drinks throughout the night. He estimates he may have 10-20 beers daily. He has not recent fevers, chills. He reports some chronic postnasal drip denies any new cough, chest pain shortness of breath. He reports he is supposed to get a sleep study and does snore but has yet to obtain this study. ROS: See above HPI for pertinent positives & negatives. A total of 10 systems reviewed and were otherwise negative. VITALS:See Below PHYSICAL EXAMINATION: GENERAL: Awake, alert, well-appearing, in no distress HENT: Normocephalic, atraumatic. Oropharynx unremarkable. EYES: Normal conjunctiva. Sclera non-icteric. NECK: Supple. No nuchal rigidity. FROM. No JVD. RESPIRATORY: Clear to auscultation. CARDIAC: Regular rate, normal rhythm. Extremities warm and well perfused. Pulses equal. ABDOMEN: Soft, non-distended. No tenderness to palpation. No rebound or guarding. No masses. MUSCULOSKELETAL: Chest examination reveals no tenderness. The back is symmetrical on inspection without obvious abnormality. There is no CVA tenderness to palpation. No joint edema. LOWER EXTREMITIES: Calves are equal size bilaterally and non-tender. No edema. No discoloration. NEURO: Normal sensorium. No sensory or motor deficits noted. SKIN: No rash or jaundice noted. Fred Aaron MD Past Med/Surg History Problem List (Updated 08/04/24 @ 12:30 by Fred Aaron MD) Alcohol withdrawal Gout Right knee DJD Left knee DJD Left knee pain HTN (hypertension) Depression, unspecified (Chronic) Alcoholism (Acute) Abnormal EKG Pancytopenia (Acute) Hypophosphatemia Elevated liver enzymes (Chronic) Opioid use disorder, moderate, in sustained remission Right sided sciatica History of total hip replacement Right knee pain Erectile dysfunction Elevated HDL (Chronic) Anxiety (Chronic) Anemia (Acute) Vitamin D deficiency Thiamine deficiency (Chronic) Medical History History of abnormal electrocardiogram History of fall Hx of opioid abuse Alcohol use disorder, severe, dependence Alcoholic fatty liver Delirium tremens History of healed fragility fracture Suicidal intent Seizure (06/27/20) Psychosis Surgical History No significant past surgical history Family History Grandmother Breast cancer Social History Smoking Status: Never smoker Tobacco Type: Smokeless Tobacco (Dip or Chew) Age Started Using Tobacco: 13; Second Hand Exposure: No; Do You Dip or Chew Tobacco: Yes; Hx Alcohol Use: Yes Alcohol type: beer Alcohol Intake Frequency: 4 or More x per/Week Alcohol Intake Frequency Comment: a case daily (15 beers) Hx Substance Use: No Preferred Language: Irish Communication Ability: Effective Conformal Pad Former Required: No Beliefs That Will Affect Care: None marital status: Single Current Living Situation: Family current occupational status: employed Feels Safe at Home: Yes Diet: regular caffeine: Yes Assistive Devices: None Allergies Allergies Allergy/AdvReac Type Severity Reaction Status Date / Time bupropion AdvReac Severe Anxiety Verified 07/16/24 07:38 [From Wellbutrin SR] Home Meds Home Medications Medication Instructions Recorded Confirmed vortioxetine 20 mg tablet 20 mg PO DAILY 08/04/24 08/04/24 (Trintellix) Previous Rx's Medication Instructions Recorded buprenorphine 8 mg-naloxone 2 mg 1 film sublingual TID #1 ea 09/13/23 sublingual film (Suboxone) amlodipine 5 mg-olmesartan 40 mg 1 tab PO DAILY #90 tabs 09/26/23 tablet escitalopram oxalate 20 mg tablet 20 mg PO DAILY #90 tabs 11/01/23 gabapentin 600 mg tablet 600 mg PO QID 90 days #360 tabs 01/02/24 ondansetron HCl 4 mg tablet 4 mg PO Q8H PRN nausea and 03/20/24 vomiting #30 tabs Results & Data (ED) Vital Signs Vital Signs - 24 hr 08/04/24 09:28 08/04/24 09:47 08/04/24 10:12 Temperature 36.7 C Temperature Source Oral Pulse Rate 82 82 65 Pulse Rate from SpO2 Sensor 66 Pulse Rhythm Regular Respiratory Rate 20 20 20 Respiratory Effort / Characteristics Non-Labored Spontaneous Respiratory Depth Normal Blood Pressure 137/89 126/83 Blood Pressure Mean 105 97 Pulse Oximetry 93 93 89 L Oxygen Delivery Method Room Air Room Air Oxygen Flow Rate Sepsis Recent Fever Within 48 Hours No Sepsis New/Unexplained Change in Mental Status N/A Sepsis Action Taken by Nursing No Action Required Oxygen Flow Rate - Titration Pulse Oximetry Post Tiitration 08/04/24 10:24 08/04/24 10:28 08/04/24 10:42 Temperature Temperature Source Pulse Rate 67 75 Pulse Rate from SpO2 Sensor 76 Pulse Rhythm Respiratory Rate 22 Respiratory Effort / Characteristics Respiratory Depth Blood Pressure Blood Pressure Mean Pulse Oximetry 85 L 99 Oxygen Delivery Method Nasal Cannula Oxygen Flow Rate 0 Sepsis Recent Fever Within 48 Hours Sepsis New/Unexplained Change in Mental Status Sepsis Action Taken by Nursing Oxygen Flow Rate - Titration 2 Pulse Oximetry Post Tiitration 97 08/04/24 11:00 08/04/24 11:00 08/04/24 11:30 Temperature Temperature Source Pulse Rate 64 60 Pulse Rate from SpO2 Sensor 65 60 Pulse Rhythm Respiratory Rate 17 21 Respiratory Effort / Characteristics Respiratory Depth Blood Pressure 125/80 140/90 Blood Pressure Mean 92 106 Pulse Oximetry 98 99 Oxygen Delivery Method Oxygen Flow Rate Sepsis Recent Fever Within 48 Hours Sepsis New/Unexplained Change in Mental Status Sepsis Action Taken by Nursing Oxygen Flow Rate - Titration Pulse Oximetry Post Tiitration 08/04/24 12:03 Temperature Temperature Source Pulse Rate 63 Pulse Rate from SpO2 Sensor 63 Pulse Rhythm Respiratory Rate 15 Respiratory Effort / Characteristics Respiratory Depth Blood Pressure 130/92 Blood Pressure Mean 104 Pulse Oximetry 99 Oxygen Delivery Method Oxygen Flow Rate Sepsis Recent Fever Within 48 Hours Sepsis New/Unexplained Change in Mental Status Sepsis Action Taken by Nursing Oxygen Flow Rate - Titration Pulse Oximetry Post Tiitration Laboratory Data 08/04/24 10:00 08/04/24 10:00 Lab Results 08/04/24 08/04/24 Range/Units 09:55 10:00 WBC 3.43 L (4.8-10.8) K/ul RBC 3.96 L (4.70-6.10) M/uL Hgb 12.5 L (14.0-18.0) g/dl Hct 38.0 L (42.0-52.0) % MCV 96.0 (80.0-100.0) fL MCH 31.6 (25.0-34.0) pg MCHC 32.9 (32.0-36.0) g/dL RDW Std Deviation 45.8 (36.4-46.3) fL RDW Coeff of Ric 12.9 (11.5-14.5) % Plt Count 151 (130-400) K/uL MPV 10.0 (9.4-12.4) fL Neutrophils % (Manual) 24 % Lymphocytes % (Manual) 30 % Monocytes % (Manual) 6 % Eosinophils % (Manual) 4 % Basophils % (Manual) 4 % Neutrophils # (Manual) 0.82 L (1.40-6.50) K/uL Total Absolute Neuts 0.82 L* (1.4-6.5) K/uL Lymphocytes # (Manual) 1.03 L (1.2-3.4) K/uL Total Abs Lymphocytes 2.13 (1.2-3.4) K/uL Monocytes # (Manual) 0.21 (0.11-0.59) K/uL Eosinophils # (Manual) 0.14 (0-0.50) K/uL Basophils # (Manual) 0.14 (0-0.2) K/uL Large Granular Lymphs 32 % # Lrg Granular Lymphs 1.10 K/uL PT 10.1 (9.0-12.0) Seconds INR 0.9 (0.9-1.1) Sodium 134 L (136-145) mmol/L Potassium 4.3 (3.5-5.1) mmol/L Chloride 95 L (98-107) mmol/L Carbon Dioxide 31 (21-32) mmol/L Anion Gap 8 (3-11) BUN 11 (6-23) mg/dl Creatinine 0.77 (0.6-1.4) mg/dl Est Cr Clr Drug Dosing 122.5 ml/min eGFR 111.12 BUN/Creatinine Ratio 14.3 (10-20) Glucose 90 (70-99(Fasting)) mg/dl Calcium 9.4 (8.6-10.3) mg/dl Magnesium 1.9 (1.7-2.4) mg/dl Total Bilirubin 0.5 (0.2-1.0) mg/dl Direct Bilirubin 0.1 (0-0.2) mg/dl AST 83 H (13-39) U/L ALT 72 H (7-52) U/L Alkaline Phosphatase 52 (34-104) U/L Total Protein 8.8 H (6.0-8.3) gm/dl Albumin 5.0 (3.4-5.0) gm/dl Globulin 3.8 (2.5-4.0) gm/dl Albumin/Globulin Ratio 1.3 (0.9-2) Lipase 47 (11-82) U/L TSH 3.011 (0.300-4.500) uIu/ml Urine Color Yellow Urine Appearance Clear (Clear) Urine pH 5.5 (4.5-7.5) Ur Specific [place] <= 1.005 (1.000-1.030) Urine Protein Negative (Negative) Urine Glucose (UA) Negative (Negative) Urine Ketones Negative (Negative) Urine Blood Negative (Negative) Urine Nitrite Negative (Negative) Urine Bilirubin Negative (Negative) Urine Urobilinogen Negative (Negative) Ur Leukocyte Esterase Negative (Negative) Urine Opiates Screen Neg (Neg) Ur Methadone, Qual Neg (Neg) Urine Fentanyl Screen Neg (Neg) Urine Barbiturates Neg (Neg) Ur Phencyclidine (PCP) Neg (Neg) U Amphetamin/Meth Scrn Neg (Neg) MDMA (Ecstasy) Screen Neg (Neg) U Benzodiazepines Scrn Neg (Neg) Ur Cocaine Metabolite Neg (Neg) U Marijuana (THC) Screen Neg (Neg) Ethyl Alcohol mg/dL 307.5 H (<10.0) mg/dl Administered Medications Discontinued Medications Thiamine HCl 250 mg/ Sodium (Chloride) 52.5 mls @ 210 mls/hr IV NOW STA Stop: 08/04/24 12:41 Last Infusion: 08/04/24 13:15 Dose: Infused Documented By: Admin: 08/04/24 12:59 Dose: 210 mls/hr Documented By: ALTAF Discharge Plan Visit Data Chief Complaint: Detox Request Stated Complaint: WANTS TO DETOX FROM ALCOHOL ED Provider: Fred Aaron Discharge Problem: Alcoholism, Pancytopenia Forms Stand Alone Forms: My [facility], Suicide Prevention Resources Prescriptions Prescriptions: No Action amlodipine-olmesartan 5-40 mg tablet 1 tab PO DAILY Qty: 90 3RF escitalopram oxalate 20 mg tablet 20 mg PO DAILY Qty: 90 2RF gabapentin 600 mg tablet 600 mg PO QID 90 Days Qty: 360 1RF ondansetron HCl 4 mg tablet 4 mg PO Q8H PRN (Reason: nausea and vomiting) Qty: 30 2RF buprenorphine-naloxone [Suboxone] 8-2 mg film 1 film SL TID Qty: 1 0RF Rx Instructions: Takes AM, LUNCH & PM Trintellix 20 mg tablet 20 mg PO DAILY Referrals Referrals: Victor Hugo Puckett DO [Primary Care Provider] -
[2024-08-04] MEDS ORDERED: Ativan IV Alcohol Withdrawal--Active Protocol IV PRN (12:50)
[2024-08-04] MEDS: THIAMINE HCL 250 MG in SODIUM CHLORIDE 0.9% 50 ML IV STA (12:59)
[2024-08-04] MEDS: MULTI-VITAMIN INFUSION 10 ML, THIAMINE HCL 100 MG, FOLIC ACID 1 MG in SODIUM CHLORIDE 0... IV ONE (13:30)
[2024-08-04] MEDS ORDERED: ACETAMINOPHEN 325 MG TAB PO PRN (15:52)
[2024-08-04] MEDS: ONDANSETRON INJ 2 MG/ML 2 ML VIAL IV PRN ×2 (16:01→20:59)
[2024-08-04] MEDS: chlordiazePOXIDE HCl 25 MG CAP PO SCH (16:01)
[2024-08-04] MEDS: chlordiazePOXIDE ALCOHOL WITHDRAWL 25MG PO ONE (16:01)
[2024-08-04] MEDS: FAMOTIDINE 20MG IV PUSH 20 MG/5 ML SYR IV SCH (16:18)
[2024-08-04] MEDS: LORazepam 2 MG/1 ML VIAL IV PRN ×2 (16:24→20:59)
[2024-08-04] MEDS: BUPRENORPHINE/NALOXONE 8/2 MG TAB SL SCH (18:19)
[2024-08-04] MEDS: ENOXAPARIN INJ 40 MG/0.4 ML SYR SQ SCH (20:55)
[2024-08-04] MEDS: GABAPENTIN 300 MG CAP PO SCH (20:55)
[2024-08-05] MEDS: LORazepam 2 MG/1 ML VIAL IV PRN (01:13)
[2024-08-05] MEDS: diazePAM 5 MG/ML 10ML VIAL IV STA (03:34)
--- NOTE | 2024-08-05 06:55 | Communication Note ---
Date of Service: August 05, 2024 Notifed by nursing that patient was having continually high AWSS despite protocol Ativan, received one time max dose of 3mg. I went to bedside, AWSS com pleted by nurse at this time and score of 9 despite 3mg ativan one hour prior. Discussed with Dr. Clay considering his prior withdrawal admissions, ordered IV Valium 10mg. Went to bedside 30 minutes after valium administration, some improvement with tremors but continued to have hallucinations and orientation varies minute to minute. Consider additional scheduled ativan in between protocol/AWSS ativan as well as addition valium if needed. Resident Activity Tracking Resident Involvement: Resident Care Provided Care Provided: Adult Hospital Medicine
[2024-08-05 07:23] LABS: Basophils # (auto) 0.04 K/uL (0.00-0.20); Basophils % (auto) 1.4 %; Eosinophils # (auto) 0.07 K/uL (0.00-0.50); Eosinophils % (auto) 2.4 %; Hematocrit (blood only) 35.7 % (42.0-52.0); Hemoglobin 11.6 g/dl (14.0-18.0); Immature Granulocytes # (auto) 0.01 K/uL (0.01-0.20); Immature Granulocytes % (auto) 0.3 %; Lymphocytes # (auto) 1.15 K/uL (1.20-3.40); Lymphocytes % (auto) 39.8 %; Mean Corpuscular Hemoglobin 30.9 pg (25.0-34.0); Mean Corpuscular Hgb Conc 32.5 g/dL (32.0-36.0); Mean Corpuscular Volume 95.2 fL (80.0-100.0); Mean Platelet Volume 10.3 fL (9.4-12.4); Monocytes % (auto) 10.4 %; Neutrophils # (auto) 1.32 K/uL (1.40-6.50); Neutrophils % (auto) 45.7 %; Platelet Count 134 K/uL (130-400); RDW Coefficient of Variation 12.9 % (11.5-14.5); Red Blood Count 3.75 M/uL (4.70-6.10); White Blood Count 2.89 K/ul (4.8-10.8)
--- NOTE | 2024-08-05 07:23 | Hospitalist Progress Note ---
Date of Service August 05, 2024 Assessment & Plan (1) Alcohol withdrawal: (2) Opioid use disorder, moderate, in sustained remission: (3) Anemia: (4) HTN (hypertension): (5) Depression, unspecified: (6) Elevated liver enzymes: Plan 1. Alcohol Withdrawal Patient presents with withdrawal symptoms including intermittent confusion, tachycardia, hypertension, and tremors. Goal to send patient to [facility] as requested after he is medically cleared Maintain 1:1 sitter Lorazepam 3mg IV PRN for ISAAK score >10 Chlordiazepoxide 50mg IV q6h Gabapentin 600 mg 2x daily 200 mg IV thiamine 1x daily in the morning Current nutrition status WNL- total protein 7.9, albumin 4.5. Encourage 3 meals per day, oral nutrition intake. Possibly consider ensure smoothies if unable to tolerate solid food Reassess electrolyte status, folic acid, B12 Monitor glucose due to risk hypoglycemia, Wernicke encephalopathy. Give dextrose prn. Continuous cardiac monitoring May require ICU due to history of seizure, delirium tremens with withdrawal 2.Opioid use disorder Continue suboxone 1 tab TID 3. Tobacco Use Ordered 14mg Nicotine patch 4. Anemia Monitor CBC 5. HTN Continue amlodipine 5mg-olmesartan 40mg 6. Elevated liver enzymes Have trended into normal range. Continue to monitor Evaluate Hepatitis status, Will order hepatitis panel in am labs 7. Nocturnal hypoxia Continue to monitor SpO2 2L O2 nasal canula in room Consider longer cannula due to patient's active nature and close proximity to the wall. Disposition: Admit to PCU telemetry Full code Regular diet VTE PPx: Lovenox 40 mg SQ q24h Admission and Anticipated Discharge Date Admission Date: August 04, 2024 Supervising Physician Co-Signing Physician Notes Attending Physician Supervision Note: I independently interviewed and examined the patient and verified the hanna history and physical, reviewed labs and image studies and agree with findings and care plan noted above. Restless in bed - getting out of bed. Confused at times and diaphoretic. Ate breakfast. Drinking water as well. vitals noted - HR ranging in 80s - 90s. Regular rhythm. Alcohol withdrawal/Severe AUD- -Increase librium to 50mgs qid considering high AWSS scores and needs for high prn lorazepam doses. -Maintain outpatient dose of gabapentin to avoid withdrawal in acute setting. -one on one at bedside. -low threshold to adding phenobarb and ICU transfer - have already discussed with Dr. Light. -consider adding CO2 monitor if seems oversedated. -Thiamine. -Discussed naltrexone once stable OUD - continue suboxone. TUD - nicotine patch Pancytopenia - likely myelosuppression from chronic severe AUD. Counts stable -will consider liver imaging and further evaluation once stable. Transaminitis - likely from AUD. Will get hepatitis panel in am. -Get history of hep A/B immunization. Lovenox. Baljeet Vaughan is a 48M with a hx AUD, OUD presenting voluntarily for alcohol withdrawal, elevated liver enzymes. Last drink yesterday morning. Reports drinking 20-25 beers per day. He wakes during the night to drink a beer which he keeps next to his bed because he feels like he is withdrawaling. Denies current illicit substance use. Uses chew. Has a tin of chew in the room. Needs nicotine patch. Clement has been seen in the past for AUD and OUD. He is currently on suboxone treatment for OUD. He states that he has been using suboxone for 11 years. [facility] is [facility], where he has been seen in the past. Historically, Clement has experienced seizures and delirium while withdrawing. He has seizure precautions in place. He is very confused and attempted to pack up his things and get out of bed while connected to monitors. He was very difficult to redirect. Lives at home in [place] with his parents. 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 This morning, Clement endorses increased shakiness, nausea and confusion. ISAAK Score: 9 Clement was able to tolerate breakfast PO this morning. Review of Systems Review of Systems: See HPI above Constitutional: Endorses increased shakiness Eyes: Denies changes in vision. Ear, Nose, Mouth, Throat: Endorses cough and nasal congestion. Respiratory: Denies SOB, dyspnea. Cardiovascular: Additional Comments: Denies CP, palpitations. Gastrointestinal: Endorses nausea. Denies abd pain, vomiting. Musculoskeletal: Endorses baseline back and knee pain. Receives injections outpatient. Integumentary: Denies rashes, skin changes Neurologic: Feels that he is confused and cannot think clearly. Difficulty recalling information. Psychiatric: Denies anxiety, depression. Denies suicidal ideation, homicidal ideation. Physical Exam Physical Exam: Patient was trying to get up despite being connected to monitors. Difficult to redirect. Also noted he had a tin of chewing tobacco next to his bed. Nasal cannula moved to side of face when I entered. Replaced for him. O2 dropped multiple times during evaluation, especially with exertion. Bed of head raised and seizure precautions in place. Constitutional: Clement is confused and has difficulty holding a conversation. He endorses sweating overnight and increased shakiness and nausea this morning. Eyes: Horizontal nystagmus. Difficulty keeping eyes open. EOMI. PERRLA. ENMT: No lymphadenopathy. Oral cavity clear of erythema or exudate. Respiratory: Lungs clear to auscultation bilaterally. No wheezing, rales or rhonchi. O2 sat dropping to 80s multiple times during evaluation. Currently has short O2 hose which is often pulled from the wall as he moves around. Cardiovascular: Regular rate and rhythm. No murmurs rubs or gallops. Peripheral pulses +2 in all extremities. No lower extremity edema. Gastrointestinal (Abdomen): Normal bowel sounds. No abd tenderness. No hepatomegaly or splenomegaly. Skin: Warm, diaphoretic. No rashes or lesions. Neurologic: Level of consciousness: Confused, Drowsy Loses train of thought easily. Difficulty keeping attention. Difficulty recalling past events. Increased shakiness in bilateral upper extremities Psychiatric: Orientation: oriented to person, oriented to place and oriented to time Eye Contact: + poor eye contact Motor Behavior: + tremor Affect: + flat affect Thought Process: + thought blocking Suicidal Thoughts: denies suicidal thoughts Homicidal Thoughts: denies homicidal thoughts Hallucinations: + auditory hallucinations Judgment: + impaired judgement Results & Data Results & Data Vital Signs (Past 12 Hours) Vital Signs Temp Pulse Pulse Resp BP Pulse Ox O2 Del Method 08/05/24 05:36 61 08/05/24 04:51 37 C 58 L 18 149/97 H 99 Nasal Cannula 08/05/24 03:24 36.8 C 59 L 18 140/90 93 Room Air 08/04/24 23:15 37.2 C 61 16 128/90 96 Room Air 08/04/24 19:18 36.7 C 72 20 119/82 98 Nasal Cannula O2 Flow Rate 08/05/24 05:36 08/05/24 04:51 2 08/05/24 03:24 08/04/24 23:15 08/04/24 19:18 2.0 Laboratory Results etoh 307 H glucose 88 wnl Na 134-->138 trending upward Cl 95--> 99 trending upward Alt 73-->60 trending downward Ast 83-->59 trending downward WBC 2.89 L RBC 3.75 L Hgb 11.6 L Hct 3.51 L Plt 134 WNL ISAAK 9 upon my assessment at 8:30 am, now reported 14 from RN at 12:30 pm
[2024-08-05] MEDS: LORazepam 2 MG/1 ML VIAL IV STA ×2 (07:24→12:35)
[2024-08-05 07:40] LABS: Albumin Globulin Ratio 1.3 (0.9-2); Albumin Level 4.5 gm/dl (3.4-5.0); BUN Creatinine Ratio 17.6 (10-20); Bilirubin,Total 0.7 mg/dl (0.2-1.0); Calcium 8.9 mg/dl (8.6-10.3); Creatinine Clr Calc Pharmacy 110.9 ml/min; Globulin 3.4 gm/dl (2.5-4.0); Potassium 4.2 mmol/L (3.5-5.1); Total Protein 7.9 gm/dl (6.0-8.3)
--- NOTE | 2024-08-05 08:55 | Electrocardiogram Report ---
Test Reason : Blood Pressure : */* mmHG Vent. Rate : 61 BPM Atrial Rate : 61 BPM P-R Int : 138 ms QRS Dur : 90 ms QT Int : 464 ms P-R-T Axes : 39 20 40 degrees QTcB Int : 467 ms Normal sinus rhythm Diffuse Minor Nonspecific T wave abnormality Prolonged QT Abnormal ECG When compared with ECG of 10-Dec-2023 11:54, Nonspecific T wave abnormality now present Confirmed by Goldy Dowd ([id number]) on 08/05/2024 8:55:18 AM Referred By: REFERRED SELF Confirmed By: Goldy Dowd
[2024-08-05] MEDS ORDERED: VORTIOXETINE HYDROBROMIDE PO SCH (09:00)
[2024-08-05] MEDS: ESCITALOPRAM OXALATE 20 MG TAB PO SCH (09:34)
[2024-08-05] MEDS: amLODIPine BESYLATE 5 MG TAB PO SCH (09:34)
[2024-08-05] MEDS: THIAMINE HCL 100 MG TAB PO SCH (09:34)
[2024-08-05] MEDS: FOLIC ACID 1 MG TAB PO SCH (09:34)
[2024-08-05] MEDS: LOSARTAN POTASSIUM 50 MG TAB PO SCH (09:34)
[2024-08-05] MEDS: VORTIOXETINE HYDROBROMIDE PO SCH (09:35)
[2024-08-05] MEDS: GABAPENTIN 300 MG CAP PO ONE (12:05)
[2024-08-05] MEDS: chlordiazePOXIDE HCl 25 MG CAP PO SCH ×2 (12:07→15:02)
[2024-08-05] MEDS ORDERED: chlordiazePOXIDE HCl 25 MG CAP PO SCH (15:00)
[2024-08-05] MEDS: NICOTINE 14 MG/24 HR PATCH TD SCH (16:09)
[2024-08-05] MEDS ORDERED: LORazepam 2 MG/1 ML VIAL IV SCH (21:30)
[2024-08-05] MEDS: GABAPENTIN 300 MG CAP PO SCH (22:15)
[2024-08-05] MEDS: LORazepam 1 MG TAB PO SCH (22:23)
[2024-08-06] MEDS: LORazepam 2 MG/1 ML VIAL IV SCH (00:21)
--- NOTE | 2024-08-06 06:47 | Hospitalist Progress Note ---
Date of Service August 06, 2024 Assessment & Plan (1) Alcohol withdrawal: (2) Opioid use disorder, moderate, in sustained remission: (3) Anemia: (4) HTN (hypertension): (5) Depression, unspecified: (6) Elevated liver enzymes: Plan 1. Alcohol Withdrawal Patient presents with withdrawal symptoms including intermittent confusion, tachycardia, hypertension, and tremors. Past 48 hr eva since last drink so withdrawal seizures becoming less likely Goal to send patient to [facility] as requested after he is medically cleared Decrease Ativan to 1 mg Q3 scheduled Start Librium taper tomorrow Maintain 1:1 sitter Chlordiazepoxide 50mg IV q6h Gabapentin 600 mg 2x daily 100 mg thiamine PO 1x daily in the morning Current nutrition status WNL- total protein 8.5, albumin 4.7. Encourage 3 meals per day, oral nutrition intake. Possibly consider Ensure if unable to tolerate solid food due to tremor Monitor glucose due to risk hypoglycemia, Wernicke encephalopathy. Give dextrose prn. Continuous cardiac monitoring 2.Opioid use disorder Continue suboxone 1 tab TID 3. Tobacco Use Ordered 14mg Nicotine patch 4. Anemia Improving based on CBC this morning Continue to monitor CBC 5. HTN Continue amlodipine 5mg-olmesartan 40mg 6. Elevated liver enzymes Trending down into normal range Continue to monitor Hepatitis panel pending 7. Nocturnal hypoxia Continue to monitor SpO2 2L O2 nasal canula in room Consider longer cannula due to patient's active nature and close proximity to the wall. Disposition: Admit to PCU telemetry Full code Regular diet VTE PPx: Lovenox 40 mg SQ q24h Admission and Anticipated Discharge Date Admission Date: August 04, 2024 Supervising Physician Co-Signing Physician Notes Attending Physician Supervision Note: I independently interviewed and examined the patient and verified the hanna history and physical, reviewed labs and image studies and agree with findings and care plan noted above. Tremulous on waking up this am but mostly slept. On revisiting - seemed better while awake. Placed on scheduled lorazepam last night in conjunction with ongoing librium vitals noted. comfortable in bed. breathing unlabored no accessory muscles good effort skin no rashes no pallor or icterus neuro no focal deficits. Alcohol withdrawal/Severe AUD- -Continue Librium to 50mgs qid for next 24 hours with scheduled lorazepam (dose decrease to 1mgs q3hrs from 2mgs q3hrs) -if continues to improve - start weaning BZD in am. -Maintain outpatient dose of gabapentin to avoid withdrawal in acute setting. -one on one at bedside. -Thiamine. OUD - continue suboxone. TUD - nicotine patch Pancytopenia - likely myelosuppression from chronic severe AUD. Counts stable -will consider liver imaging and further evaluation once stable. Transaminitis - likely from AUD. -Hepatitis panel pending. -Should have hep A/B immunization if already not done. Lovenox. Subjective Clement is a 48M with a hx AUD, OUD presenting voluntarily for alcohol withdrawal, elevated liver enzymes. >48 hrs since last drink. AWSS 7. Clement slept through the night and kept his supplemental O2 and monitors on. Nurse reports he was slightly confused when waking once to urinate, but was easily redirected. Clement has no concerns this morning. He reports feeling much better than yesterday. Still shaking but feels this is improved. No longer sweating or nauseous. I sat him up to eat breakfast. He has had some difficulty eating due to tremor, but has been able to eat each meal. Review of Systems Constitutional: Denies fever, night sweats. Endorses restful sleep overnight. Feels improved from yesterday. Eyes: Denies changes in vision, blurry vision. Respiratory: Denies SOB, dyspnea. Cardiovascular: Additional Comments: Denies CP, palpitations. Gastrointestinal: Denies abd pain, nausea, vomiting, diarrhea. Musculoskeletal: Endorses back pain. Neurologic: Reports improved cognition and coordination. Psychiatric: Denies anxiety, depression. Physical Exam Constitutional: Alert and oriented x4. Can stay focused and hold a conversation much better than yesterday. Did not require redirection. Able to thoughtfully listen to and provide answers to questions. Eyes: PERRLA, EOMI. ENMT: Extraocular movements intact. Moist mucus membranes. Neck: Supple; no lymphadenopathy; trachea midline. Respiratory: On 2L of O2 nasal cannula. Lungs clear to auscultation bilaterally. No wheezing, rales or rhonchi. Cardiovascular: RRR; S1/S2 normal; no murmurs/rubs/gallops; pulses intact and symmetric. Skin: Not diaphoretic. Warm, dry without signs of tenting; no cyanosis; no rashes, bruising, lesions, or erythema noted. Neurologic: Bilateral hand tremor present. Difficulty with fine motor skills, such as holing a fork. Coordination poor. Speech is comprehendible. Patient able to recall past events, answer questions and maintain a single conversation. Psychiatric: Pleasant, cooperative. Appropriate mood and affect. Able to make eye contact, but does not maintain. Answers all of my questions. Results & Data Results & Data Vital Signs (Past 12 Hours) Vital Signs Temp Pulse Resp BP Pulse Ox O2 Del Method O2 Flow Rate 08/06/24 04:21 36.5 C 56 L 16 152/92 H 99 Nasal Cannula 2 08/06/24 00:20 36.4 C L 60 18 145/95 H 100 Nasal Cannula 2 08/05/24 20:30 36.7 C 94 H 18 156/96 H 100 Nasal Cannula 2 08/05/24 19:13 36.7 C 70 20 171/106 H 94 Room Air Laboratory Results ALT (53) and AST (40) continue to trend down Hepatitis panel pending CBC shows increase of WBC, RBC, HCT and HGB since yesterday-trending towards normal Resident Activity Tracking Resident Involvement: Resident Care Provided Care Provided: Adult Hospital Medicine
[2024-08-06 08:00] LABS: Basophils # (auto) 0.03 K/uL (0.00-0.20); Eosinophils # (auto) 0.07 K/uL (0.00-0.50); Eosinophils % (auto) 2.4 %; Hematocrit (blood only) 37.6 % (42.0-52.0); Hemoglobin 12.5 g/dl (14.0-18.0); Immature Granulocytes # (auto) 0.01 K/uL (0.01-0.20); Immature Granulocytes % (auto) 0.3 %; Lymphocytes # (auto) 0.97 K/uL (1.20-3.40); Mean Corpuscular Hemoglobin 31.6 pg (25.0-34.0); Mean Corpuscular Hgb Conc 33.2 g/dL (32.0-36.0); Mean Corpuscular Volume 94.9 fL (80.0-100.0); Mean Platelet Volume 9.7 fL (9.4-12.4); Monocytes % (auto) 10.2 %; Neutrophils # (auto) 1.56 K/uL (1.40-6.50); Neutrophils % (auto) 53.1 %; Platelet Count 142 K/uL (130-400); RDW Coefficient of Variation 12.8 % (11.5-14.5); Red Blood Count 3.96 M/uL (4.70-6.10); White Blood Count 2.94 K/ul (4.8-10.8)
[2024-08-06 08:18] LABS: Albumin Globulin Ratio 1.2 (0.9-2); Albumin Level 4.7 gm/dl (3.4-5.0); BUN Creatinine Ratio 17.4 (10-20); Bilirubin,Total 0.8 mg/dl (0.2-1.0); Calcium 9.3 mg/dl (8.6-10.3); Creatinine Clr Calc Pharmacy 109.6 ml/min; Globulin 3.8 gm/dl (2.5-4.0); Total Protein 8.5 gm/dl (6.0-8.3)
[2024-08-06 11:05] LABS: Hep B Surface Ag with confirm Negative (Negative)
[2024-08-06 11:10] LABS: Hep C Ab Rflx HepCQuant RNA Negative (Negative)
[2024-08-06] MEDS: LORazepam 1 MG TAB PO SCH ×2 (11:16→19:29)
[2024-08-07] MEDS: LORazepam 2 MG/1 ML VIAL IV STA ×3 (00:36→04:35)
--- NOTE | 2024-08-07 01:16 | Communication Note ---
Date of Service: August 07, 2024 Notified by nursing that Mr. Oswald had been repeatedly attempting to get out of bed in an unsafe manner. From 19:00 until 00:00 he had received a collective total of 8mg IV Ativan per AWSS protocol as well as his scheduled Librium and scheduled PO Ativan. A 1:1 order was placed for patient safety. At approximately 00:30, patient scored AWSS of 11 so 3mg IV Ativan was ordered, after reassessment his AWSS was 10. Dr. Clay and I were present at bedside, patient was attempting to get out of bed and per staff had been frequently hallucinating. Upon chart review, it appears that the scheduled PO doses of Ativan had been reduced from 2mg to 1mg during the day shift (08/06). Considering patient has had consistently high AWSS scores since the reduction of PO Ativan dose, I increased the scheduled PO Ativan to 2mg q3h as I ordered the night prior. At approximately 02:00, patient scored 14 on AWSS, so decision was made to order Valium 10mg IV which had previously been beneficial during this admission when withdrawal symptoms were resistant to Ativan. At 02:23, nursing notified me that patient was now scoring 19 on AWSS, was not stopping jumping out of bed and no longer re-directable so orders were placed for soft limb restrains. An additional 3mg IV Ativan was also ordered at this time. At approximately 03:00, patient was now scoring AWSS of 21. An additional 2mg IV Ativan was given per protocol. As patient's AWSS was continuing to increase despite significant doses of benzodiazepines, I contacted the control analyst [facility] and asked for the patient to be evaluated for transfer to ICU status. I was at bedside when the patient was evaluated, I ordered and additional 10mg IV Valium and placed orders for the patient to be transferred from PCU to ICU status. Patient was transferred from room 204-1 to room 108-1 in the ICU. Resident Activity Tracking Resident Involvement: Resident Care Provided Care Provided: Adult [facility] Medicine
[2024-08-07] MEDS: LORazepam 1 MG TAB PO SCH ×2 (01:19→07:47)
[2024-08-07] MEDS: diazePAM 5 MG/ML 10ML VIAL IV STA ×2 (02:13→03:43)
[2024-08-07] MEDS ORDERED: STAT IV Infusion **Titration per Protocol STA (03:49)
[2024-08-07] MEDS: dexMEDEtomidine 200 MCG/50 ML BAG IV SCH (04:07)
--- NOTE | 2024-08-07 04:10 | Critical Care Consultation ---
Date of Consultation August 07, 2024 Assessment & Plan (1) Alcohol withdrawal: (2) Acute hyperactive alcohol withdrawal delirium: (3) Anemia: (4) Elevated liver enzymes: (5) Opioid use disorder, moderate, in sustained remission: (6) Anxiety: Plan Reason Critically Ill: 48 YOM presents for requested ETOH detox. Patient initially admitted on 08/04/24- he is now with persistent elevated AWSS scores, tachycardia, HTN, diaphoresis, and delirium- and requiring escelating doses of BZDS. To ICU for adjunctive therapy. Neuro - ETOH withdrawal, Anxiety, Hx of Opioid abuse on Suboxone, CAM ICU: [facility] - Patient with ETOH withdraw- - Precedex infusion - AWSS Ativan q6h - 3mg Oral Ativan scheduled q4-6 hours - Will hold on loading with Phenobarb at this time as he has received ~18mg Ativan over past 24 hours and has received 8mg Ativan within last 3 hours as well as 20mg IV Midazolam - if refractory to Precedex consider starting with 6mg/kg load and walking in dose - Continue Librium- increase to 100mg q8 h - Continue gabapentin - Continue Suboxone - Continue Escitalopram Cardiac - Hx HTN - no acute needs - Current HTN and Tachycardia at this time likely related to his ETOH withdraw - Continue [place] Respiratory - No acute needs - Follow respiratory status with sedation needs- ETcO2 if patient will leave on at this time likely to just add to agitation GI - NO acute needs, elevated LFTS - Diet as tolerated - PPI - LFTs elevated secondary to ETOH misuse- improved following admission continue supportive care RENAL/LYTES - No acute needs - No acute needs ENDO - NO acute needs HEME -anemia, leukopenia - Likely secondary to bone marrow suppression from ETOH misuse- PLT count improved ID - NO concern at this time for infective causes LINES/IV ACCESS - PIV Continue use of these lines DVT PROPHYLAXIS - SCDS, Lovenox DISPO: ICU until symptoms of withdraw are better controlled I have personally spent 45 minutes of critical care time in the direct management of this patient. This is a life/limb threatening event. This includes time spent evaluating patient, direct bedside care, chart review, placing orders, interpretation of diagnostic studies, discussion with consultants, patient, and family members, as well as other required patient management activities. This time is exclusive of all separately billable procedures, and teaching time and separate from and in addition to any other critical care service time. Thank you for allowing us to participate in the care of this patient. Please refer to my attending physician's documentation for any further recommendations. Supervising Physician Co-Signing Physician Notes Patient seen and examined. EMR reviewed. Discussed with AVNI and agree with assessment plan as noted. Discussed with bedside nurse and on multidisciplinary rounds. Patient transferred to the ICU due to progressive delirium related to alcohol withdrawal. He was initially on Precedex which was turned off about an hour ago. Scheduled Ativan was increased. He is also on Celexa Suboxone and gabapentin. Continue current measures. If refractory, may consider phenobarbital though concomitant medications may increase risk of respiratory insufficiency. Continue thiamine and folate. Unclear endpoint as the patient's had frequent readmissions for alcohol withdrawal. If the patient has no intention of alcohol abstinence, providing him oral alcohol during admissions may be appropriate History of Present Illness Reason for Consultation: Alcohol Withdrawl Requesting Physician: Antionette Clay DO Attending Physician: Sandra Feliz MD History of Present Illness 48 YOM with medical history of: ETOH misuse, HTN, Depression, opioid use disorder (on buprenorphine). Patient was initially admitted on as patient requested ETOH detox through the [facility]. Reported last drink was 08/04/24 in the morning and reports 20-25 beers daily. Patient was initially treated with gabapentin (normal outpatient medications), Librium, and Ativan based on AWSS. He was initiated on standing Ativan doses on 08/05/24 as well as AWSS, score. His medications were adjusted by his hospitalist team on 08/07/24 with decrease in scheduled Ativan. This evening patient became more agitated, combative with staff, tachycardic and hypertensive. He was with both increasing Ativan needs and remaining with elevated AWSS scores, the decision was made to transfer to ICU for adjunctive therapy. Patient AWSS scores have been persistently 19-21, since midnight the patient has received 15 mg of Ativan and 10mg x2 of IV Valium. He remains pulling at his restraints, shaking his side rails, attempting to get out of bed, he is diaphoretic, tachycardic, and hypertensive. Will initiate Precedex infusion without bolus at this time secondary to the amount of BZDs he has received, would be somewhat risky at this time to initiate Phenobarbital in regards to sedation effects. Will place on scheduled Ativan 3mg q6h and AAWS coverage. CODE: FULL Allergies Allergy/AdvReac Type Severity Reaction Status Date / Time bupropion AdvReac Severe Anxiety Verified 07/16/24 07:38 [From Wellbutrin SR] Home Medications Medication Instructions Recorded Confirmed Type buprenorphine 8 mg-naloxone 2 mg 1 film sublingual TID #1 ea 09/13/23 08/04/24 Rx sublingual film (Suboxone) amlodipine 5 mg-olmesartan 40 mg 1 tab PO DAILY #90 tabs 09/26/23 08/04/24 Rx tablet escitalopram oxalate 20 mg tablet 20 mg PO DAILY #90 tabs 11/01/23 08/04/24 Rx gabapentin 600 mg tablet 600 mg PO QID 90 days #360 tabs 01/02/24 08/04/24 Rx ondansetron HCl 4 mg tablet 4 mg PO Q8H PRN nausea and 03/20/24 08/04/24 Rx vomiting #30 tabs vortioxetine 20 mg tablet 20 mg PO DAILY 08/04/24 08/04/24 History (Trintellix) Patient History Medical History History of abnormal electrocardiogram History of fall Hx of opioid abuse Alcohol use disorder, severe, dependence Alcoholic fatty liver Delirium tremens History of healed fragility fracture Suicidal intent Seizure (06/27/20) Psychosis Surgical History No significant past surgical history Family History Grandmother Breast cancer Social History Smoking Status: Never smoker Tobacco Type: Smokeless Tobacco (Dip or Chew) Age Started Using Tobacco: 13; Second Hand Exposure: No; Do You Dip or Chew Tobacco: Yes; Hx Alcohol Use: Yes Alcohol type: beer Alcohol Intake Frequency: 4 or More x per/Week Alcohol Intake Frequency Comment: a case daily (15 beers) Hx Substance Use: Yes Last Used Substance Other:: treatment in the past Preferred Language: Armenian Communication Ability: Effective Technical Support Specialist Required: No Beliefs That Will Affect Care: None marital status: Single Current Living Situation: Family current occupational status: employed Other Information That Helps Us Care for You: No Feels Safe at Home: Yes Safety Concerns: Feels Safe At This Time Diet: regular caffeine: Yes Assistive Devices: Glasses Review of Systems Review of Systems: Limited secondary to encephalopathy as per HPI Physical Exam Physical Exam: PHYSICAL EXAM: General: awake, disoriented, unable to redirect Head: Normocephalic, atraumatic ENT: PERRL, EOMI, mucous membranes dry Neuro: AAO x 1, speech slurred and not appropriate, strength intact bilaterally 5/5, sensation intact and equal all extremities Chest: equal rise and fall of the chest, no accessory muscle use, no heaves or thrills, Clear to auscultation, on room air, Cardiac: Regular rate and rhythm, telemetry reviewed- sinus tachycardia, skin warm and diaphoretic, cap refill <3 seconds, peripheral pulses +2, S1S2 GI: NABS x 4 quadrants, soft, nontender to palpation, no rebound, guarding or tenderness : Spontaneously voiding Psych: Agitated, hyperactive Results & Data Results & Data Vital Signs (Past 12 Hours) Vital Signs Temp Pulse Resp BP Pulse Ox O2 Del Method 08/07/24 03:00 37 C 84 20 169/111 H 08/07/24 02:00 36.5 C 70 18 145/114 H Room Air 08/06/24 23:05 36.8 C 70 19 136/92 96 Room Air 08/06/24 20:56 18 08/06/24 19:33 36.7 C 65 11 L 133/88 99 Room Air Laboratory Results Abnormal lab results 08/06/24 Range/Units 07:46 WBC 2.94 L (4.8-10.8) K/ul RBC 3.96 L (4.70-6.10) M/uL Hgb 12.5 L (14.0-18.0) g/dl Hct 37.6 L (42.0-52.0) % Lymph # (Auto) 0.97 L (1.20-3.40) K/uL Carbon Dioxide 33 H (21-32) mmol/L Glucose 102 H (70-99(Fasting)) mg/dl AST 40 H (13-39) U/L ALT 53 H (7-52) U/L Total Protein 8.5 H (6.0-8.3) gm/dl Medications Administered Current Inpatient Medications Acetaminophen (Acetaminophen 325 Mg Tab) 650 mg PO Q4H PRN PRN Reason: Pain or Fever Stop: 09/03/24 15:51 Amlodipine Besylate (Amlodipine Besylate 5 Mg Tab) 5 mg PO DAILY [facility] Stop: 09/04/24 08:59 Last Admin: 08/06/24 09:30 Dose: 5 mg Buprenorphine/Naloxone (Buprenorphine/Naloxone 8/2 Mg Tab) 1 tab SL TID@0600,1200,1800 [facility] Stop: 09/03/24 17:59 Last Admin: 08/06/24 17:14 Dose: 1 tab Chlordiazepoxide HCl (Chlordiazepoxide Hcl 25 Mg Cap) 50 mg PO Q6H [facility] Stop: 09/04/24 14:28 Last Admin: 08/07/24 01:19 Dose: 50 mg Enoxaparin Sodium (Enoxaparin Inj 40 Mg/0.4 Ml Syr) 40 mg SQ Q24H [facility] Stop: 09/03/24 20:59 Last Admin: 08/06/24 20:58 Dose: 40 mg Escitalopram Oxalate (Escitalopram Oxalate 20 Mg Tab) 20 mg PO DAILY [facility] Stop: 09/04/24 08:59 Last Admin: 08/06/24 09:29 Dose: 20 mg Folic Acid (Folic Acid 1 Mg Tab) 1 mg PO QAM [facility] Stop: 09/04/24 08:59 Last Admin: 08/06/24 09:30 Dose: 1 mg Gabapentin (Gabapentin 300 Mg Cap) 600 mg PO BID [facility] Stop: 09/04/24 20:59 Last Admin: 08/06/24 20:58 Dose: 600 mg Famotidine (Pepcid 20mg Iv Push) 20 mg in 5 mls @ 2.5 mls/min IV Q12H [facility] Stop: 09/03/24 15:59 Last Admin: 08/06/24 22:30 Dose: 2.5 mls/min Dexmedetomidine/Sodium Chloride (Precedex) 200 mcg in 50 mls @ 7.6 mls/hr IV .Q6H35M [facility]; Protocol Stop: 08/11/24 03:59 Lorazepam (Lorazepam 2 Mg/1 Ml Vial) 1 mg IV UD PRN; Protocol PRN Reason: EtOH Withdrawal AWSS Score 6,7 Stop: 09/03/24 12:49 Last Admin: 08/04/24 20:59 Dose: 1 mg Lorazepam (Lorazepam 2 Mg/1 Ml Vial) 2 mg IV UD PRN; Protocol PRN Reason: EtOH Withdrawal AWSS Score 8,9 Stop: 09/03/24 12:49 Last Admin: 08/07/24 03:13 Dose: 2 mg Lorazepam (Lorazepam 1 Mg Tab) 2 mg PO Q3H [facility] Stop: 09/06/24 01:14 Last Admin: 08/07/24 01:19 Dose: 2 mg Losartan Potassium (Losartan Potassium 50 Mg Tab) 100 mg PO DAILY [facility]; Protocol Stop: 09/04/24 08:59 Last Admin: 08/06/24 09:29 Dose: 100 mg Miscellaneous (Remove Nicoderm Patch) 1 each N/A Q24H [facility] Stop: 09/05/24 14:58 Last Admin: 08/06/24 15:02 Dose: 1 each Nicotine (Nicotine 14 Mg/24 Hr Patch) 1 patch TD Q24H [facility] Stop: 09/04/24 15:29 Last Admin: 08/07/24 02:19 Dose: 1 patch Ondansetron HCl (Ondansetron Inj 2 Mg/Ml 2 Ml Vial) 4 mg IV Q6H PRN PRN Reason: Nausea And Vomiting Stop: 09/03/24 15:51 Last Admin: 08/05/24 19:26 Dose: 4 mg Thiamine HCl (Thiamine Hcl 100 Mg Tab) 100 mg PO QAM [facility] Stop: 09/04/24 08:59 Last Admin: 08/06/24 09:29 Dose: 100 mg Vortioxetine (Vortioxetine Hydrobromide) 1 each PO DAILY [facility] Stop: 09/04/24 08:59 Last Admin: 08/06/24 09:29 Dose: 1 each Coding Level of Care Code 57173 CRITICAL CARE 1ST 30-74M Diagnoses Alcohol withdrawal F10.939 Acute hyperactive alcohol withdrawal delirium F10.931 Anemia D64.9 Elevated liver enzymes R74.8 Opioid use disorder, moderate, in sustained remission F11.21 Anxiety F41.9
[2024-08-07 04:57] LABS: Basophils # (auto) 0.04 K/uL (0.00-0.20); Eosinophils % (auto) 2.6 %; Hematocrit (blood only) 35.4 % (42.0-52.0); Hemoglobin 11.9 g/dl (14.0-18.0); Immature Granulocytes # (auto) 0.01 K/uL (0.01-0.20); Immature Granulocytes % (auto) 0.3 %; Lymphocytes # (auto) 1.34 K/uL (1.20-3.40); Lymphocytes % (auto) 34.5 %; Mean Corpuscular Hemoglobin 31.5 pg (25.0-34.0); Mean Corpuscular Hgb Conc 33.6 g/dL (32.0-36.0); Mean Corpuscular Volume 93.7 fL (80.0-100.0); Mean Platelet Volume 10.6 fL (9.4-12.4); Monocytes % (auto) 10.3 %; Neutrophils # (auto) 1.99 K/uL (1.40-6.50); Neutrophils % (auto) 51.3 %; Platelet Count 150 K/uL (130-400); RDW Coefficient of Variation 12.5 % (11.5-14.5); RDW Standard Deviation 43.5 fL (36.4-46.3); Red Blood Count 3.78 M/uL (4.70-6.10); White Blood Count 3.88 K/ul (4.8-10.8)
[2024-08-07 05:08] LABS: Albumin Globulin Ratio 1.3 (0.9-2); Albumin Level 4.8 gm/dl (3.4-5.0); BUN Creatinine Ratio 17.9 (10-20); Bilirubin,Total 0.7 mg/dl (0.2-1.0); Calcium 9.2 mg/dl (8.6-10.3); Creatinine Clr Calc Pharmacy 99.3 ml/min; Globulin 3.8 gm/dl (2.5-4.0); Potassium 3.9 mmol/L (3.5-5.1); Total Protein 8.6 gm/dl (6.0-8.3)
--- NOTE | 2024-08-07 06:32 | Hospitalist Progress Note ---
Date of Service August 07, 2024 Assessment & Plan (1) Alcohol withdrawal: (2) Opioid use disorder, moderate, in sustained remission: (3) Anemia: (4) HTN (hypertension): (5) Depression, unspecified: (6) Elevated liver enzymes: Plan 1. Alcohol Withdrawal Overnight, Pt's AWSS scores increased with peak at 21. Pt continued with progressing agitation, hallucinations and inability to be redirected. At that time, he was transferred to ICU for higher level of care. 3mg Ativan Q3 Hold phenobarb until patient is less sedated Consider removing soft restraints if patient remains sedated Currently on normal diet, consider soft diet due to aspiration risk with sedation Maintain 1:1 sitter Chlordiazepoxide 50mg IV q6h Gabapentin 600 mg 2x daily 100 mg thiamine PO 1x daily in the morning Current nutrition status WNL- Encourage 3 meals per day, oral nutrition intake. Possibly consider Ensure if unable to tolerate solid food due to tremor Monitor glucose due to risk hypoglycemia, Wernicke encephalopathy. Give dextrose prn. Continuous cardiac monitoring Goal to send patient to [facility] as requested after he is medically cleared 2.Opioid use disorder Continue suboxone 1 tab TID 3. Tobacco Use Continue 14mg Nicotine patch 4. Anemia Improving based on CBC this morning Continue to monitor CBC 5. HTN Continue amlodipine 5mg-olmesartan 40mg 6. Elevated liver enzymes Continue to monitor Hep C and Hep A negative Hep Bs Antigen and core IgM Ab are pending Consider Hep A and B immunizations in future 7. Nocturnal hypoxia Continue to monitor SpO2 Now on room air Disposition: ICU Full code Regular diet Admission and Anticipated Discharge Date Admission Date: August 04, 2024 Supervising Physician Co-Signing Physician Notes Attending Physician Supervision Note: I independently interviewed and examined the patient and verified the hanna history and physical, reviewed labs and image studies and agree with findings and care plan noted above. Transferred to ICU last night for worsening withdrawal symptoms. Soft restraints were placed for agitation. vitals noted. breathing unlabored, heart - regular rhythm. restless in bed. confused. Alcohol withdrawal/Severe AUD- -Now on Valium 20mgs Q8. AWSS protocol in place. -Continue SSRI. -Maintain outpatient dose of gabapentin. -one on one at bedside. -Thiamine. -Unsure of his plan to quit alcohol use snf - ICU considering oral alcohol. OUD - continue suboxone. TUD - nicotine patch Pancytopenia - Improved platelet count. WBC counts stable. likely myelosuppression from chronic severe AUD. -will consider liver imaging and further evaluation once stable. Transaminitis - likely from AUD. -Hepatitis panel negative -Should have hep A/B immunization as outpatient. Lovenox. Baljeet Vaughan is a 48M with a hx AUD, OUD presenting voluntarily for alcohol withdrawal, elevated liver enzymes. 3 days since last drink. Clement has been upgraded to ICU status. Clement did not tolerate the reduction of Ativan from 2mg Q3 to 1mg Q3. Overnight, his AWSS was 19-21 despite intervention. He was given 15 mg of ativan between midnight and 7 am, as well as 2x10mg IV valium. He consistently tried to get out of bed, despite having a 1:1 sitter. He was placed in soft restraints and upgraded to ICU status. His scheduled ativan was increased to 3mg Q4. ICU advises waiting to start phenobarb due to sedation effects of other medications. This morning, Clement is very sedated. He is unable to keep his eyes open. Attempting to eat breakfast but lethargic. Believes the year is 1992, but knows where he is and states that he is here for "intentional overdose". On re- examination, Clement was more alert, A&Ox4 and able to be redirected. Review of Systems Respiratory: Denies dyspnea, dysphagia. Cardiovascular: Additional Comments: Denies CP, palpitations. Gastrointestinal: Denies abd pain, nausea. Physical Exam Respiratory: Airway clear, no dyspnea Cardiovascular: RRR, no murmurs, rubs or gallops Skin: Diaphoretic, warm Neurologic: Tremor is improved from previous day Psychiatric: Not anxious appearing. Unable to maintain eye contact. Results & Data Results & Data Vital Signs (Past 12 Hours) Vital Signs Temp Pulse Pulse Resp BP BP Pulse Ox 08/07/24 06:02 57 L 16 93 08/07/24 06:00 139/87 08/07/24 05:29 152/90 H 08/07/24 05:16 151/99 H 08/07/24 05:15 61 13 92 08/07/24 05:01 142/91 H 08/07/24 04:57 72 13 95 08/07/24 03:00 37 C 84 20 169/111 H 08/07/24 02:00 36.5 C 70 18 145/114 H 08/07/24 00:00 61 08/06/24 23:05 36.8 C 70 19 136/92 96 08/06/24 20:56 18 08/06/24 19:33 36.7 C 65 11 L 133/88 99 O2 Del Method 08/07/24 06:02 08/07/24 06:00 08/07/24 05:29 08/07/24 05:16 08/07/24 05:15 08/07/24 05:01 08/07/24 04:57 08/07/24 03:00 08/07/24 02:00 Room Air 08/07/24 00:00 08/06/24 23:05 Room Air 08/06/24 20:56 08/06/24 19:33 Room Air Laboratory Results No electrolyte abnormalities CBC continues to trend upward Increase in liver enzymes Hep C and Hep A negative Resident Activity Tracking Resident Involvement: Resident Care Provided Care Provided: Adult Hospital Medicine
[2024-08-07] MEDS: chlordiazePOXIDE HCl 25 MG CAP PO SCH (07:47)
[2024-08-07] MEDS: diazePAM 5 MG TABLET PO SCH (13:01)
[2024-08-07 14:58] LABS: Hepatitis A Antibody IgM NON-REACTIVE (NON-REACTIVE); Hepatitis B Core Antibody IgM NON-REACTIVE (NON-REACTIVE)
[2024-08-07] MEDS: ZIPRASIDONE 20 MG/ML SDV IM STA (15:44)
[2024-08-07] MEDS ORDERED: chlordiazePOXIDE HCl 5 MG CAP PO SCH (19:00)
[2024-08-07] MEDS: FAMOTIDINE 20 MG TAB PO SCH (23:45)
[2024-08-08 04:36] LABS: Basophils # (auto) 0.03 K/uL (0.00-0.20); Basophils % (auto) 0.7 %; Eosinophils # (auto) 0.13 K/uL (0.00-0.50); Eosinophils % (auto) 3.2 %; Hematocrit (blood only) 36.5 % (42.0-52.0); Hemoglobin 12.4 g/dl (14.0-18.0); Immature Granulocytes # (auto) 0.02 K/uL (0.01-0.20); Immature Granulocytes % (auto) 0.5 %; Lymphocytes % (auto) 37.2 %; Mean Corpuscular Hemoglobin 31.6 pg (25.0-34.0); Mean Corpuscular Volume 93.1 fL (80.0-100.0); Mean Platelet Volume 10.3 fL (9.4-12.4); Monocytes # (auto) 0.38 K/uL (0.11-0.59); Monocytes % (auto) 9.4 %; Neutrophils # (auto) 1.97 K/uL (1.40-6.50); Platelet Count 160 K/uL (130-400); RDW Coefficient of Variation 12.4 % (11.5-14.5); RDW Standard Deviation 42.8 fL (36.4-46.3); Red Blood Count 3.92 M/uL (4.70-6.10); White Blood Count 4.03 K/ul (4.8-10.8)
[2024-08-08 04:54] LABS: Calcium 9.2 mg/dl (8.6-10.3); Creatinine Clr Calc Pharmacy 112.3 ml/min; Magnesium 2.1 mg/dl (1.7-2.4); Phosphorus 3.5 mg/dl (2.5-4.9); Potassium 3.7 mmol/L (3.5-5.1)
[2024-08-08] MEDS: POTASSIUM CHLORIDE CRTAB 20 MEQ TABCR PO STA (06:00)
--- NOTE | 2024-08-08 06:44 | Hospitalist Progress Note ---
Date of Service August 08, 2024 Assessment & Plan (1) Alcohol withdrawal: (2) Opioid use disorder, moderate, in sustained remission: (3) Anemia: (4) HTN (hypertension): (5) Depression, unspecified: (6) Elevated liver enzymes: Plan 1. Alcohol Withdrawal Maintain ICU placement until able to wean off Precedex Continue 20 mg diazepam Q8 Avoid librium due to elevated LFTs Initiated virtioxetine 20 mg daily Gabapentin 600 mg BID 100 mg thiamine PO daily in the morning Currently on normal diet, consider soft diet due to aspiration risk with sedation Current nutrition status WNL- Encourage 3 meals per day, oral nutrition intake. Consider Ensure if unable to tolerate solid food due to tremor Monitor glucose due to risk hypoglycemia, Wernicke encephalopathy. Give dextrose prn. Continuous cardiac monitoring Goal to send patient to [facility] as requested after he is medically cleared 2.Opioid use disorder Continue suboxone 1 tab TID 3. Tobacco Use Continue 14mg Nicotine patch 4. Anemia Improving based on CBC this morning Continue to monitor CBC 5. HTN Very elevated overnight. Blood pressure is coming down slightly since administration of losartan. Consider increase losartan if BP not improving. Discontinued amlodipine 5mg-olmesartan 40mg Initiated Losartan 100 mg daily If blood pressure allows, consider oral or transdermal clonidine 6. Elevated liver enzymes Continue to monitor-Recheck today Entire hepatitis panel negative Consider Hep A and B immunizations in future 7. Nocturnal hypoxia Continue to monitor SpO2 Now on room air Disposition: ICU Full code Regular diet Admission and Anticipated Discharge Date Admission Date: August 04, 2024 Supervising Physician Co-Signing Physician Notes Attending Physician Supervision Note: I independently interviewed and examined the patient and verified the hanna history and physical, reviewed labs and image studies and agree with findings and care plan noted above. Calmer today but confused. vitals noted. breathing unlabored, heart - regular rhythm. confused. Alcohol withdrawal/Severe AUD- -Valium 20mgs Q8 (No librium d/t elevated LFT). AWSS protocol in place. -Continue SSRI. Maintain outpatient dose of gabapentin. -Added ziprasidone prn for agitation last night. -Thiamine. OUD - continue suboxone. TUD - nicotine patch Pancytopenia - Counts improving. Improved platelet count. likely myelosuppression from chronic severe AUD. -will consider liver imaging and further evaluation once stable. Transaminitis - likely from AUD. -Hepatitis panel negative -Should have hep A/B immunization as outpatient. HTN- BP stable off amlodipine. ICU recommendation to consider clonidine in setting of AUD and Anxiety. NancynoxDory Vaughan is a 48M with a hx AUD, OUD presenting voluntarily for alcohol withdrawal, elevated liver enzymes. 4 days since last drink. This morning, Clement was asleep and difficult to arouse. His BP has been quite elevated overnight, currently 169/114. Currently losartan 100 mg PO daily. Last dose yesterday morning. Last recorded AWSS score 3. Restraints and 1:1 sitter had been removed, but were reimplemented around 10 am due to attempts to remove medical monitoring equipment. RN reports that he has been more cooperative. Having confusion about where he is but able to redirect and he was cooperative. On reassessment, Clement is up and eating. Tremor has diminished greatly. Eating lunch. Clement has no pain and no concerns at this time. Review of Systems Review of Systems: As above in HPI Physical Exam Constitutional: no acute distress; pleasant affect; non-toxic appearing; cooperative ENMT: normocephalic, atraumatic; no scleral icterus; PERRLA; vision and hearing grossly intact Respiratory: no acute respiratory distress; symmetrical chest wall expansion; clear breath sounds across all lung olivarez w/o adventitious sounds; no wheezing Cardiovascular: chest wall NTP; RRR; S1/S2 normal; no murmurs/rubs/gallops; pulses intact and symmetric Skin: warm, dry without signs of tenting; no cyanosis; no rashes, bruising, lesions, or erythema noted Neurologic: Bilateral hand tremor is present, but has diminished greatly. Pt having an easier time using utensils to eat lunch. A&Ox3; normal mood and affect; fluent speech Results & Data Results & Data Vital Signs (Past 12 Hours) Vital Signs Temp Pulse Resp BP Pulse Ox O2 Del Method 08/08/24 05:56 96 Room Air 08/08/24 05:03 55 L 15 08/08/24 05:00 169/114 H 08/08/24 04:54 56 L 14 08/08/24 04:00 167/105 H 08/08/24 04:00 50 L 17 08/08/24 03:15 36.5 C 56 L 16 08/08/24 03:02 172/119 H 08/08/24 03:02 172/119 H 08/08/24 03:00 184/108 H 08/08/24 02:54 56 L 18 08/08/24 02:06 53 L 17 08/08/24 01:03 48 L 17 08/08/24 01:01 165/124 H 08/08/24 01:01 165/124 H 08/08/24 00:57 60 17 08/08/24 00:03 60 14 08/08/24 00:00 64 08/08/24 00:00 130/97 08/08/24 00:00 130/97 08/08/24 00:00 130/97 08/07/24 23:54 57 L 16 08/07/24 23:00 57 L 17 97 08/07/24 23:00 158/100 H 08/07/24 22:06 60 18 98 08/07/24 22:00 149/103 H 08/07/24 22:00 149/103 H 08/07/24 22:00 149/103 H 08/07/24 21:54 59 L 17 98 08/07/24 21:09 57 L 19 97 08/07/24 21:00 149/105 H 08/07/24 21:00 36.4 C L 149/105 H 08/07/24 21:00 149/105 H 08/07/24 20:48 59 L 19 97 08/07/24 20:27 60 18 97 08/07/24 20:00 155/105 H 08/07/24 20:00 155/105 H 08/07/24 19:42 60 17 97 08/07/24 19:21 62 19 96 Laboratory Results No electrolyte abnormalities CBC shows blood counts improving Nutrition status good
--- NOTE | 2024-08-08 07:40 | Critical Care Progress Note ---
Date of Service August 08, 2024 Assessment & Plan (1) Alcohol withdrawal: (2) Opioid use disorder, moderate, in sustained remission: (3) Elevated liver enzymes: Plan Impression: 48-year-old male with history of chronic alcohol abuse admitted with request for detox. He was transferred to the ICU due to persistent elevation in alcohol withdrawal scores despite use of scheduled and symptom driven benzodiazepines. He was initiated on Precedex and has had a favorable response. Recommendations: 1. Alcohol withdrawal: Continue Precedex and attempt to wean as tolerated. Will continue scheduled Valium. Avoid Librium given elevation in LFTs. Continue symptom driven Ativan. For severe agitation will continue to use antipsychotics. Continue thiamine and folate. Patient is already taking gabapentin in the outpatient setting. 2. Elevated LFTs: Recheck in AM. 3. Continue current diet. 4. Hypertension: Discontinue Norvasc. If blood pressure allows, oral or transdermal clonidine would be appropriate 5. Continue Suboxone Keep in ICU until he is able to wean off of Precedex. Discussed with critical care nurse at bedside and on multidisciplinary rounds Admission and Anticipated Discharge Date Admission Date: August 04, 2024 Subjective Patient seen and examined. EMR reviewed. He is currently sedated. 1 dose of Geodon yesterday and continues to receive IV Precedex. Review of Systems Review of Systems: Unobtainable due to reduced consciousness Physical Exam Constitutional: well nourished Sedated on Precedex Neck: trachea midline, no thyromegaly Respiratory: normal respiratory effort, lungs clear to auscultation Cardiovascular: RRR, no murmur, no edema Gastrointestinal (Abdomen): normal bowel sounds, soft, nontender, no hepatosplenomegaly Musculoskeletal: Extremities: extremities normal to inspection Skin: no rashes, warm and dry Neurologic: Sedated Lymphatic: no cervical lymphadenopathy Results & Data Results & Data Vital Signs (Past 12 Hours) Vital Signs Temp Pulse Resp BP Pulse Ox O2 Del Method 08/08/24 05:56 96 Room Air 08/08/24 05:03 55 L 15 08/08/24 05:00 169/114 H 08/08/24 04:54 56 L 14 08/08/24 04:00 167/105 H 08/08/24 04:00 50 L 17 08/08/24 03:15 36.5 C 56 L 16 08/08/24 03:02 172/119 H 08/08/24 03:02 172/119 H 08/08/24 03:00 184/108 H 08/08/24 02:54 56 L 18 08/08/24 02:06 53 L 17 08/08/24 01:03 48 L 17 08/08/24 01:01 165/124 H 08/08/24 01:01 165/124 H 08/08/24 00:57 60 17 08/08/24 00:03 60 14 08/08/24 00:00 64 08/08/24 00:00 130/97 08/08/24 00:00 130/97 08/08/24 00:00 130/97 08/07/24 23:54 57 L 16 08/07/24 23:00 57 L 17 97 08/07/24 23:00 158/100 H 08/07/24 22:06 60 18 98 08/07/24 22:00 149/103 H 08/07/24 22:00 149/103 H 08/07/24 22:00 149/103 H 08/07/24 21:54 59 L 17 98 08/07/24 21:09 57 L 19 97 08/07/24 21:00 149/105 H 08/07/24 21:00 36.4 C L 149/105 H 08/07/24 21:00 149/105 H 08/07/24 20:48 59 L 19 97 08/07/24 20:27 60 18 97 08/07/24 20:00 155/105 H 08/07/24 20:00 155/105 H 08/07/24 19:42 60 17 97 Critical Care Results & Data Vital Signs (Past 12 Hours) Vital Signs Temp Pulse Resp BP Pulse Ox O2 Del Method 08/08/24 05:56 96 Room Air 08/08/24 05:03 55 L 15 08/08/24 05:00 169/114 H 08/08/24 04:54 56 L 14 08/08/24 04:00 167/105 H 08/08/24 04:00 50 L 17 08/08/24 03:15 36.5 C 56 L 16 08/08/24 03:02 172/119 H 08/08/24 03:02 172/119 H 08/08/24 03:00 184/108 H 08/08/24 02:54 56 L 18 08/08/24 02:06 53 L 17 08/08/24 01:03 48 L 17 08/08/24 01:01 165/124 H 08/08/24 01:01 165/124 H 08/08/24 00:57 60 17 08/08/24 00:03 60 14 08/08/24 00:00 64 08/08/24 00:00 130/97 08/08/24 00:00 130/97 08/08/24 00:00 130/97 08/07/24 23:54 57 L 16 08/07/24 23:00 57 L 17 97 08/07/24 23:00 158/100 H 08/07/24 22:06 60 18 98 08/07/24 22:00 149/103 H 08/07/24 22:00 149/103 H 08/07/24 22:00 149/103 H 08/07/24 21:54 59 L 17 98 08/07/24 21:09 57 L 19 97 08/07/24 21:00 149/105 H 08/07/24 21:00 36.4 C L 149/105 H 08/07/24 21:00 149/105 H 08/07/24 20:48 59 L 19 97 08/07/24 20:27 60 18 97 08/07/24 20:00 155/105 H 08/07/24 20:00 155/105 H 08/07/24 19:42 60 17 97 Lab & Micro Results (Past 24 Hours) RBC 3.92 M/uL (4.70-6.10) L 08/08/24 WBC 4.03 K/ul (4.8-10.8) L 08/08/24 Hgb 12.4 g/dl (14.0-18.0) L 08/08/24 Hct 36.5 % (42.0-52.0) L 08/08/24 MCV 93.1 fL (80.0-100.0) 08/08/24 MCH 31.6 pg (25.0-34.0) 08/08/24 MCHC 34.0 g/dL (32.0-36.0) 08/08/24 RDW Standard Deviation 42.8 fL (36.4-46.3) 08/08/24 RDW Coefficient of Variation 12.4 % (11.5-14.5) 08/08/24 Plt Count 160 K/uL (130-400) 08/08/24 MPV 10.3 fL (9.4-12.4) 08/08/24 Neutrophils (%) (Auto) 49.0 % 08/08/24 Lymphocytes (%) (Auto) 37.2 % 08/08/24 Monocytes # (Auto) 0.38 K/uL (0.11-0.59) 08/08/24 Eosinophils # (Auto) 0.13 K/uL (0.00-0.50) 08/08/24 Immature Granulocyte % (Auto) 0.5 % 08/08/24 Neutrophils # (Auto) 1.97 K/uL (1.40-6.50) 08/08/24 Lymphocytes # (Auto) 1.50 K/uL (1.20-3.40) 08/08/24 Monocytes # (Auto) 0.38 K/uL (0.11-0.59) 08/08/24 Eosinophils # (Auto) 0.13 K/uL (0.00-0.50) 08/08/24 Basophils # (Auto) 0.03 K/uL (0.00-0.20) 08/08/24 Immature Granulocyte # (Auto) 0.02 K/uL (0.01-0.20) 4 Na 139 mmol/L (136-145) 08/08/24 K 3.7 mmol/L (3.5-5.1) 08/08/24 Cl 103 mmol/L (98-107) 08/08/24 CO2 26 mmol/L (21-32) 08/08/24 Anion Gap 10 (3-11) 08/08/24 BUN 16 mg/dl (6-23) 08/08/24 Creatinine 0.84 mg/dl (0.6-1.4) 08/08/24 BUN/Creatinine Ratio 19.0 (10-20) 08/08/24 Glu 106 mg/dl (70-99(Fasting)) H 08/08/24 Ca 9.2 mg/dl (8.6-10.3) 08/08/24 Phosphorus Level 3.5 mg/dl (2.5-4.9) 08/08/24 Mg 2.1 mg/dl (1.7-2.4) 08/08/24 04:11 Calcium Level 9.2 mg/dl (8.6-10.3) 08/08/24 04:11 I & O Totals 24 Hours 08/07/24 08/08/24 08/09/24 06:59 06:59 06:59 Intake Total 144.763 / 144.763 676.520 / 676.520 4.307 / 4.307 Output Total 450 / 450 575 / 575 Balance -305.237 / -305.237 101.520 / 101.520 4.307 / 4.307 Cumulative 08/04/24 09:22 thru 08/08/24 07:04 Intake Total 2389.290 Output Total 1375 Balance 1014.290 RT Ventilator Mngmt (Last Documented) Ventilator Ordered Settings Respiratory Rate 15 08/08/24 05:03 Ventilator - PT Measurements Respiratory Rate 15 End-Tidal CO2 30 Coding Level of Care Code 21889 SUB INP/OBS CARE 3/50MIN Diagnoses Alcohol withdrawal F10.939 Opioid use disorder, moderate, in sustained remission F11.21 Elevated liver enzymes R74.8
[2024-08-08] MEDS: ZIPRASIDONE 20 MG/ML SDV IM PRN (14:08)
[2024-08-09 05:36] LABS: Basophils # (auto) 0.03 K/uL (0.00-0.20); Basophils % (auto) 0.7 %; Eosinophils # (auto) 0.16 K/uL (0.00-0.50); Hematocrit (blood only) 36.3 % (42.0-52.0); Hemoglobin 11.9 g/dl (14.0-18.0); Lymphocytes # (auto) 1.48 K/uL (1.20-3.40); Lymphocytes % (auto) 36.7 %; Mean Corpuscular Hemoglobin 31.3 pg (25.0-34.0); Mean Corpuscular Hgb Conc 32.8 g/dL (32.0-36.0); Mean Corpuscular Volume 95.5 fL (80.0-100.0); Mean Platelet Volume 10.3 fL (9.4-12.4); Monocytes # (auto) 0.58 K/uL (0.11-0.59); Monocytes % (auto) 14.4 %; Neutrophils # (auto) 1.78 K/uL (1.40-6.50); Neutrophils % (auto) 44.2 %; Platelet Count 159 K/uL (130-400); RDW Coefficient of Variation 12.6 % (11.5-14.5); RDW Standard Deviation 44.4 fL (36.4-46.3); White Blood Count 4.03 K/ul (4.8-10.8)
[2024-08-09 05:39] LABS: BUN Creatinine Ratio 21.1 (10-20); Calcium 9.2 mg/dl (8.6-10.3); Creatinine Clr Calc Pharmacy 124.1 ml/min; Phosphorus 4.8 mg/dl (2.5-4.9); Potassium 3.6 mmol/L (3.5-5.1)
--- NOTE | 2024-08-09 06:30 | Hospitalist Progress Note ---
Date of Service August 09, 2024 Assessment & Plan (1) Alcohol withdrawal: (2) Opioid use disorder, moderate, in sustained remission: (3) Anemia: (4) HTN (hypertension): (5) Depression, unspecified: (6) Elevated liver enzymes: Plan 1. Alcohol Withdrawal Recommendations from brick tester: Discontinue precedex-Last dose was 0400 on 08/09 Continue 20mg Geodon as PO, Give IM PRN for agitation Continue Valium 20mg PO Continue 20 mg diazepam Q8 Continue virtioxetine 20 mg daily Continue Gabapentin 600 mg BID Continue 100 mg thiamine PO daily LFTs assessed with next am labs. Continuous cardiac monitoring Consider downgrade to med/surg or DC to rehab if pt is stable overnight Goal to send patient to [facility] as requested after he is medically cleared 2.Opioid use disorder Continue suboxone 1 tab TID 3. Tobacco Use Continue 14mg Nicotine patch 4. Anemia Stable based on CBC this morning Continue to monitor CBC 5. HTN Continues elevated. Blood pressure is coming down slightly since administration of losartan. Consider increase losartan if BP not improving. Continue Losartan 100 mg daily Started Clonidine 0.2mg PO qam Continue to monitor Became hypotensive in afternoon LR Bolus given- BP normalized in 120's/80's 6. Elevated liver enzymes Entire hepatitis panel negative Consider Hep A and B immunizations in future Will reassess in am labs 7. Nocturnal hypoxia Continue to monitor SpO2 Now on room air Disposition: ICU Full code Regular diet Admission and Anticipated Discharge Date Admission Date: August 04, 2024 Supervising Physician Co-Signing Physician Notes Attending Physician Supervision Note: I independently interviewed and examined the patient and verified the hanna history and physical, reviewed labs and image studies and agree with findings and care plan noted above. Got agitated again last night. Precedex was added. Wanted to leave AMA. Doubt he had the capacity to make medical decision at that time. Precedex d/jimy this am since sedated. Geodon added as scheduled dosing. Has been calmer through the day. vitals noted. breathing unlabored, heart - regular rhythm. oriented x 3. Alcohol withdrawal/Severe AUD- -Valium 20mgs Q8. -Continue SSRI and gabapentin. -Added ziprasidone 20mgs BID. -anticipate improvement in overnight agitation -will keep in ICU overnight due to recurrent night time agitation and if stays stable - would be able to d/c home in am. OUD - continue suboxone. TUD - nicotine patch Pancytopenia - Counts improving. Improved platelet count. likely myelosuppression from chronic severe AUD. -to consider liver imaging and further evaluation in outpatient setting Transaminitis - likely from AUD. -Hepatitis panel negative -Should have hep A/B immunization as outpatient. HTN- BP dropped with clonidine. given LR 1L. Losartan held. Could consider lower dose of clonidine with further rise in BP. -d/jimy amlodipine. Lovenox. Baljeet Vaughan is a 48M with a hx AUD, OUD presenting voluntarily for alcohol withdrawal, elevated liver enzymes. 4 days since last drink. Overnight, Nurses report pt was agitated and mildly combative. He was attempting to get out of bed and demanding he has his chewing tobacco. His precedex was increased This morning, pt is sedated. He was able to be aroused with verbal and tactile stimulation. Pt denies nausea, pain or SOB. He was A & O x 3. Review of Systems Review of Systems: See HPI above Physical Exam Physical Exam: General: no acute distress; pleasant affect; non-toxic appearing; cooperative; SpO2 100 send on 2L NC HEENT: normocephalic, atraumatic; no scleral icterus; PERRLA; vision and hearing grossly intact Neck: supple; no lymphadenopathy; trachea midline Skin: warm, dry without signs of tenting; no cyanosis; no rashes, bruising, lesions, or erythema noted CV: chest wall NTP; RRR; S1/S2 normal; no murmurs/rubs/gallops; pulses intact and symmetric at radial, DP, and PT Lungs: no acute respiratory distress; symmetrical chest wall expansion; clear breath sounds across all lung olivarez w/o adventitious sounds; no wheezing ABD: Soft, NTP; BS present; no rebound/guarding; no distention MSK: no tics or fasciculations; no tremor; no edema noted in the LEs b/l, nonerythematous Neuro: A&Ox3; normal mood and affect; speech mildly slurred, but coherent; no fo christen deficits; Results & Data Results & Data Vital Signs (Past 12 Hours) Vital Signs Temp Pulse Pulse Resp BP BP Pulse Ox 08/09/24 06:00 36.6 C 51 L 14 171/96 H 100 08/09/24 05:00 54 L 17 171/95 H 100 08/09/24 04:00 36.8 C 51 L 14 178/99 H 100 08/09/24 03:21 36.8 C 55 L 18 164/104 H 100 08/09/24 02:00 54 L 17 175/101 H 100 08/09/24 02:00 147/97 H 08/09/24 01:02 52 L 15 171/106 H 100 08/09/24 00:34 53 L 16 176/105 H 100 08/09/24 00:01 54 L 14 171/104 H 100 08/09/24 00:00 54 L 08/08/24 23:05 68 19 138/96 98 08/08/24 22:00 177/97 H 08/08/24 22:00 36.6 C 58 L 20 177/97 H 100 08/08/24 21:01 36.9 C 58 L 20 120/83 99 08/08/24 20:03 37 C 78 17 97/77 L 98 08/08/24 20:00 08/08/24 19:00 80 O2 Del Method O2 Flow Rate 08/09/24 06:00 Nasal Cannula 08/09/24 05:00 Nasal Cannula 2 08/09/24 04:00 Nasal Cannula 2 08/09/24 03:21 Nasal Cannula 2 08/09/24 02:00 08/09/24 02:00 08/09/24 01:02 08/09/24 00:34 08/09/24 00:01 08/09/24 00:00 08/08/24 23:05 08/08/24 22:00 08/08/24 22:00 08/08/24 21:01 08/08/24 20:03 08/08/24 20:00 Nasal Cannula 2 08/08/24 19:00 Resident Activity Tracking Resident Involvement: Resident Care Provided Care Provided: Adult Hospital Medicine
--- NOTE | 2024-08-09 07:26 | Critical Care Progress Note ---
Date of Service August 09, 2024 Assessment & Plan (1) Alcohol withdrawal: (2) Opioid use disorder, moderate, in sustained remission: (3) Elevated liver enzymes: Plan Impression: 48-year-old male with history of chronic alcohol abuse admitted with request for detox. He was transferred to the ICU due to persistent elevation in alcohol withdrawal scores despite use of scheduled and symptom driven benzodiazepines. He was initiated on Precedex and has had a favorable response. Recommendations: 1. Alcohol withdrawal: Discontinue Precedex. Continue Valium 20 mg p.o. every 8. Add scheduled p.o Geodon and continue to use IM as needed Geodon for agitation.. Continue thiamine and folate. Patient is already taking gabapentin in the outpatient setting. 2. Elevated LFTs: Recheck in AM. 3. Continue current diet. 4. Hypertension: Start oral clonidine 5. Continue Suboxone If able to maintain off Precedex, can likely return to the floor. Will reassess later today Admission and Anticipated Discharge Date Admission Date: August 04, 2024 Subjective Patient seen and examined. EMR reviewed. Discussed with bedside critical care nurse and on multidisciplinary rounds. The patient is sedated this morning. They are to restart Precedex last evening. Review of Systems Review of Systems: Unobtainable due to reduced consciousness Physical Exam Constitutional: well nourished Neck: trachea midline, no thyromegaly Respiratory: normal respiratory effort, lungs clear to auscultation Cardiovascular: RRR, no murmur, no edema Gastrointestinal (Abdomen): normal bowel sounds, soft, nontender, no hepatosplenomegaly Musculoskeletal: Extremities: extremities normal to inspection Skin: no rashes, warm and dry Lymphatic: no cervical lymphadenopathy Results & Data Results & Data Vital Signs (Past 12 Hours) Vital Signs Temp Pulse Pulse Resp BP BP Pulse Ox 08/09/24 06:00 36.6 C 51 L 14 171/96 H 100 08/09/24 05:00 54 L 17 171/95 H 100 08/09/24 04:00 36.8 C 51 L 14 178/99 H 100 08/09/24 03:21 36.8 C 55 L 18 164/104 H 100 08/09/24 02:00 54 L 17 175/101 H 100 08/09/24 02:00 147/97 H 08/09/24 01:02 52 L 15 171/106 H 100 08/09/24 00:34 53 L 16 176/105 H 100 08/09/24 00:01 54 L 14 171/104 H 100 08/09/24 00:00 54 L 08/08/24 23:05 68 19 138/96 98 08/08/24 22:00 177/97 H 08/08/24 22:00 36.6 C 58 L 20 177/97 H 100 08/08/24 21:01 36.9 C 58 L 20 120/83 99 08/08/24 20:03 37 C 78 17 97/77 L 98 08/08/24 20:00 O2 Del Method O2 Flow Rate 08/09/24 06:00 Nasal Cannula 08/09/24 05:00 Nasal Cannula 2 08/09/24 04:00 Nasal Cannula 2 08/09/24 03:21 Nasal Cannula 2 08/09/24 02:00 08/09/24 02:00 08/09/24 01:02 08/09/24 00:34 08/09/24 00:01 08/09/24 00:00 08/08/24 23:05 08/08/24 22:00 08/08/24 22:00 08/08/24 21:01 08/08/24 20:03 08/08/24 20:00 Nasal Cannula 2 Critical Care Results & Data Vital Signs (Past 12 Hours) Vital Signs Temp Pulse Pulse Resp BP BP Pulse Ox 08/09/24 06:00 36.6 C 51 L 14 171/96 H 100 08/09/24 05:00 54 L 17 171/95 H 100 08/09/24 04:00 36.8 C 51 L 14 178/99 H 100 08/09/24 03:21 36.8 C 55 L 18 164/104 H 100 08/09/24 02:00 54 L 17 175/101 H 100 08/09/24 02:00 147/97 H 08/09/24 01:02 52 L 15 171/106 H 100 08/09/24 00:34 53 L 16 176/105 H 100 08/09/24 00:01 54 L 14 171/104 H 100 08/09/24 00:00 54 L 08/08/24 23:05 68 19 138/96 98 08/08/24 22:00 177/97 H 08/08/24 22:00 36.6 C 58 L 20 177/97 H 100 08/08/24 21:01 36.9 C 58 L 20 120/83 99 08/08/24 20:03 37 C 78 17 97/77 L 98 08/08/24 20:00 O2 Del Method O2 Flow Rate 08/09/24 06:00 Nasal Cannula 08/09/24 05:00 Nasal Cannula 2 08/09/24 04:00 Nasal Cannula 2 08/09/24 03:21 Nasal Cannula 2 08/09/24 02:00 08/09/24 02:00 08/09/24 01:02 08/09/24 00:34 08/09/24 00:01 08/09/24 00:00 08/08/24 23:05 08/08/24 22:00 08/08/24 22:00 08/08/24 21:01 08/08/24 20:03 08/08/24 20:00 Nasal Cannula 2 Lab & Micro Results (Past 24 Hours) RBC 3.80 M/uL (4.70-6.10) L 08/09/24 WBC 4.03 K/ul (4.8-10.8) L 08/09/24 Hgb 11.9 g/dl (14.0-18.0) L 08/09/24 Hct 36.3 % (42.0-52.0) L 08/09/24 MCV 95.5 fL (80.0-100.0) 08/09/24 MCH 31.3 pg (25.0-34.0) 08/09/24 MCHC 32.8 g/dL (32.0-36.0) 08/09/24 RDW Standard Deviation 44.4 fL (36.4-46.3) 08/09/24 RDW Coefficient of Variation 12.6 % (11.5-14.5) 08/09/24 Plt Count 159 K/uL (130-400) 08/09/24 MPV 10.3 fL (9.4-12.4) 08/09/24 Neutrophils (%) (Auto) 44.2 % 08/09/24 Lymphocytes (%) (Auto) 36.7 % 08/09/24 Monocytes # (Auto) 0.58 K/uL (0.11-0.59) 08/09/24 Eosinophils # (Auto) 0.16 K/uL (0.00-0.50) 08/09/24 Immature Granulocyte % (Auto) 0.0 % 08/09/24 Neutrophils # (Auto) 1.78 K/uL (1.40-6.50) 08/09/24 Lymphocytes # (Auto) 1.48 K/uL (1.20-3.40) 08/09/24 Monocytes # (Auto) 0.58 K/uL (0.11-0.59) 08/09/24 Eosinophils # (Auto) 0.16 K/uL (0.00-0.50) 08/09/24 Basophils # (Auto) 0.03 K/uL (0.00-0.20) 08/09/24 Immature Granulocyte # (Auto) 0.00 K/uL (0.01-0.20) L 08/09 Na 139 mmol/L (136-145) 08/09/24 K 3.6 mmol/L (3.5-5.1) 08/09/24 Cl 105 mmol/L (98-107) 08/09/24 CO2 27 mmol/L (21-32) 08/09/24 Anion Gap 7 (3-11) 08/09/24 BUN 16 mg/dl (6-23) 08/09/24 Creatinine 0.76 mg/dl (0.6-1.4) 08/09/24 BUN/Creatinine Ratio 21.1 (10-20) H 08/09/24 Glu 108 mg/dl (70-99(Fasting)) H 08/09/24 Ca 9.2 mg/dl (8.6-10.3) 08/09/24 Phosphorus Level 4.8 mg/dl (2.5-4.9) 08/09/24 Mg 2.0 mg/dl (1.7-2.4) 08/09/24 05:07 Calcium Level 9.2 mg/dl (8.6-10.3) 08/09/24 05:07 I & O Totals 24 Hours 08/08/24 08/09/24 08/10/24 06:59 06:59 06:59 Intake Total 676.520 / 676.520 235.372 / 235.372 2.027 / 2.027 Output Total 575 / 575 202 / 202 Balance 101.520 / 101.520 33.372 / 33.372 2.027 / 2.027 Cumulative 08/04/24 09:22 thru 08/09/24 07:03 Intake Total 2622.382 Output Total 1577 Balance 1045.382 RT Ventilator Mngmt (Last Documented) Ventilator Ordered Settings Respiratory Rate 14 08/09/24 06:00 Ventilator - PT Measurements Respiratory Rate 14 End-Tidal CO2 20 Coding Level of Care Code 30905 SUB INP/OBS CARE 2/35MIN Diagnoses Alcohol withdrawal F10.939 Opioid use disorder, moderate, in sustained remission F11.21 Elevated liver enzymes R74.8
[2024-08-09] MEDS: cloNIDine HCL 0.1 MG TAB PO SCH (09:13)
[2024-08-09] MEDS: POTASSIUM CHLORIDE CRTAB 20 MEQ TABCR PO STA (09:13)
[2024-08-09] MEDS: LACTATED RINGER'S 1,000 ML IV ONE (12:59)
[2024-08-10 04:49] LABS: Basophils # (auto) 0.04 K/uL (0.00-0.20); Basophils % (auto) 0.8 %; Eosinophils # (auto) 0.11 K/uL (0.00-0.50); Eosinophils % (auto) 2.1 %; Hematocrit (blood only) 34.8 % (42.0-52.0); Hemoglobin 11.5 g/dl (14.0-18.0); Immature Granulocytes # (auto) 0.02 K/uL (0.01-0.20); Immature Granulocytes % (auto) 0.4 %; Lymphocytes # (auto) 1.86 K/uL (1.20-3.40); Lymphocytes % (auto) 35.6 %; Mean Corpuscular Hemoglobin 31.5 pg (25.0-34.0); Mean Corpuscular Volume 95.3 fL (80.0-100.0); Mean Platelet Volume 10.6 fL (9.4-12.4); Monocytes # (auto) 0.84 K/uL (0.11-0.59); Monocytes % (auto) 16.1 %; Neutrophils # (auto) 2.36 K/uL (1.40-6.50); Platelet Count 172 K/uL (130-400); RDW Coefficient of Variation 12.8 % (11.5-14.5); RDW Standard Deviation 44.7 fL (36.4-46.3); Red Blood Count 3.65 M/uL (4.70-6.10); White Blood Count 5.23 K/ul (4.8-10.8)
[2024-08-10 05:15] LABS: Albumin Globulin Ratio 1.2 (0.9-2); Albumin Level 4.3 gm/dl (3.4-5.0); BUN Creatinine Ratio 19.4 (10-20); Bilirubin,Total 0.4 mg/dl (0.2-1.0); Calcium 9.2 mg/dl (8.6-10.3); Creatinine Clr Calc Pharmacy 101.4 ml/min; Globulin 3.6 gm/dl (2.5-4.0); Magnesium 1.8 mg/dl (1.7-2.4); Phosphorus 3.7 mg/dl (2.5-4.9); Potassium 3.9 mmol/L (3.5-5.1); Total Protein 7.9 gm/dl (6.0-8.3)
--- NOTE | 2024-08-10 06:43 | Hospitalist Progress Note ---
Date of Service August 10, 2024 Assessment & Plan (1) Alcohol withdrawal: (2) Opioid use disorder, moderate, in sustained remission: (3) Anemia: (4) HTN (hypertension): (5) Depression, unspecified: (6) Elevated liver enzymes: Plan 1. Alcohol Withdrawal AWSS overnight were 5-9. Discontinued precedex-Last dose was 0400 on 08/09. Pt able to maintain BP today with activity but noted to be unsteady on his feet. Recommendations from freezer machine operator: Continue 20mg Geodon as PO, Give 5mg IM PRN for agitation Continue Lorazepam 1-2mg IM PRN per AWSS Continue 20 mg diazepam Q8 Continue virtioxetine 20 mg daily Continue Gabapentin 600 mg BID Continue 100 mg thiamine PO daily. Hold SSRI Recommending return to medical floor Downgraded to PCU Continue AWSS protocol Decreased scheduled diazepam to 5mg PO q8h at 1500 dose Continue seizure precautions Continue fall precautions PT/OT eval for safety prior to placement in alcohol rehab PT recommends inpatient rehab prior to inpatient alcohol rehab facility- Will discuss with CM on 08/11 Goal to send patient to [facility] as requested after he is medically cleared 2.Opioid use disorder Continue suboxone 1 tab TID 3. Tobacco Use Continue 14mg Nicotine patch 4. Anemia Stable based on CBC this morning Continue to monitor CBC 5. HTN BP's elevated this morning, but has decreased and maintained at 110s/ 80's Hold Losartan 100 mg Reduced Clonidine 0.1mg PO qam, starting 08/11 Continue to monitor 6. Elevated liver enzymes AST mildly elevated at 46, ALT is 67. Trending back to normal Entire hepatitis panel negative Consider Hep A and B immunizations in future 7. Nocturnal hypoxia Supplemental O2 no longer needed to maintain O2 sat > 90% Continue to monitor SpO2 on room air Disposition: PCU Full code Regular diet VTE prophylaxis- Lovenox 40mg sq q24h Admission and Anticipated Discharge Date Admission Date: August 04, 2024 Supervising Physician Co-Signing Physician Notes I personally examined the patient and verified all hanna points of history and exam, discussed case, and agree with decision making with Dr Darling Alcohol withdrawal/Severe AUD- -Valium 5mgs Q8. -Continue SSRI and gabapentin. -continue ziprasidone 20mgs BID. -continue thiamine/folate OUD - continue suboxone. TUD - nicotine patch Pancytopenia - overall stable now. likely myelosuppression from chronic severe AUD. -to consider liver imaging and further evaluation in outpatient setting -follow periodic CBC Transaminitis - likely from AUD. -Hepatitis panel negative -Should have hep A/B immunization as outpatient. HTN- but with orthostatic hypotension - likely multifactorial - holding clonidine for now, encourage PO intake, continue to follow, pressures have been reasonable given the situation Lovenox. for physical rehab once bed available, otherwise as above Baljeet Vaughan is a 48M with a hx AUD, OUD presenting voluntarily for alcohol withdrawal, elevated liver enzymes. 6 days since last drink. Overnight, Pts AWSS ranged from 5-9. This morning, pt is asleep but easily aroused by voice. Pt is cooperative, but slurred speech and fidgeting. He denies CP, SOB, nausea, abdominal pain, or extremity numbness. Review of Systems Review of Systems: See HPI above Physical Exam Physical Exam: General: no acute distress; pleasant affect; non-toxic appearing; cooperative; No longer wearing O2 NC HEENT: normocephalic, atraumatic; no scleral icterus; PERRLA; vision and hearing grossly intact Neck: supple; no lymphadenopathy; trachea midline Skin: warm, dry without signs of tenting; no cyanosis; no rashes, bruising, lesions, or erythema noted CV: chest wall NTP; RRR; S1/S2 normal; no murmurs/rubs/gallops; pulses intact and symmetric at radial Lungs: symmetrical chest wall expansion; clear breath sounds across all lung olivarez w/o adventitious sounds; no wheezing ABD: Soft, NTP; BS present MSK: no tics or fasciculations; mild tremor; no edema noted in the LEs Neuro: A&Ox2, confusion regarding place; normal mood and affect; speech slurred, but coherent; no focal deficits; Results & Data Results & Data Vital Signs (Past 12 Hours) Vital Signs Temp Pulse Pulse Resp BP BP BP 08/10/24 05:00 36.5 C 135 H 16 158/104 H 08/10/24 02:00 86 17 128/84 08/10/24 01:00 129 H 15 125/82 08/10/24 00:00 37.5 C 112 H 22 142/99 H 08/10/24 00:00 107 H 08/09/24 23:35 106 H 22 147/89 H 08/09/24 23:00 126 H 22 147/89 H 08/09/24 22:30 37.5 C 82 18 112/84 08/09/24 22:00 37.5 C 109 H 18 98/64 L 08/09/24 21:00 36.6 C 89 16 107/72 08/09/24 20:00 80 16 102/57 L 08/09/24 19:00 36.6 C 91 H 21 104/85 Pulse Ox O2 Del Method 08/10/24 05:00 96 Room Air 08/10/24 02:00 94 08/10/24 01:00 92 08/10/24 00:00 95 08/10/24 00:00 08/09/24 23:35 98 Room Air 08/09/24 23:00 100 Room Air 08/09/24 22:30 100 Room Air 08/09/24 22:00 100 Room Air 08/09/24 21:00 08/09/24 20:00 08/09/24 19:00 95 Laboratory Results 08/10/24 Range/Units 04:11 WBC 5.23 (4.8-10.8) K/ul RBC 3.65 L (4.70-6.10) M/uL Hgb 11.5 L (14.0-18.0) g/dl Hct 34.8 L (42.0-52.0) % MCV 95.3 (80.0-100.0) fL MCH 31.5 (25.0-34.0) pg MCHC 33.0 (32.0-36.0) g/dL RDW Std Deviation 44.7 (36.4-46.3) fL RDW Coeff of Ric 12.8 (11.5-14.5) % Plt Count 172 (130-400) K/uL MPV 10.6 (9.4-12.4) fL Immature Gran % (Auto) 0.4 % Neut % (Auto) 45.0 % Lymph % (Auto) 35.6 % [place] % (Auto) 16.1 % Eos % (Auto) 2.1 % Baso % (Auto) 0.8 % Neut # (Auto) 2.36 (1.40-6.50) K/uL Lymph # (Auto) 1.86 (1.20-3.40) K/uL [place] # (Auto) 0.84 H (0.11-0.59) K/uL Eos # (Auto) 0.11 (0.00-0.50) K/uL Baso # (Auto) 0.04 (0.00-0.20) K/uL Immature Gran # (Auto) 0.02 (0.01-0.20) K/uL Sodium 136 (136-145) mmol/L Potassium 3.9 (3.5-5.1) mmol/L Chloride 104 (98-107) mmol/L Carbon Dioxide 26 (21-32) mmol/L Anion Gap 6 (3-11) BUN 18 (6-23) mg/dl Creatinine 0.93 (0.6-1.4) mg/dl Est Cr Clr Drug Dosing 101.4 ml/min eGFR 101.92 BUN/Creatinine Ratio 19.4 (10-20) Glucose 108 H (70-99(Fasting)) mg/dl Calcium 9.2 (8.6-10.3) mg/dl Phosphorus 3.7 D (2.5-4.9) mg/dl Magnesium 1.8 (1.7-2.4) mg/dl Total Bilirubin 0.4 (0.2-1.0) mg/dl AST 46 H (13-39) U/L ALT 67 H (7-52) U/L Alkaline Phosphatase 52 (34-104) U/L Total Protein 7.9 (6.0-8.3) gm/dl Albumin 4.3 (3.4-5.0) gm/dl Globulin 3.6 (2.5-4.0) gm/dl Albumin/Globulin Ratio 1.2 (0.9-2) Resident Activity Tracking Resident Involvement: Resident Care Provided Care Provided: Adult Hospital Medicine
--- NOTE | 2024-08-10 07:14 | Critical Care Progress Note ---
Date of Service August 10, 2024 Assessment & Plan (1) Alcohol withdrawal: (2) Opioid use disorder, moderate, in sustained remission: (3) Elevated liver enzymes: Plan Impression: 48-year-old male with history of chronic alcohol abuse admitted with request for detox. He was transferred to the ICU due to persistent elevation in alcohol withdrawal scores despite use of scheduled and symptom driven benzodiazepines. He was initiated on Precedex and has had a favorable response. Recommendations: 1. Alcohol withdrawal: Patient is now been off Precedex for greater than 24 hours. Continue Valium 20 mg p.o. every 8 as well as symptom driven Ativan. Continue scheduled p.o Geodon and continue to use IM as needed Geodon for agitation. Continue thiamine and folate. Patient is already taking gabapentin in the outpatient setting. Holding his SSRI 2. Elevated LFTs: Trending back to normal. 3. Continue current diet. 4. Hypotension: Yesterday when ambulating patient had low blood pressure and was symptomatic. He received little relief of crystalloid and his antihy pertensives were stopped. Is more tachycardic and hypertensive this morning so we will restart his oral clonidine but hold his other antihypertensives 5. Continue Suboxone Patient's critical care issues are resolved. Okay to transfer to the floor. Critical care services will sign off. Feel free to contact us with questions or concerns Admission and Anticipated Discharge Date Admission Date: August 04, 2024 Subjective Patient seen and examined. EMR reviewed. Discussed with bedside critical care nurse and with patient at bedside. He remains confused but is hemodynamically stable. He has not required any adjuvant medications overnight Review of Systems Review of Systems: Unobtainable due to cognitive status Physical Exam Constitutional: well nourished Neck: trachea midline, no thyromegaly Respiratory: normal respiratory effort, lungs clear to auscultation Cardiovascular: RRR, no murmur, no edema Gastrointestinal (Abdomen): normal bowel sounds, soft, nontender, no hepatosplenomegaly Musculoskeletal: Extremities: extremities normal to inspection Skin: no rashes, warm and dry Lymphatic: no cervical lymphadenopathy Results & Data Results & Data Vital Signs (Past 12 Hours) Vital Signs Temp Pulse Pulse Resp BP BP BP 08/10/24 06:04 158/97 H 08/10/24 06:00 36.5 C 102 H 15 178/130 H 08/10/24 05:00 36.5 C 135 H 16 158/104 H 08/10/24 04:00 36.6 C 98 H 20 166/102 H 08/10/24 03:00 117 H 20 129/83 08/10/24 02:00 86 17 128/84 08/10/24 01:00 129 H 15 125/82 08/10/24 00:00 37.5 C 112 H 22 142/99 H 08/10/24 00:00 107 H 08/09/24 23:35 106 H 22 147/89 H 08/09/24 23:00 126 H 22 147/89 H 08/09/24 22:30 37.5 C 82 18 112/84 08/09/24 22:00 37.5 C 109 H 18 98/64 L 08/09/24 21:00 36.6 C 89 16 107/72 08/09/24 20:00 80 16 102/57 L Pulse Ox O2 Del Method 08/10/24 06:04 08/10/24 06:00 08/10/24 05:00 96 Room Air 08/10/24 04:00 96 08/10/24 03:00 96 08/10/24 02:00 94 08/10/24 01:00 92 08/10/24 00:00 95 08/10/24 00:00 08/09/24 23:35 98 Room Air 08/09/24 23:00 100 Room Air 08/09/24 22:30 100 Room Air 08/09/24 22:00 100 Room Air 08/09/24 21:00 08/09/24 20:00 Critical Care Results & Data Vital Signs (Past 12 Hours) Vital Signs Temp Pulse Pulse Resp BP BP BP 08/10/24 06:04 158/97 H 08/10/24 06:00 36.5 C 102 H 15 178/130 H 08/10/24 05:00 36.5 C 135 H 16 158/104 H 08/10/24 04:00 36.6 C 98 H 20 166/102 H 08/10/24 03:00 117 H 20 129/83 08/10/24 02:00 86 17 128/84 08/10/24 01:00 129 H 15 125/82 08/10/24 00:00 37.5 C 112 H 22 142/99 H 08/10/24 00:00 107 H 08/09/24 23:35 106 H 22 147/89 H 08/09/24 23:00 126 H 22 147/89 H 08/09/24 22:30 37.5 C 82 18 112/84 08/09/24 22:00 37.5 C 109 H 18 98/64 L 08/09/24 21:00 36.6 C 89 16 107/72 08/09/24 20:00 80 16 102/57 L Pulse Ox O2 Del Method 08/10/24 06:04 08/10/24 06:00 08/10/24 05:00 96 Room Air 08/10/24 04:00 96 08/10/24 03:00 96 08/10/24 02:00 94 08/10/24 01:00 92 08/10/24 00:00 95 08/10/24 00:00 08/09/24 23:35 98 Room Air 08/09/24 23:00 100 Room Air 08/09/24 22:30 100 Room Air 08/09/24 22:00 100 Room Air 08/09/24 21:00 08/09/24 20:00 Lab & Micro Results (Past 24 Hours) RBC 3.65 M/uL (4.70-6.10) L 08/10/24 WBC 5.23 K/ul (4.8-10.8) 08/10/24 Hgb 11.5 g/dl (14.0-18.0) L 08/10/24 Hct 34.8 % (42.0-52.0) L 08/10/24 MCV 95.3 fL (80.0-100.0) 08/10/24 MCH 31.5 pg (25.0-34.0) 08/10/24 MCHC 33.0 g/dL (32.0-36.0) 08/10/24 RDW Standard Deviation 44.7 fL (36.4-46.3) 08/10/24 RDW Coefficient of Variation 12.8 % (11.5-14.5) 08/10/24 Plt Count 172 K/uL (130-400) 08/10/24 MPV 10.6 fL (9.4-12.4) 08/10/24 Neutrophils (%) (Auto) 45.0 % 08/10/24 Lymphocytes (%) (Auto) 35.6 % 08/10/24 Monocytes # (Auto) 0.84 K/uL (0.11-0.59) H 08/10/24 Eosinophils # (Auto) 0.11 K/uL (0.00-0.50) 08/10/24 Immature Granulocyte % (Auto) 0.4 % 08/10/24 Neutrophils # (Auto) 2.36 K/uL (1.40-6.50) 08/10/24 Lymphocytes # (Auto) 1.86 K/uL (1.20-3.40) 08/10/24 Monocytes # (Auto) 0.84 K/uL (0.11-0.59) H 08/10/24 Eosinophils # (Auto) 0.11 K/uL (0.00-0.50) 08/10/24 Basophils # (Auto) 0.04 K/uL (0.00-0.20) 08/10/24 Immature Granulocyte # (Auto) 0.02 K/uL (0.01-0.20) 4 Na 136 mmol/L (136-145) 08/10/24 K 3.9 mmol/L (3.5-5.1) 08/10/24 Cl 104 mmol/L (98-107) 08/10/24 CO2 26 mmol/L (21-32) 08/10/24 Anion Gap 6 (3-11) 08/10/24 BUN 18 mg/dl (6-23) 08/10/24 Creatinine 0.93 mg/dl (0.6-1.4) 08/10/24 BUN/Creatinine Ratio 19.4 (10-20) 08/10/24 Glu 108 mg/dl (70-99(Fasting)) H 08/10/24 Ca 9.2 mg/dl (8.6-10.3) 08/10/24 Phosphorus Level 3.7 mg/dl (2.5-4.9) 08/10/24 Total Bilirubin 0.4 mg/dl (0.2-1.0) 08/10/24 AST 46 U/L (13-39) H 08/10/24 ALT 67 U/L (7-52) H 08/10/24 Alkaline Phosphatase 52 U/L (34-104) 08/10/24 TP 7.9 gm/dl (6.0-8.3) 08/10/24 Albumin 4.3 gm/dl (3.4-5.0) 08/10/24 Globulin 3.6 gm/dl (2.5-4.0) 08/10/24 Albumin/Globulin Ratio 1.2 (0.9-2) 08/10/24 Mg 1.8 mg/dl (1.7-2.4) 08/10/24 04:11 Calcium Level 9.2 mg/dl (8.6-10.3) 08/10/24 04:11 I & O Totals 24 Hours 08/09/24 08/10/24 08/11/24 06:59 06:59 06:59 Intake Total 235.372 / 243.387 0339.676 / 1745.676 Output Total 202 / 202 1700 / 1700 Balance 33.372 / 33.372 45.676 / 45.676 Cumulative 08/04/24 09:22 thru 08/10/24 06:00 Intake Total 4366.031 Output Total 3277 Balance 1089.031 RT Ventilator Mngmt (Last Documented) Ventilator Ordered Settings Respiratory Rate 15 08/10/24 06:00 Ventilator - PT Measurements Respiratory Rate 15 End-Tidal CO2 27 Coding Level of Care Code 02144 SUB INP/OBS CARE 2/35MIN Diagnoses Alcohol withdrawal F10.939 Opioid use disorder, moderate, in sustained remission F11.21 Elevated liver enzymes R74.8
[2024-08-10] MEDS: MAGNESIUM OXIDE 400 MG TAB PO ONE (08:52)
[2024-08-10] MEDS: diazePAM 5 MG TABLET PO SCH (13:18)
[2024-08-11 04:35] LABS: Hematocrit (blood only) 35.5 % (42.0-52.0); Hemoglobin 11.8 g/dl (14.0-18.0); Mean Corpuscular Hemoglobin 31.9 pg (25.0-34.0); Mean Corpuscular Hgb Conc 33.2 g/dL (32.0-36.0); Mean Corpuscular Volume 95.9 fL (80.0-100.0); Mean Platelet Volume 10.3 fL (9.4-12.4); Platelet Count 193 K/uL (130-400); RDW Coefficient of Variation 12.8 % (11.5-14.5); RDW Standard Deviation 44.9 fL (36.4-46.3)
[2024-08-11 04:51] LABS: BUN Creatinine Ratio 14.8 (10-20); Calcium 9.6 mg/dl (8.6-10.3); Creatinine Clr Calc Pharmacy 107.1 ml/min; Potassium 4.1 mmol/L (3.5-5.1)
--- NOTE | 2024-08-11 07:37 | Hospitalist Progress Note ---
Date of Service August 11, 2024 Assessment & Plan (1) Alcohol withdrawal: (2) Opioid use disorder, moderate, in sustained remission: (3) Anemia: (4) HTN (hypertension): (5) Depression, unspecified: (6) Elevated liver enzymes: Plan 1. Alcohol Withdrawal AWSS overnight were 0-5. Discontinued precedex-Last dose was 0400 on 08/09. Pt transferred to PCU 08/10. t. 20mg Geodon PO this am, reduce to 10mg BID Continue Lorazepam 1-2mg IM PRN per AWSS Continue 5 mg diazepam Q8 Continue virtioxetine 20 mg daily- Brought in by his mother given in afternoon Continue Gabapentin 600 mg BID Continue 100 mg thiamine PO daily. Hold SSRI Will be downgraded to med/surg floor Continue AWSS protocol Continue seizure precautions Continue fall precautions PT/OT eval completed 08/10 PT recommends inpatient rehab prior to inpatient alcohol rehab facility- Awaiting placement at [facility] Goal to send patient to [facility] as requested after he is medically cleared 2.Opioid use disorder Continue suboxone 1 tab TID 3. Tobacco Use 14mg Nicotine patch 4. Anemia Stable based on CBC this morning Continue to monitor CBC 5. HTN BP's are maintaining well on current regimen Clonidine 0.1mg PO qam, starting 08/11 Hold Losartan 100 mg Continue to monitor 6. Elevated liver enzymes Trending back to normal Hepatitis panel negative Consider Hep A and B immunizations in future 7. Nocturnal hypoxia - Resolved Disposition: med/surg Full code Regular diet VTE prophylaxis- Lovenox 40mg sq q24h Admission and Anticipated Discharge Date Admission Date: August 04, 2024 Supervising Physician Co-Signing Physician Notes I personally examined the patient and verified all hanna points of history and exam, discussed case, and agree with decision making with Dr Darling feeling ok - a little groggy but just got some ativan - nursing noted that the majority of AWSS scoring was restlnessness and anxiety vitals noted slightly sedated nad breathing unlabored no accessory muscles good effort skin iwthout rashes pallor or icterus Alcohol withdrawal/Severe AUD- -Valium 5mgs Q8. -Continue SSRI and gabapentin. -Added ziprasidone 20mgs BID. -continue thiamine/folate OUD - continue suboxone. TUD - nicotine patch Pancytopenia - overall stable now. likely myelosuppression from chronic severe AUD. -to consider liver imaging and further evaluation in outpatient setting -follow periodic CBC Transaminitis - likely from AUD. -Hepatitis panel negative -Should have hep A/B immunization as outpatient. HTN- but with orthostatic hypotension - likely multifactorial - hold clonidine for now, encourage PO intake, continue to folllow Lovenox. for physical rehab once bed available, otherwise as above Baljeet Vaughan is a 48M with a hx AUD, OUD presenting voluntarily for alcohol withdrawal, elevated liver enzymes. 7 days since last drink. Overnight, Pts AWSS ranged from 0-5. This morning, pt is awake and A & O x 3. Pt is cooperative, mildly slurred speech. He denies CP, SOB, nausea, abdominal pain, or extremity numbness. Review of Systems Review of Systems: See HPI above Physical Exam Physical Exam: General: no acute distress; pleasant affect; non-toxic appearing; cooperative; HEENT: normocephalic, atraumatic; no scleral icterus; PERRLA; vision and hearing grossly intact Neck: supple; no lymphadenopathy; trachea midline Skin: warm, dry without signs of tenting; no cyanosis; no rashes, bruising, lesions, or erythema noted CV: RRR; S1/S2 normal; no murmurs/rubs/gallops; pulses intact and symmetric at radial Lungs: Nonlabored breathing, clear across all lung olivarez w/o adventitious sounds; no wheezing ABD: Soft, NTP; BS present MSK: no tics or fasciculations; no tremor; no edema noted in the LEs Neuro: A&Ox3, confusion regarding place; normal mood and affect; speech slurred, but coherent; no focal deficits; Results & Data Results & Data Vital Signs (Past 12 Hours) Vital Signs Temp Pulse Pulse Resp BP Pulse Ox O2 Del Method 08/11/24 07:28 60 18 135/98 96 Room Air 08/11/24 04:16 36.4 C L 80 15 152/107 H 97 Room Air 08/11/24 00:00 56 L Resident Activity Tracking Resident Involvement: Resident Care Provided Care Provided: Adult Hospital Medicine
[2024-08-11] MEDS: cloNIDine HCL 0.1 MG TAB PO SCH (08:18)
--- NOTE | 2024-08-11 12:11 | Billing Data ---
Date of Service August 11, 2024 Coding Level of Care Code 28188 SUB INP/OBS CARE
[2024-08-11] MEDS: VORTIOXETINE HYDROBROMIDE [PATIENT OWN MED] PO SCH (14:18)
[2024-08-11] MEDS: POLYETHYLENE (MIRALAX) 17 GM PACK PO SCH (23:16)
[2024-08-12] MEDS: diazePAM 5 MG TABLET PO ONE (00:56)
--- NOTE | 2024-08-12 07:20 | Hospitalist Progress Note ---
Date of Service August 12, 2024 Assessment & Plan (1) Alcohol withdrawal: (2) Opioid use disorder, moderate, in sustained remission: (3) Anemia: (4) HTN (hypertension): (5) Depression, unspecified: (6) Elevated liver enzymes: Plan 1. Alcohol Withdrawal Pt continues with daytime sleepiness and difficlty resting at night. His Geodon has been reduced. - 10mg Geodon PO BID - Continue 5 mg diazepam Q8 - Continue virtioxetine 20 mg daily - Continue Gabapentin 600 mg BID - Continue 100 mg thiamine PO daily. - Hold Lexapro - Continue AWSS protocol Continue Lorazepam 1-2mg IM PRN per AWSS - Continue seizure precautions - Continue fall precautions - PT/OT eval completed 08/10 PT recommends inpatient rehab prior to inpatient alcohol rehab facility- Pending placement at [facility] - Goal to send patient to [facility] as requested after he is medically cleared 2.Opioid use disorder - Continue suboxone 1 tab TID 3. Tobacco Use - Continue 14mg Nicotine patch 4. Anemia Stable based on CBC - Continue to monitor CBC 5. HTN BP's are maintaining well on current regimen - Clonidine 0.1mg PO qam, - Hold Losartan 100 mg - Continue to monitor 6. Elevated liver enzymes Trending back to normal. Hepatitis panel negative. - Consider Hep A and B immunizations in future 7. Nocturnal hypoxia - Resolved Disposition: med/surg Full code Regular diet VTE prophylaxis- Lovenox 40mg sq q24h Admission and Anticipated Discharge Date Admission Date: August 04, 2024 Supervising Physician Co-Signing Physician Notes I personally examined the patient and verified all hanna points of history and exam, discussed case, and agree with decision making with Dr Darling sleeping comfortably. no new problems noted. awaiting rehab - informed that auth has not beed submitted because 1:[address] vitals noted resting comfortably, appears nad breathing unlabored no accessory muscles good effort skin without rashes pallor or icterus Alcohol withdrawal/Severe AUD- -Valium 5mgs Q8. -Continue SSRI and gabapentin. -continue ziprasidone 20mgs BID. -continue thiamine/folate OUD - continue suboxone. TUD - nicotine patch Pancytopenia - overall stable now. likely myelosuppression from chronic severe AUD. -to consider liver imaging and further evaluation in outpatient setting -follow periodic CBC Transaminitis - likely from AUD. -Hepatitis panel negative -Should have hep A/B immunization as outpatient. HTN- but with orthostatic hypotension - likely multifactorial - holding clonidine for now, encourage PO intake, continue to follow, pressures have been reasonable given the situation Lovenox. for physical rehab once bed available, otherwise as above Subjective Clement is a 48M with a hx AUD, OUD presenting voluntarily for alcohol withdrawal, elevated liver enzymes. 7 days since last drink. Overnight, Pt had difficulty sleep. Received 5mg valium. This morning, pt is awake and A & O x 3. Pt is cooperative, mildly slurred speech. States he is still unsteady on his feet. He denies CP, SOB, nausea, abdominal pain, or extremity numbness. Review of Systems Review of Systems: See HPI above Physical Exam Physical Exam: General: no acute distress; pleasant affect; non-toxic appearing; cooperative; HEENT: normocephalic, atraumatic; no scleral icterus; PERRLA; vision and hearing grossly intact Neck: supple; no lymphadenopathy; trachea midline Skin: warm, dry without signs of tenting; no cyanosis; no rashes, bruising, lesions, or erythema noted CV: RRR; S1/S2 normal; no murmurs/rubs/gallops; pulses intact and symmetric at radial Lungs: Nonlabored breathing, clear across all lung olivarez w/o adventitious sounds; no wheezing ABD: Soft, NTP; BS present MSK: no tics or fasciculations; no tremor; no edema noted in the LEs Neuro: A&Ox3; normal mood and affect; speech slurred, but coherent; no focal deficits; Results & Data Results & Data Vital Signs (Past 12 Hours) Vital Signs Temp Pulse Resp BP Pulse Ox O2 Del Method 08/12/24 04:21 36.4 C 80 18 133/82 97 Room Air 08/12/24 00:18 36.8 C 72 20 184/100 H 96 Room Air 08/11/24 23:09 36.9 C 75 20 179/102 H 95 Room Air 08/11/24 21:00 Room Air 08/11/24 19:35 36.8 C 83 18 148/92 H 94 Room Air Resident Activity Tracking Resident Involvement: Resident Care Provided Care Provided: Adult [facility] Medicine
[2024-08-12 08:53] LABS: Hematocrit (blood only) 36.5 % (42.0-52.0); Mean Corpuscular Hemoglobin 31.1 pg (25.0-34.0); Mean Corpuscular Hgb Conc 32.9 g/dL (32.0-36.0); Mean Corpuscular Volume 94.6 fL (80.0-100.0); Mean Platelet Volume 10.6 fL (9.4-12.4); Platelet Count 242 K/uL (130-400); RDW Coefficient of Variation 12.4 % (11.5-14.5); RDW Standard Deviation 43.3 fL (36.4-46.3); Red Blood Count 3.86 M/uL (4.70-6.10); White Blood Count 3.73 K/ul (4.8-10.8)
[2024-08-12 09:04] LABS: BUN Creatinine Ratio 14.9 (10-20); Calcium 9.6 mg/dl (8.6-10.3); Creatinine Clr Calc Pharmacy 108.4 ml/min; Potassium 3.9 mmol/L (3.5-5.1)
--- NOTE | 2024-08-12 15:56 | Billing Data ---
Date of Service August 12, 2024 Coding Level of Care Code 60236 SUB INP/OBS CARE
[2024-08-12] MEDS: DOCUSATE SODIUM 100 MG CAP PO PRN (17:13)
--- NOTE | 2024-08-13 07:06 | Hospitalist Progress Note ---
Date of Service August 13, 2024 Assessment & Plan (1) Alcohol withdrawal: (2) Opioid use disorder, moderate, in sustained remission: (3) Anemia: (4) HTN (hypertension): (5) Depression, unspecified: (6) Elevated liver enzymes: Plan 1. Alcohol Withdrawal Pt continues with daytime sleepiness and difficlty resting at night. His Geodon has been reduced. - 10mg Geodon PO BID - Continue 5 mg diazepam Q8 - Continue virtioxetine 20 mg daily - Continue Gabapentin 600 mg BID - Continue 100 mg thiamine PO daily. - Hold Lexapro - Continue AWSS protocol Continue Lorazepam 1-2mg IM PRN per AWSS - Continue seizure precautions - Continue fall precautions - PT/OT eval completed 08/10 PT recommends inpatient rehab prior to inpatient alcohol rehab facility- Pending placement at [facility] - Goal to send patient to [facility] as requested after he is medically cleared 2.Opioid use disorder - Continue suboxone 1 tab TID 3. Tobacco Use - Continue 14mg Nicotine patch 4. Anemia Stable based on CBC - Continue to monitor CBC 5. HTN BP's are maintaining well on current regimen - Clonidine 0.1mg PO qam, - Hold Losartan 100 mg - Continue to monitor 6. Elevated liver enzymes Trending back to normal. Hepatitis panel negative. - Consider Hep A and B immunizations in future 7. Nocturnal hypoxia - Resolved Disposition: med/surg Full code Regular diet VTE prophylaxis- Lovenox 40mg sq q24h Admission and Anticipated Discharge Date Admission Date: August 04, 2024 Baljeet Vaughan is a 48M with a hx AUD, OUD presenting voluntarily for alcohol withdrawal, elevated liver enzymes. 7 days since last drink. Overnight, Pt had difficulty sleep. Received 5mg valium. This morning, pt is awake and A & O x 3. Pt is cooperative, reporting a good nights sleep.States he is still unsteady on his feet and difficulty with getting off bed. He also reports getting winded when walking with the walker. He denies CP, SOB, nausea, abdominal pain, or extremity numbness. Review of Systems Review of Systems: See HPI above Physical Exam Physical Exam: General: no acute distress; pleasant affect; non-toxic appearing; cooperative; HEENT: normocephalic, atraumatic; no scleral icterus; PERRLA; vision and hearing grossly intact Neck: supple; no lymphadenopathy; trachea midline Skin: warm, dry without signs of tenting; no cyanosis; no rashes, bruising, lesions, or erythema noted CV: RRR; S1/S2 normal; no murmurs/rubs/gallops; pulses intact and symmetric at radial Lungs: Nonlabored breathing, clear across all lung olivarez w/o adventitious sounds; no wheezing ABD: Soft, NTP; BS present MSK: no tics or fasciculations; no tremor; no edema noted in the LEs Neuro: A&Ox3; normal mood and affect; mildly speech slurred, but coherent; no focal deficits; Results & Data Results & Data Vital Signs (Past 12 Hours) Vital Signs Temp Pulse Resp BP Pulse Ox O2 Del Method 08/13/24 05:55 36.2 C L 68 16 130/92 99 Room Air 08/13/24 00:28 36.7 C 97 H 16 145/95 H 98 Room Air 08/12/24 20:45 36.9 C 71 18 163/98 H 97 Room Air
--- NOTE | 2024-08-13 13:20 | Discharge Summary ---
Date of Service August 13, 2024 Admission HPI Per Admitting Provider Clement is a 48-year-old male with PMH of alcoholism, DTs, opioid use disorder (in remission), anxiety, depression, pancytopenia, HTN, and gout. He presented on 08/04 for an alcohol detox request. Patient's last drink was the morning of 08/04. He reports that he drinks been drinking 20-25 beers daily for extended period of time. He denies hard alcohol use. He does have a history of 1 alcohol-induced seizure which occurred in June 2023 outside of [facility]. He also has a history of DTs and visual hallucinations with alcohol withdrawal. Patient reports that he did take his regular morning medicines today, and reports good compliance plans with taking his medications daily. He has been trying to wean down on gabapentin recently, and is currently on 600 mg tablets twice daily. He did stop taking his colchicine for gout because he was having loose stool. He reports a good diet despite drinking beer throughout the day. No sick contacts. No supplemental oxygen at baseline. Patient reports he does use chewing tobacco. He denies smoking tobacco and recreational drug use.. No history of pancreatitis. He reports that he is not interested in inpatient rehab (did not have a good experience at [facility] in [employer]), but reports he is amenable to outpatient alcoholic rehab (at [facility]). Last alcoholic drink was this morning on 08/04. He does have a history of alcohol related seizures when he stops drinking. Patient's vitals are stable at time of admission. ED course: Thiamine 250 mg IV ROS: Patient endorses sweating, dizziness/lightheadedness when bending over, intermittent posterior headaches, tinnitus (which patient attributes to shooting on range), right flank pain (resolved), loose stool, nausea (takes zofran frequently, which helps), straining with urination, Patient denies fever, chills, visual/auditory hallucinations, chest pain, SOB, chest palpitations, pleuritic CP, abdominal pain, vomiting, loss of appetite, burning with urination, blood in the urine/stool, or numbness/tingling in arms or legs. Principal Diagnosis Alcohol detoxification Discharge Exam General: no acute distress; pleasant affect; non-toxic appearing; cooperative; HEENT: normocephalic, atraumatic; no scleral icterus; PERRLA; vision and hearing grossly intact Neck: supple; no lymphadenopathy; trachea midline Skin: warm, dry without signs of tenting; no cyanosis; no rashes, bruising, lesions, or erythema noted CV: RRR; S1/S2 normal; no murmurs/rubs/gallops; pulses intact and symmetric at radial Lungs: Nonlabored breathing, clear across all lung olivarez w/o adventitious sounds; no wheezing ABD: Soft, NTP; BS present MSK: no tics or fasciculations; no tremor; no edema noted in the LEs, Use of walker for balance. Difficulty with rising from bed. Neuro: A&Ox3; normal mood and affect; mildly speech slurred, but coherent; no focal deficits; Discharge Data Allergies Allergy/AdvReac Type Severity Reaction Status Date / Time bupropion AdvReac Severe Anxiety Verified 07/16/24 07:38 [From Wellbutrin SR] Consultations 08/04/24 12:30 ED Decision to Admit Stat Hospital Course (1) Alcohol withdrawal: (2) Opioid use disorder, moderate, in sustained remission: (3) Anemia: (4) HTN (hypertension): (5) Depression, unspecified: (6) Elevated liver enzymes: Plan 1. Alcohol Withdrawal Pt is no longer having nighttime agitation. Slept well. Continues with decreased stamina and using walker for balance. - 10mg Geodon PO BID - Continue 5 mg diazepam Q8 - Continue virtioxetine 20 mg daily - Continue Gabapentin 600 mg BID - Continue 100 mg thiamine PO daily. - Hold Lexapro - Continue AWSS protocol - Continue fall precautions - PT/OT eval completed 08/10 PT recommends inpatient rehab prior to inpatient alcohol rehab facility- Placement at [facility] - Goal to send patient to [facility] as requested after he is medically cleared 2.Opioid use disorder - Continue suboxone 1 tab TID 3. Tobacco Use - Continue 14mg Nicotine patch 4. Anemia Stable based on CBC - Continue to monitor CBC 5. HTN BP's are maintaining well on current regimen - Clonidine 0.1mg PO qam, - Hold Losartan 100 mg - Continue to monitor 6. Elevated liver enzymes Trending back to normal. Hepatitis panel negative. - Consider Hep A and B immunizations in future 7. Nocturnal hypoxia - Resolved Total Time Total Time Spent Total Time Spent (In Minutes): Per attending physician's attestation Discharge Plan Discharge Items Patient Disposition: Transfer Inpatient Rehab Fac Reason For Visit: ALCOHOL DETOX REQUEST Discharge Diagnosis: Alchohol dependence Activity: Per Instructions section Non-emergency contact: Primary Care Provider Call non-emergency contact if: you have any medication questions and your symptoms worsen Follow-up/Referrals: Victor Hugo Puckett DO [Primary Care Provider] - Diet: Regular Addtl Attending Provider Instructions: Alcohol Withdrawal - Admitted for request of alcohol detoxification, ultimate goal is to go back to [facility] -> last drink 08/04 - Was treated with symptom triggered Ativan, did require Precex for a short period due to agitation/hallucinations has been off since 08/09. - 20mg Geodon daily started due to agitation-> would plan to wean as tolerated - Continue 5 mg diazepam Q8 -> continue to wean as tolerated - Continue virtioxetine 20 mg daily - Continue Gabapentin 600 mg BID - Continue folate/thiamine supplementation. - Hold Lexapro PT recommends inpatient rehab prior to inpatient alcohol rehab facility - Goal to send patient to [facility] as requested after he is medically cleared Anxiety - SSRI held in the setting of acute alcohol withdrawal and concern for multiple medications - Consider restarting/working towards a appropriate outpatient regimen as anxi ety is trigger for alcohol use Opioid use disorder - Continue suboxone 1 tab TID Tobacco Use - Continue 14mg Nicotine patch Pancytopenia - overall stable now. likely myelosuppression from chronic severe AUD. -to consider liver imaging and further evaluation in outpatient setting -follow periodic CBC HTN BP's are maintaining well on current regimen - Home medication- 5mg amlodipine- 40mg olmesartan-> held due to orthostatic hypotension - Was started on clonidine, but ultimately held due to orthostatic hypotension - would plan to start as blood pressures tolerate Elevated liver enzymes -Hepatitis panel negative -Should have hep A/B immunization as outpatient. Pending Studies at Discharge: No Stand-Alone Forms: My [facility] Skilled Items Patient informed of condition?: Yes DNR: No Discharge Level of Care: Acute rehab Communicable Disease: No Discharge Prognosis: Improving Lines: None Urinary Catheter: No Medications and DC Order Prescriptions: New thiamine HCl (vitamin B1) 100 mg Tablet 100 mg PO QAM 30 Days Qty: 30 0RF ziprasidone HCl 20 mg Capsule 20 mg PO DAILY 30 Days Qty: 30 0RF gabapentin 300 mg Capsule 600 mg PO BID 30 Days Qty: 120 0RF folic acid 1 mg Tablet 1 mg PO QAM 30 Days Qty: 30 0RF diazepam 5 mg Tablet 5 mg PO Q8 10 Days Qty: 30 0RF nicotine 7 mg/24 hr Patch 24 Hour 1 patch transdermal Q24H 30 Days Qty: 30 0RF Continued ondansetron HCl 4 mg tablet 4 mg PO Q8H PRN (Reason: nausea and vomiting) Qty: 30 2RF buprenorphine-naloxone [Suboxone] 8-2 mg film 1 film SL TID Qty: 1 0RF Rx Instructions: Takes AM, LUNCH & PM Trintellix 20 mg tablet 20 mg PO DAILY Held amlodipine-olmesartan 5-40 mg tablet 1 tab PO DAILY Qty: 90 3RF Hold Instructions: Resume if blood pressure tolerates. escitalopram oxalate 20 mg tablet 20 mg PO DAILY Qty: 90 2RF Hold Instructions: Consider resuming in future for anxiety regimen Discontinued gabapentin 600 mg tablet 600 mg PO QID 90 Days Qty: 360 1RF Discharge Orders: Discharge Order (Routine); Ordered 08/13/24 Ordered By: Nereyda Anthony Admission Data Admit Date/Time: 08/04/24 12:47 Attending Provider: Keith Green Admit Provider: Jono Smith Primary Care Provider: Victor Hugo Puckett Other Providers: [facility]; Jenni Calderon [facility]; [facility]; Jono Smith Other Interventions: Discharge Summary Assessment (RN) Last Done: 08/13/24 15:39 Supervising Physician Co-Signing Physician Notes I personally examined the patient and verified all hanna points of history and exam, discussed case, and agree with decision making with Dr Darling doing ok slightly groggy no new issues no complaints hoping to get to rehab. dr darling succeeded w peer to peer vitals noted nad heent nc at [facility]mm breathing unlabored no accessory muscles good effort somewhat groggy but sitting up pulling on socks Alcohol withdrawal/Severe AUD- -Valium 5mgs Q8. -Continue SSRI and gabapentin. -continue ziprasidone 20mgs BID. -continue thiamine/folate -d/w rehab physician and anticipate OUD - continue suboxone. TUD - nicotine patch Pancytopenia - overall stable now. likely myelosuppression from chronic severe AUD. -to consider liver imaging and further evaluation in outpatient setting -follow periodic CBC Transaminitis - likely from AUD. -Hepatitis panel negative -Should have hep A/B immunization as outpatient. HTN- but with orthostatic hypotension - likely multifactorial - holding clonidine for now, encourage PO intake, continue to follow, pressures have been reasonable given the situation Lovenox. for physical rehab today likely EtOH rehab after Resident Activity Tracking Resident Involvement: Resident Care Provided Care Provided: Adult [facility] Medicine
[2024-08-13 15:23] VITALS: BP 141/83; RESP 18; TEMP 97.7; O2SAT 97
[2024-08-13 15:41] VITALS: PULSE 77
--- NOTE | 2024-08-13 17:49 | Billing Data ---
Date of Service August 13, 2024 Coding Level of Care Code 14817 IN/OBS DISCH 30 MIN/LESS
--- NOTE | 2024-08-13 17:50 | Billing Data ---
Date of Service August 13, 2024 Coding Level of Care Code 13601 IN/OBS DISCH 30 MIN/LESS
== END 2024-08-13 18:58 | DRG 897 ==
LOC: ED 09:22 → SUATTDRO 12:47 → 2E 12:47 → 1E 08-07 03:57 → 3W 08-11 17:31